=== PATIENT | female | born 1990 | race Caucasian/White ===

== ENCOUNTER 2023-03-31 16:23 | Emergency (ER) | payer OTHER, SELFPAY ==
[2023-03-31 16:27] VITALS: BP 144/81; PULSE 96; RESP 20; TEMP 36.6; O2SAT 97; BMI 32.6
--- NOTE | 2023-03-31 16:54 | ED.GENADUL1 ---
HPI - General Adult General Chief complaint: Headache Stated complaint: Headache Time Seen by Provider: 03/31/23 16:47 Source: patient Mode of arrival: walk-in Limitations: no limitations History of Present Illness HPI narrative: 32 year old female presents to the ED for a frontal headache. Onset was one week ago. She has had intermittent episodes of emesis. States she is 16 weeks . Denies fever, chills, vision changes, weakness, dizziness. Denies sinus congestion/drainage/pressure. Denies CP, cough, SOB, sore throat, diarrhea, urinary sx. Her pain is worse when bending forward. Rates her pain 7/10 at this time. Tylenol has not been helping. Repeat BP during my evaluation was 131/82. Location: Reports head Radiation: Reports non-radiation Severity: moderate Associated symptoms: Reports headaches and nausea/vomiting; Denies confusion, chest pain, cough, diaphoresis, fever/chills, loss of appetite, rash, shortness of breath, syncope or weakness Related Data Home Medications Medication Instructions Recorded Confirmed metoclopramide HCl 10 mg tablet 10 mg PO Q6H PRN headache 03/31/23 03/31/23 (Reglan) prenat.vits,fred,smh-lwvf-snofo 1 tab PO DAILY 03/31/23 03/31/23 Allergies Allergy/AdvReac Type Severity Reaction Status Date / Time No Known Drug Allergies Allergy Verified 03/31/23 16:29 Review of Systems ROS Constitutional Denies: fever, chills or fatigue Eyes Denies: change in vision, light sensitivity or eye discomfort Ears, nose, mouth, and throat Denies: throat pain, neck pain, ear pain, ear discharge, vertigo, nasal discharge or nasal congestion Cardiovascular Denies: chest pain, edema or shortness of breath with exertion Respiratory Denies: shortness of breath or cough Gastrointestinal Reports: nausea and vomiting; Denies: abdominal pain or diarrhea Genitourinary Denies: painful urination Musculoskeletal Denies: back pain or neck pain Integumentary/Breast Denies: rash Neurological Reports: headache; Denies: numbness in extremities, weakness in extremities, lack of coordination, dizziness, vertigo, confusion, slurred speech or involuntary movements Exam Constitutional: Vital Signs - 24 hr 03/31/23 16:27 Temperature 97.8 F Pulse Rate [Monito r] 96 H Respiratory Rate 20 Blood Pressure [Ri ght Arm] 144/81 H Pulse Oximetry 97 Oxygen Delivery Me thod Room Air Common normals: no apparent distress and oriented x3 General appearance: cooperative and well developed; not in distress and not ill appearing Orientation/consciousness: Yes awake HENMT: Common normals: normocephalic, external ears normal, external nose normal, moist oral mucous membranes and oropharynx normal Head and scalp: normal to inspection and normocephalic; no raccoon eyes Face and sinus: normal facial exam, sinuses nontender and face symmetric; no sinus tenderness and no facial edema Nose: external nose normal Mouth: lip normal and tongue normal; no drooling Eye: Common normals: PERRL, EOMs intact bilaterally, conjunctivae normal and no scleral icterus Neck & C-Spine: Common normals: full ROM and supple Cervical spine: cervical ROM normal; no pain with cervical ROM Respiratory: Common normals: normal respiratory effort and clear to auscultation bilaterally Cardio: Common normals: regular rate and regular rhythm Neuro: Common normals: oriented x3, CN's II-XII intact bilaterally, moves all extremities, no focal motor deficits, no sensory deficits noted and gait normal Sensorium/orientation: awake and alert Meningeal signs: no meningeal signs Speech: speech normal Skin: Common normals: no rashes or lesions noted and no jaundice Course Vital Signs Vital signs: Vital Signs Temperature 97.8 F 03/31/23 16:27 Pulse Rate 96 H 03/31/23 16:27 Respiratory Rate 20 03/31/23 16:27 Blood Pressure 144/81 H 03/31/23 16:27 Pulse Oximetry 97 03/31/23 16:27 Oxygen Delivery Method Room Air 03/31/23 16:27 Temperature 97.8 F 03/31/23 16:27 Pulse Rate 96 H 03/31/23 16:27 Respiratory Rate 20 03/31/23 16:27 Blood Pressure 144/81 H 03/31/23 16:27 Pulse Oximetry 97 03/31/23 16:27 Oxygen Delivery Method Room Air 03/31/23 16:27 Medical Decision Making MDM Narrative Medical decision making narrative: The patient was given IV fluids and Reglan with improvement in her discomfort. CBC, BMP, and urinalysis were completed. Results were unremarkable; urine culture is pending. Follow up with [facility] for a recheck, further evaluation and treatment. A prescription was provided for Reglan to take as directed for her discomfort and nausea. Medical Records Medical records reviewed: Yes I reviewed the patient's medical records Lab Data Lab results reviewed: Yes I reviewed the patient's lab results Labs: Lab Results 03/31/23 03/31/23 Range/Units 17:09 17:12 WBC 8.6 (4.0-11.0) 10^3/uL RBC 4.21 (4.20-5.40) 10^6/uL Hgb 13.3 (12.0-16.0) g/dL Hct 37.4 (36.0-48.0) % MCV 88.8 (81.0-99.0) fL MCH 31.6 (26.7-34.0) pg MCHC 35.6 H (29.9-35.2) g/dL RDW 13.3 (11.0-15.0) % Plt Count 172 (150-450) 10^3/uL MPV 10.8 (9.5-13.5) fL Neut % (Auto) 61.6 (43.0-75.0) % Lymph % (Auto) 28.4 (20.5-60.0) % [place] % (Auto) 8.6 (1.7-12.0) % Eos % (Auto) 0.8 L (0.9-7.0) % Baso % (Auto) 0.4 (0.2-2.0) % Neut # (Auto) 5.3 (1.4-6.5) 10^3/uL Lymph # (Auto) 2.4 (1.2-3.8) 10^3/uL [place] # (Auto) 0.7 (0.3-0.8) 10^3/uL Eos # (Auto) 0.1 (0.0-0.7) 10^3/uL Baso # (Auto) 0.0 (0.0-0.1) 10^3/uL Sodium 135 L (136-145) mmol/L Potassium 3.6 (3.5-5.1) mmol/L Chloride 103 (98-107) mmol/L Carbon Dioxide 22.0 (21.0-32.0) mmol/L Anion Gap 13.6 BUN 8.0 (7.0-18.0) mg/dL Creatinine 0.71 (0.55-1.02) mg/dL Est GFR ( Amer) >60 (>=60) Est GFR (Non-Af Amer) >60 (>=60) BUN/Creatinine Ratio 11.3 Glucose 64 L (74-106) mg/dL Calcium 8.4 L (8.5-10.1) mg/dL Total Bilirubin 0.3 (0.2-1.0) mg/dL AST 11 L (15-37) U/L ALT 18 (14-59) U/L Total Protein 6.9 (6.4-8.2) g/dL Albumin 3.3 L (3.4-5.0) g/dL Globulin 3.6 g/dL Albumin/Globulin Ratio 0.9 Urine Color Lt. yellow (YELLOW) Urine Clarity Clear (CLEAR) Urine pH 7.5 (5.0-9.0) Ur Specific [place] 1.010 (1.005-1.025) Urine Protein Negative (NEG/TRACE) mg/dL Urine Glucose (UA) Negative (NEGATIVE) mg/dL Urine Ketones Negative (NEGATIVE) mg/dL Urine Occult Blood Negative (NEGATIVE) Urine Nitrite Negative (NEGATIVE) Urine Bilirubin Negative (NEGATIVE) Urine Urobilinogen 0.2 (0.2-1.0) EU/dL Ur Leukocyte Esterase Trace A (NEGATIVE) Urine RBC 0-2 (0-2) #/HPF Urine WBC 5-10 A (NONE SEEN) #/HPF Ur Squamous Epith Cells Rare (NONE/RARE) #/LPF Ur Culture Indicated? Yes Discharge Plan Discharge Chief Complaint: Headache Clinical Impression: Headache Patient Disposition: Home, Self-Care Time of Disposition Decision: 18:42 Mode of Transportation: Private Vehicle Prescriptions / Home Meds: No Action prenat.vits,fred,[id number] Tablet 1 tab PO DAILY metoclopramide HCl [Reglan] 10 mg tablet 10 mg PO Q6H PRN (Reason: headache) Rx Instructions: NAUSEAA, VOMITING, HEADACHE Instructions: Acute Headache (ED) Additional Instructions: Take the Reglan as directed for your discomfort and nausea. Follow up with your [facility] [employer] for a recheck, further evaluation and treatment. Stand Alone Forms: Portal Instructions Referrals: Physician,Non-Staff, MD [Primary Care Provider] - 1 week
[2023-03-31] MEDS: 0.9 % SODIUM CHLORIDE 1,000 ML 999 ML IV (17:12)
[2023-03-31 17:19] LABS: Basophils Percent Auto 0.4 % (0.2-2.0); Eosinophils Absolute Auto 0.1 10^3/uL (0.0-0.7); Eosinophils Percent Auto 0.8 % (0.9-7.0); Hematocrit 37.4 % (36.0-48.0); Hemoglobin 13.3 g/dL (12.0-16.0); Immature Granulocytes Abs Auto 0.02 10^3/uL (0.00-0.03); Immature Granulocytes Pct Auto 0.2 % (0.0-0.5); Lymphocytes Absolute Auto 2.4 10^3/uL (1.2-3.8); Lymphocytes Percent Auto 28.4 % (20.5-60.0); Mean Corpuscular HGB Conc 35.6 g/dL (29.9-35.2); Mean Corpuscular Hemoglobin 31.6 pg (26.7-34.0); Mean Corpuscular Volume 88.8 fL (81.0-99.0); Mean Platelet Volume 10.8 fL (9.5-13.5); Monocytes Absolute Auto 0.7 10^3/uL (0.3-0.8); Monocytes Percent Auto 8.6 % (1.7-12.0); Neutrophils Absolute Auto 5.3 10^3/uL (1.4-6.5); Neutrophils Percent Auto 61.6 % (43.0-75.0); Platelet Count 172 10^3/uL (150-450); Red Blood Count 4.21 10^6/uL (4.20-5.40); Red Cell Distribution Width 13.3 % (11.0-15.0); White Blood Count 8.6 10^3/uL (4.0-11.0)
[2023-03-31 17:47] LABS: Bilirubin Urine NEGATIVE (NEGATIVE); Blood Urine NEGATIVE (NEGATIVE); Clarity Urine CLEAR (CLEAR); Color Urine LT. YELLOW (YELLOW); Glucose Urine UA NEGATIVE (NEGATIVE); Ketones Urine NEGATIVE (NEGATIVE); Leukocyte Esterase Urine TRACE (NEGATIVE); Nitrite Urine NEGATIVE (NEGATIVE); Protein Urine NEGATIVE (NEG/TRACE); Urobilinogen Urine 0.2 EU/dL (0.2-1.0); pH Urine 7.5 (5.0-9.0)
[2023-03-31 17:53] LABS: Bacteria Urine TRACE #/HPF (NONE SEEN); Cast Seen? NONE SEEN #/LPF (NONE SEEN); Crystals Seen? None Seen #/HPF (None Seen); Mucus Urine NONE SEEN (NONE SEEN); RBC Urine 0-2 #/HPF (0-2); Squamous Epithelial Cell Urine RARE #/LPF (NONE/RARE); Urine Culture Indicated YES
[2023-03-31 17:57] LABS: Alanine Aminotransferase 18 U/L (14-59); Albumin Globulin Ratio 0.9; Albumin Level 3.3 g/dL (3.4-5.0); Alkaline Phosphatase 51 U/L (46-116); Anion Gap 13.6; Aspartate Amino Transferase 11 U/L (15-37); BUN Creatinine Ratio 11.3; Bilirubin Total 0.3 mg/dL (0.2-1.0); Calcium 8.4 mg/dL (8.5-10.1); Chloride 103 mmol/L (98-107); Estimated GFR (African America >60 (>=60); Estimated GFR (Non-African Ame >60 (>=60); Globulin 3.6 g/dL; Glucose 64 mg/dL (74-106); Potassium 3.6 mmol/L (3.5-5.1); Sodium 135 mmol/L (136-145); Total Protein 6.9 g/dL (6.4-8.2)
[2023-03-31] MEDS: METOCLOPRAMIDE HCL 10 MG/2 ML VIAL IVP (18:30)
== END 2023-03-31 18:53 | disposition home or self-care (01) ==
PROVIDERS: Nurse Practitioner Family; Emergency Provider Emergency Medicine
DX: O26.892 Other specified pregnancy related conditions, second trimester (principal); R51.9 Headache, unspecified; Z3A.16 16 weeks gestation of pregnancy
CPT/HCPCS: 36415; 80053; 81001; 81003; 85025; 87086; 87150; 87186; 96374; 99284

== ENCOUNTER 2023-04-03 19:45 | Outpatient (REF) | payer OTHER, SELFPAY ==
[2023-04-06 13:15] LABS: Age Gdln ACOG Testing Note (.); HPV Aptima Negative (Negative); IGP, Aptima HPV, rfx 16/18,45 Note (.)
== END 2023-04-03 19:46 ==
LOC: LAB 19:45
PROVIDERS: PCP Physician Assistant; Visit Provider Physician Assistant
DX: Z12.4 Encounter for screening for malignant neoplasm of cervix (principal)
CPT/HCPCS: 87624; G0145

== ENCOUNTER 2023-05-08 13:12 | Outpatient (OUT) | payer OTHER, SELFPAY ==
--- NOTE | 2023-05-08 13:13 | US_ITS ---
[address] [address] Patient Name: JEANNIE CADE MRN: [id number] date: 1990 Sex: F Assigned Patient Location: US Current Patient Location: US Accession/Order Number: [id number] Exam Date: 05/08/2023 13:14 Report Date: 05/08/2023 16:01 At the request of: MICHAEL LOVING Procedure: US OB transvaginal EXAMINATION: US OB anatomy HISTORY: ANATOMY COMPARISON: No relevant comparison available. TECHNIQUE: Transabdominal sonographic examination was performed for obstetrical and evaluation. FINDINGS: Number: 1 Heart Rate: 163.0 bpm H.B. /min Amniotic Fluid Volume: Subjectively normal. Placental Location: POSTERIOR with lower margin 4.7 cm from os. Cervix Length: 4.4 cm, closed. Trace amount of free fluid within cervical canal. ANATOMY: Normal Structures -cerebellum, choroid plexus, cisterna magna, lateral cerebral ventricles, orbits, midline falx, hard palate, four-chamber heart, RVOT, LVOT, stomach, kidneys, bladder, umbilical cord insertion into abdomen, three-vessel cord, cervical spine, thoracic spine, lumbar spine, sacral spine, right upper extremity, left upper extremity, right lower extremity, left lower extremity. SUBOPTIMALLY SEEN: None ABNORMALITIES: None BIOMETRY: BPD: 4.4 cm 19 weeks 3 days ; <3% HC: 17.5 cm 20 weeks 0 days; 6% AC: 17.0 cm 22 weeks 0 days; 69% FL: 3.7 cm 21 weeks 5 days; 63% EFW:434.4 grams; 68% FL/AC: 21.8 FL/BPD: 83.7 HC/AC: 1.0 GESTATIONAL AGE: Age by EDC: 21 weeks 1 days CARA by EDC: 09/17/2023 Age by current US: 20 weeks 6 days CARA by current US: 09/19/2023 US/US OB transvaginal IMPRESSION: 1. Single live intrauterine with growth detailed above. 2. Biparietal diameter is less than 3rd percentile. Electronically authenticated by: NANCY KING Date: 05/08/2023 16:01
--- NOTE | 2023-05-08 13:13 | US_ITS ---
[address] [address] Patient Name: JEANNIE CADE MRN: [id number] date: 1990 Sex: F Assigned Patient Location: US Current Patient Location: US Accession/Order Number: [id number] Exam Date: 05/08/2023 13:14 Report Date: 05/08/2023 16:01 At the request of: MICHAEL LOVING Procedure: US OB anatomy EXAMINATION: US OB anatomy HISTORY: ANATOMY COMPARISON: No relevant comparison available. TECHNIQUE: Transabdominal sonographic examination was performed for obstetrical and evaluation. FINDINGS: Number: 1 Heart Rate: 163.0 bpm H.B. /min Amniotic Fluid Volume: Subjectively normal. Placental Location: POSTERIOR with lower margin 4.7 cm from os. Cervix Length: 4.4 cm, closed. Trace amount of free fluid within cervical canal. ANATOMY: Normal Structures -cerebellum, choroid plexus, cisterna magna, lateral cerebral ventricles, orbits, midline falx, hard palate, four-chamber heart, RVOT, LVOT, stomach, kidneys, bladder, umbilical cord insertion into abdomen, three-vessel cord, cervical spine, thoracic spine, lumbar spine, sacral spine, right upper extremity, left upper extremity, right lower extremity, left lower extremity. SUBOPTIMALLY SEEN: None ABNORMALITIES: None BIOMETRY: BPD: 4.4 cm 19 weeks 3 days ; <3% HC: 17.5 cm 20 weeks 0 days; 6% AC: 17.0 cm 22 weeks 0 days; 69% FL: 3.7 cm 21 weeks 5 days; 63% EFW:434.4 grams; 68% FL/AC: 21.8 FL/BPD: 83.7 HC/AC: 1.0 GESTATIONAL AGE: Age by EDC: 21 weeks 1 days CARA by EDC: 09/17/2023 Age by current US: 20 weeks 6 days CARA by current US: 09/19/2023 US/US OB anatomy IMPRESSION: 1. Single live intrauterine with growth detailed above. 2. Biparietal diameter is less than 3rd percentile. Electronically authenticated by: NANCY KING Date: 05/08/2023 16:01
== END 2023-05-08 13:13 | disposition home or self-care (01) ==
LOC: US 13:12
PROVIDERS: PCP Physician Assistant; Visit Provider Physician Assistant
DX: Z34.92 Encounter for supervision of normal pregnancy, unspecified, second trimester (principal)
CPT/HCPCS: 76805; 76817

== ENCOUNTER 2023-06-07 19:27 | Outpatient (OUT) | payer OTHER, SELFPAY ==
[2023-06-07 20:06] VITALS: BP 111/70; PULSE 75
[2023-06-07 20:16] LABS: Bilirubin Urine NEGATIVE (NEGATIVE); Blood Urine SMALL (NEGATIVE); Clarity Urine CLEAR (CLEAR); Color Urine LT. YELLOW (YELLOW); Glucose Urine UA NEGATIVE (NEGATIVE); Ketones Urine NEGATIVE (NEGATIVE); Leukocyte Esterase Urine SMALL (NEGATIVE); Nitrite Urine NEGATIVE (NEGATIVE); Protein Urine NEGATIVE (NEG/TRACE); Specific Gravity Urine 1.015 (1.005-1.025); Urobilinogen Urine 0.2 EU/dL (0.2-1.0); pH Urine 6.5 (5.0-9.0)
[2023-06-07 20:18] LABS: Urine Microscopic Indicated YES
[2023-06-07 20:26] LABS: Bacteria Urine LARGE #/HPF (NONE SEEN); Cast Seen? NONE SEEN #/LPF (NONE SEEN); Crystals Seen? None Seen #/HPF (None Seen); Mucus Urine NONE SEEN (NONE SEEN); RBC Urine 0-2 #/HPF (0-2); Squamous Epithelial Cell Urine MANY #/LPF (NONE/RARE); Urine Culture Indicated YES
== END 2023-06-07 21:10 | disposition home or self-care (01) ==
LOC: FBCO 19:29 → FBC 19:31
PROVIDERS: Visit Provider Obstetrics & Gynecology
DX: O26.899 Other specified pregnancy related conditions, unspecified trimester (principal); R10.9 Unspecified abdominal pain
CPT/HCPCS: 59025; 81001; 81003; 87086; 87150

== ENCOUNTER 2023-06-09 11:16 | Emergency (ER) | payer OTHER, SELFPAY ==
[2023-06-09 11:25] VITALS: BP 134/73; PULSE 96; RESP 18; TEMP 37.1; O2SAT 98; BMI 34.4
--- NOTE | 2023-06-09 11:26 | ED_ITS ---
HPI - General Adult General Chief complaint: Back Pain/Injury Stated complaint: FLANK PAIN Time Seen by Provider: 06/09/23 11:26 History of Present Illness HPI narrative: Patient presents to the emergency department complaining of low back pain. Patient is 26 weeks gestation. She states the pain has been ongoing for a week. She was seen and evaluated 2 days ago in labor and delivery. She took a muscle relaxant which has not helped. She also took Tylenol. She states she called labor and delivery and she was told to come to the emergency department to rule out a kidney stone. Patient denies any abdominal pain, contractions. She states the pain radiates from her back to her pelvis. She denies any vaginal bleeding, discharge. She denies any hematuria, dysuria. She denies any nausea, vomiting, diarrhea, or constipation. She states she has felt movent. Related Data Home Medications Medication Instructions Recorded Confirmed prenat.vits,fred,[id number] 1 tab PO DAILY 03/31/23 06/09/23 Previous Rx's Medication Instructions Recorded hydrocodone 5 mg-acetaminophen 325 1 tab PO Q8H PRN pain 3 days #7 06/09/23 mg tablet tabs nitrofurantoin 100 mg PO DAILY #14 caps 06/09/23 monohydrate/macrocrystals 100 mg capsule (Macrobid) Allergies Allergy/AdvReac Type Severity Reaction Status Date / Time No Known Drug Allergies Allergy Verified 06/09/23 11:25 Review of Systems ROS Status of ROS 10 or more systems reviewed and unremarkable except as noted in history and below PFSH PFS Social History Smoking status: Never smoker Exam Narrative Exam Narrative: Nurses notes and vital signs reviewed and patient is not hypoxic. General: Nontoxic, Well-appearing and in no apparent distress. Skin: Warm, dry, no pallor noted. No Rash Head: Normocephalic, atraumatic. Neck: Supple, non-tender. Eye: Pupils are equal, round and EOMI. No scleral icterus. Ears, Nose, Mouth, and Throat: TM clear, no posterior oropharynx erythema or nasal mucosal hypertrophy, uvula is mid-line Oral mucosa is moist Cardiovascular: Regular Rate and Rhythm without murmur, gallop or rub. Respiratory: No accessory muscle use or respiratory distress. Lungs are clear to auscultation, no wheezing, rales or rhonchi Chest Wall: no tenderness Back: No midline thoracic or lumbar vertebral tenderness. Tenderness to palpation to bilateral lumbar paraspinal muscles.No CVA tenderness Musculoskeletal: normal ROM, no calf or popliteal tenderness, no lower extremity edema/swelling GI: Gravid fundus 1 cm Above the umb the umbilicus. Abdomen is soft, non- distended. Normal bowel sounds. No masses appreciated. No tenderness to palpation. No rebound, guarding, or rigidity noted. Neurological: A&O x4. No cranial nerve dysfunction observed. No truncal ataxia. Moves all extremities. Sensation intact. Psychiatric: Cooperative and interactive. Normal mood and affect. Constitutional Vital Signs, click to edit/add: Last Vital Signs Temp 98.7 F 06/09/23 12:50 Pulse 94 H 06/09/23 12:50 Resp 16 06/09/23 12:50 BP 113/60 06/09/23 12:50 Pulse Ox 98 06/09/23 12:50 O2 Del Method Room Air 06/09/23 12:50 Course Vital Signs Vital signs: Vital Signs Temperature 98.7 F 06/09/23 11:25 Pulse Rate 96 H 06/09/23 11:25 Respiratory Rate 18 06/09/23 11:25 Blood Pressure 134/73 06/09/23 11:25 Pulse Oximetry 98 06/09/23 11:25 Oxygen Delivery Method Room Air 06/09/23 11:25 Temperature 98.7 F 06/09/23 12:50 Pulse Rate 94 H 06/09/23 12:50 Respiratory Rate 16 06/09/23 12:50 Blood Pressure 113/60 06/09/23 12:50 Pulse Oximetry 98 06/09/23 12:50 Oxygen Delivery Method Room Air 06/09/23 12:50 Medical Decision Making MDM Narrative Medical decision making narrative: Patient's heart tones 152. Patient was discussed with Dr. Samano who advised the patient can be seen in the emergency department 1st and she will send a nurse to monitor the patient. Delivery nurse came and did a 10 minute palpation to the patient's abdomen and there were no contractions. Ultrasound of the flank does not show any stones. Ultrasound of placenta did not show any contractions either. Patient is nontoxic, she started on Macrobid. Discussed with the patient using narcotic as pain medication during and she understands the risks and the benefits. She will follow up with Dr. Keturah Caputo morning. At this time the patient is without objective evidence of an acute process requiring hospitalization or inpatient management. The patient has remained hemodynamically stable. No additional indication for emergent studies at this time. I answered all questions. Discussed discharge instructions including standard anticipatory guidance and what should prompt a return to the emergency department, including if they get worse are not getting better or develops any new or concerning symptoms. I've given them specific time frame in which to follow-up, and who to follow-up with. The patient demonstrates understanding. Patient is nontoxic and stable for discharge with outpatient follow-up. This note was created with the assistance of a speech recognition program. Although the intention is to generate documents that actually reflects the content of the visit, no guarantees can be provided that every mistake has been identified and corrected by editing. Medical Records Medical records reviewed: Yes I reviewed the patient's medical records Lab Data Lab results reviewed: Yes I reviewed the patient's lab results Labs: Lab Results 06/09/23 Range/Units 11:35 WBC 6.9 (4.0-11.0) 10^3/uL RBC 3.79 L (4.20-5.40) 10^6/uL Hgb 12.1 (12.0-16.0) g/dL Hct 34.7 L (36.0-48.0) % MCV 91.6 (81.0-99.0) fL MCH 31.9 (26.7-34.0) pg MCHC 34.9 (29.9-35.2) g/dL RDW 13.1 (11.0-15.0) % Plt Count 153 (150-450) 10^3/uL MPV 10.9 (9.5-13.5) fL Neut % (Auto) 67.7 (43.0-75.0) % Lymph % (Auto) 19.4 L (20.5-60.0) % [place] % (Auto) 6.5 (1.7-12.0) % Eos % (Auto) 5.4 (0.9-7.0) % Baso % (Auto) 0.4 (0.2-2.0) % Neut # (Auto) 4.7 (1.4-6.5) 10^3/uL Lymph # (Auto) 1.3 (1.2-3.8) 10^3/uL [place] # (Auto) 0.5 (0.3-0.8) 10^3/uL Eos # (Auto) 0.4 (0.0-0.7) 10^3/uL Baso # (Auto) 0.0 (0.0-0.1) 10^3/uL Abs Immat Gran (auto) 0.04 H (0.00-0.03) 10^3/uL Imm/Tot Granulo (auto) 0.6 H (0.0-0.5) % Sodium 134 L (136-145) mmol/L Potassium 3.6 (3.5-5.1) mmol/L Chloride 104 (98-107) mmol/L Carbon Dioxide 22.2 (21.0-32.0) mmol/L Anion Gap 11.4 BUN 6.0 L (7.0-18.0) mg/dL Creatinine 0.70 (0.55-1.02) mg/dL Est GFR ( Amer) >60 (>=60) Est GFR (Non-Af Amer) >60 (>=60) BUN/Creatinine Ratio 8.6 Glucose 125 H (74-106) mg/dL Calcium 8.3 L (8.5-10.1) mg/dL Total Bilirubin 0.3 (0.2-1.0) mg/dL AST 12 L (15-37) U/L ALT 14 (14-59) U/L Alkaline Phosphatase 42 L (46-116) U/L Total Protein 6.4 (6.4-8.2) g/dL Albumin 2.9 L (3.4-5.0) g/dL Globulin 3.5 g/dL Albumin/Globulin Ratio 0.8 Urine Color Lt. yellow (YELLOW) Urine Clarity Clear (CLEAR) Urine pH 7.0 (5.0-9.0) Ur Specific [place] 1.015 (1.005-1.025) Urine Protein Negative (NEG/TRACE) mg/dL Urine Glucose (UA) Negative (NEGATIVE) mg/dL Urine Ketones Negative (NEGATIVE) mg/dL Urine Occult Blood Trace-i (NEGATIVE) Urine Nitrite Negative (NEGATIVE) Urine Bilirubin Negative (NEGATIVE) Urine Urobilinogen 0.2 (0.2-1.0) EU/dL Ur Leukocyte Esterase Moderate A (NEGATIVE) Urine RBC 2-5 A (0-2) #/HPF Urine WBC 10-20 A (NONE SEEN) #/HPF Ur Squamous Epith Cells Few A (NONE/RARE) #/LPF Urine Crystals None seen (None Seen) #/HPF Urine Bacteria Small A (NONE SEEN) #/HPF Urine Casts None seen (NONE SEEN) #/LPF Urine Mucus None seen (NONE SEEN) Ur Culture Indicated? Yes Discharge Plan Discharge Chief Complaint: Back Pain/Injury Clinical Impression: Low back pain, UTI (urinary tract infection) Patient Disposition: Home, Self-Care Time of Disposition Decision: 12:38 Condition: Good Mode of Transportation: Private Vehicle Prescriptions / Home Meds: New hydrocodone-acetaminophen 5-325 mg tablet 1 tab PO Q8H PRN (Reason: pain) 3 Days Qty: 7 0RF nitrofurantoin monohyd/m-cryst [Macrobid] 100 mg capsule 100 mg PO DAILY Qty: 14 0RF No Action prenat.vits,fred,trd-luhk-eyddl Tablet 1 tab PO DAILY Instructions: Acute Low Back Pain (ED), Urinary Tract Infection in (ED) Stand Alone Forms: Portal Instructions Referrals: Marv Rebollar DO [Physician] - 1 week Physician,Non-Staff, MD [Primary Care Provider] - 1 week Discharge Date/Time: 06/09/23 12:56
--- NOTE | 2023-06-09 11:28 | US_ITS ---
The [address] [address] Patient Name: JEANNIE CADE MRN: [id number] date: 1990 Sex: F Assigned Patient Location: ED.MAIN Current Patient Location: ER Accession/Order Number: [id number] Exam Date: 06/09/2023 11:30 Report Date: 06/09/2023 12:15 At the request of: GUERDA PINTO Procedure: US renal BI EXAMINATION: US renal BI HISTORY: flank pain, COMPARISON: No relevant comparison available. TECHNIQUE: Ultrasound examination was performed of the kidneys and urinary bladder. FINDINGS: RIGHT KIDNEY: Mildly dilated renal calyces and pelvis. No appreciable stones or mass. Color Doppler demonstrates blood flow within the kidney. Kidney: 12.4 x 6.0 x 5.2 cm LEFT KIDNEY: No evidence of pelvocaliectasis, mass, or calculi. Normal renal cortical parenchymal echogenicity. Color Doppler demonstrates blood flow within the kidney. Kidney: 10.9 x 4.9 x 5.0 cm US/US renal BI IMPRESSION: 1. Minimal right hydronephrosis; possibly -induced. 2. Otherwise normal appearance of the kidneys. Electronically authenticated by: NANCY KING Date: 06/09/2023 12:15
--- NOTE | 2023-06-09 11:43 | US_ITS ---
[place] [id number] Patient Name: JEANNIE CADE MRN: [id number] date: 1990 Sex: F Assigned Patient Location: ER Current Patient Location: ER Accession/Order Number: [id number] Exam Date: 06/09/2023 11:30 Report Date: 06/09/2023 12:13 At the request of: GUERDA PINTO Procedure: US OB placenta EXAMINATION: US OB placenta HISTORY: back pain COMPARISON: Ultrasound OB anatomy 05/08/2023 FINDINGS: PLACENTA: Posterior without previa. No subchorionic hematoma or abruption. HEART RATE: 153 bpm OTHER: Amniotic fluid volume is suspected to be normal. US/US OB placenta IMPRESSION: 1. Single live intrauterine 25 weeks 5 days. 2. Normal-appearing posterior placenta. No acute findings. Electronically authenticated by: NANCY KING Date: 06/09/2023 12:13
[2023-06-09] MEDS: 0.9 % SODIUM CHLORIDE 1,000 ML 1000 ML IV (11:46)
[2023-06-09 11:49] LABS: Basophils Percent Auto 0.4 % (0.2-2.0); Eosinophils Absolute Auto 0.4 10^3/uL (0.0-0.7); Eosinophils Percent Auto 5.4 % (0.9-7.0); Hematocrit 34.7 % (36.0-48.0); Hemoglobin 12.1 g/dL (12.0-16.0); Immature Granulocytes Abs Auto 0.04 10^3/uL (0.00-0.03); Immature Granulocytes Pct Auto 0.6 % (0.0-0.5); Lymphocytes Absolute Auto 1.3 10^3/uL (1.2-3.8); Lymphocytes Percent Auto 19.4 % (20.5-60.0); Mean Corpuscular HGB Conc 34.9 g/dL (29.9-35.2); Mean Corpuscular Hemoglobin 31.9 pg (26.7-34.0); Mean Corpuscular Volume 91.6 fL (81.0-99.0); Mean Platelet Volume 10.9 fL (9.5-13.5); Monocytes Absolute Auto 0.5 10^3/uL (0.3-0.8); Monocytes Percent Auto 6.5 % (1.7-12.0); Neutrophils Absolute Auto 4.7 10^3/uL (1.4-6.5); Neutrophils Percent Auto 67.7 % (43.0-75.0); Platelet Count 153 10^3/uL (150-450); Red Blood Count 3.79 10^6/uL (4.20-5.40); Red Cell Distribution Width 13.1 % (11.0-15.0); White Blood Count 6.9 10^3/uL (4.0-11.0)
[2023-06-09 11:58] LABS: Alanine Aminotransferase 14 U/L (14-59); Albumin Globulin Ratio 0.8; Albumin Level 2.9 g/dL (3.4-5.0); Alkaline Phosphatase 42 U/L (46-116); Anion Gap 11.4; Aspartate Amino Transferase 12 U/L (15-37); BUN Creatinine Ratio 8.6; Bilirubin Total 0.3 mg/dL (0.2-1.0); Calcium 8.3 mg/dL (8.5-10.1); Carbon Dioxide 22.2 mmol/L (21.0-32.0); Chloride 104 mmol/L (98-107); Estimated GFR (African America >60 (>=60); Estimated GFR (Non-African Ame >60 (>=60); Globulin 3.5 g/dL; Glucose 125 mg/dL (74-106); Potassium 3.6 mmol/L (3.5-5.1); Sodium 134 mmol/L (136-145); Total Protein 6.4 g/dL (6.4-8.2)
[2023-06-09 12:24] LABS: Bilirubin Urine NEGATIVE (NEGATIVE); Blood Urine TRACE-I (NEGATIVE); Clarity Urine CLEAR (CLEAR); Color Urine LT. YELLOW (YELLOW); Glucose Urine UA NEGATIVE (NEGATIVE); Ketones Urine NEGATIVE (NEGATIVE); Leukocyte Esterase Urine MODERATE (NEGATIVE); Nitrite Urine NEGATIVE (NEGATIVE); Protein Urine NEGATIVE (NEG/TRACE); Specific Gravity Urine 1.015 (1.005-1.025); Urobilinogen Urine 0.2 EU/dL (0.2-1.0)
[2023-06-09 12:25] LABS: Urine Microscopic Indicated YES
[2023-06-09 12:38] LABS: Bacteria Urine SMALL #/HPF (NONE SEEN); Cast Seen? NONE SEEN #/LPF (NONE SEEN); Crystals Seen? None Seen #/HPF (None Seen); Mucus Urine NONE SEEN (NONE SEEN); Squamous Epithelial Cell Urine FEW #/LPF (NONE/RARE); Urine Culture Indicated YES
[2023-06-09 12:50] VITALS: BP 113/60; PULSE 94; RESP 16; TEMP 37.1; O2SAT 98
--- NOTE | 2023-06-12 11:23 | PC.NURSE ---
06/12/[address] garcia reviewed pt urine c+s from 06/09/23 no atb change to keflex 500mg 1 po tid times 10 days, no answer left message. Tommy Villa RN
== END 2023-06-09 12:56 | disposition home or self-care (01) ==
PROVIDERS: Emergency Provider Emergency Medicine
DX: O23.42 Unspecified infection of urinary tract in pregnancy, second trimester (principal); N39.0 Urinary tract infection, site not specified; O26.892 Other specified pregnancy related conditions, second trimester; M54.50 Low back pain, unspecified; Z3A.26 26 weeks gestation of pregnancy
CPT/HCPCS: 36415; 76775; 76815; 80053; 81001; 85025; 87086; 87150; 99285

== ENCOUNTER 2023-06-15 09:16 | Outpatient (OUT) | payer OTHER, SELFPAY ==
--- NOTE | 2023-06-15 09:18 | US_ITS ---
[address] [address] Patient Name: JEANNIE CADE MRN: [id number] date: 1990 Sex: F Assigned Patient Location: US Current Patient Location: US Accession/Order Number: [id number] Exam Date: 06/15/2023 09:19 Report Date: 06/15/2023 15:35 At the request of: JANY JONES Procedure: US OB BPP wo non-stress EXAMINATION: US OB BPP wo non-stress HISTORY: LEAKING FLUID COMPARISON: No relevant comparison available. TECHNIQUE: Ultrasound biophysical profile was performed in the radiology department. BREATHING MOVEMENTS: 0.0 GROSS BODY MOVEMENTS: 2.0 TONE: 2.0 QUALITATIVE AMNIOTIC FLUID VOLUME: 2.0 PRESENTATION: BREECH HEART RATE: 158.0 bpm bpm. AMNIOTIC FLUID VOLUME: 11.8 cm GESTATIONAL AGE: 26 weeks 4 days CONCLUSION: Total biophysical profile score 6.0. Electronically authenticated by: NANCY KING Date: 06/15/2023 15:35
== END 2023-06-15 09:17 | disposition home or self-care (01) ==
LOC: US 09:16
PROVIDERS: Visit Provider Obstetrics & Gynecology
DX: O26.892 Other specified pregnancy related conditions, second trimester (principal); N89.8 Other specified noninflammatory disorders of vagina; Z3A.26 26 weeks gestation of pregnancy
CPT/HCPCS: 76818; 76819

== ENCOUNTER 2023-07-01 09:59 | Outpatient (OUT) | payer OTHER, SELFPAY ==
[2023-07-01 10:04] LABS: Basophils Percent Auto 0.3 % (0.2-2.0); Eosinophils Absolute Auto 0.2 10^3/uL (0.0-0.7); Eosinophils Percent Auto 3.5 % (0.9-7.0); Hematocrit 33.3 % (36.0-48.0); Hemoglobin 11.5 g/dL (12.0-16.0); Immature Granulocytes Abs Auto 0.06 10^3/uL (0.00-0.03); Lymphocytes Absolute Auto 1.2 10^3/uL (1.2-3.8); Lymphocytes Percent Auto 18.8 % (20.5-60.0); Mean Corpuscular HGB Conc 34.5 g/dL (29.9-35.2); Mean Corpuscular Hemoglobin 31.7 pg (26.7-34.0); Mean Corpuscular Volume 91.7 fL (81.0-99.0); Monocytes Absolute Auto 0.4 10^3/uL (0.3-0.8); Monocytes Percent Auto 6.3 % (1.7-12.0); Neutrophils Absolute Auto 4.4 10^3/uL (1.4-6.5); Neutrophils Percent Auto 70.1 % (43.0-75.0); Platelet Count 142 10^3/uL (150-450); Red Blood Count 3.63 10^6/uL (4.20-5.40); Red Cell Distribution Width 13.1 % (11.0-15.0); White Blood Count 6.2 10^3/uL (4.0-11.0)
[2023-07-01 10:28] LABS: Glucose 1 Hour 148 mg/dL
== END 2023-07-01 10:00 | disposition home or self-care (01) ==
LOC: LAB 07-07 09:59
PROVIDERS: PCP Obstetrics & Gynecology; Visit Provider Obstetrics & Gynecology
DX: Z34.92 Encounter for supervision of normal pregnancy, unspecified, second trimester (principal)
CPT/HCPCS: 36415; 82950; 85025

== ENCOUNTER 2023-07-13 08:26 | Outpatient (OUT) | payer OTHER, SELFPAY ==
[2023-07-13 08:49] LABS: Glucose Fasting 94 mg/dL (74-106)
[2023-07-13 10:41] LABS: Glucose 1 Hour 140 mg/dL
[2023-07-13 11:35] LABS: Glucose 2 Hour 121 mg/dL
[2023-07-13 12:17] LABS: Glucose 3 Hour 65 mg/dL
== END 2023-07-13 08:27 | disposition home or self-care (01) ==
LOC: LAB 08:27
PROVIDERS: Visit Provider Obstetrics & Gynecology
DX: Z34.93 Encounter for supervision of normal pregnancy, unspecified, third trimester (principal)
CPT/HCPCS: 36415; 82951; 82952

== ENCOUNTER 2023-07-18 13:01 | Outpatient (OUT) | payer OTHER, SELFPAY ==
--- NOTE | 2023-07-18 13:03 | US_ITS ---
The [address] [address] Patient Name: JEANNIE CADE MRN: [id number] date: 1990 Sex: F Assigned Patient Location: Current Patient Location: US Accession/Order Number: [id number] Exam Date: 07/18/2023 13:03 Report Date: 07/18/2023 15:24 At the request of: JANY REBOLLAR Procedure: US OB growth EXAMINATION: US OB growth HISTORY: SIZE INCONSISTENT WITH DATES COMPARISON: No relevant comparison available. FINDINGS: Heart Rate: 146.0 bpm Number: 1.0 Position: CEPHALIC Amniotic Fluid Volume: 7.6 cm Maximum Vertical Pocket: 3.2 cm BIOMETRY: BPD: 7.9 cm cm; 31 weeks 4 days; 48% HC: 29.7 cmcm; 32 weeks 6 days; 50% AC: 28.3 cm cm; 32 weeks 3 days; 78% FL: 6.0 cm cm; 31 weeks 1 days; 31% EFW: 1875.6 grams; 62% FL/AC: 21.1 FL/BPD: 76.0 HC/AC: 1.1 GESTATIONAL AGE: Age by EDC: 31 weeks 2 days CARA by EDC: 09/17/2023 Age by US: 32 weeks 0 days CARA by US: 09/12/2023 US/US OB growth IMPRESSION: 1. Single live intrauterine with growth detailed above. 2. Oligohydramnios; new since prior study. Dr. Rebollar was notified of these findings by the jewelsmith at time of imaging. Electronically authenticated by: NANCY KING Date: 07/18/2023 15:24
== END 2023-07-18 13:02 | disposition home or self-care (01) ==
LOC: US 13:01
PROVIDERS: Visit Provider Obstetrics & Gynecology
DX: O26.849 Uterine size-date discrepancy, unspecified trimester (principal); O26.843 Uterine size-date discrepancy, third trimester; O41.03X0 Oligohydramnios, third trimester, not applicable or unspecified; Z3A.31 31 weeks gestation of pregnancy
CPT/HCPCS: 76816

== ENCOUNTER 2023-07-18 17:28 | Observation (INO) | payer OTHER, SELFPAY ==
[2023-07-18 17:55] VITALS: BP 121/63; PULSE 99
[2023-07-18] MEDS: 0.9 % SODIUM CHLORIDE 1,000 ML 1000 ML IV ×2 (18:06→19:25)
[2023-07-18 18:23] LABS: Basophils Percent Auto 0.3 % (0.2-2.0); Eosinophils Absolute Auto 0.2 10^3/uL (0.0-0.7); Eosinophils Percent Auto 3.2 % (0.9-7.0); Hematocrit 29.6 % (36.0-48.0); Hemoglobin 10.3 g/dL (12.0-16.0); Immature Granulocytes Abs Auto 0.04 10^3/uL (0.00-0.03); Immature Granulocytes Pct Auto 0.6 % (0.0-0.5); Lymphocytes Absolute Auto 1.4 10^3/uL (1.2-3.8); Lymphocytes Percent Auto 20.6 % (20.5-60.0); Mean Corpuscular HGB Conc 34.8 g/dL (29.9-35.2); Mean Corpuscular Hemoglobin 31.4 pg (26.7-34.0); Mean Corpuscular Volume 90.2 fL (81.0-99.0); Mean Platelet Volume 11.2 fL (9.5-13.5); Monocytes Absolute Auto 0.5 10^3/uL (0.3-0.8); Monocytes Percent Auto 7.2 % (1.7-12.0); Neutrophils Absolute Auto 4.6 10^3/uL (1.4-6.5); Neutrophils Percent Auto 68.1 % (43.0-75.0); Platelet Count 133 10^3/uL (150-450); Red Blood Count 3.28 10^6/uL (4.20-5.40); White Blood Count 6.8 10^3/uL (4.0-11.0)
--- NOTE | 2023-07-18 19:36 | PC.NURSE ---
[id number] argueta
[2023-07-18 19:58] LABS: Amnisure NEGATIVE (NEGATIVE)
[2023-07-18] MEDS: PROMETHAZINE HCL 25 MG TABLET 12.5 MG PO (22:16)
[2023-07-19 01:38] VITALS: BP 101/52; PULSE 82
--- NOTE | 2023-07-19 08:33 | US_ITS ---
[address] [address] Patient Name: JEANNIE CADE MRN: [facility]:[id number] date: 1990 Sex: F Assigned Patient Location: [facility] Current Patient Location: Accession/Order Number: [id number] Exam Date: 07/19/2023 08:18 Report Date: 07/19/2023 15:22 At the request of: JANY JONES Procedure: US OB BPP w non-stress EXAMINATION: US OB BPP w non-stress HISTORY: low laura 07/18 (7.8) COMPARISON: Ultrasound OB growth 07/18/2023 TECHNIQUE: Ultrasound biophysical profile was performed in the radiology department. BREATHING MOVEMENTS: 2.0 GROSS BODY MOVEMENTS: 2.0 TONE: 2.0 QUALITATIVE AMNIOTIC FLUID VOLUME: 2.0 PRESENTATION: CEPHALIC HEART RATE: 152.5 bpm bpm. AMNIOTIC FLUID VOLUME: 10.1 cm GESTATIONAL AGE: 31 weeks 3 days CONCLUSION: Total biophysical profile score 8.0. Electronically authenticated by: NANCY KING Date: 07/19/2023 15:22
== END 2023-07-19 09:51 | disposition home or self-care (01) ==
PROVIDERS: Admitting Provider Obstetrics & Gynecology; Visit Provider Obstetrics & Gynecology
DX: O26.843 Uterine size-date discrepancy, third trimester (principal); O41.03X0 Oligohydramnios, third trimester, not applicable or unspecified; Z3A.31 31 weeks gestation of pregnancy
CPT/HCPCS: 36415; 59025; 76816; 76818; 84112; 85025; G0378; G0379

== ENCOUNTER 2023-07-22 08:35 | Outpatient (OUT) | payer OTHER, SELFPAY ==
[2023-07-22 08:52] VITALS: BP 108/60; PULSE 97
== END 2023-07-22 09:13 | disposition home or self-care (01) ==
LOC: FBCO 08:38 → FBC 08:39
PROVIDERS: Visit Provider Obstetrics & Gynecology
DX: O41.00X0 Oligohydramnios, unspecified trimester, not applicable or unspecified (principal); Z3A.00 Weeks of gestation of pregnancy not specified
CPT/HCPCS: 59025

== ENCOUNTER 2023-07-26 08:30 | Outpatient (OUT) | payer OTHER, SELFPAY ==
--- NOTE | 2023-07-26 12:58 | US_ITS ---
[address] [address] Patient Name: JEANNIE CADE MRN: [id number] date: 1990 Sex: F Assigned Patient Location: US Current Patient Location: Accession/Order Number: [id number] Exam Date: 07/26/2023 13:00 Report Date: 07/26/2023 18:26 At the request of: JANY JONES Procedure: US OB BPP w non-stress EXAMINATION: US OB BPP w non-stress HISTORY: OLIGOHYRDAMINOS COMPARISON: No relevant comparison available. TECHNIQUE: Ultrasound biophysical profile was performed in the radiology department. FINDINGS: BREATHING MOVEMENTS: 2 GROSS BODY MOVEMENTS: 2 TONE: 2 QUALITATIVE AMNIOTIC FLUID VOLUME: 2 PRESENTATION: CEPHALIC HEART RATE: 159.8 bpm H.B./min AMNIOTIC FLUID VOLUME: 7.6 cm cm GESTATIONAL AGE: 32 weeks 3 days CONCLUSION: Total biophysical profile score: 8 Electronically authenticated by: AMRITA JIN Date: 07/26/2023 18:26
[2023-07-26 13:21] VITALS: BP 130/68; PULSE 110
== END 2023-07-26 14:30 | disposition home or self-care (01) ==
LOC: US 08:32 → FBC 13:09
PROVIDERS: Visit Provider Obstetrics & Gynecology
DX: O41.03X0 Oligohydramnios, third trimester, not applicable or unspecified (principal); Z3A.32 32 weeks gestation of pregnancy
CPT/HCPCS: 76818

== ENCOUNTER 2023-07-28 12:28 | Outpatient (OUT) | payer OTHER, SELFPAY ==
[2023-07-28 12:45] VITALS: BP 118/79; PULSE 117
[2023-07-28 13:01] LABS: Bilirubin Urine NEGATIVE (NEGATIVE); Blood Urine NEGATIVE (NEGATIVE); Clarity Urine CLEAR (CLEAR); Color Urine LT. YELLOW (YELLOW); Glucose Urine UA NEGATIVE (NEGATIVE); Ketones Urine NEGATIVE (NEGATIVE); Leukocyte Esterase Urine NEGATIVE (NEGATIVE); Nitrite Urine NEGATIVE (NEGATIVE); Protein Urine NEGATIVE (NEG/TRACE); Urobilinogen Urine 0.2 EU/dL (0.2-1.0)
--- NOTE | 2023-07-28 13:02 | US_ITS ---
[address] [address] Patient Name: JEANNIE CADE MRN: [facility]:[id number] date: 1990 Sex: F Assigned Patient Location: [facility] Current Patient Location: [facility] Accession/Order Number: [id number] Exam Date: 07/28/2023 13:05 Report Date: 07/28/2023 13:45 At the request of: JANY JONES Procedure: US OB amniotic fluid vol PROCEDURE: US OB amniotic fluid vol, 07/28/2023 1:05 PM EDT CLINICAL INDICATIONS: Encounter for third trimester , amniotic fluid assessment. History of oligohydramnios 4 para 3 Expected gestational age: 32 weeks 5 days Expected CARA: 09/17/2023. COMPARISON: 07/26/2023 TECHNIQUE: Limited third trimester obstetric sonogram, grayscale, color evaluation FINDINGS: Single living intrauterine identified with cephalic presentation. body, cardiac activity is noted, heart rate 132 bpm. Posterior placenta, no previa. Amniotic fluid index 8.7 cm, 5-95 percentile, maximum vertical pocket 3.7 cm. (8.6 cm JULIANA consistent with fifth percentile) biometry: Not performed. anatomic assessment: Not performed. Maternal adnexa pathology is not demonstrated. US/US OB amniotic fluid vol IMPRESSION: 1. Single living intrauterine , cephalic presentation 2. Posterior placenta, no previa 3. Amniotic fluid index 8.7 cm, maximum vertical pocket 3.7 cm. Previous amniotic fluid index 7.6 cm Electronically authenticated by: CIRA BUTLER Date: 07/28/2023 13:45
[2023-07-28 13:12] LABS: Urine Microscopic Indicated NO
== END 2023-07-28 14:00 | disposition home or self-care (01) ==
LOC: FBCO 12:30 → FBC 12:34
PROVIDERS: Visit Provider Obstetrics & Gynecology Gynecology
DX: O41.03X0 Oligohydramnios, third trimester, not applicable or unspecified (principal); O47.03 False labor before 37 completed weeks of gestation, third trimester; Z3A.32 32 weeks gestation of pregnancy
CPT/HCPCS: 76815; 81003

== ENCOUNTER 2023-08-02 07:36 | Outpatient (OUT) | payer OTHER, SELFPAY ==
--- NOTE | 2023-08-02 12:53 | US_ITS ---
[address] [address] Patient Name: JEANNIE CADE MRN: [id number] date: 1990 Sex: F Assigned Patient Location: US Current Patient Location: US Accession/Order Number: [id number] Exam Date: 08/02/2023 13:08 Report Date: 08/02/2023 19:54 At the request of: JANY JONES Procedure: US OB BPP w non-stress EXAMINATION: US OB BPP w non-stress HISTORY: LOW JULIANA COMPARISON: No relevant comparison available. TECHNIQUE: Ultrasound biophysical profile was performed in the radiology department. FINDINGS: BREATHING MOVEMENTS: 2 GROSS BODY MOVEMENTS: 2 TONE: 2 QUALITATIVE AMNIOTIC FLUID VOLUME: 2 PRESENTATION: Cephalic HEART RATE: 141 H.B./min AMNIOTIC FLUID VOLUME: 10.4 cm CONCLUSION: Total biophysical profile score: 8 Electronically authenticated by: AMRITA JIN Date: 08/02/2023 19:54
--- NOTE | 2023-08-02 13:04 | US_ITS ---
[address] [address] Patient Name: JEANNIE CADE MRN: [facility]:[id number] date: 1990 Sex: F Assigned Patient Location: Current Patient Location: Accession/Order Number: [id number] Exam Date: 08/02/2023 13:08 Report Date: 08/02/2023 19:58 At the request of: JANY JONES Procedure: US OB umbilical artery EXAMINATION: US OB umbilical artery HISTORY: OLIGOHYDRAMINOS O41.00X0 COMPARISON: No relevant comparison available. TECHNIQUE: Duplex Doppler evaluation of the umbilical arteries. FINDINGS: position: Cephalic Amniotic fluid: 2.4 cm, largest fluid pocket: 5.0 cm Heart rate: 1 41 bpm Proximal umbilical artery PSV/EDV: 161/58 cm/s. Resistive index 0.64. Ratio 2.8 Mid umbilical artery PSV/EDV: 115/78 cm/s. Resistive index 0.32. Ratio 1.5 Distal umbilical artery PSV/EDV: 77/29 cm/s. Resistive index 0.60. Ratio 2.6 Forward flow identified throughout diastole Clinical age: 33 weeks 3 days US/US OB umbilical artery IMPRESSION: Normal exam. Class 0 Umbilical Artery: Class 0 = Normal umbilical artery blood velocity Class I = increased RI or PI, but still forward flow in diastole Class II = Absent end diastolic flow (AEDF) Class III = Reversal of end diastolic flow (REDF) Resistive Index (RI)<1 Systolic/Diastolic ratio (S:D): An S:D ratio of 2-3 after 34 wks is normal Systolic/Diastolic ratio (S:D): Age 16: 3.01 for the 10th percentile, 4.25 for the 50th percentile, 6.07 for the 90th percentile Age 20: 3.16 for the 10th percentile, 4.04 for the 50th percentile, 5.24 for the 90th percentile Age 24: 2.70 for the 10th percentile, 3.50 for the 50th percentile, 4.75 for the 90th percentile Age 28: 2.41 for the 10th percentile, 3.02 for the 50th percentile, 3.97 for the 90th percentile Age 30: 2.43 for the 10th percentile, 3.04 for the 50th percentile, 3.80 for the 90th percentile Age 32: 2.27 for the 10th percentile, 2.73 for the 50th percentile, 3.57 for the 90th percentile Age 34: 2.08 for the 10th percentile, 2.52 for the 50th percentile, 3.41 for the 90th percentile Age 36: 1.96 for the 10th percentile, 2.35 for the 50th percentile, 3.15 for the 90th percentile Age 38: 1.89 for the 10th percentile, 2.24 for the 50th percentile, 3.10 for the 90th percentile Age 40: 1.88 for the 10th percentile, 2.22 for the 50th percentile, 2.68 for the 90th percentile Age 41: 1.93 for the 10th percentile, 2.21 for the 50th percentile, 2.55 for the 90th percentile Age 42: 1.91 for the 10th percentile, 2.51 for the 50th percentile, 3.21 for the 90th percentile Uteroplacental Artery: Resistive Index (RI): Normal=<0.55 High Resistance=Bilateral notches (after 26 wks) and RI>0.55. Unilateral notches (after 26 wks) and RI>0.65 Systolic/Diastolic ratio (S:D) = 2-3 is normal after 32 weeks. Electronically authenticated by: AMRITA JIN Date: 08/02/2023 19:58
== END 2023-08-02 14:08 | disposition home or self-care (01) ==
LOC: US 07:37 → FBC 12:53
PROVIDERS: Visit Provider Obstetrics & Gynecology
DX: O41.03X0 Oligohydramnios, third trimester, not applicable or unspecified (principal); Z3A.33 33 weeks gestation of pregnancy
CPT/HCPCS: 36415; 76818; 76820; 85049

== ENCOUNTER 2023-08-02 14:19 | Outpatient (OUT) | payer OTHER, SELFPAY ==
[2023-08-02 14:28] LABS: Platelet Count 154 10^3/uL (150-450)
== END 2023-08-02 14:20 | disposition home or self-care (01) ==
LOC: LAB 14:20
PROVIDERS: Visit Provider Obstetrics & Gynecology
DX: O41.03X0 Oligohydramnios, third trimester, not applicable or unspecified (principal); Z3A.33 33 weeks gestation of pregnancy; O99.113 Other diseases of the blood and blood-forming organs and certain disorders involving the immune mechanism complicating pregnancy, third trimester; D69.6 Thrombocytopenia, unspecified
CPT/HCPCS: 36415; 85049

== ENCOUNTER 2023-08-05 07:05 | Outpatient (OUT) | payer OTHER, SELFPAY ==
[2023-08-05 09:01] VITALS: BP 128/64; PULSE 105
== END 2023-08-05 09:35 | disposition home or self-care (01) ==
LOC: FBCO 07:08 → FBC 08:57
PROVIDERS: Visit Provider Obstetrics & Gynecology
DX: O41.03X0 Oligohydramnios, third trimester, not applicable or unspecified (principal); Z3A.33 33 weeks gestation of pregnancy
CPT/HCPCS: 59025

== ENCOUNTER 2023-08-08 20:55 | Observation (INO) | payer OTHER, SELFPAY ==
[2023-08-08 19:15] VITALS: BP 129/87; PULSE 116; RESP 16; TEMP 36.9
[2023-08-08 19:19] VITALS: BP 128/76; PULSE 109
--- NOTE | 2023-08-08 19:53 | US_ITS ---
The [address] [address] Patient Name: JEANNIE CADE MRN: [id number] date: 1990 Sex: F Assigned Patient Location: [facility] Current Patient Location: [facility] Accession/Order Number: [id number] Exam Date: 08/08/2023 20:09 Report Date: 08/08/2023 21:08 At the request of: SHAHANA PARHAM Procedure: US OB BPP wo non-stress OB ultrasound for biophysical profile, 08/08/2023 8:09 PM EDT COMPARISON: Similar OB ultrasound exam, 07/26/2023. CLINICAL HISTORY: Oligohydramnios and contractions for 3 days. Biophysical profile is scored: breathing score 2 out of 2. tone score 2 out of 2. movements score 2 out of 2. Qualitative amniotic fluid amount score 2 out of 2. reactivity was not performed or the results are not known at time of examination. This gives a total of 8 out of 8. The position is cephalic. The heart rate is 145 beats per minute. Amniotic fluid index is 10.7 cm which is between the 5th and 95th percentile. US/US OB BPP wo non-stress IMPRESSION: 1. A score of 8 of 8 is noted. 2. The heart rate is 145 beats per minute. 3. The position is cephalic. Amniotic fluid index 10.7 cm which is between the 5th and 95th percentile. . Electronically authenticated by: Hazel ROWLAND Date: 08/08/2023 21:08
[2023-08-08 20:08] LABS: Bilirubin Urine NEGATIVE (NEGATIVE); Blood Urine NEGATIVE (NEGATIVE); Clarity Urine CLEAR (CLEAR); Color Urine LT. YELLOW (YELLOW); Glucose Urine UA NEGATIVE (NEGATIVE); Ketones Urine NEGATIVE (NEGATIVE); Leukocyte Esterase Urine NEGATIVE (NEGATIVE); Nitrite Urine NEGATIVE (NEGATIVE); Protein Urine NEGATIVE (NEG/TRACE); Specific Gravity Urine 1.015 (1.005-1.025); Urobilinogen Urine 0.2 EU/dL (0.2-1.0); pH Urine 6.5 (5.0-9.0)
[2023-08-08 20:11] LABS: Urine Microscopic Indicated NO
[2023-08-08 20:25] LABS: Amnisure NEGATIVE (NEGATIVE)
[2023-08-08] MEDS: BETAMETHASONE ACE/BETAMETHASONE SOD PHOS 30 MG/5 ML 12 MG IM (20:59)
[2023-08-08] MEDS: LACTATED RINGER'S SOLUTION 1,000 ML 1000 ML IV (21:17)
[2023-08-08 21:21] LABS: Basophils Percent Auto 0.3 % (0.2-2.0); Eosinophils Absolute Auto 0.1 10^3/uL (0.0-0.7); Hematocrit 31.8 % (36.0-48.0); Hemoglobin 10.9 g/dL (12.0-16.0); Immature Granulocytes Abs Auto 0.09 10^3/uL (0.00-0.03); Lymphocytes Absolute Auto 1.7 10^3/uL (1.2-3.8); Lymphocytes Percent Auto 19.6 % (20.5-60.0); Mean Corpuscular HGB Conc 34.3 g/dL (29.9-35.2); Mean Corpuscular Hemoglobin 30.1 pg (26.7-34.0); Mean Corpuscular Volume 87.8 fL (81.0-99.0); Mean Platelet Volume 11.1 fL (9.5-13.5); Monocytes Absolute Auto 0.9 10^3/uL (0.3-0.8); Monocytes Percent Auto 9.7 % (1.7-12.0); Neutrophils Percent Auto 68.4 % (43.0-75.0); Platelet Count 156 10^3/uL (150-450); Red Blood Count 3.62 10^6/uL (4.20-5.40); Red Cell Distribution Width 13.3 % (11.0-15.0); White Blood Count 8.7 10^3/uL (4.0-11.0)
[2023-08-08 21:41] VITALS: BP 134/73
[2023-08-08] MEDS: NIFEdipine 10 MG CAPSULE 20 MG PO (21:41)
[2023-08-08 21:42] VITALS: BP 134/73; PULSE 99
[2023-08-08] MEDS: ACETAMINOPHEN 500 MG TABLET 1000 MG PO (21:51)
[2023-08-09] VITALS (7 sets, daily range): BP systolic 125–129; BP diastolic 57–64; PULSE 101–106; TEMP 35.8–36.2
[2023-08-09] MEDS: LACTATED RINGER'S SOLUTION 1,000 ML 1000 ML IV (01:14)
[2023-08-09] MEDS: NIFEdipine 10 MG CAPSULE 20 MG PO ×2 (03:42→08:25)
[2023-08-09] MEDS: ACETAMINOPHEN 500 MG TABLET 1000 MG PO (03:44)
--- NOTE | 2023-08-09 07:22 | W.PC.ACHO ---
Registration Status: ADM YANN Primary Language: Preferred Language: Report given to Nataliya GARLAND at 0710. Active Medications Generic Name Dose Route Start Last Admin Trade Name Freq PRN Reason Stop Dose Admin Acetaminophen 1,000 mg 08/08/23 21:25 08/09/23 03:44 Acetaminophen 500 Mg Tablet PO 1,000 mg Q6H PRN Administration Pain Betamethasone Acet/Betameth SodPhos 12 mg 08/08/23 20:00 08/08/23 20:59 Betamethasone Abhi/Betamethasone Sod Phos 30 Mg/5 Ml IM 08/09/23 20:01 12 mg Q24H BRITTANY Administration Nifedipine 20 mg 08/08/23 21:00 08/09/23 03:42 Nifedipine 10 Mg Capsule PO 20 mg Q6H BRITTANY Administration IV Insertion/Site Date of IV Line Insertion [ 08/08/23 Midline 20g right Wrist] IV Insertion Time [Midline 20g 21:12 right Wrist]
--- NOTE | 2023-08-09 08:21 | PM.OBPN ---
OB - PN: Subj Subjective Interval history: 30 at 34 2/7wks presents with ptc and possible rom, amniosure was neg, laura 10.6, q4-8min, c/s times 3, sve cl thick high, celestone given, denies vaginal bleeding or urinary symtoms Exam Constitutional Vital Signs, click to edit/add: Last Vital Signs Temp 96.4 F L 08/09/23 03:51 Pulse 102 H 08/09/23 03:43 Resp 16 08/08/23 19:15 BP 125/61 08/09/23 03:43 Documenting provider has reviewed patient's vital signs: yes Common normals: no apparent distress Respiratory Common normals: normal respiratory effort and clear to auscultation bilaterally Cardio Common normals: regular rate and regular rhythm GI Common normals: Normal to inspection, nondistended, normoactive bowel sounds present Common normals: no CVA tenderness Extremity Common normals: no clubbing, cyanosis or edema Results Labs Labs: Short CBC 08/08/23 Range/Units 21:14 WBC 8.7 (4.0-11.0) 10^3/uL Hgb 10.9 L (12.0-16.0) g/dL Hct 31.8 L (36.0-48.0) % Plt Count 156 (150-450) 10^3/uL Urine 08/08/23 Range/Units 19:30 Urine Color Lt. yellow (YELLOW) Urine Clarity Clear (CLEAR) Urine pH 6.5 (5.0-9.0) Ur Specific [place] 1.015 (1.005-1.025) Urine Protein Negative (NEG/TRACE) mg/dL Urine Glucose (UA) Negative (NEGATIVE) mg/dL OB - PN: A/P Assessment and Plan (1) uterine contractions: Plan iup at 34 2/7wks, ptcs, ho low laura-labs reviewed, celestone and procardia given, amniosure neg, ctxns greatly improved, will dc home, return for celestone, cont procardia, precautions given Time Spent with Patient Time: Total time spent is greater than 50% in coordination of care (as documented) at patient's floor/unit and/or counseling patient: Total time spent with greater than 50% in coordination of care (as documented) at patient's floor/unit and/or counseling patient: 25 - 35 minutes
== END 2023-08-09 09:20 | disposition home or self-care (01) ==
LOC: FBCO 21:04 → FBC 21:04
PROVIDERS: Midwife; Admitting Provider Obstetrics & Gynecology; Visit Provider Obstetrics & Gynecology
DX: O47.03 False labor before 37 completed weeks of gestation, third trimester (principal); Z3A.34 34 weeks gestation of pregnancy
CPT/HCPCS: 36415; 59025; 76819; 81003; 84112; 85025; 96372; G0378; G0379; J0702

== ENCOUNTER 2023-08-09 07:06 | Outpatient (OUT) | payer OTHER, SELFPAY ==
[2023-08-09 21:06] VITALS: BP 131/70; PULSE 97; RESP 18; TEMP 36.9
[2023-08-09] MEDS: BETAMETHASONE ACE/BETAMETHASONE SOD PHOS 30 MG/5 ML 12 MG IM (21:15)
== END 2023-08-09 21:45 | disposition home or self-care (01) ==
LOC: US 20:47 → FBC 20:50
PROVIDERS: Visit Provider Obstetrics & Gynecology
DX: O41.00X0 Oligohydramnios, unspecified trimester, not applicable or unspecified (principal); O47.03 False labor before 37 completed weeks of gestation, third trimester; Z3A.34 34 weeks gestation of pregnancy
CPT/HCPCS: 96372; J0702

== ENCOUNTER 2023-08-12 08:27 | Outpatient (OUT) | payer OTHER, SELFPAY ==
[2023-08-12 08:51] VITALS: BP 106/60; PULSE 106
== END 2023-08-12 09:49 | disposition home or self-care (01) ==
LOC: FBCO 08:28 → FBC 08:45
PROVIDERS: Visit Provider Obstetrics & Gynecology Gynecology
DX: O41.00X0 Oligohydramnios, unspecified trimester, not applicable or unspecified (principal); Z3A.00 Weeks of gestation of pregnancy not specified
CPT/HCPCS: 59025

== ENCOUNTER 2023-08-12 23:44 | Outpatient (OUT) | payer OTHER, SELFPAY ==
[2023-08-13 00:02] VITALS: BP 127/61; PULSE 106
[2023-08-13 00:14] LABS: Bilirubin Urine NEGATIVE (NEGATIVE); Blood Urine NEGATIVE (NEGATIVE); Clarity Urine CLEAR (CLEAR); Color Urine LT. YELLOW (YELLOW); Glucose Urine UA NEGATIVE (NEGATIVE); Ketones Urine NEGATIVE (NEGATIVE); Leukocyte Esterase Urine NEGATIVE (NEGATIVE); Nitrite Urine NEGATIVE (NEGATIVE); Protein Urine NEGATIVE (NEG/TRACE); Urobilinogen Urine 0.2 EU/dL (0.2-1.0)
[2023-08-13 00:24] LABS: Urine Microscopic Indicated NO
== END 2023-08-13 01:00 | disposition home or self-care (01) ==
LOC: FBCO 23:49 → FBC 23:51
PROVIDERS: Visit Provider Obstetrics & Gynecology Gynecology
DX: O41.03X0 Oligohydramnios, third trimester, not applicable or unspecified (principal); O47.03 False labor before 37 completed weeks of gestation, third trimester; Z3A.35 35 weeks gestation of pregnancy
CPT/HCPCS: 59025; 81003

== ENCOUNTER 2023-08-16 07:13 | Outpatient (OUT) | payer OTHER, SELFPAY ==
--- NOTE | 2023-08-16 | US_ITS ---
[address] [address] Patient Name: JEANNIE CADE MRN: [facility]:[id number] date: 1990 Sex: F Assigned Patient Location: [facility] Current Patient Location: Accession/Order Number: [id number] Exam Date: 08/16/2023 13:00 Report Date: 08/17/2023 07:12 At the request of: JANY JONES Procedure: US OB BPP w non-stress EXAMINATION: US OB BPP w non-stress HISTORY: OLIGOHYDRAMINMOS COMPARISON: No relevant comparison available. TECHNIQUE: Ultrasound biophysical profile was performed in the radiology department. non-reactive stress testing was performed by nursing staff in the birthing center. FINDINGS: BREATHING MOVEMENTS: 2.0 GROSS BODY MOVEMENTS: 2.0 TONE: 2.0 QUALITATIVE AMNIOTIC FLUID VOLUME: 2.0 PRESENTATION: CEPHALIC HEART RATE: 142.1 bpm H.B./min AMNIOTIC FLUID VOLUME: 9.4 cm cm GESTATIONAL AGE: 35 weeks 3 days CONCLUSION: Total biophysical profile score: 8.0 Electronically authenticated by: AMRITA JIN Date: 08/17/2023 07:12
[2023-08-16 13:25] VITALS: BP 120/68; PULSE 100; TEMP 36
== END 2023-08-16 14:17 | disposition home or self-care (01) ==
LOC: US 07:13 → FBC 12:46
PROVIDERS: Visit Provider Obstetrics & Gynecology
DX: O41.00X0 Oligohydramnios, unspecified trimester, not applicable or unspecified (principal); Z3A.00 Weeks of gestation of pregnancy not specified
CPT/HCPCS: 76818

== ENCOUNTER 2023-08-19 01:36 | Outpatient (OUT) | payer OTHER, SELFPAY ==
[2023-08-19 08:52] VITALS: TEMP 35.7
[2023-08-19 08:53] VITALS: BP 124/66; PULSE 100
== END 2023-08-19 09:15 | disposition home or self-care (01) ==
LOC: FBCO 01:37 → FBC 08:49
PROVIDERS: Visit Provider Obstetrics & Gynecology
DX: O41.00X0 Oligohydramnios, unspecified trimester, not applicable or unspecified (principal); Z3A.00 Weeks of gestation of pregnancy not specified
CPT/HCPCS: 59025

== ENCOUNTER 2023-08-22 20:17 | Outpatient (REF) | payer OTHER, SELFPAY | END 2023-08-22 20:18 | disposition home or self-care (01) | LOC: LAB 20:17 | PROVIDERS: Visit Provider Obstetrics & Gynecology | DX: Z34.93 Encounter for supervision of normal pregnancy, unspecified, third trimester (principal) | CPT/HCPCS: 87081 ==

== ENCOUNTER 2023-08-23 13:54 | Inpatient (IN) | payer OTHER, SELFPAY ==
[2023-08-23] VITALS (24 sets, daily range): BP systolic 101–128; BP diastolic 49–75; PULSE 83–105; RESP 16–25; TEMP 36.4–36.9; O2SAT 98
--- NOTE | 2023-08-23 13:03 | US_ITS ---
[address] [address] Patient Name: JEANNIE CADE MRN: [id number] date: 1990 Sex: F Assigned Patient Location: [facility] [place] [facility] [place]/Order Number: [id number] Exam Date: 08/23/2023 13:15 Report Date: 08/23/2023 21:09 At the request of: JANY JONES Procedure: US OB BPP w non-stress EXAMINATION: US OB BPP w non-stress HISTORY: Low amniotic fluid COMPARISON: Ultrasound OB biophysical 08/16/2023 TECHNIQUE: Ultrasound biophysical profile was performed in the radiology department. BREATHING MOVEMENTS: 2.0 GROSS BODY MOVEMENTS: 2.0 TONE: 2.0 QUALITATIVE AMNIOTIC FLUID VOLUME: 2.0 PRESENTATION: CEPHALIC HEART RATE: 150.8 bpm bpm. AMNIOTIC FLUID VOLUME: 7.0 cm (5th percentile is 7.7 cm) GESTATIONAL AGE: 36 weeks 3 days CONCLUSION: 1. Total biophysical profile score 8.0. 2. Borderline oligohydramnios. Electronically authenticated by: NANCY KING Date: 08/23/2023 21:09
[2023-08-23 14:26] LABS: Basophils Percent Auto 0.4 % (0.2-2.0); Eosinophils Absolute Auto 0.1 10^3/uL (0.0-0.7); Eosinophils Percent Auto 0.5 % (0.9-7.0); Hematocrit 32.1 % (36.0-48.0); Immature Granulocytes Abs Auto 0.09 10^3/uL (0.00-0.03); Lymphocytes Absolute Auto 2.4 10^3/uL (1.2-3.8); Lymphocytes Percent Auto 25.5 % (20.5-60.0); Mean Corpuscular HGB Conc 34.3 g/dL (29.9-35.2); Mean Corpuscular Hemoglobin 29.8 pg (26.7-34.0); Mean Platelet Volume 11.2 fL (9.5-13.5); Monocytes Absolute Auto 0.8 10^3/uL (0.3-0.8); Monocytes Percent Auto 8.8 % (1.7-12.0); Neutrophils Absolute Auto 5.9 10^3/uL (1.4-6.5); Neutrophils Percent Auto 63.8 % (43.0-75.0); Platelet Count 178 10^3/uL (150-450); Red Blood Count 3.69 10^6/uL (4.20-5.40); Red Cell Distribution Width 13.5 % (11.0-15.0); White Blood Count 9.2 10^3/uL (4.0-11.0)
[2023-08-23] MEDS: 0.9 % SODIUM CHLORIDE 1,000 ML 1000 ML IV ×2 (14:35→15:23)
[2023-08-23 14:37] LABS: Amphetamine Screen Urine NEGATIVE (NEGATIVE); Barbiturates Screen Urine NEGATIVE (NEGATIVE); Benzodiazepines Screen Urine NEGATIVE (NEGATIVE); Buprenorphine Screen Urine NEGATIVE (NEGATIVE); Cannabinoid Screen Urine NEGATIVE (NEGATIVE); Cocaine Screen Urine NEGATIVE (NEGATIVE); Methadone Screen Urine NEGATIVE (NEGATIVE); Methamphetamines Screen Urine NEGATIVE (NEGATIVE); Opiate Screen Urine NEGATIVE (NEGATIVE); Oxycodone Screen Urine NEGATIVE (NEGATIVE); Phencyclidine Screen Urine NEGATIVE (NEGATIVE); Tricyclic Antidepressant Urine NEGATIVE (NEGATIVE)
[2023-08-23] MEDS: METOCLOPRAMIDE HCL 10 MG/2 ML VIAL IVP (15:22)
[2023-08-23] MEDS: CITRIC ACID/SODIUM CITRATE 30 ML SOLUTION ORACIT SHOHL'S SOLN PO (15:22)
[2023-08-23] MEDS: ONDANSETRON PF 4 MG/2 ML VIAL IV (15:22)
[2023-08-23] MEDS: CEFAZOLIN SODIUM/DEXTROSE,ISO 2 GM/50 ML PIGGYBACK IV ×2 (15:23→20:54)
--- NOTE | 2023-08-23 16:31 | P.ON_ITS ---
Brief Operative Note Date of procedure: 08/23/23 Pre-op diagnosis: iup at 36 3/7wks, srom, previous c/s, desires sterilization Post-op diagnosis: same as pre-op Procedure: NAME OF PROCEDURE: [ section with bilateral salpingectomy ] PROCEDURE: Patient was taken back to the Operating Room where she was given a spinal anesthesia with Duramorph without difficulty. She was prepped and draped in the normal sterile fashion. A Pfannenstiel skin incision was then made 2?cm above the symphysis pubis and carried down to underlying rectus fascia using a Bovie. The fascia was incised in the midline and extended laterally using Linares scissors. Two Sangeeta clamps were placed on the superior aspect of the fascia and dissected off the underlying rectus muscles. The same was performed on the inferior aspect as well. The muscles were then in the midline. Peritoneum was identified and entered bluntly. The peritoneum was then extended superiorly and inferiorly with good visualization of the bladder. The bladder blade was inserted. Vesicouterine peritoneum was identified, tented up, and entered with Metzenbaum scissors. A bladder flap was then created digitally. The bladder blade was reinserted. A low transverse incision was made on the patient's uterus and extended laterally digitally. The was then delivered atraumatically after the bladder blade was removed in the cephalic position. The cord was clamped and cut. Cord blood was obtained. The infant was handed off to awaiting team. The patient's placenta was spontaneously delivered. The uterus was then exteriorized. The uterus was cleared of all clots and debris. The bladder blade was reinserted. The patient's uterine incision was closed using #0 Vicryl in a running lock fashion. Excellent hemostasis was assured.? The rt tube was identified and grasped with babock, the ligasure was used to transect and ligate the tube in its entirity, this was done on the contralateral side as well. The uterus was then returned to the patient's abdomen. The patient's abdomen was copiously irrigated using warm saline. Peritoneal gutters were cleared of all clots and debris. Again excellent hemostasis was assured. The patient's fascia was closed using #0 Vicryl in a running fashion. The patient's skin was closed using 4-0 Vicryl subcuticularly. The patient tolerated the procedure well. Sponge, lap, and needle counts were correct x2. The patient was taken to the Recovery Room in stable condition. Anesthesia: spinal Surgeon: Marv Rebollar Watch Dial Stoner: Rajani Delaney Estimated blood loss (mL): 575 Pathology: other (tubes) Condition: stable Disposition: floor
--- NOTE | 2023-08-23 16:32 | PM.OBPRCCS ---
Procedure Pre-op/Post-op diagnoses: Pre-Op/Post-Op Diagnoses Operation Date: 08/23/23 15:40 <No data on this case meets the specified criteria> Procedure: Procedures Operation Date: 08/23/23 15:40 Actual Procedure Side Surgeon p Repeat with Bilateral Salpingectomy Bilateral Marv Rebollar DO Staff Certified Nurse Midwife: Rajani Delnaey Estimated blood loss (mL): 575 Disposition: floor Anesthesia type: Spinal
[2023-08-23] MEDS: OXYTOCIN/0.9 % SODIUM CHLORIDE 20 UNITS/1,000 ML PLAST..BAG 125 UNIT IV (17:14)
[2023-08-23] MEDS: OXYCODONE HCL/ACETAMINOPHEN 5MG/325MG 2 TAB PO ×2 (18:25→22:18)
--- NOTE | 2023-08-23 20:48 | PC.NURSE ---
SCd's in place. IV infusing via pump 20 units of pit in 1000ml NS at 125ml/hr to lt wrist, site unremarkable. pt lungs clear bilaterally. pt using pep and drinking plenty of fluids without nausea. Pt able to move BLE and starting to feel feet. pt rates incisional pain 6/10. pt aware she is not due for any pain medication at this time and declines nurse notifying physician for medication.
--- NOTE | 2023-08-23 21:00 | RESP.RT ---
PEP not done at this time and as patients baby is being prepared for transport.
[2023-08-23] MEDS: KETOROLAC TROMETHAMINE 30 MG/ML VIAL IVP (22:18)
[2023-08-24] VITALS (8 sets, daily range): BP systolic 108–124; BP diastolic 61–78; PULSE 73–96; RESP 16–18; TEMP 36.6–36.9
[2023-08-24] MEDS: OXYCODONE HCL/ACETAMINOPHEN 5MG/325MG 2 TAB PO ×4 (03:52→19:55)
[2023-08-24] MEDS: KETOROLAC TROMETHAMINE 30 MG/ML VIAL IVP (04:25)
[2023-08-24] MEDS: ENOXAPARIN SODIUM 40 MG/0.4 ML SYRINGE SUBQ (05:56)
--- NOTE | 2023-08-24 07:51 | PM.OBPN ---
OB - PN: Subj Subjective Patient comments: no complaints and pain well controlled Exam Constitutional Vital Signs, click to edit/add: Last Vital Signs Temp 98.4 F 08/23/23 23:27 Pulse 73 08/24/23 03:58 Resp 18 08/24/23 04:01 BP 124/75 08/24/23 03:58 Pulse Ox 98 08/23/23 18:25 O2 Del Method Room Air 08/23/23 17:05 Documenting provider has reviewed patient's vital signs: yes Common normals: no apparent distress Respiratory Common normals: clear to auscultation bilaterally Cardio Common normals: regular rate and regular rhythm GI Common normals: Normal to inspection, nondistended, normoactive bowel sounds present Extremity Common normals: no clubbing, cyanosis or edema and no calf tenderness Results Labs Labs: Short CBC 08/23/23 Range/Units 14:10 WBC 9.2 (4.0-11.0) 10^3/uL Hgb 11.0 L (12.0-16.0) g/dL Hct 32.1 L (36.0-48.0) % Plt Count 178 (150-450) 10^3/uL OB - PN: A/P Plan - day: 1 Plan: routine postop care Time Spent with Patient Time: Total time spent is greater than 50% in coordination of care (as documented) at patient's floor/unit and/or counseling patient: Total time spent with greater than 50% in coordination of care (as documented) at patient's floor/unit and/or counseling patient: less than 15 minutes
[2023-08-24] MEDS: DOCUSATE SODIUM 100 MG CAPSULE PO ×2 (08:32→20:04)
[2023-08-24 09:57] LABS: Basophils Absolute Auto 0.1 10^3/uL (0.0-0.1); Basophils Percent Auto 0.5 % (0.2-2.0); Eosinophils Absolute Auto 0.1 10^3/uL (0.0-0.7); Eosinophils Percent Auto 0.7 % (0.9-7.0); Hematocrit 29.3 % (36.0-48.0); Hemoglobin 9.9 g/dL (12.0-16.0); Immature Granulocytes Abs Auto 0.06 10^3/uL (0.00-0.03); Immature Granulocytes Pct Auto 0.6 % (0.0-0.5); Lymphocytes Absolute Auto 2.5 10^3/uL (1.2-3.8); Lymphocytes Percent Auto 24.1 % (20.5-60.0); Mean Corpuscular HGB Conc 33.8 g/dL (29.9-35.2); Mean Corpuscular Hemoglobin 29.5 pg (26.7-34.0); Mean Corpuscular Volume 87.2 fL (81.0-99.0); Mean Platelet Volume 10.8 fL (9.5-13.5); Monocytes Absolute Auto 0.8 10^3/uL (0.3-0.8); Monocytes Percent Auto 7.9 % (1.7-12.0); Neutrophils Percent Auto 66.2 % (43.0-75.0); Platelet Count 155 10^3/uL (150-450); Red Blood Count 3.36 10^6/uL (4.20-5.40); Red Cell Distribution Width 13.4 % (11.0-15.0); White Blood Count 10.6 10^3/uL (4.0-11.0)
[2023-08-24] MEDS: IBUPROFEN 400 MG TABLET 800 MG PO ×2 (11:57→19:55)
--- NOTE | 2023-08-24 19:05 | W.PC.ACHO ---
Registration Status: ADM IN Primary Language: Guatemalan Preferred Language: Guatemalan Active Medications Generic Name Dose Route Start Last Admin Trade Name Freq PRN Reason Stop Dose Admin Al Hydroxide/Mg Hydroxide 2,400 mg 08/23/23 16:29 Magnesium Hydroxide 2,400 Mg/10 Ml Oral.Susp PO Q6H PRN Dyspepsia Docusate Sodium 100 mg 08/24/23 09:00 08/24/23 08:32 Docusate Sodium 100 Mg Capsule PO 100 mg BID BRITTANY Administration Enoxaparin Sodium 40 mg 08/24/23 06:00 08/24/23 05:56 Enoxaparin Sodium 40 Mg/0.4 Ml Syringe SUBQ 40 mg Q24H BRITTANY Administration Lactated Ringer's 1,000 mls @ 125 mls/hr 08/23/23 16:30 Lactated Ringers IV .Q8H BRITTANY Ibuprofen 800 mg 08/23/23 16:29 08/24/23 11:57 Ibuprofen 400 Mg Tablet PO 800 mg Q8H PRN Administration Pain Ketorolac Tromethamine 30 mg 08/23/23 16:29 08/24/23 04:25 Ketorolac Tromethamine 30 Mg/Ml Vial IVP 08/25/23 16:30 30 mg Q6H PRN Administration Pain Ondansetron HCl 4 mg 08/23/23 16:29 Ondansetron Pf 4 Mg/2 Ml Vial IV Q6H PRN Nausea And Vomiting Ondansetron HCl 4 mg 08/23/23 16:29 Ondansetron 4 Mg Rapdis Tablet PO Q6H PRN Nausea And Vomiting Oxycodone/Acetaminophen 1 tab 08/23/23 16:29 Oxycodone Hcl/Acetaminophen 5mg/325mg PO Q4H PRN Pain Scale 4-6 Oxycodone/Acetaminophen 2 tab 08/23/23 16:29 08/24/23 14:32 Oxycodone Hcl/Acetaminophen 5mg/325mg PO 2 tab Q4H PRN Administration Pain Scale 7-10 Senna 17.2 mg 08/23/23 20:00 Sennosides 8.6 Mg Tablet PO QHS PRN Constipation Simethicone 80 mg 08/23/23 16:29 Simethicone 80 Mg Tab.Chew PO QID PRN Abdominal Distention Respiratory Oxygen Delivery Method Room Air Oxygen Delivery Method Room Air Oxygen Delivery Method Room Air Cardiology Heart Sounds Strong,Regular Bowels Bowel Pattern No Bowel Movement Date of Last Bowel Movement [ 08/24/23 All Quadrants] Renal Bladder Pattern Continent Catheter Date Urinary Catheter Removed 08/24/23 [Urethral] Time Urinary Catheter 03:50 Discontinued [Urethral]
--- NOTE | 2023-08-24 23:21 | PC.NURSE ---
Report given to Lul Mendoza RN. Care relinquished.
[2023-08-25 00:37] VITALS: BP 128/77; PULSE 67
[2023-08-25 00:42] VITALS: BP 128/77; PULSE 67; RESP 16; TEMP 36.6
[2023-08-25] MEDS: OXYCODONE HCL/ACETAMINOPHEN 5MG/325MG 2 TAB PO ×2 (01:27→06:56)
[2023-08-25] MEDS: IBUPROFEN 400 MG TABLET 800 MG PO (04:06)
[2023-08-25 06:50] VITALS: BP 115/70; PULSE 60; RESP 14; TEMP 36.5
[2023-08-25] MEDS: ENOXAPARIN SODIUM 40 MG/0.4 ML SYRINGE SUBQ (06:53)
--- NOTE | 2023-08-25 07:27 | PM.OBPN ---
OB - PN: Subj Subjective Patient comments: no complaints and pain well controlled [place] status: doing well Exam Constitutional Vital Signs, click to edit/add: Last Vital Signs Temp 97.7 F 08/25/23 06:50 Pulse 60 08/25/23 06:50 Resp 14 08/25/23 06:50 BP 115/70 08/25/23 06:50 Pulse Ox 98 08/23/23 18:25 O2 Del Method Room Air 08/25/23 06:50 Documenting provider has reviewed patient's vital signs: yes Common normals: no apparent distress Respiratory Common normals: normal respiratory effort and clear to auscultation bilaterally Cardio Common normals: regular rate and regular rhythm GI Common normals: Normal to inspection, nondistended, normoactive bowel sounds present Extremity Common normals: normal to inspection and no calf tenderness Results Labs Labs: Short CBC 08/24/23 Range/Units 09:45 WBC 10.6 (4.0-11.0) 10^3/uL Hgb 9.9 L (12.0-16.0) g/dL Hct 29.3 L (36.0-48.0) % Plt Count 155 (150-450) 10^3/uL OB - PN: A/P Plan - day: 2 Plan: routine postop care, discharge home and follow up 6 weeks Time Spent with Patient Time: Total time spent is greater than 50% in coordination of care (as documented) at patient's floor/unit and/or counseling patient: Total time spent with greater than 50% in coordination of care (as documented) at patient's floor/unit and/or counseling patient: less than 15 minutes
--- NOTE | 2023-09-17 | DS_ITS ---
DISCHARGE DATE: ??09/17/2023 PRIMARY DIAGNOSES: 1.? Intrauterine 36 3/7 weeks 2.? Spontaneous rupture of membranes. 3.? Previous . 4.? Desires permanent sterilization. PROCEDURE: ? section with bilateral salpingectomy. HOSPITAL COURSE:? As expected.? Please see chart for full details.? LABORATORY DATA:? Please see chart. COMPLICATIONS:? None. DISCHARGE CONDITION:? Stable. CONSULTATION:? Anesthesia. DISCHARGE INSTRUCTIONS: 1.? Diet:? Regular. 2.? Medications: a.? Percocet 5/325 one to two p.o. every 4-6 hours p.r.n. pain. b.? Motrin 800 one p.o. every 8 hours p.r.n. pain. 3.? Followup in one week. Restrictions:? Pelvic rest for 6 weeks.? No heavy lifting.? May drive when pain free and no longer on narcotics. MTDD
== END 2023-08-25 08:37 | disposition home or self-care (01) | DRG 539 ==
LOC: US 14:01 → FBC 14:01
PROVIDERS: Admitting Provider Obstetrics & Gynecology; Visit Provider Obstetrics & Gynecology
PROC: 10D00Z1 Extraction of Products of Conception, Low, Open Approach (ICD-10-PCS; CPT 59514; principal; 2023-08-23 15:40)
DX: O41.03X0 Oligohydramnios, third trimester, not applicable or unspecified (principal); O99.214 Obesity complicating childbirth; Z3A.36 36 weeks gestation of pregnancy; Z37.0 Single live birth; Z30.2 Encounter for sterilization; Z83.3 Family history of diabetes mellitus; Z82.5 Family history of asthma and other chronic lower respiratory diseases; Z82.49 Family history of ischemic heart disease and other diseases of the circulatory system
CPT/HCPCS: 36415; 76818; 80307; 85025; 86850; 86900; 86901; 87081; 88302; 94667; 94668; 96372; 96374; 96375

== ENCOUNTER 2023-09-05 10:44 | Outpatient (OUT) | payer OTHER, SELFPAY ==
--- NOTE | 2023-09-05 14:13 | PC.NURSE ---
Wendy, her and 13 day old Mala arrive for assistance. Wendy states she takes forty minute to nurse, we supplement with a bottle of pumped milk or formula and then I have to pump Each feeding takes nearly 2 hours and I can't keep this going States baby spent 2 days in NICU after being transferred to [place] for a pneumothorax. Was immediately given a bottle to see how she tolerated feeding and did not get to breast until day three when mother insited on breast feeding baby. After discharge was when mom attempted to begin breast feeding. She also states that she has 4 children under the age of 4 and cannot commit to 2 hourlong feedings once returns to work. weighed and is noted to be 9.2 % down from weight, parents states Yea, we were sent home from the hospital below 10% Discussed expected weight gain during first year of life. Parents verbalized understanding. Baby to breast, Breasts soft and full, dripping milk prior to latch. Baby latches suckles, swallows and stops. Repeat pattern during feed. few audible swallows noted, with increased flutter sucking and getting drowsy. Mom talks to baby, stimulates her to suckle more with few swallows. Mom states this is typical feeding pattern. Will feed for 20 min or more each breast then come off and take a 2 oz bottle of pumped milk or formula and does well. Weak suck on gloved finger, occasionally disorganized with flutter sucking noted. Bottle feeds with slow flow nipple. Baby easily becomes overwhelmed with flow of milk, and clenches jaw closes eyes. Mother burped baby and LC kristeno's slow paced feeding in side lying position. Baby able to feed well with modifications. Mom able to return demo using the modifications. She states NICU showed me this and I just wanted to feed her quicker Review tolerance to feeding with fast flow. LPI needing feeding modifications and more help than her other full term deliveries. States not sure if she can commit to pumping and feeding. Given sample of exclusive pumping schedule and to include power pumping. To Spend 10/10 with at breast as long as baby is sucking and active at the breast to get better at breast feeding then practice breast feeding To pump 6-8 times in 24 hours encouraged to stop giving formula at night as she has plenty of stored milk for baby. It si just faster also does not pump at night. Plan made to protect supply, and to make sure baby is fed. Verbalized understanding
== END 2023-09-05 13:50 | disposition home or self-care (01) ==
LOC: FBCO 10:45
PROVIDERS: Visit Provider Obstetrics & Gynecology
DX: Z39.1 Encounter for care and examination of lactating mother (principal)
CPT/HCPCS: G0463

== ENCOUNTER 2023-09-08 08:20 | Outpatient (OUT) | payer OTHER, SELFPAY ==
--- NOTE | 2023-09-08 09:38 | PC.NURSE ---
Wendy and Mala arrive for weight check. Mom reports she won't nurse at all States yesterday was difficult as wanted to eat every 2 hours and taking 2-3 oz expressed milk via bottle. Would not latch and suck at the breast. States baby finally latched at 10pm last evening for 20 minutes. Wendy still undecided how infant feeding will go as her 2 youngest children return today from staying with grandma since baby arrived. Not sure how will breastfeed/pump or bottle feed and what will work best as she has 4 children under the age of four. At this time Wendy pumped 20 oz yesterday and did use 3 feeding of formula. Discussed increasing supply and possible use of herbal supplements to aid in production. Flange fit discussed and uses size 28 flange for medela pump. Sized at 24mm left and 22mm right. Will make adjustments to flange sizes and try pumping. Will look into herbal supplements and make decision if is right for her. [facility] will stay in contact with and call for further appointments.
== END 2023-09-08 09:48 | disposition home or self-care (01) ==
LOC: FBCO 08:21
PROVIDERS: Visit Provider Obstetrics & Gynecology
DX: Z39.1 Encounter for care and examination of lactating mother (principal)

== ENCOUNTER 2023-09-19 12:35 | Outpatient (OUT) | payer OTHER, SELFPAY ==
--- NOTE | 2023-09-19 14:15 | PC.NURSE ---
Wendy and Mala arrive for support. Wendy called and states I feel panicky, she does not take the bottle well, no latching at the breast, and feedings are taking close to 1 hour to complete I am sure she is losing weight . Arrives stating feeds have gotten longer and more difficult to finish over last few days. Baby is awakened every 3 hours by mom, takes 2-3 oz over 50-60 minutes and sometimes will not finish a bottle. Baby wants to sleep 5 hours at night when mom wakes her will only take 1 oz. Mala arrives appropriately dressed for weather, rouses easily, color pink, warm and dry. Rest easy and regular. Good flexion and tome noted. Baby 1 month old, struggled with latching and feeding at the breast, mom has decided to pump and bottle feed only and states has been a huge relief of stress since decision made. Infant to scales and weight obtained. Heavy wet diaper changed, mom reports QS wets/stools. Wake and sleep periods and generally feeds well. Mom bottle feeds baby using slow paced feeding, side-lying position and Dr Sotomayor 0+ nipple. Baby does well for 1 oz, slows or stops feeding mom burps baby and resumes feed. Baby does intermittent suckling and no swallows noted, drowsy. Regular flow nipple tried and feeds well. Slow flow nipple used and baby feeds poorly. Discussed different flow of nipples and nipple shapes that may entice infant to feed better. Mom verbalized understanding. Baby finished bottle with regular flow nipple without difficulty, retained feed and returns home with mother. To return 09/09/2709/25/2023 for weight check.
== END 2023-09-19 13:40 | disposition home or self-care (01) ==
LOC: FBCO 12:36
PROVIDERS: Visit Provider Obstetrics & Gynecology
DX: Z39.1 Encounter for care and examination of lactating mother (principal)

== ENCOUNTER 2023-09-25 08:45 | Outpatient (OUT) | payer OTHER, SELFPAY ==
--- NOTE | 2023-09-25 13:33 | PC.NURSE ---
Wendy and Mala arrive for weight check. Mom states found bottle that baby likes and does well with. States but last night I put on the breast, she fed for 20/10 and slept for 3 hours Mother's goal was to directly breastfeed as she did other children but had many difficulties with LPI< latch and sustaining feed has been pumping and feeding only. Would like to try direct at this time. LC supportive and pt latches baby independently no problems. Baby Nursed 15 min and released latch. Mother and baby to return in 2 weeks for weight check. Mom to call as needs during that time.
== END 2023-09-25 13:20 | disposition home or self-care (01) ==
PROVIDERS: Visit Provider Obstetrics & Gynecology
DX: Z39.1 Encounter for care and examination of lactating mother (principal)
CPT/HCPCS: G0463

== ENCOUNTER 2023-10-09 08:09 | Outpatient (OUT) | payer OTHER, SELFPAY ==
--- NOTE | 2023-10-09 14:19 | PC.NURSE ---
Wendy and Mala arrive for support. Mala 7 weeks at this time. thriving, pink, warm and dry, no distress noted. Mom states takes 2-4 oz each feed at 3 hour intervals. Has decided to pump and feed only as too busy with other children to relax and feed baby, has difficulty with let down. Is able to pump well, supply established with pumping over 30 oz in 24 hours. Only pumping 5 X in 24, encouraged to add a power pumping before bed. States I can do that No longer gives formula at night as feels it made her uncomfortable, grunting and squirming in sleep. Breast milk only diet and baby now rests easy. Mom confidently bottle feeds pumped milk, baby does well and content after feed. No further questions at this time. Aware to call for concerns or questions. Aware of [facility] group.
== END 2023-10-09 14:10 | disposition home or self-care (01) ==
LOC: FBCO 08:11
PROVIDERS: Visit Provider Obstetrics & Gynecology
DX: Z39.1 Encounter for care and examination of lactating mother (principal)

== ENCOUNTER 2023-10-26 18:41 | Emergency (ER) | payer OTHER, SELFPAY ==
[2023-10-26 19:07] VITALS: BP 110/81; PULSE 99; RESP 16; TEMP 37.9; O2SAT 98; BMI 34.5
--- OUTSIDE RECORDS SUMMARY | 2023-10-26 19:15 | XMS_ITS | CCD ---
Author Name Unknown Address [address] [place] [address] Organization [facility] Care Team Providers Care Ski Technician Name Role Phone AlecRanjeetBeckie Unavailable Vaishali Desir Unavailable Baldemar Arnett Unavailable KAREN ., DR CARMICHAEL Attending Unavailable KAREN ., DR CARMICHAEL Admitting Unavailable FAWWAD, GTZ H Primary Care Unavailable HERNESTO MARTELL Attending Unavailable HERNESTO MARTELL Admitting Unavailable FAWWAD, GTZ H Primary Care Unavailable HERNESTO MARTELL Consulting Unavailable KAREN ., DR CARMICHAEL Consulting Unavailable KAREN ., DR CARMICHAEL Attending Unavailable FAWWAD, GTZ H Primary Care Unavailable KAREN ., DR CARMICHAEL Admitting Unavailable POLICARO, ALEXI Consulting Unavailable ALEC, BECKIE Primary Care Unavailable DIAB ., RIGOBERTO Attending Unavailable PATRICIA KERRET Consulting Unavailable DIAB ., RIGOBERTO Admitting Unavailable DIAB ., RIGOBERTO Consulting Unavailable REQUEST, DR NONE LISTED Primary Care Unavaila ble PAY ., DR WILCOX Attending Unavailable PAY ., DR WILCOX Admitting Unavailable PAY ., DR WILCOX Consulting Unavailable KAREN ., DR CARMICHAEL Attending Unavailable FAWWAD, GTZ H Primary Care Unavailable KAREN ., DR CARMICHAEL Admitting Unavailable KAREN ., DR CARMICHAEL Consulting Unavailable KAREN ., DR CARMICHAEL Attending Unavailable REQUEST, NONE LISTED Primary Care Unavaila ble KAREN ., DR CARMICHAEL Admitting Unavailable KAREN ., DR CARMICHAEL Admitting Unavailable KAREN ., DR CARMICHAEL Consulting Unavailable SHIRAZWNAYELI, GTZ H Primary Care Unavailable KAREN ., DR CARMICHAEL Attending Unavailable KAREN ., DR CARMICHAEL Consulting Unavailable KAREN ., DR CARMICHAEL Attending Unavailable SHAIK JUANH Libra Primary Care Unavailable KAREN ., DR CARMICHAEL Admitting Unavailable KAREN ., DR CARMICHAEL Consulting Unavailable KAREN ., DR CARMICHAEL Attending Unavailable REQUEST, DR NONE LISTED Primary Care Unavaila ble KAREN ., DR CARMICHAEL Admitting Unavailable ZIEBER, DR NANCY Luis Consulting Unavailable REQUEST, DR SAHARA LISTED Consulting Unavaila ble KAREN ., DR CARMICHAEL Procedure Practitioner Unavail able HERNESTO MARTELL Attending Unavailable HERNESTO MARTELL Admitting Unavailable HERNESTO MARTELL Consulting Unavailable BECKIE MICHAEL Primary Care Unavailable KAREN ., DR CARMICHAEL Consulting Unavailable MCCORNACK, NANCY Consulting Unavailable KAREN ., DR CARMICHAEL Consulting Unavailable KAREN ., DR CARMICHAEL Attending Unavailable YESSICA, GTZ H Primary Care Unavailable KAREN ., DR CARMICHAEL Admitting Unavailable Unavailable Primary Care Provider UnavailBREA Newman Attending Unavailable MICHAEL LOVING Attending Unavailable MICKBREA Referring Unavailable MICKBREA Traore Referring Unavailable HERNESTO SILVERIO Attending Unavailable Allergies Allergy Classification Reported Allergen(s) Allergy Type Date of Onset Reaction(s) Facility (6 sources) Bee Sting Drug allergy Dibbz [place] [facility] Other Medications Completed/Discontinued Medications Medication Drug Class(es) Dates Sig (Normalized) Sig (Original) vits62/FA/om3/dha/e pa ( GUMMY ORAL) (3 sources) vits62/FA/om3/dha/e pa ( GUMMY ORAL) Take by mouth. 0 Active Comment on above: Take by mouth. psyllium husk (METAMUCIL ORAL) (3 sources) psyllium husk (METAMUCIL ORAL) Take by mouth. 0 Active Comment on above: Take by mouth. valACYclovir 1000 mg oral tablet (3 sources) Herpesvirus Nucleoside Analog DNA Polymerase Inhibitor, Herpes Simplex Virus Nucleoside Analog DNA Polymerase Inhibitor, Herpes Zoster Virus Nucleoside Analog DNA Polymerase Inhibitor Start: 04-20-2019 valACYclovir (VALTREX) 1 gram Take 2,000 mg by mouth. 0 04/20/2019 Active Comment on above: Take 2,000 mg by olga th. Problems Active Problems Problem Classification Problem Date Documented Da te Episodic/Chronic Allergic reactions (7 sources) Allergy to bee venom; Translations: [Bee allergy status] Onset: 08-09-2021 Resolved: 08-09-2021 Episodic Anal and rectal conditions (3 sources) Other specified diseases of anus and rectum; Translations: [OTHER SPEC DISEASES ANUS AND RECTUM] Onset: 12-10-2022 Episodic Asthma (1 source) Unspecified asthma, uncomplicated; Translations: [UNSPECIFIED ASTHMA UNCOMPLICATED] Onset: 04-21-2022 Chronic Calculus of urinary tract (1 source) Calculus of kidney; Translations: [CALCULUS OF KIDNEY] Onset: 12-13-2022 Episodic Hemorrhoids (1 source) Residual hemorrhoidal skin tags; Translations: [RESIDUAL HEMORRHOIDAL SKIN TAGS] Onset: 12-13-2022 Episodic Menstrual disorders (4 sources) Irregular menstruation, unspecified; Translations: [IRREGULAR MENSTRUATION UNSPECIFIED] Onset: 03-02-2023 Chronic Other complications of (1 source) Diseases of the respiratory system complicating , first trimester; Translations: [DISEASES RESP SYS COMP PREG 1ST TRI] Onset: 02-09-2023 Episodic Other and delivery including normal (6 sources) Encounter for supervision of normal , unspecified, first trimester; Translations: [Encounter for routine follow-up] Onset: 04-14-2022 Episodic Other upper respiratory infections (1 source) Acute pharyngitis, unspecified; Translations: [ACUTE PHARYNGITIS UNSPECIFIED] Onset: 02-09-2023 Episodic Residual codes; unclassified (1 source) 8 weeks gestation of ; Translations: [8 WEEKS GESTATION OF ] Onset: 02-09-2023 Episodic Unclassified (3 sources) COUGH, UNSPECIFIED; Translations: [COUGH, UNSPECIFIED] Onset: 02-09-2023 Unclassified (1 source) CONTACT W/AND (SUSP) EXPOS COVID-19; Translations: [CONTACT W/AND (SUSP) EXPOS COVID-19] Onset: 04-21-2022 Unclassified (2 sources) No additional problems on file Past or Other Problems Problem Classification Problem Date Documented Da te Episodic/Chronic E Codes: Natural/environment (1 source) Bitten or stung by nonvenomous insect and other nonvenomous arthropods, initial encounter; Translations: [Bitten or stung by nonvenomous insect and other nonvenomous arthropods, initial encounter W57.XXXA] Onset: 07-25-2021 Resolved: 07-25-2021 Episodic Early or threatened labor (5 sources) Term delivery with labor, third trimester, not applicable or unspecified; Translations: [False labor before 37 completed weeks of gestation, third trimester] Onset: 03-16-2022 Episodic Gastrointestinal hemorrhage (5 sources) Hemorrhage of anus and rectum; Translations: [Rectal hemorrhage] Onset: 08-09-2021 Resolved: 08-09-2021 Episodic Other complications of ; puerperium affecting management of mother (1 source) Diseases of the respiratory system complicating childbirth; Translations: [DISEASES RESP SYS COMP CHILDBIRTH] Onset: 04-21-2022 Episodic Other complications of (4 sources) Other specified related conditions, third trimester; Translations: [OTH SPEC PREG RELATED COND 3RD TRI] Onset: 04-06-2022 Episodic Other complications of (1 source) Diseases of the respiratory system complicating , third trimester; Translations: [DISEASES RESP SYS COMP PREG 3RD TRI] Onset: 04-09-2022 Episodic Other screening for suspected conditions (not mental disorders or infectious disease) (4 sources) Encounter for screening for Streptococcus B; Translations: [ENC SCR STREPTOCOCCUS B] Onset: 03-30-2022 Episodic Previous (3 sources) Maternal care for low transverse scar from previous delivery; Translations: [MAT CARE LW TRANS SCAR PREV C/S DEL] Onset: 04-09-2022 Episodic Residual codes; unclassified (1 source) 38 weeks gestation of ; Translations: [38 WEEKS GESTATION OF ] Onset: 04-21-2022 Episodic Residual codes; unclassified (1 source) 36 weeks gestation of ; Translations: [36 WEEKS GESTATION OF ] Onset: 03-29-2022 Episodic Residual codes; unclassified (1 source) 35 weeks gestation of ; Translations: [35 WEEKS GESTATION OF ] Onset: 03-22-2022 Episodic Skin and subcutaneous tissue infections (1 source) Cellulitis of right upper limb; Translations: [Cellulitis of arm, right L03.113] Onset: 07-25-2021 Resolved: 07-25-2021 Episodic Superficial injury; contusion (1 source) Insect bite (nonvenomous) of right upper arm, initial encounter; Translations: [Insect bite (nonvenomous) of right upper arm, initial encounter S40.861A] Onset: 07-25-2021 Resolved: 07-25-2021 Episodic Unclassified (1 source) COUGH, UNSPECIFIED; Translations: [COUGH, UNSPECIFIED] Onset: 02-08-2023 Results Test Name Value Interpretation Reference Range Facility SURGICAL PATHOLOGYon 023 Case Report Surgical Pathology Report Case: [id number] Authorizing Provider: Brea Barton MD, Collected: 10/18/2023 08:19 AM PhD Ordering Location: Procedures Received: 10/18/2023 08:46 AM Pathologist: Singh Rod MD Specimen: SIGMOID COLON POLYP [facility] FINAL DIAGNOSIS Sigmoid colon polyp, biopsy: - Hyperplastic polyp. [facility] Gross Description A. SIGMOID COLON POLYP Received in formalin is a diego-red polypoid segment of tissue measuring 0.6 x 0.4 x 0.1 cm. No stalk is present. The line of resection is noted. The specimen is bisected and totally submitted in one cassette. J October 18, 2023 3:20 PM Gross examination performed at [facility], [address] [place] [address] Performing Lab Diagnostic interpretation performed at [address] [id number] Rehabilitation Tech: Mike Jackson M.D. [facility] ANES POSTPROC EVALon 023 ANES POSTPROC EVAL HNO ID: [id number] Author: Elidia Ness MD Service: Anesthesiology Author Type: Anesthesiologist Type: Anesthesia Postprocedure Evaluation Filed: 10/18/2023 1:15 PM Note Text: POST ANESTHESIA EVALUATION NOTE : 1990 Procedure Summary Date: 10/18/23 Room / Location: Procedures Anesthesia Start: 803 Anesthesia Stop: 820 Procedure: COLONOSCOPY DIAGNOSTIC Diagnosis: Rectal bleeding (Hematochezia) Scheduled Providers: Brea Barton MD, PhD; Elidia Ness MD; Hernesto Silverio APRN.NITROCELLULOSE MAKER; Kai Aponte RN Responsible Provider: Elidia Ness MD Anesthesia Type: MAC ASA Status: 2 Anesthesia Type: MAC Last Vitals Vitals Value Taken Time BP 106/66 10/18/23 0853 Temp 36.4 ?C (97.5 ?F) 10/18/23 0828 HR SpO2 85 10/18/23 0854 Resp 17 10/18/23 0854 SpO2 100 % 10/18/23 0854 Vitals shown include unfiled device data. Post Anesthesia Patient Status Patient Evaluation: PACU. PACU/ICU Patient Condition: stable. Anticipated Disposition: phase 2 then home. Neurological Status: aware and responsive. Pulmonary Status: breathing comfortably on room air Airway Control: returned to baseline unsupported. Cardiovascular Status: stable. Pain Management: clinically adequate Postoperative Hydration: acceptable. Intraoperative Events: no significant anesthesia events Post Operative Nausea/Vomiting Status: no significant post operative nausea or vomiting Recommendation: continue current plan of care. 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 Tracheostomy tube not present Mallampati: I. TM distance: >3 FB. Neck ROM: full ROM without neurological symptoms. Mouth opening: adequate. Short neck: no. Thick neck: no DENTAL Dental findings: teeth intact. Additional exam findings: no II - ANESTHESIA PLAN ASA Score: 2 Anesthetic Plan: MAC The patient is not a current smoker. NPO Status: adequate Beta Adriano Monitoring Plan Monitoring plan: standard ASA. Post Procedure Analgesic Plan Postoperative analgesic plan: multimodal analgesia. Informed Consent Anesthetic risks, benefits, alternatives, personnel and consent discussed: yes. Patient / Responsible Constitution Party agrees to proceed: yes Patient / Surrogate agrees to blood products: blood products not planned Significant changes in the patient condition since the History and Physical, not otherwise documented in primary service progress note: no. Potential Anesthesia issues that may suggest increased risk of complications or contraindication to planned procedure: none. Discussed the possibility of lip / dental damage: yes [facility] CHART REVIEW: There is no problem list on file for this patient. No past medical history on file. PAST SURGICAL HISTORY Procedure Laterality Date - SECTION HX 3 No family history on file. (Not in a hospital admission) Inpatient medications reviewed in [facility] I have interviewed and examined the patient. I have reviewed the medical record and/or the pre-anesthesia evaluation, pertinent labs, and test results. This contains updated information obtained within 48 hours of Surgery/Procedure. SIGNATURE: Elidia Ness MD PATIENT NAME: Marlin Cade DATE: October 18, 2023 TIME: 7:47 AM : 1990 Normal [facility] COLONOSCOPY DIAGNOSTICon [facility] Colonoscopyon 10-18-2023 Colonoscopy [facility] Gastrointestinal Endoscopy Patient Name: Marlin Cade Procedure Date: 10/18/2023 7:49 AM Date of : 1990 Admit Type: Outpatient Age: 32 Room: [place] [address] Gender: Female Note Status: Finalized Attending MD: Brea Barton MD, PhD, [id number] Procedure: Colonoscopy Indications: Hematochezia Providers: Brea Barton MD, PhD Patient Profile: This is a 32 year old female. Refer to note in patient chart for documentation of history and physical. Last Colonoscopy: none. The patient's first colonoscopy is today. Referring Physician: Brea Barton MD, PhD (Referring MD) Medicines: Monitored Anesthesia Care Complications: No immediate complications. Requesting Provider: Procedure: Pre-Anesthesia Assessment: - Prior to the procedure, a History and Physical was performed, and patient medications and allergies were reviewed. The patient's tolerance of previous anesthesia was also reviewed. The risks and benefits of the procedure and the sedation options and risks were discussed with the patient. All questions were answered, and informed consent was obtained. Prior Anticoagulants: The patient has taken no anticoagulant or antiplatelet agents. ASA Grade Assessment: II - A patient with mild systemic disease. After reviewing the risks and benefits, the patient was deemed in satisfactory condition to undergo the procedure. After I obtained informed consent, the scope was passed under direct vision. Throughout the procedure, the patient's blood pressure, pulse, and oxygen saturations were monitored continuously. The Colonoscope was introduced through the anus and advanced to the terminal ileum. The colonoscopy was performed without difficulty. The patient tolerated the procedure well. The quality of the bowel preparation was adequate. The terminal ileum, ileocecal valve, appendiceal orifice, and rectum were photographed. Scope Withdrawal Time: 0 hours 5 minutes 51 seconds Moderate Sedation: MAC anesthesia was administered by the anesthesia team. Total Procedure Duration: 0 hours 11 minutes 29 seconds Findings: The terminal ileum appeared normal. A 4 mm polyp was found in the sigmoid colon. The polyp was sessile. The polyp was removed with a jumbo cold forceps. Resection and retrieval were complete. Estimated blood loss was minimal. Hemorrhoids were found on perianal exam. Impression: - The examined portion of the ileum was normal. - One 4 mm polyp in the sigmoid colon, removed with a jumbo cold forceps. Resected and retrieved. - Hemorrhoids found on perianal exam. Recommendation: - Discharge patient to home (ambulatory). - Patient has a contact number available for emergencies. The signs and symptoms of potential delayed complications were discussed with the patient. Return to normal activities tomorrow. Written discharge instructions were provided to the patient. - Resume previous diet. - Continue present medications. - If you have not received my chart notice, letter or telephone call in one week telephone Dr. Barton at [phone] for results. - Repeat colonoscopy in 7-10 years for surveillance. Procedure Code(s): --- Professional --- 11421, Colonoscopy, flexible; with biopsy, single or multiple CPT copyright 2020 [employer]. All rights reserved. The codes documented in this report are preliminary and upon dinkey motor operator review may be revised to meet current compliance requirements. Attending Participation: I personally performed the entire procedure. Scope In: 8:09:14 AM Scope Out: 8:20:[address] Brea Barton MD, PhD Brea Barton MD, PhD 10/18/2023 8:25:12 AM This report has been signed electronically by Brea Barton MD, PhD Number of Addenda: 0 Note Initiated On: 10/18/2023 7:49 AM Estimated Blood Loss: Estimated blood loss was minimal. Normal [facility] HISTORY PHYSICALon HISTORY PHYSICAL HNO ID: [id number] Author: Brea Barton MD, PhD Service: Gastroenterology Author Type: Physician Type: HANDP Filed: 10/18/2023 7:57 AM Note Text: PROCEDURAL SEDATION HISTORY AND PHYSICAL EXAM SERVICE DATE: 10/18/2023 SERVICE TIME: 7:57 AM Subjective HPI: This is a 32 year old female who presents with rectal bleeding PAST ANESTHESIA HISTORY: No history of adverse event No past medical history on file. PAST SURGICAL HISTORY Procedure Laterality Date SECTION HX 3 Prior to Admission medications as of 10/18/23 0744 Medication Sig Last Dose Taking valACYclovir (VALTREX) 1 gram Take 2,000 mg by mouth. Unknown vits62/FA/om3/dha/epa ( GUMMY ORAL) Take by mouth. Unknown psyllium husk (METAMUCIL ORAL) Take by mouth. Unknown ALLERGIES Not on File Objective PHYSICAL EXAM: The remainder of the physical exam is noncontributory. AIRWAY: Airway Visualization of Uvula: Yes Mouth opening greater than 2 fingerbreadths: Yes Neck Full Range of Motion: Yes LUNGS: ctab CARDIAC: , rrr Assessment/Plan ASA Class: ASA Class:: Patient with severe systemic disease Active Problems: * No active hospital problems. * Resolved Problems: * No resolved hospital problems. * Medication and Non-Pharmacologic VTE Prophylaxis/Anticoagu lants VTE Prophylaxis: none Provisional Diagnosis/Treatment Plan: colon SIGNATURE: Brea Barton MD, PhD PATIENT NAME: Marlin Cade DATE: October 18, 2023 TIME: 7:57 AM Normal [facility] SURGICAL PATHOLOGYon 023 CASE REPORT Normal [facility] Comment on above: Order Comment: Speci men Type: TISSUE SPECIMEN Ordering Facility: [facility] Address: [facility] [place] [address] Result Comment: [facility] Pathology Report Case: [id number] Authorizing Provider: Brea Barton MD, Collected: 10/18/2023 08:19 AM PhD Ordering Location: Procedures Received: 10/18/2023 08:46 AM Pathologist: Singh Rod MD Specimen: SIGMOID COLON POLYP Performed By: #### S #### [facility] CLIA [id number] [address] [place] [address] FINAL DIAGNOSIS [facility] Comment on above: Order Comment: Speci men Type: TISSUE SPECIMEN Ordering Facility: [facility] Address: [address] [place] [address] Result Comment: Sigm oid colon polyp, biopsy: - Hyperplastic polyp. Performed By: #### S #### [facility] CLIA [id number] [address] [place] [address] OF [facility] FINAL PERFORMING LAB [facility] Comment on above: Order Comment: Speci men Type: TISSUE SPECIMEN Ordering Facility: [facility] Address: [address] [place] [address] Result Comment: Diag nostic interpretation performed at [facility], [address] [place] [address] CLIA# [id number] Rehabilitation Tech: Mike Jackson M.D. Performed By: #### S #### [facility] CLIA [id number] [address] [place] [address] GROSS DESCRIPTION [facility] Comment on above: Order Comment: Speci men Type: TISSUE SPECIMEN Ordering Facility: [facility] Address: [address] [place] [address] Result Comment: A. S IGMOID COLON POLYP Received in formalin is a diego-red polypoid segment of tissue measuring 0.6 x 0.4 x 0.1 cm. No stalk is present. The line of resection is noted. The specimen is bisected and totally submitted in one cassette. JTS October 18, 2023 3:20 PM [place] [address] Performed By: #### S #### [facility] CLIA [id number] [address] [place] [address] [facility] Luis Fernando 05-15-2023 CNPN Telephone (GASTAV) MARLIN CADE ([id number]) 1990 F Date Time Provider Department 05/15/23 MICK DANIELS During your visit today, we recorded the following information about you: Naomi Cain Ma 05/15/2023 2:12 PM Signed Sent out two medical release forms for patient 05/15/23: [facility] - Dr. Baldemar Arnett [place], [place] - ED Naomi Cain Ma 05/22/2023 8:57 AM Signed Received medical records from [facility] ED and sent for scanning. Resent medical records request to [facility] - Dr. Baldemar Arnett. Allergies As of Date: 05/15/2023 (Not on File) Date Reviewed: 05/12/2023 Reviewed by: Kiara Atwood O[facility] - Fully Assessed Reason for Visit: Release Of Medical Records [2017] Cmt: Prescriptions as of 05/22/2023 - valACYclovir (VALTREX) 1 gram Take 2,000 mg by mouth. - vits62/FA/om3/dha/epa ( GUMMY ORAL) Take by mouth. - psyllium husk (METAMUCIL ORAL) Take by mouth. Problem List As Of Date: 05/15/2023 (None) Encounter Status:Closed by NAOMI CAIN MA on 05/15/23 Normal [facility] C-REACTIVE PROTEIN (CRP)on 0 05-12-2023 CRP [Mass/Vol] <0.9 mg/dL [facility] CBC panel Auto (Bld)on 05-12 Erythrocyte distribution width (RBC) [Ratio] 13.8 % Normal 11.5-15.0 [facility] Comment on above: Order Comment: Speci men Type: BLOOD SPECIMEN Ordering Facility: [facility] Address: [address] [address] Performed By: #### 5 8410-2 #### [facility] [place] [id number] [address] OF [facility] Hematocrit (Bld) [Volume fraction] 35.7 % Low 36.0-46.0 [facility] Comment on above: Order Comment: Speci men Type: BLOOD SPECIMEN Ordering Facility: [facility] Address: [address] [address] Performed By: #### 5 8410-2 #### [facility] [place] [id number] [address] [place] [address] [place] Hemoglobin (Bld) [Mass/Vol] 12.3 g/dL Normal 11.5-15.5 [facility] Comment on above: Order Comment: Speci men Type: BLOOD SPECIMEN Ordering Facility: [facility] Address: [address] [address] Performed By: #### 5 8410-2 #### [facility] [place] [id number] [address] [place] MCH (RBC) [Entitic mass] 32.1 pg Normal 26.0-34.0 [facility] Comment on above: Order Comment: Speci men Type: BLOOD SPECIMEN Ordering Facility: [facility] Address: [address] [address] Performed By: #### 5 8410-2 #### [facility] [place] [id number] [address] [place] MCHC (RBC) [Mass/Vol] 34.5 g/dL Normal 30.5-36.0 [facility] Comment on above: Order Comment: Speci men Type: BLOOD SPECIMEN Ordering Facility: [facility] Address: [address] [address] Performed By: #### 5 8410-2 #### [facility] [place] [id number] [address] [place], [place] [id number] [place] [address] [place] MCV (RBC) [Entitic vol] 93.2 fL Normal 80.0-100.0 [facility] Comment on above: Order Comment: Speci men Type: BLOOD SPECIMEN Ordering Facility: [facility] Address: [address] Performed By: #### 5 8410-2 #### [facility] CLIA [id number] [address] [place], [place] [address] [place] Nucleated RBC (Bld) [#/Vol] 10*3/uL Normal <0.01 [facility] Comment on above: Order Comment: Speci men Type: BLOOD SPECIMEN Ordering Facility: [facility] Address: [address] Performed By: #### 5 8410-2 #### [facility] [place] [id number] [place] [address] [place] Platelet mean volume (Bld) [Entitic vol] 11.2 fL Normal 9.0-12.7 [facility] Comment on above: Order Comment: Speci men Type: BLOOD SPECIMEN Ordering Facility: [facility] Address: [address] Performed By: #### 5 8410-2 #### [facility] CLIA [id number] [place] Platelets (Bld) [#/Vol] 148 10*3/uL Low 150-400 [facility] Comment on above: Order Comment: Speci men Type: BLOOD SPECIMEN Ordering Facility: [facility] Address: [address] Performed By: #### 5 8410-2 #### [facility] [place] [id number] [place] [address] [place] RBC (Bld) [#/Vol] 3.83 10*6/uL Low 3.90-5.20 [facility] Comment on above: Order Comment: Speci men Type: BLOOD SPECIMEN Ordering Facility: [facility] Address: [address] [place] [id number] Performed By: #### 5 8410-2 #### [facility] CLIA [id number] STATES OF [facility] WBC (Bld) [#/Vol] 7.57 10*3/uL Normal 3.70-11.00 [facility] Comment on above: Order Comment: Speci men Type: BLOOD SPECIMEN Ordering Facility: [facility] Address: [address] [id number] Performed By: #### 5 8410-2 #### [facility] CLIA [id number] [address] [facility]. [address] [place] Erythrocyte distribution width (RBC) [Ratio] 13.8 % 11.5 - 15.0 % [facility] Hematocrit (Bld) [Volume fraction] 35.7 % Low 36.0 - 46.0 % [facility] Hemoglobin (Bld) [Mass/Vol] 12.3 g/dL 11.5 - 15.5 g/dL [facility] MCH (RBC) [Entitic mass] 32.1 pg 26. 0 - 34.0 pg [facility] MCHC (RBC) [Mass/Vol] 34.5 g/dL 30.5 - 36.0 g/dL [facility] MCV (RBC) [Entitic vol] 93.2 fL 80.0 - 100.0 fL [facility] Nucleated RBC (Bld) [#/Vol] <0.01 k/uL [facility] Platelet mean volume (Bld) [Entitic vol] 11.2 fL 9.0 - 12.7 fL [facility] Platelets (Bld) [#/Vol] 148 10*3/uL Low 150 - 400 k/uL [facility] RBC (Bld) [#/Vol] 3.83 10*6/uL Low 3.90 - 5.2 0 m/uL [facility] WBC (Bld) [#/Vol] 7.57 10*3/uL 3.70 - 11. 00 k/uL [facility] CNOVon 05-12-2023 CNOV Office Visit (GASTAV ) MARLIN CADE ([id number]) 1990 F Date Time Provider Department 05/12/23 8:00 AM BREA BARTON During your visit today, we recorded the following information about you: Pulse Blood pressure Weight Height 78/minute 115/58 105.9 kg 1.753 m Brea Barton MD, PhD 05/14/2023 4:34 PM Signed CLINICAL HISTORY: This is a 32 year old female who presents today in consultation for an evaluation of rectal bleeding at the request of No primary care provider on file. She has bleeding when she is not When not sometimes like a period with clots When Does not get anemic Has some burning sometimes when she bleeds She poops more than the average person Has to strain Urgent sometimes Never diarrheal Sometimes the blood comes out when not passing stool. Has been going on for 4 years but always . She is due August. Supposed to have colonoscopy to assess But then was This is 4th Growing just fine She might have been bleeding before her first -cant remember If she eats a salad then bleeds badly Drinks coffee Cut those out then felt better When she bleeds now she takes metamucil and the bleeding stops Last bad bleeding January Was bad -month straight gushing, bright red. Last saw blood this am Always after she does is on toilet paper not in toilet All her pregnancies she did not need iron. Enrique has hemorrhoids VITALS: Blood pressure 115/58, pulse 78, height 175.3 cm (5' 9 ), weight 105.9 kg (233 lb 6.4 oz). ALLERGIES: Patient has no allergy information on record. MEDICATIONS: Current Outpatient Medications Medication Sig Dispense Refill valACYclovir (VALTREX) 1 gram Take 2,000 mg by mouth. vits62/FA/om3/dha/epa ( GUMMY ORAL) Take by mouth. psyllium husk (METAMUCIL ORAL) Take by mouth. No current facility-administered medications for this visit. PAST MEDICAL HISTORY:History reviewed. No pertinent past medical history. PAST SURGICAL HISTORY: PAST SURGICAL HISTORY Procedure Laterality Date SECTION HX 3 FAMILY HISTORY: grandfather lives on metamucil for bad hemorrhoids thinks parents have had colon SOCIAL HISTORY: no findings Work up to date: CBC Reviewed with patient during visit today. REVIEW OF SYSTEMS: GENERAL: No weight loss, malaise or fevers., SEE HPI HEENT: Negative for frequent or significant headaches, NECK: Negative for lumps, goiter, pain and significant neck swelling RESPIRATORY: Negative for cough, wheezing or shortness of breath. CARDIOVASCULAR: Negative for chest pain, leg swelling or palpitations. 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 MUSCULOSKELETAL: Negative for joint pain or swelling, back pain or muscle pain. SKIN: Negative for lesions, rash, and itching. PSYCH: Negative for sleep disturbance, mood disorder and recent psychosocial stressors. HEMATOLOGY/LYMPHOLOGY Negative for prolonged bleeding, bruising easily or swollen nodes. ENDOCRINE: Negative for cold or heat intolerance, polyuria, polydipsia and goiter. All other reviewed and negative other than HPI. PHYSICAL EXAMINATION: GENERAL APPEARANCE: Well developed and well nourished. SKIN: Skin color, texture, turgor normal. No rashes or lesions. EYES: Conjunctiva normal without icterus. OROPHARYNX: lips, mucosa, and tongue normal, teeth and gums normal NECK: Supple, full range of motion, no lymphadenopathy, normal thyroid, LUNGS: Normal breath sounds, Clear to auscultation, No wheezes, No crackles. HEART:Normal PMI, Regular rate and rhythm, Normal heart sounds, S1 and S2 and No murmurs. NEURO: Alert and oriented in no acute distress. ABDOMEN: Normal bowel sounds, abdomen flat with no distention, Soft, non-tender, no hepatomegaly. no palpable masses, no abdominal bruits, no rebound and no rigidity. EXTREMITIES:Extremiti es normal, No deformities, No skin discoloration, No edema . SCARLETT Salgado present anterior superficial and posterior deeper fissure skin tag/hemorrhoidal no palpable massess RECENT LABS: CBC: No results found for: WBC , HB , MCV , PLT , NEUT , LYMPHP Hepatic Function Panel: No results found for: ALB , TBILI , CBILI , ALKPHOS , AST , ALT , TPROT Assessment/Plan: (K62.5) Rectal bleeding (primary encounter diagnosis) 32 yo with history of rectal bleeding for 4 years, gets better with fiber. On exam has hemorrhoids and fissure. This is most consistent with anorectal bleeding such as due for fissure and/or hemorrhoid Talked about cannot say completely there is not neoplasm but usually that would not be like this for 4 years and respond to fiber also lack of anemic reassuring. Proctitis/ibd another concern but again his (more content not included)... Normal [facility] CRP [Mass/Vol] mg/L Normal <0.9 [facility] Comment on above: Order Comment: Speci men Type: BLOOD SPECIMEN Ordering Facility: [facility] Address: [address] [place] [address] Performed By: #### 2 4323-8, 1987-, 83397-4 #### [facility] CLIA [id number] [facility] [place] [address] [place] Calprotectin (Stl) [Mass/Mas s]on 05-12-2023 CALPROTECTIN, FECAL INTERP Normal Normal [facility] CALPROTECTIN, FECAL QUANTITATIVE 20.9 ug/g <50 ug/g [facility] CALPROTECTIN, FECAL INTERP Normal Normal Normal [facility] Comment on above: Order Comment: Speci irasema Type: STOOL SPECIMEN Ordering Facility: [facility] Address: [address] [place] [phone] Result Comment: On 2022, [facility] [place] [employer] implemented a new fecal calprotectin method, the [employer] Calprotectin assay. For assistance with interpretation of results in patients undergoing serial monitoring, contact Client Services at [phone] or [phone] to discuss options, preferably within 7 days of issuing this report. Interpretation: <50.0 ug/g: Normal 50.0 ug/g - 120.0 ug/g: Borderline elevated. Re-evaluation in 4-6 weeks is recommended if clinically indicated. >120.0 ug/g: Elevated Performed By: #### 3 8445-3 #### [facility] CLIA [id number] [address] [place] [address] [place] CALPROTECTIN, FECAL QUANTITATIVE 20.9 ug/g Normal <50 [facility] Comment on above: Order Comment: Speci men Type: STOOL SPECIMEN Ordering Facility: [facility] Address: [address] [address] Performed By: #### 3 8445-3 #### [facility] CLIA [id number] [address] [place] [address] [place] Comprehensive metabolic 2000 panelon 05-12-2023 Albumin [Mass/Vol] 3.7 g/dL Low 3.9-4.9 [facility] Comment on above: Order Comment: Speci men Type: BLOOD SPECIMEN Ordering Facility: [facility] Address: [address] Performed By: #### 2 4323-8, 1988-02, #### [facility] CLIA [id number] [address] [place] [address] [place] ALP [Catalytic activity/Vol] 39 U/L Normal 34-123 [facility] Comment on above: Order Comment: Speci men Type: BLOOD SPECIMEN Ordering Facility: [facility] Address: [address] Performed By: #### 2 4323-8, 1988-02, #### [facility] CLIA [id number] [address] [place] [address] [place] ALT [Catalytic activity/Vol] 8 U/L Normal 7-38 [facility] Comment on above: Order Comment: Speci men Type: BLOOD SPECIMEN Ordering Facility: [facility] Address: [address] Performed By: #### 2 4323-8, 1988-02, #### [facility] CLIA [id number] [address] [place] [address] [place] Anion gap [Moles/Vol] 11 mmol/L Normal 9-18 [facility] Comment on above: Order Comment: Speci men Type: BLOOD SPECIMEN Ordering Facility: [facility] Address: [address] [place] [address] Performed By: #### 2 4323-8, 1988-02, #### [facility] CLIA [id number] [address] [place] [address] [place] AST [Catalytic activity/Vol] 13 U/L Normal 13-35 [facility] Comment on above: Order Comment: Speci men Type: BLOOD SPECIMEN Ordering Facility: [facility] Address: [address] [place] [address] Performed By: #### 2 3-8, 1988-02, #### [facility] CLIA [id number] [address] [place] [address] [place] Bilirubin [Mass/Vol] 0.3 mg/dL Normal 0.2-1.3 [facility] Comment on above: Order Comment: Speci men Type: BLOOD SPECIMEN Ordering Facility: [facility] Address: [address] [place] [address] Performed By: #### 2 4323-8, 1988-02, #### [facility] CLIA [id number] [address] [place] [address] [place] Calcium [Mass/Vol] 9.0 mg/dL Normal 8.5-10.2 [facility] Comment on above: Order Comment: Speci men Type: BLOOD SPECIMEN Ordering Facility: [facility] Address: [address] [place] [address] Performed By: #### 2 4323-8, 1988-02, #### [facility] CLIA [id number] [address] [place] [address] [place] Chloride [Moles/Vol] 104 mmol/L Normal 97-105 [facility] Comment on above: Order Comment: Speci men Type: BLOOD SPECIMEN Ordering Facility: [facility] Address: [address] Performed By: #### 2 4323-8, 1988-02, #### [facility] CLIA [id number] [address] [place] [address] [place] CO2 [Moles/Vol] 22 mmol/L Normal 22-30 [facility] Comment on above: Order Comment: Speci men Type: BLOOD SPECIMEN Ordering Facility: [facility] Address: [address] [place], [place] [address] Performed By: #### 2 432-8, 1988-02, #### [facility] CLIA [id number] [address] [place] [address] [place] Creatinine [Mass/Vol] 0.76 mg/dL Normal 0.58-0.96 [facility] Comment on above: Order Comment: Speci men Type: BLOOD SPECIMEN Ordering Facility: [facility] Address: [address] [place] [address] Performed By: #### 2 4328, 1988-02, #### [facility] CLIA [id number] [address] [place] [address] [place] ESTIMATED GLOMERULAR FILTRATION RATE 108 mL/min/1.73m??? Normal >=60 [facility] Comment on above: Order Comment: Speci men Type: BLOOD SPECIMEN Ordering Facility: [facility] Address: [address] [place] [address] Result Comment: Albina mated Glomerular Filtration Rate (eGFR) is calculated using the 2020 CKD-EPI creatinine equation. This equation utilizes serum creatinine, sex, and age as parameters. The creatinine assay has traceable calibration to isotope dilution-mass spectrometry. Refer to KDIGO guidelines for clinical interpretation. In patients with unstable renal function, e.g. those with acute kidney injury, the eGFR may not accurately reflect actual GFR. Performed By: #### 2 4323-8, 1988-02, #### [facility] CLIA [id number] [address] [facility] [place] [address] [place] Glucose [Mass/Vol] 88 mg/dL Normal 74-99 [facility] Comment on above: Order Comment: Speci men Type: BLOOD SPECIMEN Ordering Facility: [facility] Address: [address] [place] [id number] Result Comment: The [place] [employer] (ADA) provides guidance for cutoff values for fasting glucose and random glucose. The ADA defines fasting as no caloric intake for at least 8 hours. Fasting plasma glucose results between 100 to 125 mg/dL indicate increased risk for diabetes (prediabetes). Fasting plasma glucose results greater than or equal to 126 mg/dL meet the criteria for diagnosis of diabetes. In the absence of unequivocal hyperglycemia, results should be confirmed by repeat testing. In a patient with classic symptoms of hyperglycemia or hyperglycemic crisis, random plasma glucose results greater than or equal to 200 mg/dL meet the criteria for diagnosis of diabetes. Reference: Standards of Medical Care in Diabetes 2016, [place] [employer]. Diabetes Care. 2016.39(Suppl 1). Performed By: #### 2 43201-04, #### [facility] CLIA [id number] [address] [place] [address] [place] Potassium [Moles/Vol] 4.2 mmol/L Normal 3.7-5.1 [facility] Comment on above: Order Comment: Lise villalpando Type: BLOOD SPECIMEN Ordering Facility: [facility] Address: [place] [address] Performed By: #### 2 8, #### [facility] CLIA [id number] [address] [place] [address] [place] Protein [Mass/Vol] 6.3 g/dL Normal 6.3-8.0 [facility] Comment on above: Order Comment: Lauriei men Type: BLOOD SPECIMEN Ordering Facility: [facility] Address: [place] [address] Performed By: #### 2 8, #### [facility] CLIA [id number] [address] [place] [address] [place] Sodium [Moles/Vol] 137 mmol/L Normal 136-144 [facility] Comment on above: Order Comment: Speci men Type: BLOOD SPECIMEN Ordering Facility: [facility] Address: [address] [place] [address] Performed By: #### 2 4323-8, 1988-02, #### [facility] CLIA [id number] [address] [place] [address] [place] Urea nitrogen [Mass/Vol] 8 mg/dL Normal 7-21 [facility] Comment on above: Order Comment: Speci men Type: BLOOD SPECIMEN Ordering Facility: [facility] Address: [address] [place] [address] Performed By: #### 2 4323-8, 1988-02, #### [facility] CLIA [id number] [address] [place] [address] [place] Albumin [Mass/Vol] 3.7 g/dL Low 3.9 - 4.9 g/dL [facility] ALP [Catalytic activity/Vol] 39 U/L 34 - 123 U/L [facility] ALT [Catalytic activity/Vol] 8 U/L 7 - 38 U/L [facility] Anion gap [Moles/Vol] 11 mmol/L 9 - 18 mmol/L [facility] AST [Catalytic activity/Vol] 13 U/L 13 - 35 U/L [facility] Bilirubin [Mass/Vol] 0.3 mg/dL 0.2 - 1 .3 mg/dL [facility] Calcium [Mass/Vol] 9.0 mg/dL 8.5 - 10. 2 mg/dL [facility] Chloride [Moles/Vol] 104 mmol/L 97 - 10 5 mmol/L [facility] CO2 [Moles/Vol] 22 mmol/L 22 - 30 mmol/L [facility] Creatinine [Mass/Vol] 0.76 mg/dL 0.58 - 0.96 mg/dL [facility] Estimated Glomerular Filtration Rate 108 mL/min/1.73m >=60 mL/min/1.73m [facility] Glucose [Mass/Vol] 88 mg/dL 74 - 99 mg/dL [facility] Potassium [Moles/Vol] 4.2 mmol/L 3.7 - 5.1 mmol/L [facility] Protein [Mass/Vol] 6.3 g/dL 6.3 - 8.0 g/dL [facility] Sodium [Moles/Vol] 137 mmol/L 136 - 144 mmol/L [facility] Urea nitrogen [Mass/Vol] 8 mg/dL 7 - 21 mg/d L [facility] Iron and Iron binding capaci ty panelon 05-12-2023 Iron [Mass/Vol] 113 ug/dL Normal 41-186 [facility] Comment on above: Order Comment: Speci men Type: BLOOD SPECIMEN Ordering Facility: [facility] Address: [address] [place], [place] [address] Performed By: #### 2 4323-8, #### [facility] CLIA [id number] STATES OF [facility] Iron binding capacity [Mass/Vol] 416 ug/dL High 232-386 [facility] Comment on above: Order Comment: Speci men Type: BLOOD SPECIMEN Ordering Facility: [facility] Address: [address] [place] [address] Performed By: #### 2 4323-8, #### [facility] IA [id number] [address] [place], [place] [id number] [place] [address] [place] [facility] Iron/TIBC [Molar ratio] 27.2 % Normal 15.0-57.0 [facility] Comment on above: Order Comment: Speci men Type: BLOOD SPECIMEN Ordering Facility: [facility] Address: [address] [place], [place] [address] Performed By: #### 2 4323-8, #### [facility] IA [id number] [address] [place] [address] [place] Iron [Mass/Vol] 113 ug/dL 41 - 186 ug/dL [facility] Iron binding capacity [Mass/Vol] 416 ug/dL High 232 - 386 ug/dL [facility] Iron/TIBC [Molar ratio] 27.2 % 15.0 - 57.0 % [facility] CNPHolly 05-11-2023 CNPN Telephone (FRANCES) MARLIN CADE ([id number]) 1990 F Date Time Provider Department 05/11/23 MICK DANIELS During your visit today, we recorded the following information about you: Naomi Cain Ma 05/11/2023 3:06 PM Signed Called patient for more information about her visit tomorrow with Dr. Barton in Gastroenterology for IBD. We have no medical information on file, or in Care Everywhere. Patient stated she had sought medical care in [place], with Dr. Baldemar Arnett, Gastroenterology, [facility], presenting with bleeding when having a BM. Patient states that the bleeding is sometimes heavy and sometimes it just colors the toilet paper. She has no pain with it, and wasn't actually diagnosed with IBD, but she is concerned. She was scheduled to have a colonoscopy in [place], but when she got they canceled the procedure. She is currently 21.5 weeks into her . She stated the [facility] she came to the [facility] for further evaluation. Naomi Cain CMA Allergies As of Date: 05/11/2023 (Not on File) Date Reviewed: Never Reviewed Reason for Visit: Appointment Information [Other] Problem List As Of Date: 05/11/2023 (None) Encounter Status:Closed by NAOMI CAIN MA on 05/11/23 Normal [facility] HEP B SURFACE ANTIGEN SCREEN on 03-03-2023 HBsAg Screen Negative Normal Negative [facility] Comment on above: Performed By: #### H BSANS #### [facility] [address] [place] [address] Dr. David Garduno HEPATITIS C VIRUS AB W/ REFL EX QUANTon 03-03-2023 HCV AB Non-Reactive Normal Non Reactive [facility] Comment on above: Performed By: #### C BC #### [facility] [address] [address] [address] David Garduno Interpretation: Comment Normal [facility] Comment on above: Result Comment: Not infected with HCV unless early or acute infection is suspected (which may be delayed in an immunocompromised individual), or other evidence exists to indicate HCV infection. Performed By: #### C BC #### [facility] [address] [place] [address] Dr. David Garduno HIV 1 AND 2 WITH REFLEXon HIV Screen 4th Generation wRfx Non-Reactive Normal Non Reactive [facility] Comment on above: Result Comment: HIV Negative HIV-1/HIV-2 antibodies and HIV-1 p24 antigen were NOT detected. There is no laboratory evidence of HIV infection. Performed By: #### R PRQ #### [facility] [address] [place] [address] Dr. David Garduno RPR QUANTon 03-03-2023 Rapid Plasma Reagin, Quant Non-Reactive Normal NonRea<1:1 [facility] Comment on above: Result Comment: Plea se Note: This test does not meet current guidelines for screening and diagnosis of syphilis. This test is intended for following treatment response in patients being treated for syphilis infection. To screen for syphilis infection, a reflex cascade that includes both RPR and a treponema-specific assay should be utilized, such as Treponema pallidum (Syphilis) Screening [place] (978260) or Rapid Plasma Reagin (RPR) Test With Reflex to Quantitative RPR and Confirmatory Treponema pallidum Antibodies (750280). Performed By: #### R PRQ #### [facility] [address] [place] [address] Dr. David Garduno RUBELLA AB IGGon 03-03-2023 Rubella Antibodies, IgG 1.15 index Normal Immune >0.99 [facility] Comment on above: Result Comment: Non- immune <0.90 Equivocal 0.90 - 0.99 Immune >0.99 Performed By: #### R PRQ #### [facility] [address] [place] [address] Dr. David Garduno CBC AUTO DIFFon 03-02-2023 BASO # 0.0 103/ul Normal 0.0-0.1 [facility] Comment on above: Performed By: #### C BC #### [facility] [address] [place] [address] Dr. David Garduno Basophils/100 WBC (Bld) 0.3 % Normal 0.2-2.0 [facility] Comment on above: Performed By: #### C BC #### [facility] [address] [place] [address] Dr. David Garduno EO # 0.1 103/ul Normal 0.0-0.7 [facility] Comment on above: Performed By: #### C BC #### [facility] [address] [place] [address] Dr. David Garduno Eosinophils/100 WBC (Bld) 1.1 % Normal 0.9-7.0 [facility] Comment on above: Performed By: #### C BC #### [facility] [address] [place] [address] Dr. David Garduno Erythrocyte distribution width (RBC) [Ratio] 12.6 % Normal 11.0-15.0 [facility] Comment on above: Performed By: #### C BC #### [facility] [address] [place] [address] Dr. David Garduno Hematocrit (Bld) [Volume fraction] 38.8 % Normal 36.0-48.0 [facility] Comment on above: Performed By: #### C BC #### [facility] [address] [place] [address] Dr. David Garduno Hemoglobin (Bld) [Mass/Vol] 13.8 g/dL Normal 12.0-16.0 [facility] Comment on above: Performed By: #### C BC #### [facility] [address] [place] [address] Dr. David Garduno IG # 0.03 10e3/ul Normal 0.00-0.03 [facility] Comment on above: Performed By: #### C BC #### [facility] [address] [place] [address] Dr. David Garduno IG % 0.5 % Normal 0.0-0.5 [facility] Comment on above: Performed By: #### C BC #### [facility] [address] [address] [address] David Garduno LYMPH # 1.8 103/ul Normal 1.2-3.8 [facility] Comment on above: Performed By: #### C BC #### [facility] [address] [address] [address] David Garduno Lymphocytes/100 WBC (Bld) 28.5 % Normal 20.5-60.0 [facility] Comment on above: Performed By: #### C BC #### [facility] [address] [place] [address] Dr. David Garduno MANUAL DIFF REQ NO Normal [facility] Comment on above: Performed By: #### C BC #### [facility] [address] [place] [address] Dr. David Garduno MCH (RBC) [Entitic mass] 31.4 pg Normal 26.7-34.0 [facility] Comment on above: Performed By: #### C BC #### [facility] [address] [place] [address] Dr. David Garduno MCHC (RBC) [Mass/Vol] 35.6 g/dL Critically high 29.9-35.2 [facility] Comment on above: Performed By: #### C BC #### [facility] [address] [place] [address] Dr. David Garduno MCV (RBC) [Entitic vol] 88.2 fL Normal 81.0-99.0 [facility] Comment on above: Performed By: #### C BC #### [facility] [address] [place] [address] Dr. David Garduno MONO # 0.4 103/ul Normal 0.3-0.8 [facility] Comment on above: Performed By: #### C BC #### [facility] [address] [place] [address] Dr. David Garduno Monocytes/100 WBC (Bld) 7.0 % Normal 1.7-12.0 [facility] Comment on above: Performed By: #### C BC #### [facility] [address] [place] [address] Dr. David Garduno NEUT # 3.8 103/ul Normal 1.4-6.5 [facility] Comment on above: Performed By: #### C BC #### [facility] [address] [place] [address] Dr. David Garduno Neutrophils/100 WBC (Bld) 62.6 % Normal 43.0-75.0 [facility] Comment on above: Performed By: #### C BC #### [facility] [address] [place] [address] Dr. David Garduno Platelet mean volume (Bld) [Entitic vol] 10.9 fL Normal 9.5-13.5 [facility] Comment on above: Performed By: #### C BC #### [facility] [address] [place] [address] Dr. David Garduno PLT 184 103/ul Normal 150-450 [facility] Comment on above: Performed By: #### C BC #### [facility] [address] [place] [address] Dr. David Garduno RBC 4.40 106/ul Normal 4.20-5.40 [facility] Comment on above: Performed By: #### C BC #### [facility] [address] [place] [address] Dr. David Garduno WBC 6.1 103/ul Normal 4.0-11.0 [facility] Comment on above: Performed By: #### C BC #### [facility] [address] [place] [address] Dr. David Garduno CULTURE URINEon 03-02-2023 CULTURE URINE Culture Observations : MODERATE GROWTH OF MIXED GENITAL CLARIBEL. NO POTENTIAL PATHOGENS SEEN. Normal [facility] Comment on above: Performed By: #### U RCX #### [facility] [address] [place] [address] Dr. David Garduno GLYCOHEMOGLOBIN A1Con 2022 ADA RECOMMENDATION SEE BELOW Normal [facility] Comment on above: Result Comment: ADA RECOMMENDED LIMIT 4.0 - 6.0 ADA THERAPEUTIC TARGET < 7.0 ACTION SUGGESTED > 7.0 Performed By: #### A 1C #### [facility] [address] [address] [address] David Garduno Glucose [Mass/Vol] 94 mg/dL Normal [facility] Comment on above: Performed By: #### A 1C #### [facility] [address] [address] [address] David Garduno HbA1c (Bld) [Mass fraction] 4.9 % Normal 4.5-6.2 [facility] Comment on above: Performed By: #### A 1C #### [facility] [address] [address] [address] David Garduno TSHon 03-02-2023 TSH 0.430 uIU/mL Normal 0.358-3.740 [facility] Comment on above: Performed By: #### R PRQ #### [facility] [address] [place] [address] Dr. David Garduno TYPE AND SCREENon 03-02-2023 TYPE AND SCREEN Negative Normal [facility] Comment on above: Performed By: #### T NS #### [facility] [address] [place] [address] Dr. David Garduno US PREG TVon 02-16-2023 US PREG TV EXAMINATION: US PREG TV HISTORY: Missed period COMPARISON: No relevant comparison available. FINDINGS: GESTATIONAL SAC: Present and normal appearing. YOLK SAC: Present and normal appearing. POLE: Present and normal appearing. CARDIAC: Present. UTERUS: Normal size and appearance. OVARIES: Right: Corpus lutein cyst. Left: Normal. CERVIX: 3.8 cm in length and closed. CUL-DE-SAC: Normal. OTHER: None. AGE BY LMP: 9 weeks 4 days CARA BY LMP: 09/17/2023 AGE BY US CRL: 9 weeks 1 day CARA BY US CRL: 09/20/2023 IMPRESSION: 1. Single live intrauterine . Electronically authenticated by: NANCY KING Date: 2023-02-16 16:03 Normal [facility] AUTO DIFFon 12-10-2022 BASO # 0.0 103/ul Normal 0.0-0.1 [facility] Comment on above: Performed By: #### C BC #### [facility] [address] [address] [address] David Garduno Basophils/100 WBC (Bld) 0.6 % Normal 0.2-2.0 [facility] Comment on above: Performed By: #### C BC #### [facility] [address] [place] [address] Dr. David Garduno EO # 0.1 103/ul Normal 0.0-0.7 [facility] Comment on above: Performed By: #### C BC #### [facility] [address] [place] [address] Dr. David Garduno Eosinophils/100 WBC (Bld) 1.7 % Normal 0.9-7.0 [facility] Comment on above: Performed By: #### C BC #### [facility] [address] [place] [address] Dr. David Garduno Erythrocyte distribution width (RBC) [Ratio] 12.4 % Normal 11.0-15.0 [facility] Comment on above: Performed By: #### C BC #### [facility] [address] [place] [address] Dr. David Garduno Hematocrit (Bld) [Volume fraction] 41.9 % Normal 36.0-48.0 [facility] Comment on above: Performed By: #### C BC #### [facility] [address] [place] [address] Dr. David Garduno Hemoglobin (Bld) [Mass/Vol] 14.8 g/dL Normal 12.0-16.0 [facility] Comment on above: Performed By: #### C BC #### [facility] [address] [place] [address] Dr. David Garduno IG # 0.01 10e3/ul Normal 0.00-0.03 [facility] Comment on above: Performed By: #### C BC #### [facility] [address] [place] [address] Dr. David Garduno IG % 0.3 % Normal 0.0-0.5 [facility] Comment on above: Performed By: #### C BC #### [facility] [address] [place] [address] Dr. David Garduno LYMPH # 0.8 103/ul Critically low 1.2-3.8 [facility] Comment on above: Performed By: #### C BC #### [facility] [address] [place] [address] Dr. David Garduno Lymphocytes/100 WBC (Bld) 22.3 % Normal 20.5-60.0 [facility] Comment on above: Performed By: #### C BC #### [facility] [address] [place] [address] Dr. David Garduno MANUAL DIFF REQ NO Normal [facility] Comment on above: Performed By: #### C BC #### [facility] [address] [place] [address] Dr. David Garduno MCH (RBC) [Entitic mass] 31.0 pg Normal 26.7-34.0 [facility] Comment on above: Performed By: #### C BC #### [facility] [address] [place] [address] Dr. David Garduno MCHC (RBC) [Mass/Vol] 35.3 g/dL Critically high 29.9-35.2 [facility] Comment on above: Performed By: #### C BC #### [facility] [address] [place] [address] Dr. David Garduno MCV (RBC) [Entitic vol] 87.8 fL Normal 81.0-99.0 [facility] Comment on above: Performed By: #### C BC #### [facility] [address] [place] [address] Dr. David Garduno MONO # 0.5 103/ul Normal 0.3-0.8 [facility] Comment on above: Performed By: #### C BC #### [facility] [address] [place] [address] Dr. David Garduno Monocytes/100 WBC (Bld) 13.0 % Critically high 1.7-12. 0 [facility] Comment on above: Performed By: #### C BC #### [facility] [address] [place] [address] Dr. David Garduno NEUT # 2.2 103/ul Normal 1.4-6.5 [facility] Comment on above: Performed By: #### C BC #### [facility] [address] [place] [address] Dr. David Garduno Neutrophils/100 WBC (Bld) 62.1 % Normal 43.0-75.0 [facility] Comment on above: Performed By: #### C BC #### [facility] [address] [place] [address] Dr. David Garduno Platelet mean volume (Bld) [Entitic vol] 10.4 fL Normal 9.5-13.5 [facility] Comment on above: Performed By: #### C BC #### [facility] [address] [place] [address] Dr. David Garduno PLT 174 103/ul Normal 150-450 [facility] Comment on above: Performed By: #### C BC #### [facility] [address] [place] [address] Dr. David Garduno RBC 4.77 106/ul Normal 4.20-5.40 [facility] Comment on above: Performed By: #### C BC #### [facility] [address] [place] [address] Dr. David Garduno WBC 3.5 103/ul Critically low 4.0-11.0 [facility] Comment on above: Performed By: #### C BC #### [facility] [address] [place] [address] ABD/PELVIS WO CONon 12-10 CT ABD/PELVIS WO CON EXAMINATION: CT ABD/PELVIS WO CON, 12/10/2022 9:37 AM EST HISTORY: UNSPECIFIED ABDOMINAL PAIN COMPARISON: None. TECHNIQUE: CT scan of the abdomen and pelvis was performed without IV contrast. Coronal and sagittal reconstructions were performed. CT dose reduction technique was used, including Automated Exposure Control. FINDINGS: The right kidney demonstrates a 4 mm pelvis and the lower pole calyx without obstruction. Probable parapelvic cysts in the right kidney. The left kidney demonstrates no stone or dilatation. Urinary bladder is partially filled and appears unremarkable. The liver demonstrate no focal lesion. The spleen is mildly enlarged without obvious focal lesion. The pancreas, gallbladder, bile ducts and both adrenal glands are unremarkable. Nonenlarged mesenteric lymph nodes are seen. No lymph node enlargement in the abdomen, retroperitoneum or the pelvis. Small umbilical hernia containing fatty tissue. The appendix is unremarkable. No bowel loop dilatation or bowel wall thickening. The uterus and adnexa are unremarkable. Minimal free fluid in the pelvic peritoneal cavity, likely physiologic. The bone windows demonstrate no focal aggressive lesion. The bones are well-mineralized. Scans through the lung bases are clear. IMPRESSION: 1. Calculus in the lower pole of the right kidney measuring 4 mm in size, without obstruction. 2. Mild splenomegaly. 3. Imaging partially limited due to lack of contrast. 4.. Nonenlarged mesenteric lymph nodes are seen. 5. Unremarkable gallbladder and appendix. 6. Small umbilical hernia containing fatty tissue. Electronically authenticated by: PAIGE KERR Date: 2022-12-10 10:51 Normal [facility] PREG HCG QUALon 12-10-2022 , QUAL Negative Normal NEGATIVE [facility] Comment on above: Performed By: #### P REG #### [facility] [address] [place] [address] Dr. David Garduno PROF CHEM 8 (BAS METB)on Anion gap [Moles/Vol] 13.0 mmol/L Normal [facility] Comment on above: Performed By: #### R PRQ #### [facility] [address] [place] [address] Dr. David Garduno Calcium [Mass/Vol] 8.5 mg/dL Normal 8.5-10.1 [facility] Comment on above: Performed By: #### R PRQ #### [facility] [address] [address] [address] David Garduno Chloride [Moles/Vol] 103 mmol/L Normal 98-107 [facility] Comment on above: Performed By: #### R PRQ #### [facility] [address] [address] [address] David Garduno CO2 [Moles/Vol] 26.4 mmol/L Normal 21.0-32.0 [facility] Comment on above: Performed By: #### R PRQ #### [facility] [address] [address] [address] David Garduno Creatinine [Mass/Vol] 0.85 mg/dL Normal 0.55-1.02 [facility] Comment on above: Performed By: #### R PRQ #### [facility] [address] [address] [address] David Garduno EGFR-AF JORDANIAN >60 Normal >=60 [facility] Comment on above: Performed By: #### R PRQ #### [facility] [address] [address] [address] David Garduno EGFR-NON AF JORDANIAN >60 Normal >=60 [facility] Comment on above: Performed By: #### R PRQ #### [facility] [address] [place] [address] Dr. David Garduno Glucose [Mass/Vol] 97 mg/dL Normal 74-106 [facility] Comment on above: Performed By: #### R PRQ #### [facility] [address] [place] [address] Dr. David Garduno Potassium [Moles/Vol] 4.4 mmol/L Normal 3.5-5.1 [facility] Comment on above: Performed By: #### R PRQ #### [facility] [address] [place] [address] Dr. David Garduno Sodium [Moles/Vol] 138 mmol/L Normal 136-145 [facility] Comment on above: Performed By: #### R PRQ #### [facility] [address] [place] [address] Dr. David Garduno Urea nitrogen [Mass/Vol] 8.0 mg/dL Normal 7.0-18.0 [facility] Comment on above: Performed By: #### R PRQ #### [facility] [address] [address] [address] David Garduno Urea nitrogen/Creatinine [Mass ratio] 9.4 mg/mg Normal [facility] Comment on above: Performed By: #### R PRQ #### [facility] [address] [address] [address] David Garduno CBC AUTO DIFFon 04-10-2022 BASO # 0.0 103/ul Normal 0.0-0.1 [facility] Comment on above: Performed By: #### C BC #### [facility] [address] [address] [address] David Garduno Basophils/100 WBC (Bld) 0.2 % Normal 0.2-2.0 [facility] Comment on above: Performed By: #### C BC #### [facility] [address] [address] [address] David Garduno EO # 0.0 103/ul Normal 0.0-0.7 [facility] Comment on above: Performed By: #### C BC #### [facility] [address] [place] [address] Dr. David Garduno Eosinophils/100 WBC (Bld) 0.1 % Critically low 0.9-7.0 [facility] Comment on above: Performed By: #### C BC #### [facility] [address] [place] [address] Dr. David Garduno Erythrocyte distribution width (RBC) [Ratio] 13.8 % Normal 11.0-15.0 [facility] Comment on above: Performed By: #### C BC #### [facility] [address] [place] [address] Dr. David Garduno Hematocrit (Bld) [Volume fraction] 30.0 % Critically low 36.0-48.0 [facility] Comment on above: Performed By: #### C BC #### [facility] [address] [place] [address] Dr. David Garduno Hemoglobin (Bld) [Mass/Vol] 9.9 g/dL Critically low 12.0-16.0 [facility] Comment on above: Performed By: #### C BC #### [facility] [address] [place] [address] Dr. David Garduno IG # 0.03 10e3/ul Normal 0.00-0.03 [facility] Comment on above: Performed By: #### C BC #### [facility] [address] [place] [address] Dr. David Garduno IG % 0.3 % Normal 0.0-0.5 [facility] Comment on above: Performed By: #### C BC #### [facility] [address] [place] [address] Dr. David Garduno LYMPH # 1.8 103/ul Normal 1.2-3.8 [facility] Comment on above: Performed By: #### C BC #### [facility] [address] [place] [address] Dr. David Garduno Lymphocytes/100 WBC (Bld) 17.2 % Critically low 20.5-60.0 [facility] Comment on above: Performed By: #### C BC #### [facility] [address] [place] [address] Dr. Daivd Garduno MANUAL DIFF REQ NO Normal [facility] Comment on above: Performed By: #### C BC #### [facility] [address] [place] [address] Dr. David Garduno MCH (RBC) [Entitic mass] 28.4 pg Normal 26.7-34.0 [facility] Comment on above: Performed By: #### C BC #### [facility] [address] [place] [address] Dr. David Garduno MCHC (RBC) [Mass/Vol] 33.0 g/dL Normal 29.9-35.2 [facility] Comment on above: Performed By: #### C BC #### [facility] [address] [place] [address] Dr. David Garduno MCV (RBC) [Entitic vol] 86.0 fL Normal 81.0-99.0 [facility] Comment on above: Performed By: #### C BC #### [facility] [address] [place] [address] Dr. David Garduno MONO # 0.8 103/ul Normal 0.3-0.8 [facility] Comment on above: Performed By: #### C BC #### [facility] [address] [place] [address] Dr. David Garduno Monocytes/100 WBC (Bld) 7.9 % Normal 1.7-12.0 [facility] Comment on above: Performed By: #### C BC #### [facility] [address] [place] [address] Dr. David Garduno NEUT # 7.6 103/ul Critically high 1.4-6.5 [facility] Comment on above: Performed By: #### C BC #### [facility] [address] [place] [address] Dr. David Garduno Neutrophils/100 WBC (Bld) 74.3 % Normal 43.0-75.0 [facility] Comment on above: Performed By: #### C BC #### [facility] [address] [place] [address] Dr. David Garduno Platelet mean volume (Bld) [Entitic vol] 11.6 fL Normal 9.5-13.5 [facility] Comment on above: Performed By: #### C BC #### [facility] [address] [place] [address] Dr. David Garduno PLT 155 103/ul Normal 150-450 [facility] Comment on above: Performed By: #### C BC #### [facility] [address] [place] [address] Dr. David Garduno RBC 3.49 106/ul Critically low 4.20-5.40 [facility] Comment on above: Performed By: #### C BC #### [facility] [address] [place] [address] Dr. David Garduno WBC 10.2 103/ul Normal 4.0-11.0 [facility] Comment on above: Performed By: #### C BC #### [facility] [address] [place] [address] Dr. David Garduno CBC AUTO DIFFon 04-09-2022 BASO # 0.0 103/ul Normal 0.0-0.1 [facility] Comment on above: Performed By: #### C BC #### [facility] [address] [place] [address] Dr. David Garduno Basophils/100 WBC (Bld) 0.2 % Normal 0.2-2.0 [facility] Comment on above: Performed By: #### C BC #### [facility] [address] [place] [address] Dr. David Garduno EO # 0.0 103/ul Normal 0.0-0.7 [facility] Comment on above: Performed By: #### C BC #### [facility] [address] [place] [address] Dr. David Garduno Eosinophils/100 WBC (Bld) 0.5 % Critically low 0.9-7.0 [facility] Comment on above: Performed By: #### C BC #### [facility] [address] [place] [address] Dr. David Garduno Erythrocyte distribution width (RBC) [Ratio] 14.0 % Normal 11.0-15.0 [facility] Comment on above: Performed By: #### C BC #### [facility] [address] [place] [address] Dr. David Garduno Hematocrit (Bld) [Volume fraction] 35.5 % Critically low 36.0-48.0 [facility] Comment on above: Performed By: #### C BC #### [facility] [address] [place] [address] Dr. David Garduno Hemoglobin (Bld) [Mass/Vol] 11.6 g/dL Critically low 12.0-16.0 [facility] Comment on above: Performed By: #### C BC #### [facility] [address] [place] [address] Dr. David Garduno IG # 0.02 10e3/ul Normal 0.00-0.03 [facility] Comment on above: Performed By: #### C BC #### [facility] [address] [place] [address] Dr. David Garduno IG % 0.2 % Normal 0.0-0.5 [facility] Comment on above: Performed By: #### C BC #### [facility] [address] [place] [address] Dr. David Garduno LYMPH # 1.9 103/ul Normal 1.2-3.8 [facility] Comment on above: Performed By: #### C BC #### [facility] [address] [place] [address] Dr. David Garduno Lymphocytes/100 WBC (Bld) 22.8 % Normal 20.5-60.0 [facility] Comment on above: Performed By: #### C BC #### [facility] [address] [place] [address] Dr. David Garduno MANUAL DIFF REQ NO Normal [facility] Comment on above: Performed By: #### C BC #### [facility] [address] [place] [address] Dr. David Garduno MCH (RBC) [Entitic mass] 28.4 pg Normal 26.7-34.0 [facility] Comment on above: Performed By: #### C BC #### [facility] [address] [place] [address] Dr. David Garduno MCHC (RBC) [Mass/Vol] 32.7 g/dL Normal 29.9-35.2 [facility] Comment on above: Performed By: #### C BC #### [facility] [address] [place] [address] Dr. David Garduno MCV (RBC) [Entitic vol] 86.8 fL Normal 81.0-99.0 [facility] Comment on above: Performed By: #### C BC #### [facility] [address] [place] [address] Dr. David Garduno MONO # 0.8 103/ul Normal 0.3-0.8 [facility] Comment on above: Performed By: #### C BC #### [facility] [address] [place] [address] Dr. David Garduno Monocytes/100 WBC (Bld) 9.6 % Normal 1.7-12.0 [facility] Comment on above: Performed By: #### C BC #### [facility] [address] [place] [address] Dr. David Garduno NEUT # 5.6 103/ul Normal 1.4-6.5 [facility] Comment on above: Performed By: #### C BC #### [facility] [address] [place] [address] Dr. David Garduno Neutrophils/100 WBC (Bld) 66.7 % Normal 43.0-75.0 [facility] Comment on above: Performed By: #### C BC #### [facility] [address] [place] [address] Dr. David Garduno Platelet mean volume (Bld) [Entitic vol] 12.0 fL Normal 9.5-13.5 [facility] Comment on above: Performed By: #### C BC #### [facility] [address] [place] [address] Dr. David Garduno PLT 197 103/ul Normal 150-450 [facility] Comment on above: Performed By: #### C BC #### [facility] [address] [place] [address] Dr. David Garduno RBC 4.09 106/ul Critically low 4.20-5.40 [facility] Comment on above: Performed By: #### C BC #### [facility] [address] [place] [address] Dr. David Garduno WBC 8.3 103/ul Normal 4.0-11.0 [facility] Comment on above: Performed By: #### C BC #### [facility] [address] [place] [address] Dr. David Garduno TYPE AND SCREENon 04-09-2022 TYPE AND SCREEN Negative Normal [facility] Comment on above: Performed By: #### C BC #### [facility] [address] [place] [address] Dr. David Garduno UA (CLEAN/CATCH) PATROL OFFICER/MICRO I F IND.on 04-09-2022 Bilirubin Ql (U) Negative Normal NEGATIVE [facility] Comment on above: Performed By: #### R PRQ #### [facility] [address] [place] [address] Dr. David Garduno Clarity (U) CLEAR Normal CLEAR [facility] Comment on above: Performed By: #### R PRQ #### [facility] [address] [place] [address] Dr. David Garduno Color (U) LT. YELLOW Normal YELLOW [facility] Comment on above: Performed By: #### R PRQ #### [facility] [address] [place] [address] Dr. David Garduno Glucose Ql (U) Negative Normal NEGATIVE [facility] Comment on above: Performed By: #### R PRQ #### [facility] [address] [place] [address] Dr. David Garduno Hemoglobin Ql (U) Negative Normal NEGATIVE [facility] Comment on above: Performed By: #### R PRQ #### [facility] [address] [place] [address] Dr. David Garduno Ketones Ql (U) Negative Normal NEGATIVE [facility] Comment on above: Performed By: #### R PRQ #### [facility] [address] [place] [address] Dr. David Garduno LEUKOCYTES Negative Normal NEGATIVE [facility] Comment on above: Performed By: #### R PRQ #### [facility] [address] [place] [address] Dr. David Garduno Nitrite Ql (U) Negative Normal NEGATIVE [facility] Comment on above: Performed By: #### R PRQ #### [facility] [address] [place] [address] Dr. David Garduno pH (U) 6.5 [pH] Normal 5-9 [facility] Comment on above: Performed By: #### R PRQ #### [facility] [address] [place] [address] Dr. David Garduno SPEC GRAVITY 1.010 Normal 1.005-<=1.02 5 [facility] Comment on above: Performed By: #### R PRQ #### [facility] [address] [place] [address] Dr. David Garduno UA PROTEIN Negative Normal NEGATIVE/ TRACE [facility] Comment on above: Performed By: #### R PRQ #### [facility] [address] [address] [address] Daivd Garduno UR MICRO IND NOT INDICATED Normal [facility] Comment on above: Performed By: #### R PRQ #### [facility] [address] [address] [address] David Garduno Urobilinogen Qn (U) 0.2 {Taye'U}/dL Normal 0.2 - 1. 0 [facility] Comment on above: Performed By: #### R PRQ #### [facility] [address] [place] [address] Dr. David Garduno [facility] SARS-CoV-2 (COVID-19) RNA CARLOS+probe Ql (Unsp spec) Not detected Normal NOT DETECTED [facility] Comment on above: Result Comment: This test is not yet approved or cleared by the [place] FDA. When there are no FDA-approved or cleared tests available, and other criteria are met, FDA can make tests available under an emergency access mechanism called an Emergency Use Authorization (EUA). The EUA for this test is supported by the [place] of Health and Human Service's (HHS's) declaration that circumstances exist to justify the emergency use of in vitro diagnostics for the detection and/or diagnosis of the virus that causes COVID-19. This EUA will remain in effect (meaning this test can be used) for the duration of the COVID-19 declaration justifying emergency of IVDs, unless it is terminated or revoked by FDA (after which the test may no longer be used). When diagnostic testing is negative, the possibility of a false negative should be considered in the context of a patient's recent exposures and the presence of clinical signs and symptoms consistent with SARS-CoV-2. Performed By: #### C VDTBH #### [facility] [address] [place] [address] Dr. David Garduno US PREG BIOPHY W NON STRESSo n 04-06-2022 US PREG BIOPHY W NON STRESS ULTRASOUND BIOPHYSICAL PROFILE WITH NONSTRESS TEST HISTORY: ; Amniotic fluid leaking. COMPARISON: None. FINDINGS: There is a single intrauterine with the anatomy not imaged on this exam. The fetus is in the cephalic presentation. There are heart tones of 124 bpm. The amniotic fluid index is normal at 12.9 cm. The largest fluid pocket measures 6.1 cm. Movement 2 Tone 2 Breathing 2 Fluid 2 IMPRESSION: Single viable intrauterine ; BPP 8/8. Electronically authenticated by: [facility] Date: 2022-04-06 18:46 Normal [facility] GROUP B STREP CULTUREon S. agalactiae Ag Ql (Unsp spec) Culture Observations: NEGATIVE FOR GROUP B STREPTOCOCCUS. Normal [facility] Comment on above: Performed By: #### C BC #### [facility] [address] [place] [address] Dr. David Garduno UA (CLEAN/CATCH) PATROL OFFICER/MICRO I F IND.on 03-25-2022 Bilirubin Ql (U) Negative Normal NEGATIVE [facility] Comment on above: Performed By: #### U ACSIND #### [facility] [address] [place] [address] Dr. David Garduno Clarity (U) CLEAR Normal CLEAR [facility] Comment on above: Performed By: #### U ACSIND #### [facility] [address] [place] [address] Dr. David Garduno Color (U) LT. YELLOW Normal YELLOW [facility] Comment on above: Performed By: #### U ACSIND #### [facility] [address] [place] [address] Dr. David Garduno Glucose Ql (U) Negative Normal NEGATIVE [facility] Comment on above: Performed By: #### U ACSIND #### [facility] [address] [place] [address] Dr. David Garduno Hemoglobin Ql (U) Negative Normal NEGATIVE [facility] Comment on above: Performed By: #### U ACSIND #### [facility] [address] [place] [address] Dr. David Garduno Ketones Ql (U) Negative Normal NEGATIVE [facility] Comment on above: Performed By: #### U ACSIND #### [facility] [address] [address] [address] David Garduno LEUKOCYTES Negative Normal NEGATIVE [facility] Comment on above: Performed By: #### U ACSIND #### [facility] [address] [address] [address] David Garduno Nitrite Ql (U) Negative Normal NEGATIVE [facility] Comment on above: Performed By: #### U ACSIND #### [facility] [address] [address] [address] David Garduno pH (U) 6.0 [pH] Normal 5-9 [facility] Comment on above: Performed By: #### U ACSIND #### [facility] [address] [place] [address] Dr. David Garduno SPEC GRAVITY <=1.005 Abnormal 1.005-<=1.02 5 [facility] Comment on above: Performed By: #### U ACSIND #### [facility] [address] [place] [address] Dr. David Garduno UA PROTEIN Negative Normal NEGATIVE/ TRACE [facility] Comment on above: Performed By: #### U ACSIND #### [facility] [address] [address] [address] David Garduno UR MICRO IND NOT INDICATED Normal [facility] Comment on above: Performed By: #### U ACSIND #### [facility] [address] [place] [address] Dr. David Garduno Urobilinogen Qn (U) 0.2 {Taye'U}/dL Normal 0.2 - 1. 0 [facility] Comment on above: Performed By: #### U ACSIND #### [facility] [address] [place] [address] Dr. David Garduno UA (CLEAN/CATCH) PATROL OFFICER/MICRO I F IND.on 03-16-2022 Bilirubin Ql (U) Negative Normal NEGATIVE [facility] Comment on above: Performed By: #### R PRQ #### [facility] [address] [place] [address] Dr. David Garduno Clarity (U) CLEAR Normal CLEAR [facility] Comment on above: Performed By: #### R PRQ #### [facility] [address] [address] [address] David Garduno Color (U) LT. YELLOW Normal YELLOW [facility] Comment on above: Performed By: #### R PRQ #### [facility] [address] [place] [address] Dr. David Garduno Glucose Ql (U) Negative Normal NEGATIVE [facility] Comment on above: Performed By: #### R PRQ #### [facility] [address] [place] [address] Dr. David Garduno Hemoglobin Ql (U) Negative Normal NEGATIVE [facility] Comment on above: Performed By: #### R PRQ #### [facility] [address] [place] [address] Dr. David Garduno Ketones Ql (U) Negative Normal NEGATIVE [facility] Comment on above: Performed By: #### R PRQ #### [facility] [address] [place] [address] Dr. David Garduno LEUKOCYTES Negative Normal NEGATIVE [facility] Comment on above: Performed By: #### R PRQ #### [facility] [address] [place] [address] Dr. David Garduno Nitrite Ql (U) Negative Normal NEGATIVE [facility] Comment on above: Performed By: #### R PRQ #### [facility] [address] [place] [address] Dr. David Garduno pH (U) 6.0 [pH] Normal 5-9 [facility] Comment on above: Performed By: #### R PRQ #### [facility] [address] [place] [address] Dr. David Garduno SPEC GRAVITY <=1.005 Abnormal 1.005-<=1.02 5 [facility] Comment on above: Performed By: #### R PRQ #### [facility] [address] [place] [address] Dr. David Garduno UA PROTEIN Negative Normal NEGATIVE/ TRACE [facility] Comment on above: Performed By: #### R PRQ #### [facility] [address] [address] [address] David Garduno UR MICRO IND NOT INDICATED Normal [facility] Comment on above: Performed By: #### R PRQ #### [facility] [address] [address] [address] David Garduno Urobilinogen Qn (U) 0.2 {Taye'U}/dL Normal 0.2 - 1. 0 [facility] Comment on above: Performed By: #### R PRQ #### [facility] [address] [address] [address] David Garduno XR wrist LT min 3V*on 2020 XR wrist LT min 3V* [facility] [address] XRay Report Signed Patient: Marlin Cade MR#: [id number] : 1990 Acct:[id number] Age/Sex: 30 / F ADM Date: 05/21/21 Loc: XDUC Room: Type: [facility] Attending Dr: Beckie WRAY Ordering Provider: BECKIE MICHAEL Date of Service: 05/21/21 XR/XR wrist LT min 3V*: Left wrist pain Copies to: BECKIE MICHAEL 4 viewsLEFT wrist plain film COMPARISON:None HISTORY:LEFT wrist pain for 2 weeks. No injury. No fracture, dislocation or focal soft tissue abnormality seen. No significant degeneration. XR/XR wrist LT min 3V* IMPRESSION:Unremarkab le exam. Impression dictated by: Cedric Joy M.D.05/21/2021 2:31 PM Dictation Location: [place] [address] Transcribed By: [facility] 05/21/21 143 Dictated By: Cedric Joy DO 05/21/21 1429 Signed By: 05/21/21 1431 [facility] Physician Orderon 09-23-2020 Physician Order [id number]# 1.00CD:127 Normal [facility] Physician Order [id number]# 1.00CD:127 Normal [facility] Suboxone Scr Uron 09-23-2020 Buprenorphine Ql (U) Negative Normal Negative [facility] Comment on above: Performed By: #### 7 [id number] #### [facility] [address] [place] [address] U Drug Screenon 09-23-2020 Amphetamines Screen method >1000 ng/mL Ql (U) Negative Normal Negative [facility] Comment on above: Result Comment: Nega tive Cutoff: <1000 ng/mL Performed By: #### 7 [id number] #### [facility] [address] [place] [address] Barbiturates Screen Ql (U) Negative Normal Negative [facility] Comment on above: Result Comment: Nega tive Cutoff: <200 ng/mL Performed By: #### 7 [id number] #### [facility] [address] [place] [address] Benzodiazepines Ql (U) Negative Normal Negative [facility] Comment on above: Result Comment: Nega tive Cutoff: <200 ng/mL Performed By: #### 7 [id number] #### [facility] [address] [place] [address] Cocaine Ql (U) Negative Normal Negative [facility] Comment on above: Result Comment: Nega tive Cutoff: <300 ng/mL Performed By: #### 7 [id number] #### [facility] [address] [place] [address] Opiates Screen Ql (U) Negative Normal Negative [facility] Comment on above: Result Comment: Nega tive Cutoff: <300 ng/mL Performed By: #### 7 [id number] #### [facility] [address] [place] [address] Phencyclidine Screen method >25 ng/mL Ql (U) Negative Normal Negative [facility] Comment on above: Result Comment: Nega tive Cutoff: <25 ng/mL These drug screen results are to be used for medical (i.e., treatment) purposes only. Unconfirmed drug screening results must not be used for non-medical purposes (e.g., employment testing, legal testing). Performed By: #### 7 [id number], [id number] #### [facility] [address] [place] [address] Tetrahydrocannabinol Screen method >50 ng/mL Ql (U) Negative Normal Negative [facility] Comment on above: Result Comment: Nega tive Cutoff: <50 ng/mL Performed By: #### 7 [id number] #### [facility] [address] [place] [address] Vital Signs Date Time Vital Sign Value Performing Clinician Facility 10-18-2023 08:50-0500 Diastolic blood pressure 66 mm[Hg] Brea Barton MD, PhD Work Phone: [facility] 10-18-2023 08:50-0500 Heart rate 71 /min Brea Barton MD, PhD Work Phone: [facility] 10-18-2023 08:50-0500 Respiratory rate 14 /min Brea Barton MD, PhD Work Phone: [facility] 10-18-2023 08:50-0500 SaO2% (BldA) [Mass fraction] 97 % Brea Barton MD, PhD Work Phone: [facility] 10-18-2023 08:50-0500 Systolic blood pressure 106 mm[Hg] Brea Barton MD, PhD Work Phone: [facility] 10-18-2023 08:28-0500 Body temperature 97.5 [degF] Brea Barton MD, PhD Work Phone: [facility] 10-18-2023 07:46-0500 Body height 175.3 cm Brea Barton MD, PhD Work Phone: [facility] 10-18-2023 07:46-0500 Body weight 108.86 kg Brea Barton MD, PhD Work Phone: [facility] 05-12-2023 07:44-0400 Body height 175.3 cm Brea Barton MD, PhD Work Phone: [facility] 05-12-2023 07:44-0400 Body weight 105.87 kg Brea Barton MD, PhD Work Phone: [facility] 05-12-2023 07:44-0400 Diastolic blood pressure 58 mm[Hg] Brea Barton MD, PhD Work Phone: [facility] 05-12-2023 07:44-0400 Heart rate 78 /min Brea Barton MD, PhD Work Phone: [facility] 05-12-2023 07:44-0400 Systolic blood pressure 115 mm[Hg] Brea Barton MD, PhD Work Phone: [facility] 10-19-2022 14:00-0500 Body height 175.26 cm Baldemar Arnett Other [employer] Other 10-19-2022 14:00-0500 Body mass index (BMI) [Ratio] 31.01 kg/m2 Baldemar Arnett Other [employer] Other 10-19-2022 14:00-0500 Body weight 95.26 kg Baldemar Arnett Other [employer] Other 10-19-2022 14:00-0500 Diastolic blood pressure 64 mm[Hg] Baldemar Arnett Other [employer] Other 10-19-2022 14:00-0500 Systolic blood pressure 110 mm[Hg] Baldemar Arnett Other [employer] Other 08-09-2021 18:30-0400 Body height 175.26 cm Beckie Michael Other [employer] Other 08-09-2021 18:30-0400 Body mass index (BMI) [Ratio] 30.65 kg/m2 Beckie Michael Other [employer] Other 08-09-2021 18:30-0400 Body weight 94.17 kg Beckie Michael Other [employer] Other 08-09-2021 18:30-0400 Diastolic blood pressure 68 mm[Hg] Beckie Michael Other [employer] Other 08-09-2021 18:30-0400 Respiratory rate 16 /min Beckie Michael Other [employer] Other 08-09-2021 18:30-0400 SaO2% (BldA) [Mass fraction] 99 % Beckie Michael Other [employer] Other 08-09-2021 18:30-0400 Systolic blood pressure 117 mm[Hg] Beckie Michael Other [employer] Other 07-25-2021 14:20-0400 Body height 175.26 cm Vaishali Ginty Other [employer] Other 07-25-2021 14:20-0400 Body mass index (BMI) [Ratio] 31.3 kg/m2 Vaishali Ginty Other [employer] Other 07-25-2021 14:20-0400 Body temperature 97.1 [degF] Vaishali Ginty Other [employer] Other 07-25-2021 14:20-0400 Body weight 96.16 kg Vaishali Ginty Other [employer] Other 07-25-2021 14:20-0400 Diastolic blood pressure 58 mm[Hg] Vaishali Ginty Other [employer] Other 07-25-2021 14:20-0400 Respiratory rate 16 /min Vaishali Ginty Other [employer] Other 07-25-2021 14:20-0400 SaO2% (BldA) [Mass fraction] 99 % Vaishali Ginty Other [employer] Other 07-25-2021 14:20-0400 Systolic blood pressure 107 mm[Hg] Vaishali Ginty Other [employer] Other Encounters Encounter Date Encounter Type Care Provider Facility Start: 10-18-2023 ambulatory BREA BARTON [facility] lity:[facility] Start: 10-18-2023 End: 10-18-2023 Subsequent hospital visit by physician Brea Barton MD, PhD Work Phone: Procedures Comment on above: Rectal bleeding [K62 .5] Start: 10-04-2023 End: 10-04-2023 ambulatory MICHAEL FABIENNE Not Available Start: 05-15-2023 Telephone encounter Mick salazar Work Phone: Gastroenterology Comment on above: Release Of Medical R ecords (/) Start: 05-12-2023 End: 05-13-2023 ambulatory BREA BARTON Facility:[facility] Start: 05-12-2023 End: 05-12-2023 Patient encounter procedure Brea Barton MD, PhD Work Phone: Gastroenterology Comment on above: Rectal bleeding (Trinidad stephen Dx) Start: 05-11-2023 Telephone encounter Mick salazar Work Phone: Gastroenterology Comment on above: Appointment Informat ion Start: 03-02-2023 End: 03-03-[address] JANY REBOLLAR . Facility:[facility] Start: 02-16-2023 End: 02-17-[address] JANY REBOLLAR . Facility:[facility] Start: 02-08-2023 End: 02-08-2023 ambulatory NONE LISTED REQUEST Facility:[facility] Start: 01-17-2023 End: 01-17-2023 ambulatory Baldemar Arnett Other [employer] Other Start: 01-17-2023 Telephone encounter Baldemar IVY G [facility] Start: 01-16-2023 End: 01-16-2023 ambulatory Baldemar Arnett Other [employer] Other Start: 01-16-2023 Telephone encounter Baldemar IVY G [facility] Start: 12-10-2022 End: 12-10-2022 ambulatory BECKIE MICHAEL Facility:[facility] Start: 10-19-2022 End: 10-19-2022 ambulatory Baldemar Arnett Other [employer] Other Start: 10-19-2022 [facility] visit new patient Baldemar Arnett [facility] Start: 04-21-2022 Encounter for preprocedural laboratory examination HERNESTO MARTELL [facility] Start: 04-14-2022 End: 04-14-[address] JANY REBOLLAR . Facility:[facility] Start: 04-11-2022 Encounter for preprocedural laboratory examination DR JANY REBOLLAR . [facility] Start: 04-11-2022 Evaluation and management of inpatient DR JANY REBOLLAR . Facility:[facility] Start: 04-09-2022 End: 04-11-2022 Evaluation and management of inpatient DR JANY REBOLLAR . Facility:[facility] Start: 04-08-2022 End: 04-09-[address] JANY REBOLLAR . Facility:[facility] Start: 04-08-2022 End: 04-09-2022 Encounter for preprocedural laboratory examination DR JANY REBOLLAR . Facility:[facility] Start: 04-06-2022 End: 04-06-[address] JANY REBOLLAR . Facility:[facility] Start: 03-30-2022 End: 03-30-[address] JANY REBOLLAR . Facility:[facility] Start: 03-24-2022 End: 03-25-2022 ambulatory HERNESTO MARTELL Facility:[facility] Start: 03-16-2022 End: 03-17-[address] AJNY REBOLLAR . Facility:[facility] Start: 08-20-2021 Telephone encounter Beckie traore [facility] Start: 08-09-2021 Office outpatient vi sit 15 minutes Beckie Michael [facility] Start: 07-25-2021 Office outpatient vi sit 15 minutes Vaishali Desir [facility] Procedures Date Procedure Procedure Detail Performing Clinician Start: 10-18-2023 Colonoscopy flx dx w /collj spec when pfrmd Brea Barton MD, PhD Work Phone: Start: 10-18-2023 SURGICAL PATHOLOGY Franca Barton MD, PhD Work Phone: Start: 05-12-2023 Assay of calprotecti n fecal Brea Barton MD, PhD Work Phone: Start: 04-09-2022 Extraction of Produc ts of Conception, Low Cervical, Open Approach DR JANY REBOLLAR . Plan of Treatment Date Care Activity Detail Author Start: 06-30-2023 Influenza vaccination C [facility] Start: 2022 HPV TESTING HPV TESTING [facility] Start: 2022 Screening for malign ant neoplasm of cervix HPV Testing [facility] Start: 10-30-2022 DEPRESSION ASSESSMENT DEPRESSION ASS ESSMENT [facility] Start: 2013 PAP TESTING PAP TESTING [facility] Start: 2013 Screening for malign ant neoplasm of cervix Pap Testing [facility] Start: 2011 Urine microalbumin profile [facility] Start: 2010 HEPATITIS C SCREENING HEPATITIS C [facility] Start: 2010 Hepatitis C screening Hepatitis C [facility] Start: 2010 HIV SCREENING HIV SCREENING [facility] Start: 2010 HIV screening HIV Screening [facility] Start: 06-15-1993 COVID-19 VACCINE (#1) COVID-19 VACCI NE (#1) [facility] Start: 1992 HEPATITIS B (1 of 3 - 3-dose series) HEPATITIS B (1 of 3 - 3-dose series) [facility] Start: 1992 Hepatitis B Vaccine (1 of 3 - 3-dose series) Hepatitis B Vaccine (1 of 3 - 3-dose series) [facility] End: 05-12-2024 COLONOSCOPY DIAGNOSTIC COLONOSCOPY DIAGNOSTIC Endoscopy Routine Rectal bleeding 1 Occurrences starting 05/12/2023 until 05/12/2024 [facility] Work Phone: Comment on above: 1 Occurrences starti ng 05/12/2023 until 05/12/2024 [facility] Payers Date Payer Category Payer Medicaid [id number] 1992 Unknown [id number] 2.16.84 [id number] 1992 Unknown [id number] 2.16.84 [id number] 1992 Unknown [id number] 2.16.84 [id number] 1992 Unknown [id number] 2.16.84 [id number] 1992 Unknown [id number] 2.16.84 [id number] 1992 Unknown [id number] 2.16.84 [id number] 1992 Unknown [id number] 2.16.84 [id number] 1992 Unknown [id number] 2.16.84 [id number] 1992 Unknown [id number] 2.16.84 [id number] 1992 Unknown [id number] 2.16.84 [id number] 1992 Unknown [id number] 2.16.84 [id number] 1992 Unknown [id number] 2.16.84 [id number] 1992 Unknown [id number] 2.16.840 .[id number] 1959 Unknown [id number] 2. [id number] 1959 Unknown [id number] Unknown [id number] 2.1 [id number] Social History Date Type Detail Facility Unknown if ever smoked [facility] Other Sex Assigned At [facility] Other Tobacco smoking status [facility] Tobacco smoking consumption unknown [facility] Start: 1992 Sex Assigned At Not on file C [facility] Clinical Notes 07-25-2021 to 10-18-2023 Brea Barton MD, PhD - 10/18/2023 8:00 AM ESTTelephone Encounter - Naomi Cain Ma - 05/15/2023 2:07 PM EDTPBrea solorio MD, PhD - 05/12/2023 7:34 AM EDT Note Date & Type Note Facility 10-18-2023 History and physical note PROCEDURAL SEDATION HISTORY AND PHYSICAL EXAM SERVICE DATE: 10/18/2023 SERVICE TIME: 7:57 AM Subjective HPI: This is a 32 year old female who presents with rectal bleeding PAST ANESTHESIA HISTORY: No history of adverse event No past medical history on file. PAST SURGICAL HISTORY Procedure Laterality Date SECTION HX 3 Prior to Admission medications as of 10/18/23 0744 Medication Sig Last Dose Taking valACYclovir (VALTREX) 1 gram Take 2,000 mg by mouth. Unknown vits62/FA/om3/dha/epa ( GUMMY ORAL) Take by mouth. Unknown psyllium husk (METAMUCIL ORAL) Take by mouth. Unknown ALLERGIES Not on File Objective PHYSICAL EXAM: The remainder of the physical exam is noncontributory. AIRWAY: Airway Visualization of Uvula: Yes Mouth opening greater than 2 fingerbreadths: Yes Neck Full Range of Motion: Yes LUNGS: ctab CARDIAC: , rrr Assessment/Plan ASA Class: ASA Class:: Patient with severe systemic disease Active Problems: * No active hospital problems. * Resolved Problems: * No resolved hospital problems. * Medication and Non-Pharmacologic VTE Prophylaxis/Anticoagulants VTE Prophylaxis: none Provisional Diagnosis/Treatment Plan: colon SIGNATURE: Brea Barton MD, PhD PATIENT NAME: Marlin Cade DATE: October 18, 2023 TIME: 7:57 AM documented in this encounter [facility] 05-15-2023 Miscellaneous Notes Sent out two medical release forms for patient 05/15/23: [facility] [place], [place] - ED documented in this encounter [facility] 05-12-2023 Note HNO ID: [id number] Author: Brea Barton MD, PhD Service: ? Author Type: Physician Type: Progress Notes Filed: 05/14/2023 4:34 PM Note Text: CLINICAL HISTORY: This is a 32 year old female who presents today in consultation for an evaluation of rectal bleeding at the request of No primary care provider on file. She has bleeding when she is not When not sometimes like a period with clots When Does not get anemic Has some burning sometimes when she bleeds She poops more than the average person Has to strain Urgent sometimes Never diarrheal Sometimes the blood comes out when not passing stool. Has been going on for 4 years but always . She is due August. Supposed to have colonoscopy to assess But then was This is 4th Growing just fine She might have been bleeding before her first -cant remember If she eats a salad then bleeds badly Drinks coffee Cut those out then felt better When she bleeds now she takes metamucil and the bleeding stops Last bad bleeding January Was bad -month straight gushing, bright red. Last saw blood this am Always after she does is on toilet paper not in toilet All her pregnancies she did not need iron. Enrique has hemorrhoids VITALS: Blood pressure 115/58, pulse 78, height 175.3 cm (5' 9 ), weight 105.9 kg (233 lb 6.4 oz). ALLERGIES: Patient has no allergy information on record. MEDICATIONS: Current Outpatient Medications Medication Sig Dispense Refill valACYclovir (VALTREX) 1 gram Take 2,000 mg by mouth. vits62/FA/om3/dha/epa ( GUMMY ORAL) Take by mouth. psyllium husk (METAMUCIL ORAL) Take by mouth. No current facility-administered medications for this visit. PAST MEDICAL HISTORY:History reviewed. No pertinent past medical history. PAST SURGICAL HISTORY: PAST SURGICAL HISTORY Procedure Laterality Date SECTION HX 3 FAMILY HISTORY: grandfather lives on metamucil for bad hemorrhoids thinks parents have had colon SOCIAL HISTORY: no findings Work up to date: CBC Reviewed with patient during visit today. REVIEW OF SYSTEMS: GENERAL: No weight loss, malaise or fevers., SEE HPI HEENT: Negative for frequent or significant headaches, NECK: Negative for lumps, goiter, pain and significant neck swelling RESPIRATORY: Negative for cough, wheezing or shortness of breath. CARDIOVASCULAR: Negative for chest pain, leg swelling or palpitations. 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 MUSCULOSKELETAL: Negative for joint pain or swelling, back pain or muscle pain. SKIN: Negative for lesions, rash, and itching. PSYCH: Negative for sleep disturbance, mood disorder and recent psychosocial stressors. HEMATOLOGY/LYMPHOLOGY Negative for prolonged bleeding, bruising easily or swollen nodes. ENDOCRINE: Negative for cold or heat intolerance, polyuria, polydipsia and goiter. All other reviewed and negative other than HPI. PHYSICAL EXAMINATION: GENERAL APPEARANCE: Well developed and well nourished. SKIN: Skin color, texture, turgor normal. No rashes or lesions. EYES: Conjunctiva normal without icterus. OROPHARYNX: lips, mucosa, and tongue normal, teeth and gums normal NECK: Supple, full range of motion, no lymphadenopathy, normal thyroid, LUNGS: Normal breath sounds, Clear to auscultation, No wheezes, No crackles. HEART:Normal PMI, Regular rate and rhythm, Normal heart sounds, S1 and S2 and No murmurs. NEURO: Alert and oriented in no acute distress. ABDOMEN: Normal bowel sounds, abdomen flat with no distention, Soft, non-tender, no hepatomegaly. no palpable masses, no abdominal bruits, no rebound and no rigidity. EXTREMITIES:Extremities normal, No deformities, No skin discoloration, No edema . MA Naomi present anterior superficial and posterior deeper fissure skin tag/hemorrhoidal no palpable massess RECENT LABS: CBC: No results found for: WBC , HB , MCV , PLT , NEUT , LYMPHP Hepatic Function Panel: No results found for: ALB , TBILI , CBILI , ALKPHOS , AST , ALT , TPROT Assessment/Plan: (K62.5) Rectal bleeding (primary encounter diagnosis) 32 yo with history of rectal bleeding for 4 years, gets better with fiber. On exam has hemorrhoids and fissure. This is most consistent with anorectal bleeding such as due for fissure and/or hemorrhoid Talked about cannot say completely there is not neoplasm but usually that would not be like this for 4 years and respond to fiber also lack of anemic reassuring. Proctitis/ibd another concern but again history not as suggestive and she is not having any concerns with lack of weight gain or anemia. As such risk of flex sig although not high risk probably not warranted now in 2nd trimester. If her labs are off (calpro anemia) will reconsider. If not plan c (more content not included)... [facility] 05-12-2023 History of Presen t illness Narrative CLINICAL HISTORY: This is a 32 year old female who presents today in consultation for an evaluation of rectal bleeding at the request of No primary care provider on file. She has bleeding when she is not When not sometimes like a period with clots When Does not get anemic Has some burning sometimes when she bleeds She poops more than the average person Has to strain Urgent sometimes Never diarrheal Sometimes the blood comes out when not passing stool. Has been going on for 4 years but always . She is due August. Supposed to have colonoscopy to assess But then was This is 4th Growing just fine She might have been bleeding before her first -cant remember If she eats a salad then bleeds badly Drinks coffee Cut those out then felt better When she bleeds now she takes metamucil and the bleeding stops Last bad bleeding January Was bad -month straight gushing, bright red. Last saw blood this am Always after she does is on toilet paper not in toilet All her pregnancies she did not need iron. Enrique has hemorrhoids VITALS: Blood pressure 115/58, pulse 78, height 175.3 cm (5' 9 ), weight 105.9 kg (233 lb 6.4 oz). ALLERGIES: Patient has no allergy information on record. MEDICATIONS: Current Outpatient Medications Medication Sig Dispense Refill valACYclovir (VALTREX) 1 gram Take 2,000 mg by mouth. vits62/FA/om3/dha/epa ( GUMMY ORAL) Take by mouth. psyllium husk (METAMUCIL ORAL) Take by mouth. No current facility-administered medications for this visit. PAST MEDICAL HISTORY:History reviewed. No pertinent past medical history. PAST SURGICAL HISTORY: PAST SURGICAL HISTORY Procedure Laterality Date SECTION HX 3 FAMILY HISTORY: grandfather lives on metamucil for bad hemorrhoids thinks parents have had colon SOCIAL HISTORY: no findings Work up to date: CBC Reviewed with patient during visit today. REVIEW OF SYSTEMS: GENERAL: No weight loss, malaise or fevers., SEE HPI HEENT: Negative for frequent or significant headaches, NECK: Negative for lumps, goiter, pain and significant neck swelling RESPIRATORY: Negative for cough, wheezing or shortness of breath. CARDIOVASCULAR: Negative for chest pain, leg swelling or palpitations. 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 MUSCULOSKELETAL: Negative for joint pain or swelling, back pain or muscle pain. SKIN: Negative for lesions, rash, and itching. PSYCH: Negative for sleep disturbance, mood disorder and recent psychosocial stressors. HEMATOLOGY/LYMPHOLOGY Negative for prolonged bleeding, bruising easily or swollen nodes. ENDOCRINE: Negative for cold or heat intolerance, polyuria, polydipsia and goiter. All other reviewed and negative other than HPI. PHYSICAL EXAMINATION: GENERAL APPEARANCE: Well developed and well nourished. SKIN: Skin color, texture, turgor normal. No rashes or lesions. EYES: Conjunctiva normal without icterus. OROPHARYNX: lips, mucosa, and tongue normal, teeth and gums normal NECK: Supple, full range of motion, no lymphadenopathy, normal thyroid, LUNGS: Normal breath sounds, Clear to auscultation, No wheezes, No crackles. HEART:Normal PMI, Regular rate and rhythm, Normal heart sounds, S1 and S2 and No murmurs. NEURO: Alert and oriented in no acute distress. ABDOMEN: Normal bowel sounds, abdomen flat with no distention, Soft, non-tender, no hepatomegaly. no palpable masses, no abdominal bruits, no rebound and no rigidity. EXTREMITIES:Extremities normal, No deformities, No skin discoloration, No edema . SCARLETT Salgado present anterior superficial and posterior deeper fissure skin tag/hemorrhoidal no palpable massess RECENT LABS: CBC: No results found for: WBC , HB , MCV , PLT , NEUT , LYMPHP Hepatic Function Panel: No results found for: ALB , TBILI , CBILI , ALKPHOS , AST , ALT , TPROT Assessment/Plan: (K62.5) Rectal bleeding (primary encounter diagnosis) 32 yo with history of rectal bleeding for 4 years, gets better with fiber. On exam has hemorrhoids and fissure. This is most consistent with anorectal bleeding such as due for fissure and/or hemorrhoid Talked about cannot say completely there is not neoplasm but usually that would not be like this for 4 years and respond to fiber also lack of anemic reassuring. Proctitis/ibd another concern but again history not as suggestive and she is not having any concerns with lack of weight gain or anemia. As such risk of flex sig although not high risk probably not warranted now in 2nd trimester. If her labs are off (calpro anemia) will reconsider. If not plan colonoscopy as soon as she has delivered. She is agreeable with reassured by this plan For now stay on metamucil. If fissure does not respond can do topical. 3rd trimester Brea Barton MD, PhD documented in this encounter [facility] 05-11-2023 Miscellaneous Notes Called patient for more information about her visit tomorrow with Dr. Barton in Gastroenterology for IBD. We have no medical information on file, or in Care Everywhere. Patient stated she had sought medical care in [place], with Dr. Baldemar Arnett, Gastroenterology, [facility], presenting with bleeding when having a BM. Patient states that the bleeding is sometimes heavy and sometimes it just colors the toilet paper. She has no pain with it, and wasn't actually diagnosed with IBD, but she is concerned. She was scheduled to have a colonoscopy in [place], but when she got they canceled the procedure. She is currently 21.5 weeks into her . She stated the medical center recommended she came to the [facility] for further evaluation. Naomi Cain CMA documented in this encounter [facility] 10-19-2022 Evaluation note Encounter Date Diagnosis Assessment Notes Sep, Rectal bleeding (ICD-10 - K62.5) [employer] Other 06-11-2022 NoteDISCHARGE SUMMARY DISCHARGE DATE: 04/21/2022 PRIMARY DIAGNOSES: 1. Intrauterine at 38 6/7 weeks. 2. Previous . 3. Early onset labor. PROCEDURE: Repeat low transverse section. HOSPITAL COURSE: As expected. Please see chart for full details. LABORATORY DATA: Please see chart. COMPLICATIONS: None. DISCHARGE CONDITION: Stable. CONSULTATION: Anesthesia. DISCHARGE INSTRUCTIONS: 1.Diet: Regular. 2.Medications: a.Percocet 5/325 one to two p.o. every 4-6 hours p.r.n. pain. b.Motrin 800 one p.o. every 8 hours p.r.n. pain. 3.Followup in one week. Restrictions: Pelvic rest for 6 weeks. No heavy lifting. May drive when pain free and no longer on narcotics. [facility] Signed and Approved by: DR JANY REBOLLAR . 04/24/2022 10:48:00[facility]06-11-2022 NoteOPERATIVE NOTE OPERATION DATE: 04/09/2022 PROCEDURE: Repeat low transverse section. PREOPERATIVE DIAGNOSIS: 1. Intrauterine at 38 6/7 weeks. 2. Previous . 3. Early onset labor. POSTOPERATIVE DIAGNOSIS:: 1. Intrauterine at 38 6/7 weeks. 2. Previous . 3. Early onset labor. SURGEON: Jany Rebollar D.O. FULLING MILL OPERATOR: CAMERON Be URINE OUTPUT: Yellow and clear. BLOOD LOSS: 575 mL. SPECIMEN: Placenta. FINDING: A viable female . Apgars 9 at 1, 9 at 5. Weight unknown at this time. PROCEDURE: Patient was taken back to the Operating Room where she was given a spinal anesthesia with Duramorph without difficulty. She was prepped and draped in the normal sterile fashion. A Pfannenstiel skin incision was then made 2 cm above the symphysis pubis and carried down to underlying rectus fascia using a Bovie. The fascia was incised in the midline and extended laterally using Linares scissors. Two Sangeeta clamps were placed on the superior aspect of the fascia and dissected off the underlying rectus muscles. The same was performed on the inferior aspect as well. The muscles were then in the midline. Peritoneum was identified and entered bluntly. The peritoneum was then extended superiorly and inferiorly with good visualization of the bladder. The bladder blade was inserted. A low transverse incision was made on the patient's uterus and extended laterally digitally. The was then delivered atraumatically after the bladder blade was removed in the cephalic position. The cord was clamped and cut. Cord blood was obtained. The was handed off to awaiting team. The patient's placenta was spontaneously delivered. The uterus was then exteriorized. The uterus was cleared of all clots and debris. The bladder blade was reinserted. The patient's uterine incision was closed using #0 Vicryl in a running lock fashion. Excellent hemostasis was assured. The uterus was then returned to the patient's abdomen. The patient's abdomen was copiously irrigated using warm saline. Peritoneal gutters were cleared of all clots and debris. Again excellent hemostasis was assured. The patient's peritoneum was closed using 3-0 Vicryl in a running fashion. The patient's fascia was closed using #0 Vicryl in a running fashion. The patient's skin was closed using 4-0 Vicryl subcuticularly. The patient tolerated the procedure well. Sponge, lap, and needle counts were correct x2. The patient was taken to the Recovery Room in stable condition. [facility] Signed and Approved by: DR JANY REBOLLAR . 04/18/2022 07:58:00[facility]10-11-2021 Evaluation note* Encounter Date Diagnosis Assessment Notes Treatment Notes Treatment Clinical Notes Jul, Rectal bleeding (ICD-10 - K62.5) Lets start with these tests at this point and referral. May use Benefiber supplement since Metamucil is harder to drink due to texture. 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 Use this medication as prescribed when stung by bee. [employer] Other 09-26-2021 Evaluation note* Encounter Date Diagnosis Assessment Notes Treatment Notes Treatment Clinical Notes Jun, Cellulitis of arm, right (ICD-10 - L03.113) Discussed diagnosis with patient in detail. Instructed patient to take antibiotic as directed, complete entire course even if feeling better, take with food and plenty of water. Reviewed allergies and recent antibiotic use. Instructed close monitoring of wound. Avoid picking at scab or scrubbing, clean by letting warm soapy water run over. May leave open to air. May continue use of cream and antihistamine. Follow up with PCP if symptoms do not improve. Immediate eval by ER if fever, chills, body aches, increase in swelling or redness, red streaking from wound, pain with ambulation, calf swelling, tenderness, redness warmth, SOB, difficulty breathing, chest pain, or any new or concerning symptoms. Patient verbalizes understanding and is agreeable to treatment plan. Cellulitis: Care Instructions material was printed and given to pt Jun, Insect bite (nonvenomous) of right upper arm, initial encounter (ICD-10 - S40.861A) Jun, Bitten or stung by nonvenomous insect and other nonvenomous arthropods, initial encounter (ICD-10 - W57.XXXA) [facility] Other Evaluation noteNo InformationNortCura[facility] Other Evaluation note* Diagnosis Rectal bleeding- Primary Hemorrhage of rectum and anus [facility] Rectal bleeding Hemorrhage of rectum and anus [facility] Narrative - Reported* Type Description Date Medical History bee allergy Surgical History C section Surgical History left knee Hospitalization History see above surg hx [facility] Gleam Other Reason for referral (narrative)* Outpatient Procedure (Routine) - Authorized Specialty Diagnoses / Procedures Referred By Krista traore Referred To Contact [facility] Diagnoses Rectal bleeding Procedures COLONOSCOPY DIAGNOSTIC COLONOSCOPY FLX DX W/COLLJ [place] [address] [place] [address] [place] [address] Referral ID Status Reason Start Date Expiration Date Visits Requested Visits Authorized [id number] Authorized Auto-Generat ed Referral 05/12/2023 05/12/2024 1 1 [facility] for referral (narrative)* Outpatient Procedure (Routine) - Closed Specialty Diagnoses / Procedures Referred By Krista traore Referred To Contact [facility] Diagnoses Rectal bleeding Procedures COLONOSCOPY DIAGNOSTIC COLONOSCOPY FLX DX W/COLLJ SPEC WHEN Brea Rojas MD, PhD [address] [place] [address] [place] [address] Referral ID Status Reason Start Date Expiration Date V isits Requested Visits Authorized [id number] Closed Auto-Generate d Referral 05/12/2023 05/12/2024 1 1 [facility] for visit Narrative* Outpatient Procedure (Routine) - Closed Specialty Diagnoses / Procedures Referred By Contac t Referred To Contact [facility] Diagnoses Rectal bleeding Procedures COLONOSCOPY DIAGNOSTIC COLONOSCOPY FLX DX W/COLLJ SPEC WHEN Brea Rojas MD, PhD [address] [place] [address] [facility] [address] [place] [address] Referral ID Status Reason Start Date Expiration Date V isits Requested Visits Authorized [id number] Closed Auto-Generate d Referral 05/12/2023 05/12/2024 1 1 [facility] Summary Purpose Family History No Family History Records FoundNo Family History Records FoundNo Family History Records FoundNo Family History Records FoundNo Family History Records FoundNo Family History Records Found Advance Directives No Advanced Directives Records FoundNo Advanced Directives Records FoundNo Advanced Directives Records FoundNo Advanced Directives Records FoundNo Advanced Directives Records FoundNo Advanced Directives Records Found Reason for Referral Reason chronic in natu re for several months now - can be like a menstrual cycle at times. Diagnosis 1 Rectal bleeding (K62 .5) Referral Organization [facility] Family Medicin e Giorgio Referring Provider First Name Beckie Referring Provider Last Name Alec Referring Provider Specialty Nurse Angela itioner Referred Organization [facility] Gastroenterolo gy Referred Provider Andrew Locke Referred Address [address] [place] [phone] Referred Provider Specialty Gastroentero logy Referral Priority Routine General Notes Nereida Valverde M 021 08:57:54 AM >Received today and sent P2P Medications Administered Section Inactive Administered Medications - up to 3 most recent administrations Medication Order MAR Action Action Date Dose Rate Site NaCl 0.9% iv infusion 30 mL/hr, INTRAVENOUS, CONTINUOUS, Starting on Mon10/18/23 at 0800, Until Mon10/18/23 at 0900, Preprocedure Continued by Anesthesia 10/18/2023 8:04 AM EST 100 mL/hr New Bag/Syringe/Bottle 10/18/2023 7:54 AM EST 30 mL/hr 3 0 mL/hr Additional Source Comments INFORMATION SOURCE (unrecogn ized section and content) DATE CREATED AUTHOR 09/24/2020 [facility] DATE CREATED AUTHOR AUTHOR'S ORGANIZ ATION 12/27/2021 [facility] DATE CREATED AUTHOR AUTHOR'S ORGANIZ ATION 03/10/2023 [facility] DATE CREATED AUTHOR AUTHOR'S ORGANIZ ATION 05/22/2023 [facility] DATE CREATED AUTHOR AUTHOR'S ORGANIZ ATION 10/06/2023 [facility] CREATED AUTHOR AUTHOR'S ORGANIZ ATION 10/20/2023 [facility] REASON FOR VISIT (unrecogniz ed section and content) Reason Comments Appointment Information Reason Comments IBD Flare Reason Comments Release Of Medical Records Source Comments (unrecognize d section and content) In the event this informatio n is protected by the Federal Confidentiality of Alcohol and Drug Abuse Patient Records regulations: The Federal rules restrict any use of the information to criminally investigate or prosecute any alcohol or drug abuse patient.[facility] the event this information is protected by the Federal Confidentiality of Alcohol and Drug Abuse Patient Records regulations: The Federal rules restrict any use of the information to criminally investigate or prosecute any alcohol or drug abuse patient.[facility] the event this information is protected by the Federal Confidentiality of Alcohol and Drug Abuse Patient Records regulations: The Federal rules restrict any use of the information to criminally investigate or prosecute any alcohol or drug abuse patient.[facility] Center[facility] the event this information is protected by the Federal Confidentiality of Alcohol and Drug Abuse Patient Records regulations: The Federal rules restrict any use of the information to criminally investigate or prosecute any alcohol or drug abuse patient.[facility] FOR RECORDS PERTAINING TO PATIENTS WHO ARE OR HAVE BEEN ENROLLED IN A CHEMICAL DEPENDENCY/SUBSTANCEABUSE PROGRAM, SOME INFORMATION MAY BE OMITTED. This clinical summary was aggregated from multiple sources. Caution should be exercised in using it in the provision of clinical care. This summary normalizes information from multiple sources, and as a consequence, information in this document may materially change the coding, format and clinical context of patient data. In addition, data may be omitted in some cases. CLINICAL DECISIONS SHOULD BE BASED ON THE PRIMARY CLINICAL RECORDS. [facility] [employer] [facility]. provides no warranty or guarantee of the accuracy or completeness of information in this document.
[2023-10-26 19:33] VITALS: TEMP 36.9
--- NOTE | 2023-10-26 19:36 | ED_ITS ---
HPI - URI/Sore Throat General Chief Complaint: Upper Respiratory Infection Stated Complaint: URTI Time Seen by Provider: 10/26/23 19:15 Source: patient History of Present Illness HPI Narrative: 32-year-old female presents for a three day history of cough, congestion, and reported fever. She has not been around any ill people that she is aware of. No vomiting or diarrhea. She's eight weeks and is breast-feeding. Related Data Home Medications Medication Instructions Recorded Confirmed prenat.vits,fred,[id number] 1 tab PO DAILY 03/31/23 08/13/23 albuterol sulfate 90 mcg/actuation 2 puff inhalation PRN 08/08/23 08/08/23 aerosol inhaler (Ventolin HFA) omeprazole 1 tab PO BEDTIME 08/08/23 08/13/23 Previous Rx's Medication Instructions Recorded nifedipine 10 mg capsule 10 mg PO Q6H PRN ctxns #60 caps 08/09/23 ibuprofen 800 mg tablet 800 mg PO Q8H PRN pain 14 days #40 08/25/23 tabs oxycodone-acetaminophen 5 mg-325 1 tab PO Q6H PRN pain 7 days #28 08/25/23 mg tablet (Percocet) tabs Allergies Allergy/AdvReac Type Severity Reaction Status Date / Time No Known Drug Allergies Allergy Verified 06/09/23 11:25 Review of Systems ROS Narrative A ten point review of systems is negative except as noted above. [facility] Medical History (Updated 10/26/23 @ 19:55 by Khalif Strickland MD) Oligohydramnios ?O41.00X0 - Oligohydramnios, unspecified trimester, not applicable or unspecified (ICD-10) Asthma ?J45.909 - Unspecified asthma, uncomplicated (ICD-10) Surgical History (Updated 08/13/23 @ 00:29 by Maggie Streeter) History of delivery ?Z98.891 - History of uterine scar from previous surgery (ICD-10) Social History Smoking status: Never smoker Exam Narrative Exam Narrative: Nurses note and vital signs reviewed and patient is not hypoxic. General: The patient appears well and in no apparent distress. Patient is resting comfortably on cart. Skin: Warm, dry, no pallor noted. There is no rash noted. Head: Normocephalic, atraumatic Eye: Normal conjunctiva, no drainage Ears, Nose, Mouth, and Throat: oral mucosa is moist. Nares patent. Cardiovascular: Regular Rate and Rhythm Respiratory: Patient is in no distress, no accessory muscle use, lungs are clear to auscultation, no wheezing, rales or rhonchi Back: non-tender GI: soft and nontender Musculoskeletal: The patient has no evidence of calf tenderness, no pitting edema, symmetrical pulses noted bilaterally Neurological: A&O, normal speech Psychiatric: Cooperative Constitutional Vital Signs, click to edit/add: Last Vital Signs Temp 98.5 F 10/26/23 19:33 Pulse 99 H 10/26/23 19:07 Resp 16 10/26/23 19:07 BP 110/81 10/26/23 19:07 Pulse Ox 98 10/26/23 19:07 O2 Del Method Room Air 10/26/23 19:07 Course Vital Signs Vital signs: Vital Signs Temperature 100.3 F 10/26/23 19:07 Pulse Rate 99 H 10/26/23 19:07 Respiratory Rate 16 10/26/23 19:07 Blood Pressure 110/81 10/26/23 19:07 Pulse Oximetry 98 10/26/23 19:07 Oxygen Delivery Method Room Air 10/26/23 19:07 Temperature 98.5 F 10/26/23 19:33 Pulse Rate 99 H 10/26/23 19:07 Respiratory Rate 16 10/26/23 19:07 Blood Pressure 110/81 10/26/23 19:07 Pulse Oximetry 98 10/26/23 19:07 Oxygen Delivery Method Room Air 10/26/23 19:07 MDM - URI/Sore Throat MDM Narrative Medical decision making narrative: Covid an influenza test are negative and the patient is being discharged home. There is no indication for antibiotic. She is breast-feeding him was recommended Tylenol and Motrin for fever and body aches. Treatment diagnosis and follow-up were discussed with the patient. Differential Diagnosis Differential diagnosis: Likely upper respiratory infection, influenza and other (Covid) Lab Data Attestation: I reviewed the patient's lab results. Labs: Lab Results 10/26/23 Range/Units 19:01 SARS-CoV-2 (PCR) Negative (NEGATIVE) Influenza Type A Ag Negative Influenza Type B Ag Negative Discharge Plan Discharge Chief Complaint: Upper Respiratory Infection Clinical Impression: Upper respiratory infection Patient Disposition: Home, Self-Care Time of Disposition Decision: 19:54 Condition: Good Mode of Transportation: Private Vehicle Prescriptions / Home Meds: No Action ibuprofen 800 mg tablet 800 mg PO Q8H PRN (Reason: pain) 14 Days Qty: 40 0RF oxycodone-acetaminophen [Percocet] 5-325 mg tablet 1 tab PO Q6H PRN (Reason: pain) 7 Days Qty: 28 0RF albuterol sulfate [Ventolin HFA] 90 mcg/actuation HFA aerosol inhaler 2 puff INHALATION PRN omeprazole 1 tab PO BEDTIME nifedipine 10 mg capsule 10 mg PO Q6H PRN (Reason: ctxns) Qty: 60 1RF prenat.vits,fred,qbl-vyus-paacm Tablet 1 tab PO DAILY Instructions: Upper Respiratory Infection (ED) Stand Alone Forms: Portal Instructions Referrals: Physician,Non-Staff, MD [Primary Care Provider] - 1 week
[2023-10-26 19:43] LABS: Influenza Virus A Antigen Negative; Influenza Virus B Antigen Negative; Internal Control Within Normal Limits; SARS-CoV-2 Ag NEGATIVE (NEGATIVE)
[2023-10-26 20:05] VITALS: BP 100/70; PULSE 89; RESP 18; TEMP 36.9; O2SAT 95
[2023-10-27 14:26] LABS: SARS-CoV-2 NAA NOT DETECTED (NOT DETECTE)
== END 2023-10-26 20:05 | disposition home or self-care (01) ==
PROVIDERS: Emergency Provider Emergency Medicine
DX: J06.9 Acute upper respiratory infection, unspecified (principal); J45.909 Unspecified asthma, uncomplicated
CPT/HCPCS: 87635; 87804; 87811; 99283

== ENCOUNTER 2024-12-17 12:47 | Outpatient (OUT) | payer OTHER, SELFPAY ==
--- NOTE | 2024-12-17 12:51 | US_ITS ---
The [address] [address] Patient Name: JEANNIE CADE MRN: [id number] date: 1990 Sex: F Assigned Patient Location: [place] Current Patient Location: [place] Accession/Order Number: [id number] Exam Date: 12/17/2024 15:34 Report Date: 12/17/2024 15:45 At the request of: JANY JONES DO Procedure: US pelvis w/ transvaginal CLINICAL ULTRASOUND WITH TRANSVAGINAL IMAGING CLINICAL DATA: Pelvic pain and irregular menses COMPARISON: CT 12/10/2022 Real-time ultrasound evaluation the pelvis was performed utilizing both a transabdominal and transvaginal approach TRANSABDOMINAL: The uterus is slightly retroverted. Estimated uterine size is approximately 7.5 x 5.7 x 5.6 cm. No focal myometrial abnormalities are noted. The endometrial lining is not well seen. There is a bilobed cystic structure at the posterior cul-de-sac which is thought to be associated with the left ovary. The right ovary was not identified. TRANSVAGINAL: Transvaginal scans were performed to better evaluate the uterus and adnexa. The uterus is slightly retroverted. The endometrial lining is estimated at 9 - 10 mm. No focal myometrial abnormalities are seen. The right ovary is still not identified. The left ovary measures approximately 7.5 x 4.7 x 5.0 cm in size. There is a simple cystic area measuring 4.8 x 3.7 x 3.7 cm. There is also an adjacent complex cystic area with septation and possible debris measuring 3.0 x 3.8 x 4.5 cm. There is documentation of left ovarian blood flow. No free fluid is seen. US/US pelvis w/ transvaginal IMPRESSION: SIMPLE AND COMPLICATED LEFT OVARIAN CYSTS. NONVISUALIZATION OF THE RIGHT OVARY. Impression dictated by: Vani Ordaz M.D.12/17/2024 3:45 PM Dictation Location: [place] [address] Electronically authenticated by: [id number] Y Date: 12/17/2024 15:45
--- OUTSIDE RECORDS SUMMARY | 2024-12-17 13:06 | XMS_ITS | CCD ---
Author Organization [facility] Care Team Providers Care Manager Process Excellence Name Role Phone Beckie Michael Unavailable LloydVaishali potter Unavailable Baldemar Arnett Unavailable KETURAH ., DR CARMICHAEL Attending Unavailable KETURAH ., DR CARMICHAEL Admitting Unavailable FAWARD, [facility] Primary Care Unavailable KARMARCOS AVILA Attending Unavailable MARCOS MARTELL Admitting Unavailable FAWARD, [facility] Primary Care Unavailable MARCOS MARTELL Consulting Unavailable KETURAH ., DR CARMICHAEL Consulting Unavailable KETURAH ., DR CARMICHAEL Attending Unavailable FAWARD, [facility] Primary Care Unavailable KETURAH ., DR CARMICHAEL Admitting Unavailable POLICARO, ALEXI Consulting Unavailable ALCIRAPAULOBECKIE Primary Care Unavailable DIAB ., RIGOBERTO Attending Unavailable PATRICIA KERRET Consulting Unavailable DIAB ., RIGOBERTO Admitting Unavailable DIAB ., RIGOBERTO Consulting Unavailable REQUEST, DR NONE LISTED Primary Care Unavaila ble PAY ., DR WILCOX Attending Unavailable PAY ., DR WILCOX Admitting Unavailable PAY ., DR WILCOX Consulting Unavailable KETURAH ., DR CARMICHAEL Attending Unavailable FAWARD, [facility] Primary Care Unavailable KETURAH ., DR CARMICHAEL Admitting Unavailable KETURAH ., DR CARMICHAEL Consulting Unavailable KETURAH ., DR CARMICHAEL Attending Unavailable REQUEST, DR NONE LISTED Primary Care Unavaila ble KETURAH ., DR CARMICHAEL Admitting Unavailable KETURAH ., DR CARMICHAEL Admitting Unavailable KETURAH ., DR CARMICHAEL Consulting [facility] Primary Care Unavailable KETURAH ., DR CARMICHAEL Attending Unavailable KETURAH ., DR CARMICHAEL Consulting Unavailable KETURAH ., DR CARMICHAEL Attending Unavailable FAWARD, [facility] Primary Care Unavailable KETURAH ., DR CARMICHAEL Admitting Unavailable KETURAH ., DR CARMICHAEL Consulting Unavailable KETURAH ., DR CARMICHAEL Attending Unavailable REQUEST, DR NONE LISTED Primary Care Unavaila ble KETURAH ., DR CARMICHAEL Admitting Unavailable ZIEBER, DR NANCY Luis Consulting Unavailable REQUEST, DR SAHARA LISTED Consulting Unavaila ble KETURAH ., DR CARMICHAEL Procedure Practitioner Unavail able MARCOS AMRTELL Attending Unavailable JASBIR, MARCOS Admitting Unavailable MARCOS MARTELL Consulting Unavailable BECKIE MICHAEL Primary Care Unavailable KETURAH ., DR CARMICHAEL Consulting Unavailable MCCORNACK, NANCY Consulting Unavailable KETURAH ., DR CARMICHAEL Consulting Unavailable KETURAH ., DR CARMICHAEL Attending Unavailable SHIRAZNAYELI, GTZ H Primary Care Unavailable KETURAH ., DR CAMRICHAEL Admitting Unavailable Unavailable Primary Care Provider Unavailabl e EVERT, VANDANA R Attending Unavailable EVERT, VANDANA R Referring Unavailable EVERT, VANDANA Luis Referring Unavailable MARCOS SILVERIO Attending Unavailable Petznick DOAliya C Primary Care Provider [phone] Juanito Rebollar DOy Unavailable MARV REBOLLAR Attending Unavailable PETZNICK, ALIYA C Attending Unavailable PETZNICK, ALIYA C Referring Unavailable PETZNICK, ALIYA C Referring Unavailable PETZNICK, ALIYA C Attending Unavailable PETZNICK, ALIYA C Referring Unavailable PETZNICK, ALIYA C Referring Unavailable CELENA CLEMENTS Attending Unavailable PETZNICK, ALIYA C Referring Unavailable CHRISTOPHER BOY Attending Unavailable PETZNICK, ALIYA C Referring Unavailable CHRISTOPHER BOY Attending Unavailable PETZNICK, ALIYA C Referring Unavailable MAKENNA SHETTY Attending Unavailable PETZNICK, ALIYA C Referring Unavailable CHRISTOPHER BOY Attending Unavailable PETZNICK, ALIYA C Referring Unavailable Allergies Allergy Classification Reported Allergen(s) Allergy Type Date of Onset Reaction(s) Facility (6 sources) Bee Sting Drug allergy [place] [place] [facility] Other Medications Current Medications Medication Drug Class(es) Dates Sig (Normalized) Sig (Original) [id number] 200 actuat albuterol 0.09 mg/actuat metered dose inhaler (19 sources) beta2-Adrenergic Agonist Start: 02-19-2024 Albuterol Sulfate Active INHALATION February 19, 2024 12:00am Start: 01-08-2024 take 2 puff(s) by in halation every six hours albuterol HFA 90 mcg/act inhaler Indications: Asthma without status asthmaticus without complication, unspecified asthma severity, unspecified whether persistent (CMS/HCC) Inhale 2 puffs every 6 (six) hours if needed for shortness of breath 18 g 1 01/08/2024 Active chlorhexidine gluconate 1.2 mg/ml mouthwash (1 source) Start: 06-24-2024 Chlorhexidine Gluconate Active 15 ML MUCOUS MEM Twice daily 450 June 24, 2024 12:00am swish and spit [id number] 0.3 ml EPINEPHrine 1 mg/ml auto-injector (17 sources) alpha-Adrenergic Agonist, beta-Adrenergic Agonist, Catecholamine Start: 02-19-2024 inject 1 mL by subcutaneous injection once Epinephrine Active 0.3 ML SUBCUT Once February 19, 2024 12:00am Start: 01-08-2024 EPINEPHrine (E pipen) 0.3 MG/0.3ML injection syringe Indications: Asthma without status asthmaticus without complication, unspecified asthma severity, unspecified whether persistent (CMS/HCC) Inject 0.3 mL (0.3 mg) as directed 1 (one) time for 1 dose Inject into upper leg. Call 911 after use. 0.3 mL 01/08/2024 Active ibuprofen 800 mg oral tablet (20 sources) Nonsteroidal Anti-inflammatory Drug Start: 09-09-2024 End: 10-09-2024 take 1 tablet by mouth in the morning, then take 1 tablet by mouth in the evening, then take 1 tablet by mouth at bedtime ibuprofen 800 MG tablet Indications: Right knee pain, unspecified chronicity Take 1 tablet (800 mg) by mouth in the morning and 1 tablet (800 mg) in the evening and 1 tablet (800 mg) before bedtime. 90 tablet 3 09/09/2024 10/09/2024 Active Start: 02-19-2024 take 600 mg by mouth twice richardson ly Ibuprofen Active 600 MG PO Twice daily February 19, 2024 12:00am Lidocaine (1 source) Antiarrhythmic, Amide Local Anesthetic Start: 06-24-2024 Lidocaine Hcl (Lidocaine Viscous) 2 % solution Active 1 APPLIC MUCOUS MEM Twice daily 100 June 24, 2024 12:00am meloxicam 15 mg oral tablet (13 sources) Nonsteroidal Anti-inflammatory Drug Start: 09-23-2024 End: 09-23-2025 take 1 tablet by mouth once daily meloxicam (Mobic) 15 MG tablet Indications: Right knee pain, unspecified chronicity Take 1 tablet (15 mg) by mouth Daily 30 tablet 1 09/23/2024 09/23/2025 Active predniSONE 20 mg oral tablet (3 sources) Start: 06-30-2024 take 2 tablets by mouth once daily Prednisone Active 20 MG PO .COMPLEX June 30, 2024 12:00am Take 2 tabs po daily x 5 days Start: 02-29-2024 End: 06-24-2024 take 20 mg by mouth twice daily Prednisone Discontinued 20 MG PO Twice daily 10 February 29, 2024 12:00am June 24, 2024 11:09am Completed/Discontinued Medications Medication Drug Class(es) Dates Sig (Normalized) Sig (Original) erythromycin 0.005 mg/mg ophthalmic ointment (2 sources) Macrolide, Macrolide Antimicrobial Start: 02-19-2024 End: 06-24-2024 Erythromycin Discontinued 1 APPLIC EYE-LEFT Every 6 hours 3.5 7 February 19, 2024 12:00am June 24, 2024 11:10am vits62/FA/om3/dha/e pa ( GUMMY ORAL) (3 sources) vits62/FA/om3/dha/ epa ( GUMMY ORAL) Take by mouth. 0 [...] Active Problems Problem Classification Problem Date Documented Date Episodic/Chronic Abdominal pain (2 sources) Pain in female pelvis; Translations: [Pelvic and perineal pain] 11-27-2024 Episodic Allergic reactions (7 sources) Allergy to bee venom; Translations: [Bee allergy status] Onset: 08-09-2021 Resolved: 08-09-2021 Episodic Anal and rectal conditions (3 sources) Other specified diseases of anus and rectum; Translations: [OTHER SPEC DISEASES ANUS AND RECTUM] Onset: 12-10-2022 Episodic Asthma (17 sources) Unspecified asthma, uncomplicated; Translations: [Asthma without status asthmaticus] Onset: 04-21-2022 05-03-2023 Chronic Calculus of urinary tract (1 source) Calculus of kidney; Translations: [CALCULUS OF KIDNEY] Onset: 12-13-2022 Episodic Diseases of mouth; excluding dental (3 sources) Stomatitis; Translations: [Oral mucositis (ulcerative), unspecified] 06-24-2024 Episodic Hemorrhoids (1 source) Residual hemorrhoidal skin tags; Translations: [RESIDUAL HEMORRHOIDAL SKIN TAGS] Onset: 12-13-2022 Episodic Inflammation; infection of eye (except that caused by tuberculosis or sexually transmitteddisease) (2 sources) Hordeolum; Translations: [Hordeolum externum unspecified eye, unspecified eyelid] 02-19-2024 Episodic Menstrual disorders (4 sources) Irregular menstruation, unspecified; Translations: [IRREGULAR MENSTRUATION UNSPECIFIED] Onset: 03-02-2023 Chronic Other complications of (1 source) Diseases of the respiratory system complicating , first trimester; Translations: [DISEASES RESP SYS COMP PREG 1ST TRI] Onset: 02-09-2023 Episodic Other endocrine disorders (2 sources) Polycystic ovary syndrome; Translations: [Polycystic ovarian syndrome] 11-27-2024 Chronic Other female genital disorders (2 sources) Abnormal uterine bleeding; Translations: [Abnormal uterine and vaginal bleeding, unspecified] 11-27-2024 Chronic Other female genital disorders (2 sources) Vaginal discharge; Translations: [Other specified noninflammatory disorders of vagina] 11-27-2024 Episodic Other nervous system disorders (16 sources) Chronic pain; Translations: [Other chronic pain] Onset: 05-03-2023 05-03-2023 Chronic Other non-traumatic joint disorders (8 sources) Pain in right knee; Translations: [Pain in joint, lower leg] 09-09-2024 Episodic Other nutritional; endocrine; and metabolic disorders (16 sources) Obesity; Translations: [Obesity, unspecified] Onset: 05-03-2023 05-03-2023 Chronic Other nutritional; endocrine; and metabolic disorders (2 sources) Severe obesity; Translations: [Morbid (severe) obesity due to excess calories] 09-11-2024 Chronic Other and delivery including normal (6 sources) Encounter for supervision of normal , unspecified, first trimester; Translations: [Encounter for routine follow-up] Onset: 04-14-2022 Episodic Other upper respiratory infections (1 source) Acute pharyngitis, unspecified; Translations: [ACUTE PHARYNGITIS UNSPECIFIED] Onset: 02-09-2023 Episodic Residual codes; unclassified (1 source) 8 weeks gestation of ; Translations: [8 WEEKS GESTATION OF ] Onset: 02-09-2023 Episodic Sprains and strains (5 sources) Sprain of medial collateral ligament of right knee, initial encounter; Translations: [Sprain of medial collateral ligament of knee] 09-30-2024 Episodic Unclassified (3 sources) COUGH, UNSPECIFIED; Translations: [COUGH, UNSPECIFIED] Onset: 02-09-2023 Unclassified (1 source) CONTACT W/AND (SUSP) EXPOS COVID-19; Translations: [CONTACT W/AND (SUSP) EXPOS COVID-19] Onset: 04-21-2022 Unclassified (2 sources) No additional problems on file Unclassified (2 sources) Right knee pain, unspecified chronicity 09-16-2024 Past or Other Problems Problem Classification Problem [...] PREG 3RD TRI] Onset: 04-09-2022 Episodic Other connective tissue disease (16 sources) Partial thickness rotator cuff tear; Translations: [Incomplete rotator cuff tear or rupture of right shoulder, not specified as traumatic] Onset: 05-03-2023 05-03-2023 Episodic Other screening for suspected conditions (not [...] right upper arm, initial encounter S40.861A] Onset: 09-26-2021 Resolved: 07-25-2021 Episodic Unclassified (1 source) COUGH, UNSPECIFIED; Translations: [COUGH, UNSPECIFIED] Onset: 02-08-2023 Results Test Name Value Interpretation Reference Range Facility HCG ( test) Ql (U)o n 11-27-2024 Interpretation and review of laboratory results Normal [facility] Preg Test, Ur Negative Negative [facility] Urinalysis macro (dipstick) panel (U)on 11-27-2024 Bilirubin, UA Negative Negative - 4(70) +++ mg/dL [facility] Blood, UA Positive Negative - 50 Yony/mcL [facility] Comment on above: Moderate Clarity, UA Clear [facility] Color, UA Yellow [facility] Glucose, UA Negative Negative - 1999(110) ++++ mg/dL [facility] Interpretation and review of laboratory results Abnormal [facility] Ketones, UA Negative Negative - 160(16) ++++ mg/dL [facility] Leukocytes, UA Negative Negative - 500+++ Marco Antonio/mcL [facility] Nitrite, UA Negative Negative - Positive [facility] pH, UA 5.5 5 - 9 [facility] Protein, UA Trace Negative - 1999(20) ++++ mg/dL [facility] Spec Grav, UA 1.03 1 - 1.03 [facility] Urobilinogen, UA 0.2 0.2 - 12 mg/dL [facility] MR KNEE RIGHT WO IV CONTRAST on 09-11-2024 MR KNEE RIGHT WO IV CONTRAST EXAMINATION/TECHNIQU E: MR KNEE RIGHT WO IV CONTRAST HISTORY: Right knee pain. COMPARISON: Radiographs 09/09/2024. RESULT: MENISCI: Medial Meniscus: Intact Lateral Meniscus: Intact LIGAMENTS: Low-grade MCL sprain distally, without tear. ACL, PCL, and LCL complex appear intact. CARTILAGE: Appears within normal limits. TENDONS: Mild distal quadriceps and patellar tendinosis, without tear. Popliteus intact. BONES AND MARROW: No evidence of fracture or bone marrow replacing process. MUSCLES: Muscle bulk and signal intensity are normal. JOINT FLUID AND SYNOVIUM: No joint effusion. No synovitis. No Sneed's cyst. OTHER: Patella nadia. Borderline shallow trochlear morphology. Edema signal in the infrapatellar fat pad. TT-TG distance measures around 10 mm, within normal limits. Medial patellofemoral retinaculum/ligament appears intact. Varicose vessel medially. IMPRESSION: Low-grade MCL sprain distally, without tear. Menisci appear intact. Some findings predisposing to patellar instability/maltrack ing. ELECTRONICALLY SIGNED BY: Rubin Arevalo MD Normal Not Available XR KNEE 3 VIEWS RIGHTon 08-30 XR KNEE 3 VIEWS RIGHT EXAM: XR KNEE 3 VIEWS RIGHT REASON FOR STUDY: Knee pain COMPARISON: None FINDINGS: Bony alignment is satisfactory. There is no acute fracture or dislocation. No joint effusion. IMPRESSION: Negative right knee Dictated on: 09/09/2024 1:36 PM This report has been electronically signed and approved by the interpreting Radiologist. Normal Not Available XR Knee - right 3 Viewson EXAM: XR KNEE 3 VIEWS RIGHT REASON FOR STUDY: Knee pain COMPARISON: None FINDINGS: Bony alignment is satisfactory. There is no acute fracture or dislocation. No joint effusion. IMPRESSION: Negative right knee Dictated on: 09/09/2024 1:36 PM This report has been electronically signed and approved by the interpreting Radiologist. IMAGING Rubin Salas DO - 09/09/2024 EXAM: XR KNEE 3 VIEWS RIGHT REASON FOR STUDY: Knee pain COMPARISON: None FINDINGS: Bony alignment is satisfactory. There is no acute fracture or dislocation. No joint effusion. IMPRESSION: Negative right knee Dictated on: 09/09/2024 1:36 PM This report has been electronically signed and approved by the interpreting Radiologist. [facility] Study observation (narrative) [facility] XR Knee - right 3 ViewsOrder ed By: Rubin Salas on 09-09-2024 [facility] Work Phone: XR SCOLIOSIS 1 VWon 01-08-20 24 XR SCOLIOSIS 1 VW EXAMINATION/TECHNIQU E: Radiographs of the entire spine with AP and lateral views of the cervical spine, AP and lateral views of the thoracic and lumbar spine. HISTORY: Chronic back pain. COMPARISON: None RESULT: Alignment of the cervical spine appears anatomic. No evidence for acute fracture. Vertebral body heights appear maintained. Disc spaces appear maintained. Mild facet degenerative changes. Paraspinal soft tissues unremarkable. Alignment of the thoracic spine is essentially anatomic. No evidence for acute fracture. Vertebral body heights maintained. Disc spaces appear maintained with small endplate osteophytes. Visualized lung grossly clear. Alignment of the lumbar spine appears anatomic. No evidence for acute fracture. Disc bases appear maintained. Endplate osteophytes. Mild facet degenerative changes lower lumbar spine. Soft tissues unremarkable. IMPRESSION: No acute osseous findings. No scoliosis. ELECTRONICALLY SIGNED BY: Rubin Arevalo MD Normal Not Available XR THORACIC SPINE 3 VIEWSon 01-08-2024 XR THORACIC SPINE 3 VIEWS FINDINGS: Thoracic vertebral bodies normal in height and alignment. No fracture, dislocation, bone lesion. IMPRESSION: Impression: Negative thoracic spine. ELECTRONICALLY SIGNED BY: Wagner Yeh MD Normal Not Available SURGICAL PATHOLOGYon 023 Case Report Surgical Pathology Report Case: [id number] Authorizing Provider: Vandana Barton MD, Collected: 10/18/2023 08:19 AM PhD Ordering Location: Procedures Received: 10/18/2023 08:46 AM Pathologist: Singh Rod MD Specimen: SIGMOID COLON POLYP [facility] FINAL DIAGNOSIS Sigmoid colon polyp, biopsy: - Hyperplastic polyp. [facility] Gross Description A. SIGMOID COLON POLYP Received in formalin is a diego-red polypoid segment of tissue measuring 0.6 x 0.4 x 0.1 cm. No stalk is present. The line of resection is noted. The specimen is bisected and totally submitted in one cassette. JTS October 18, 2023 3:20 PM Gross examination performed at [facility], [address] [place] [address] Performing Lab Diagnostic interpretation performed at [facility], [address] [place] [address] CLIA# [id number] Manager Epic: Mike Jackson M.D. [facility] ANES POSTPROC EVALon 023 ANES POSTPROC EVAL HNO ID: [id number] Author: Elidia Ness MD Service: Anesthesiology Author Type: Anesthesiologist Type: Anesthesia Postprocedure Evaluation Filed: 10/18/2023 1:15 PM Note Text: POST ANESTHESIA EVALUATION NOTE : 1990 Procedure Summary Date: 10/18/23 Room / Location: Procedures Anesthesia Start: 0804 Anesthesia Stop: 820 Procedure: COLONOSCOPY DIAGNOSTIC Diagnosis: Rectal bleeding (Hematochezia) Scheduled Providers: Vandana Barton MD, PhD; Elidia Ness MD; Marcos Silverio APRN.PROPERTY UTILIZATION OFFICER; Kai Aponte RN Responsible Provider: Elidia Ness [...] October 18, 2023 TIME: 1:15 PM CSN: [id number] [facility] ANES PRE-OPon 10-18-2023 ANES PRE-OP HNO ID: [id number] Author: Elidia Ness MD Service: Anesthesiology Author Type: Anesthesiologist Type: Anesthesia Preprocedure Evaluation Filed: 10/18/2023 7:48 AM Note Text: OB ANESTHESIA PRE-PROCEDURE ASSESSMENT PATIENT NAME: Marlin Cade : 1990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 Patient / Responsible Libertarian agrees to proceed: yes Patient / Surrogate agrees to blood products: blood products not planned Significant changes in the patient condition since the History and Physical, not otherwise documented in primary service progress note: no. Potential Anesthesia issues that may suggest increased risk of complications or contraindication to planned procedure: none. Discussed the possibility of lip / dental damage: yes [facility] CHART REVIEW: There is no problem list on file for this patient. No past medical history on file. PAST SURGICAL HISTORY Procedure Laterality Date - SECTION HX 3 No family history on file. (Not in a hospital admission) Inpatient medications reviewed in [facility] I have interviewed and examined the patient. I have reviewed the medical record and/or the pre-anesthesia evaluation, pertinent labs, and test results. This contains updated information obtained within 48 hours of Surgery/Procedure. SIGNATURE: Elidia Ness MD PATIENT NAME: Marlin Cade DATE: October 18, 2023 TIME: 7:47 AM : 1990 Normal [facility] COLONOSCOPY DIAGNOSTICon [place] Colonoscopyon 10-18-2023 Colonoscopy [facility] Gastrointestinal Endoscopy Patient Name: Marlin Cade Procedure Date: 10/18/2023 7:49 AM Date of : 1990 Admit Type: Outpatient Age: 32 Room: [place] [address] Gender: Female Note Status: Finalized Attending MD: Vandana Barton MD, PhD, [id number] Procedure: Colonoscopy Indications: Hematochezia Providers: Vandana Barton MD, PhD Patient Profile: This is a 32 year old female. Refer to note in patient chart for documentation of history and physical. Last Colonoscopy: none. The patient's first colonoscopy is today. Referring Physician: Vandana Barton MD, PhD (Referring MD) Medicines: Monitored [...] in one week telephone Dr. Barton at [phone] for results. - Repeat colonoscopy in 7-10 years for surveillance. Procedure Code(s): --- Professional --- 73961, Colonoscopy, flexible; with biopsy, single or multiple CPT copyright 2020 [employer]. All rights reserved. The codes documented in this report are preliminary and upon clerical aide review may be revised to meet current compliance requirements. Attending Participation: I personally performed the entire procedure. Scope In: 8:09:14 AM Scope Out: 8:20:[address] Vandana Barton MD, PhD Vandana Barton MD, PhD 10/18/2023 8:25:12 AM This report has been signed electronically by Vandana Barton MD, PhD Number of Addenda: 0 Note Initiated On: 10/18/2023 7:49 AM Estimated Blood Loss: Estimated blood loss was minimal. Normal [facility] HISTORY PHYSICALon 3 HISTORY PHYSICAL HNO ID: [id number] Author: Vandana Barton MD, PhD Service: Gastroenterology Author Type: [...] gram Take 2,000 mg by mouth. Unknown vits62/FA/om3/dha/ep a ( GUMMY ORAL) Take by mouth. Unknown [...] hospital problems. * Medication and Non-Pharmacologic VTE Prophylaxis/Anticoag ulants VTE Prophylaxis: none Provisional Diagnosis/Treatment Plan: colon SIGNATURE: Vandana Barton MD, PhD PATIENT NAME: Marlin Cade DATE: October 18, 2023 TIME: 7:57 AM Normal [facility] SURGICAL PATHOLOGYon 023 CASE REPORT Normal [facility] Comment on above: Order Comment: Speci men Type: TISSUE SPECIMEN Ordering Facility: [facility] Address: [address] [place] [address] Result Comment: Surg ica Pathology Report Case: [id number] Authorizing Provider: Vandana Barton MD, Collected: 10/18/2023 08:19 AM PhD Ordering Location: Procedures Received: 10/18/2023 08:46 AM Pathologist: Singh Rod MD Specimen: SIGMOID COLON POLYP Performed By: #### S #### [facility] CLIA [id number] [address] [place] [address] FINAL DIAGNOSIS Normal [facility] Comment on above: Order Comment: Speci men Type: TISSUE SPECIMEN Ordering Facility: [facility] Address: [address] [place] [address] Result Comment: Sigm oid colon polyp, biopsy: - Hyperplastic polyp. Performed By: #### S #### [facility] CLIA [id number] [address] [place] [address] FINAL PERFORMING LAB Normal [facility] Comment on above: Order Comment: Speci men Type: TISSUE SPECIMEN Ordering Facility: [facility] Address: [address] [place] [address] Result Comment: Diag nostic interpretation performed at [facility], [address] [place] [address] CLIA# [id number] Manager Epic: Mike Jackson M.D. Performed By: #### S #### [facility] CLIA [id number] [address] [place] [address] GROSS DESCRIPTION Normal [facility] Comment on above: Order Comment: Speci men Type: TISSUE SPECIMEN Ordering Facility: [facility] Address: [address] [place] [address] Result Comment: A. S IGMOID COLON POLYP Received in formalin is a diego-red polypoid segment of tissue measuring 0.6 x 0.4 x 0.1 cm. No stalk is present. The line of resection is noted. The specimen is bisected and totally submitted in one cassette. JTS October 18, 2023 3:20 PM Gross examination performed at [facility], [address] [place] [address] Performed By: #### S #### [facility] CLIA [id number] [address] [place] [address] STATES OF [facility] Luis Fernando 05-15-2023 RAJIV Telephone (GASTAV) MARLIN CADE ([id number]) 1990 F Date Time Provider Department 05/15/23 EVERT DANIELS During your visit today, we recorded the following information about you: Naomi Cain Ma 05/15/2023 2:12 PM Signed Sent out two medical release forms for patient 05/15/23: [facility] - Dr. Baldemar Arnett [place], [place] - ED Naomi Cain Ma 05/22/2023 8:57 AM Signed Received medical records from [facility] ED and sent for scanning. Resent medical records request to [facility] - Dr. Baldemar Arnett. Allergies As of Date: 05/15/2023 (Not on File) Date Reviewed: 05/12/2023 Reviewed by: Kiara Atwood [facility] - Fully Assessed Reason for Visit: Release Of Medical Records [2017] Cmt: Prescriptions as of 05/22/2023 - valACYclovir (VALTREX) 1 gram Take 2,000 mg by mouth. - vits62/FA/om3/dha/ep a ( GUMMY ORAL) Take by mouth. - psyllium husk (METAMUCIL ORAL) Take by mouth. Problem List As Of Date: 05/15/2023 (None) Encounter Status:Closed by NAOMI CAIN MA on 05/15/23 Normal [facility] C-REACTIVE PROTEIN (CRP)on 0 05-12-2023 CRP [Mass/Vol] <0.9 mg/dL [place] CBC panel Auto (Bld)on 05-12 Erythrocyte distribution width (RBC) [Ratio] 13.8 % Normal 11.5-15.0 [facility] Comment on above: Order Comment: Speci men Type: BLOOD SPECIMEN Ordering Facility: [facility] Address: [address] [address] Performed By: #### 5 8410-2 #### [facility] [place] [id number] [place] Hematocrit (Bld) [Volume fraction] 35.7 % Low 36.0-46.0 [facility] Comment on above: Order Comment: Speci men Type: BLOOD SPECIMEN Ordering Facility: [facility] Address: [address] [address] Performed By: #### 5 8410-2 #### [facility] [place] [id number] [address] [place] [address] [place] Hemoglobin (Bld) [Mass/Vol] 12.3 g/dL Normal 11.5-15.5 [facility] Comment on above: Order Comment: Speci men Type: BLOOD SPECIMEN Ordering Facility: [facility] Address: [address] [address] Performed By: #### 5 8410-2 #### [facility] IA [id number] [place] MCH (RBC) [Entitic mass] 32.1 pg Normal 26.0-34.0 [facility] Comment on above: Order Comment: Speci men Type: BLOOD SPECIMEN Ordering Facility: [facility] Address: [address] [address] Performed By: #### 5 8410-2 #### [facility] IA [id number] [address] [place] [address] [place] MCHC (RBC) [Mass/Vol] 34.5 g/dL Normal 30.5-36.0 [facility] Comment on above: Order Comment: Speci men Type: BLOOD SPECIMEN Ordering Facility: [facility] Address: [address] [address] Performed By: #### 5 8410-2 #### [facility] IA [id number] [address] [place] [address] [place] [facility] MCV (RBC) [Entitic vol] 93.2 fL Normal 80.0-100.0 [facility] Comment on above: Order Comment: Speci men Type: BLOOD SPECIMEN Ordering Facility: [facility] Address: [address] Performed By: #### 5 8410-2 #### [facility] IA [id number] [address] [place], [place] [address] [place] [address] [place] Nucleated RBC (Bld) [#/Vol] 10*3/uL Normal <0.01 [facility] Comment on above: Order Comment: Speci men Type: BLOOD SPECIMEN Ordering Facility: [facility] Address: [address] [place] [address] Performed By: #### 5 8410-2 #### [facility] IA [id number] [address] [place] Platelet mean volume (Bld) [Entitic vol] 11.2 fL Normal 9.0-12.7 [facility] l Comment on above: Order Comment: Speci men Type: BLOOD SPECIMEN Ordering Facility: [facility] Address: [address] Performed By: #### 5 8410-2 #### [facility] IA [id number] [address] [place] Platelets (Bld) [#/Vol] 148 10*3/uL Low 150-400 [facility] Comment on above: Order Comment: Speci men Type: BLOOD SPECIMEN Ordering Facility: [facility] Address: [address] [place], [place] [address] Performed By: #### 5 8410-2 #### [facility] IA [id number] [address] [place] [address] [place] RBC (Bld) [#/Vol] 3.83 10*6/uL Low 3.90-5.20 [facility] Comment on above: Order Comment: Speci men Type: BLOOD SPECIMEN Ordering Facility: [facility] Address: [address] [address] Performed By: #### 5 8410-2 #### [facility] CLIA [id number] [address] [facility]. [address] OF [facility] WBC (Bld) [#/Vol] 7.57 10*3/uL Normal 3.70-11.00 [facility] Comment on above: Order Comment: Speci men Type: BLOOD SPECIMEN Ordering Facility: [facility] Address: [address] [address] Performed By: #### 5 8410-2 #### [facility] CLIA [id number] [address] STATES OF [facility] Erythrocyte distribution width (RBC) [Ratio] 13.8 % 11.5 - 15.0 % [place] Hematocrit (Bld) [Volume fraction] 35.7 % Low 36.0 - 46.0 % [place] Hemoglobin (Bld) [Mass/Vol] 12.3 g/dL 11.5 - 15.5 g/dL [place] MCH (RBC) [Entitic mass] 32.1 pg 26. 0 - 34.0 pg [place] MCHC (RBC) [Mass/Vol] 34.5 g/dL 30.5 - 36.0 g/dL [place] MCV (RBC) [Entitic vol] 93.2 fL 80.0 - 100.0 fL [place] Nucleated RBC (Bld) [#/Vol] <0.01 k/uL [place] Platelet mean volume (Bld) [Entitic vol] 11.2 fL 9.0 - 12.7 fL [place] Platelets (Bld) [#/Vol] 148 10*3/uL Low 150 - 400 k/uL [place] RBC (Bld) [#/Vol] 3.83 10*6/uL Low 3.90 - 5.2 0 m/uL [place] WBC (Bld) [#/Vol] 7.57 10*3/uL 3.70 - 11. 00 k/uL [place] CNOVon 05-12-2023 CNOV Office Visit (GASTAV) MARLIN CADE ([id number]) 1990 F Date Time Provider Department 05/12/23 8:00 AM VANDANA BARTON During your visit today, we recorded the following information about you: Pulse Blood pressure Weight Height 78/minute 115/58 105.9 kg 1.753 m Vandana Barton MD, PhD 05/14/2023 4:34 PM Signed [...] 1 gram Take 2,000 mg by mouth. vits62/FA/om3/dha/ep a ( GUMMY ORAL) Take by mouth. psyllium husk (METAMUCIL ORAL) Take by mouth. No current facility-administere d medications for this visit. 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 MUSCULOSKELETAL: Negative for joint pain or swelling, back pain or muscle pain. SKIN: Negative for lesions, rash, and itching. PSYCH: Negative for sleep disturbance, mood disorder and recent psychosocial stressors. HEMATOLOGY/LYMPHOLOG Y Negative for prolonged bleeding, bruising easily or [...] abdominal bruits, no rebound and no rigidity. EXTREMITIES:Extremit ies normal, No deformities, No skin discoloration, No [...] again his (more content not included)... Normal [facility] CRP [Mass/Vol] mg/L Normal <0.9 [facility] Comment on above: Order Comment: Speczach villalpando Type: BLOOD SPECIMEN Ordering Facility: [facility] Address: [address] [place] [address] Performed By: #### 2 4323-8, 1987-, 94233-1 #### [facility] CLIA [id number] [address] [facility] [place] [address] [place] Calprotectin (Stl) [Mass/Mas s]on 05-12-2023 CALPROTECTIN, FECAL INTERP Normal Normal [place] CALPROTECTIN, FECAL QUANTITATIVE 20.9 ug/g <50 ug/g [place] CALPROTECTIN, FECAL INTERP Normal Normal Normal [facility] Comment on above: Order Comment: Lise villalpando Type: STOOL SPECIMEN Ordering Facility: [facility] Address: [address] [place] [address] Result Comment: On 2022, [place] [email or web address] implemented a new fecal calprotectin method, the [employer] Calprotectin assay. For assistance with interpretation of results in patients undergoing serial monitoring, contact Client Services at [phone] or [phone] to discuss options, preferably within 7 days of issuing this report. Interpretation: <50.0 ug/g: Normal 50.0 ug/g - 120.0 ug/g: Borderline elevated. Re-evaluation in 4-6 weeks is recommended if clinically indicated. >120.0 ug/g: Elevated Performed By: #### 3 8445-3 #### [facility] CLIA [id number] [address] [place] [address] [place] CALPROTECTIN, FECAL QUANTITATIVE 20.9 ug/g Normal <50 [facility] Comment on above: Order Comment: Speci men Type: STOOL SPECIMEN Ordering Facility: [facility] Address: [address] [address] Performed By: #### 3 8445-3 #### [facility] CLIA [id number] [facility] [address] [place] Comprehensive metabolic 2000 panelon 05-12-2023 Albumin [Mass/Vol] 3.7 g/dL Low 3.9-4.9 [facility] Comment on above: Order Comment: Speci men Type: BLOOD SPECIMEN Ordering Facility: [facility] Address: [address] Performed By: #### 2 4323-8, 1988-02, #### [facility] CLIA [id number] [address] [place] [address] [place] ALP [Catalytic activity/Vol] 39 U/L Normal 34-123 [facility] Comment on above: Order Comment: Speci men Type: BLOOD SPECIMEN Ordering Facility: [facility] Address: [address] Performed By: #### 2 4323-8, 1988-02, #### [facility] CLIA [id number] [address] [place] [address] [place] ALT [Catalytic activity/Vol] 8 U/L Normal 7-38 [facility] Comment on above: Order Comment: Speci men Type: BLOOD SPECIMEN Ordering Facility: [facility] Address: [address] Performed By: #### 2 4323-8, 1988-02, #### [facility] CLIA [id number] [address] [place] [address] [place] Anion gap [Moles/Vol] 11 mmol/L Normal 9-18 [facility] Comment on above: Order Comment: Speci men Type: BLOOD SPECIMEN Ordering Facility: [facility] Address: [address] [place], [place] [address] Performed By: #### 2 4328, 1988-02, #### [facility] IA [id number] [address] [place] [address] [place] AST [Catalytic activity/Vol] 13 U/L Normal 13-35 [facility] Comment on above: Order Comment: Speci men Type: BLOOD SPECIMEN Ordering Facility: [facility] Address: [address] [place] [address] Performed By: #### 2 4328, 1988-02, #### [facility] IA [id number] [place] [address] [place] Bilirubin [Mass/Vol] 0.3 mg/dL Normal 0.2-1.3 [facility] Comment on above: Order Comment: Speci men Type: BLOOD SPECIMEN Ordering Facility: [facility] Address: [address] [place], [place] [address] Performed By: #### 2 43238, 1988-02, #### [facility] IA [id number] [address] [place] [address] [place] Calcium [Mass/Vol] 9.0 mg/dL Normal 8.5-10.2 [facility] Comment on above: Order Comment: Speci men Type: BLOOD SPECIMEN Ordering Facility: [facility] Address: [address] [place], [place] [address] Performed By: #### 2 4328, 1988-02, #### [facility] IA [id number] [address] [place] [address] [place] Chloride [Moles/Vol] 104 mmol/L Normal 97-105 [facility] Comment on above: Order Comment: Speci men Type: BLOOD SPECIMEN Ordering Facility: [facility] Address: [address] [id number] Performed By: #### 2 4328, 1988-02, #### [facility] CLIA [id number] [address] [place] [address] [place] CO2 [Moles/Vol] 22 mmol/L Normal 22-30 [facility] Comment on above: Order Comment: Speci men Type: BLOOD SPECIMEN Ordering Facility: [facility] Address: [address] [id number] Performed By: #### 2 8, 1988-02, #### [facility] CLIA [id number] [address] [place], [place] [address] [place] [address] [place] Creatinine [Mass/Vol] 0.76 mg/dL Normal 0.58-0.96 [facility] Comment on above: Order Comment: Speci men Type: BLOOD SPECIMEN Ordering Facility: [facility] Address: [address] Performed By: #### 2 [address], #### [facility] CLIA [id number] [address] [place] [address] [facility] [place] ESTIMATED GLOMERULAR FILTRATION RATE 108 mL/min/1.73m??? Normal >=60 [facility] l Comment on above: Order Comment: Speci men Type: BLOOD SPECIMEN Ordering Facility: [facility] Address: [address] [id number] Result Comment: Albina mated Glomerular Filtration Rate [...] Performed By: #### 2 4323-8, 1988-02, #### [facility] CLIA [id number] [address] [place] [address] [place] Glucose [Mass/Vol] 88 mg/dL Normal 74-99 [facility] Comment on above: Order Comment: Lise villalpando Type: BLOOD SPECIMEN Ordering Facility: [facility] Address: [address] [place] [address] Result Comment: The [place] Diabetes Association (ADA) provides guidance for cutoff [...] Standards of Medical Care in Diabetes 2016, [place] Diabetes Association. Diabetes Care. 2016.39(Suppl 1). Performed By: #### 2 4328, 1988-02, #### [facility] CLIA [id number] [address] [place] [address] [place] Potassium [Moles/Vol] 4.2 mmol/L Normal 3.7-5.1 [facility] Comment on above: Order Comment: Lise villalpando Type: BLOOD SPECIMEN Ordering Facility: [facility] Address: [address] [place], [place] [address] Performed By: #### 2 4328, #### [facility] IA [id number] [address] [place] [address] [place] Protein [Mass/Vol] 6.3 g/dL Normal 6.3-8.0 [facility] Comment on above: Order Comment: Lise villalpando Type: BLOOD SPECIMEN Ordering Facility: [facility] Address: [address] [place], [place] [address] Performed By: #### 2 4323-8, 1988-02, #### [facility] CLIA [id number] [address] [place] [address] [place] Sodium [Moles/Vol] 137 mmol/L Normal 136-144 [facility] Comment on above: Order Comment: Speci men Type: BLOOD SPECIMEN Ordering Facility: [facility] Address: [address] [id number] Performed By: #### 2 4323-8, 1988-02, #### [facility] CLIA [id number] [address] [address] [id number] [place] Urea nitrogen [Mass/Vol] 8 mg/dL Normal 7-21 [facility] Comment on above: Order Comment: Speci men Type: BLOOD SPECIMEN Ordering Facility: [facility] Address: [address] Performed By: #### 2 4323-8, 1988-02, #### [facility] CLIA [id number] [address] [place] [address] [place] Albumin [Mass/Vol] 3.7 g/dL Low 3.9 - 4.9 g/dL [place] ALP [Catalytic activity/Vol] 39 U/L 34 - 123 U/L [place] ALT [Catalytic activity/Vol] 8 U/L 7 - 38 U/L [place] Anion gap [Moles/Vol] 11 mmol/L 9 - 18 mmol/L [place] AST [Catalytic activity/Vol] 13 U/L 13 - 35 U/L [place] Bilirubin [Mass/Vol] 0.3 mg/dL 0.2 - 1 .3 mg/dL [place] Calcium [Mass/Vol] 9.0 mg/dL 8.5 - 10. 2 mg/dL [place] Chloride [Moles/Vol] 104 mmol/L 97 - 10 5 mmol/L [place] CO2 [Moles/Vol] 22 mmol/L 22 - 30 mmol/L [place] Creatinine [Mass/Vol] 0.76 mg/dL 0.58 - 0.96 mg/dL [place] Estimated Glomerular Filtration Rate 108 mL/min/1.73m >=60 mL/min/1.73m [place] Glucose [Mass/Vol] 88 mg/dL 74 - 99 mg/dL [place] Potassium [Moles/Vol] 4.2 mmol/L 3.7 - 5.1 mmol/L [place] Protein [Mass/Vol] 6.3 g/dL 6.3 - 8.0 g/dL [place] Sodium [Moles/Vol] 137 mmol/L 136 - 144 mmol/L [place] Urea nitrogen [Mass/Vol] 8 mg/dL 7 - 21 mg/d L [place] Iron and Iron binding capaci ty panelon 05-12-2023 Iron [Mass/Vol] 113 ug/dL Normal 41-186 [facility] Comment on above: Order Comment: Speci men Type: BLOOD SPECIMEN Order[facility] Facility: [facility] Address: [address] Performed By: #### 2 4328, 1988-02, #### [facility] CLIA [id number] [address] [place] [address] [place] Iron binding capacity [Mass/Vol] 416 ug/dL High 232-386 [facility] Comment on above: Order Comment: Speci men Type: BLOOD SPECIMEN Ordering Facility: [facility] Address: [address] Performed By: #### 2 4328, 1988-02, #### [facility] IA [id number] [address] [place] [address] [place] Iron/TIBC [Molar ratio] 27.2 % Normal 15.0-57.0 [facility] Comment on above: Order Comment: Speci men Type: BLOOD SPECIMEN Ordering Facility: [facility] Address: [address] [place] [address] Performed By: #### 2 4323-8, 1988-02, #### [facility] CLIA [id number] [address] [place] [address] [place] Iron [Mass/Vol] 113 ug/dL 41 - 186 ug/dL [place] Iron binding capacity [Mass/Vol] 416 ug/dL High 232 - 386 ug/dL [place] Iron/TIBC [Molar ratio] 27.2 % 15.0 - 57.0 % [place] CNPHolly 05-11-2023 CNPN Telephone (FRANCES) MARLIN CADE ([id number]) 1990 F Date Time Provider Department 05/11/23 EVERT DANIELS During your visit today, we recorded the following information about you: Naomi Cain Ma 05/11/2023 3:06 PM Signed Called patient for more information about her visit tomorrow with Dr. Barton in Gastroenterology for IBD. We have no medical information on file, or in Care Everywhere. Patient stated she had sought medical care in [place], with Dr. Baldemar Arnett, Gastroenterology, [facility], presenting with bleeding when having a BM. Patient states that the bleeding is sometimes heavy and sometimes it just colors the toilet paper. She has no pain with it, and wasn't actually diagnosed with IBD, but she is concerned. She was scheduled to have a colonoscopy in [place], but when she got they canceled the procedure. She is currently 21.5 weeks into her . She stated the medical center recommended she came to the [place] for further evaluation. 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 Allergies As of Date: 05/11/2023 (Not on File) Date Reviewed: Never Reviewed Reason for Visit: Appointment Information [Other] Problem List As Of Date: 05/11/2023 (None) Encounter Status:Closed by NAOMI CAIN MA on 05/11/23 Normal [facility] HEP B SURFACE ANTIGEN SCREEN on 03-03-2023 HBsAg Screen Negative Normal Negative [facility] Comment on above: Performed By: #### H [facility] #### [facility] [address] [place] [address] Dr. David Garduno HEPATITIS C VIRUS AB W/ REFL EX QUANTon 03-03-2023 HCV AB Non-Reactive Normal Non Reactive [facility] Comment on above: Performed By: #### C BC #### [facility] [address] [place] [address] Dr. David Garduno Interpretation: Comment Normal [facility] Comment on above: Result Comment: Not infected with HCV unless early or acute infection is suspected (which may be delayed in an immunocompromised individual), or other evidence exists to indicate HCV infection. Performed By: #### C BC #### [facility] [address] [address] [address] David Garduno HIV 1 AND 2 WITH REFLEXon HIV Screen 4th Generation wRfx Non-Reactive Normal Non Reactive [facility] Comment on above: Result Comment: HIV Negative HIV-1/HIV-2 antibodies and HIV-1 p24 antigen were NOT detected. There is no laboratory evidence of HIV infection. Performed By: #### R PRQ #### [facility] [address] [place] [address] Dr. David Garduno RPR QUANTon 03-03-2023 Rapid Plasma Reagin, Quant Non-Reactive Normal NonRea<1:1 [facility] Comment on above: Result Comment: Ivelisse gonzalez Note: This test does not meet current guidelines for screening and diagnosis of syphilis. This test is intended for following treatment response in patients being treated for syphilis infection. To screen for syphilis infection, a reflex cascade that includes both RPR and a treponema-specific assay should be utilized, such as Treponema pallidum (Syphilis) Screening [place] (988871) or Rapid Plasma Reagin (RPR) Test With Reflex to Quantitative RPR and Confirmatory Treponema pallidum Antibodies (193017). Performed By: #### R PRQ #### [facility] [address] [place] [address] Dr. David Garduno RUBELLA AB IGGon 03-03-2023 Rubella Antibodies, IgG 1.15 index Normal Immune >0.99 [facility] Comment on above: Result Comment: Non- immune <0.90 Equivocal 0.90 - 0.99 Immune >0.99 Performed By: #### R PRQ #### [facility] [address] [place] [address] Dr. David Garduno CBC AUTO DIFFon 03-02-2023 BASO # 0.0 103/ul Normal 0.0-0.1 [facility] Comment on above: Performed By: #### C BC #### [facility] [address] [place] [address] Dr. David Garduno Basophils/100 WBC (Bld) 0.3 % Normal 0.2-2.0 [facility] Comment on above: Performed By: #### C BC #### [facility] [address] [place] [address] Dr. David Garduno EO # 0.1 103/ul Normal 0.0-0.7 [facility] Comment on above: Performed By: #### C BC #### [facility] [address] [place] [address] Dr. David Garduno Eosinophils/100 WBC (Bld) 1.1 % Normal 0.9-7.0 [facility] Comment on above: Performed By: #### C BC #### [facility] [address] [place] [address] Dr. David Garduno Erythrocyte distribution width (RBC) [Ratio] 12.6 % Normal 11.0-15.0 [facility] Comment on above: Performed By: #### C BC #### [facility] [address] [place] [address] Dr. David Garduno Hematocrit (Bld) [Volume fraction] 38.8 % Normal 36.0-48.0 [facility] Comment on above: Performed By: #### C BC #### [facility] [address] [place] [address] Dr. David Garduno Hemoglobin (Bld) [Mass/Vol] 13.8 g/dL Normal 12.0-16.0 [facility] Comment on above: Performed By: #### C BC #### [facility] [address] [place] [address] Dr. David Garduno IG # 0.03 10e3/ul Normal 0.00-0.03 [facility] Comment on above: Performed By: #### C BC #### [facility] [address] [place] [address] Dr. David Garduno IG % 0.5 % Normal 0.0-0.5 [facility] Comment on above: Performed By: #### C BC #### [facility] [address] [place] [address] Dr. David Garduno LYMPH # 1.8 103/ul Normal 1.2-3.8 [facility] Comment on above: Performed By: #### C BC #### [facility] [address] [place] [address] Dr. David Garduno Lymphocytes/100 WBC (Bld) 28.5 % Normal 20.5-60.0 [facility] Comment on above: Performed By: #### C BC #### [facility] [address] [place] [address] Dr. David Garduno MANUAL DIFF REQ NO Normal [facility] Comment on above: Performed By: #### C BC #### [facility] [facility] [address] [place] [address] Dr. David Garduno MCH (RBC) [Entitic mass] 31.4 pg Normal 26.7-34.0 [facility] [place] Comment on above: Performed By: #### C BC #### [facility] [address] [place] [address] Dr. David Garduno MCHC (RBC) [Mass/Vol] 35.6 g/dL Critically high 29.9-35.2 [facility] [place] Comment on above: Performed By: #### C BC #### [facility] [address] [place] [address] Dr. David Garduno MCV (RBC) [Entitic vol] 88.2 fL Normal 81.0-99.0 [facility] Comment on above: Performed By: #### C BC #### [facility] [address] [place] [address] Dr. David Garduno MONO # 0.4 103/ul Normal 0.3-0.8 [facility] [place] Comment on above: Performed By: #### C BC #### [facility] [address] [place] [address] Dr. David Garduno Monocytes/100 WBC (Bld) 7.0 % Normal 1.7-12.0 [facility] Comment on above: Performed By: #### C BC #### [facility] [address] [place] [address] Dr. David Garduno NEUT # 3.8 103/ul Normal 1.4-6.5 [facility] [place] Comment on above: Performed By: #### C BC #### [facility] [address] [place] [address] Dr. David Garduno Neutrophils/100 WBC (Bld) 62.6 % Normal 43.0-75.0 [facility] [place] Comment on above: Performed By: #### C BC #### [facility] [address] [place] [address] Dr. David Garduno Platelet mean volume (Bld) [Entitic vol] 10.9 fL Normal 9.5-13.5 [facility] [place] Comment on above: Performed By: #### C BC #### [facility] [address] [place] [address] Dr. David Garduno PLT 184 103/ul Normal 150-450 [facility] Comment on above: Performed By: #### C BC #### [facility] [address] [place] [address] Dr. David Garduno RBC 4.40 106/ul Normal 4.20-5.40 [facility] Comment on above: Performed By: #### C BC #### [facility] [address] [place] [address] Dr. David Garduno WBC 6.1 103/ul Normal 4.0-11.0 [facility] [place] Comment on above: Performed By: #### C BC #### [facility] [address] [place] [address] Dr. David Garduno CULTURE URINEon 03-02-2023 CULTURE URINE Culture Observations: MODERATE GROWTH OF MIXED GENITAL CLARIBEL. NO POTENTIAL PATHOGENS SEEN. Normal [facility] Comment on above: Performed By: #### U RCX #### [facility] [address] [place] [address] Dr. David Garduno GLYCOHEMOGLOBIN A1Con 2022 ADA RECOMMENDATION SEE BELOW Normal [facility] Comment on above: Result Comment: ADA RECOMMENDED LIMIT 4.0 - 6.0 ADA THERAPEUTIC TARGET < 7.0 ACTION SUGGESTED > 7.0 Performed By: #### A 1C #### [facility] [address] [address] [address] David Garduno Glucose [Mass/Vol] 94 mg/dL Normal [facility] Comment on above: Performed By: #### A 1C #### [facility] [address] [address] [address] David Garduno HbA1c (Bld) [Mass fraction] 4.9 % Normal 4.5-6.2 [facility] [place] Comment on above: Performed By: #### A 1C #### [facility] [address] [address] [address] David Garduno TSHon 03-02-2023 TSH 0.430 uIU/mL Normal 0.358-3.740 [facility] Comment on above: Performed By: #### R PRQ #### [facility] [address] [address] [address] David Garduno TYPE AND SCREENon 03-02-2023 TYPE AND SCREEN Negative Normal [facility] Comment on above: Performed By: #### T NS #### [facility] [address] [place] [address] Dr. David Garduno US PREG TVon 02-16-2023 [...] NANCY KING Date: 2023-02-16 16:03 Normal [facility] CBC AUTO DIFFon 12-10-2022 BASO # 0.0 103/ul Normal 0.0-0.1 [facility] [place] Comment on above: Performed By: #### C BC #### [facility] [address] [place] [address] Dr. David Garduno Basophils/100 WBC (Bld) 0.6 % Normal 0.2-2.0 [facility] Comment on above: Performed By: #### C BC #### [facility] [address] [place] [address] Dr. David Garduno EO # 0.1 103/ul Normal 0.0-0.7 [facility] [place] Comment on above: Performed By: #### C BC #### [facility] [address] [place] [address] Dr. David Garduno Eosinophils/100 WBC (Bld) 1.7 % Normal 0.9-7.0 [facility] Comment on above: Performed By: #### C BC #### [facility] [address] [place] [address] Dr. David Garduno Erythrocyte distribution width (RBC) [Ratio] 12.4 % Normal 11.0-15.0 [facility] Comment on above: Performed By: #### C BC #### [facility] [address] [place] [address] Dr. David Garduno Hematocrit (Bld) [Volume fraction] 41.9 % Normal 36.0-48.0 [facility] Comment on above: Performed By: #### C BC #### [facility] [address] [place] [address] Dr. David Garduno Hemoglobin (Bld) [Mass/Vol] 14.8 g/dL Normal 12.0-16.0 [facility] [place] Comment on above: Performed By: #### C BC #### [facility] [address] [place] [address] Dr. David Garduno IG # 0.01 10e3/ul Normal 0.00-0.03 [facility] [place] Comment on above: Performed By: #### C BC #### [facility] [address] [address] [address] David Garduno IG % 0.3 % Normal 0.0-0.5 [facility] [place] Comment on above: Performed By: #### C BC #### [facility] [address] [address] [address] David Garduno LYMPH # 0.8 103/ul Critically low 1.2-3.8 [facility] Comment on above: Performed By: #### C BC #### [facility] [address] [place] [address] Dr. David Garduno Lymphocytes/100 WBC (Bld) 22.3 % Normal 20.5-60.0 [facility] [place] Comment on above: Performed By: #### C BC #### [facility] [address] [place] [address] Dr. David Garduno MANUAL DIFF REQ NO Normal [facility] Comment on above: Performed By: #### C BC #### [facility] [address] [place] [address] Dr. David Garduno MCH (RBC) [Entitic mass] 31.0 pg Normal 26.7-34.0 [facility] Comment on above: Performed By: #### C BC #### [facility] [address] [place] [address] Dr. David Garduno MCHC (RBC) [Mass/Vol] 35.3 g/dL Critically high 29.9-35.2 [facility] Comment on above: Performed By: #### C BC #### [facility] [address] [place] [address] Dr. David Garduno MCV (RBC) [Entitic vol] 87.8 fL Normal 81.0-99.0 [facility] Comment on above: Performed By: #### C BC #### [facility] [address] [place] [address] Dr. David Garduno MONO # 0.5 103/ul Normal 0.3-0.8 [facility] Comment on above: Performed By: #### C BC #### [facility] [address] [address] [address] David Garduno Monocytes/100 WBC (Bld) 13.0 % Critically high 1.7-12. 0 [facility] Comment on above: Performed By: #### C BC #### [facility] [address] [place] [address] Dr. David Garduno NEUT # 2.2 103/ul Normal 1.4-6.5 [facility] Comment on above: Performed By: #### C BC #### [facility] [address] [place] [address] Dr. David Garduno Neutrophils/100 WBC (Bld) 62.1 % Normal 43.0-75.0 [facility] Comment on above: Performed By: #### C BC #### [facility] [address] [place] [address] Dr. David Garduno Platelet mean volume (Bld) [Entitic vol] 10.4 fL Normal 9.5-13.5 [facility] [place] Comment on above: Performed By: #### C BC #### [facility] [address] [place] [address] Dr. David Garduno PLT 174 103/ul Normal 150-450 [facility] Comment on above: Performed By: #### C BC #### [facility] [address] [place] [address] Dr. David Garduno RBC 4.77 106/ul Normal 4.20-5.40 [facility] Comment on above: Performed By: #### C BC #### [facility] [address] [place] [address] Dr. David Garduno WBC 3.5 103/ul Critically low 4.0-11.0 [facility] Comment on above: Performed By: #### C BC #### [facility] [address] [place] [address] ABD/PELVIS WO CONon [...] by: PAIGE KERR Date: 2022-12-10 10:51 Normal [facility] PREG HCG QUALon 12-10-2022 , QUAL Negative Normal NEGATIVE [facility] Comment on above: Performed By: #### P REG #### [facility] [address] [address] [address] David Garduno PROF CHEM 8 (BAS METB)on Anion gap [Moles/Vol] 13.0 mmol/L Normal [facility] Comment on above: Performed By: #### R PRQ #### [facility] [address] [place], [place] [address] Dr. David Garduno Calcium [Mass/Vol] 8.5 mg/dL Normal 8.5-10.1 [facility] Comment on above: Performed By: #### R PRQ #### [facility] [address] [place], [place] [address] Dr. David Garduno Chloride [Moles/Vol] 103 mmol/L Normal 98-107 [facility] Comment on above: Performed By: #### R PRQ #### [facility] [address] [address] [address] David Garduno CO2 [Moles/Vol] 26.4 mmol/L Normal 21.0-32.0 [facility] Comment on above: Performed By: #### R PRQ #### [facility] [address] [address] [address] David Garduno Creatinine [Mass/Vol] 0.85 mg/dL Normal 0.55-1.02 [facility] Comment on above: Performed By: #### R PRQ #### [facility] [address] [address] [address] David Garduno EGFR-AF MALDIVIAN >60 Normal >=60 [facility] Comment on above: Performed By: #### R PRQ #### [facility] [address] [address] [address] David Garduno EGFR-NON AF MALDIVIAN >60 Normal >=60 [facility] Comment on above: Performed By: #### R PRQ #### [facility] [address] [address] [address] David Garduno Glucose [Mass/Vol] 97 mg/dL Normal 74-106 [facility] Comment on above: Performed By: #### R PRQ #### [facility] [address] [address] [address] David Garduno Potassium [Moles/Vol] 4.4 mmol/L Normal 3.5-5.1 [facility] Comment on above: Performed By: #### R PRQ #### [facility] [address] [address] [address] David Garduno Sodium [Moles/Vol] 138 mmol/L Normal 136-145 [facility] Comment on above: Performed By: #### R PRQ #### [facility] [address] [address] [address] David Garduno Urea nitrogen [Mass/Vol] 8.0 mg/dL Normal 7.0-18.0 [facility] Comment on above: Performed By: #### R PRQ #### [facility] [address] [place] [address] Dr. David Garduno Urea nitrogen/Creatinine [Mass ratio] 9.4 mg/mg Normal [facility] Comment on above: Performed By: #### R PRQ #### [facility] [address] [place] [address] Dr. David Garduno CBC AUTO DIFFon 04-10-2022 BASO # 0.0 103/ul Normal 0.0-0.1 [facility] Comment on above: Performed By: #### C BC #### [facility] [address] [place] [address] Dr. David Garduno Basophils/100 WBC (Bld) 0.2 % Normal 0.2-2.0 [facility] Comment on above: Performed By: #### C BC #### [facility] [address] [place] [address] Dr. David Garduno EO # 0.0 103/ul Normal 0.0-0.7 [facility] Comment on above: Performed By: #### C BC #### [facility] [address] [place] [address] Dr. David Garduno Eosinophils/100 WBC (Bld) 0.1 % Critically low 0.9-7.0 [facility] Comment on above: Performed By: #### C BC #### [facility] [address] [place] [address] Dr. David Garduno Erythrocyte distribution width (RBC) [Ratio] 13.8 % Normal 11.0-15.0 [facility] Comment on above: Performed By: #### C BC #### [facility] [address] [place] [address] Dr. David Garduno Hematocrit (Bld) [Volume fraction] 30.0 % Critically low 36.0-48.0 [facility] Comment on above: Performed By: #### C BC #### [facility] [address] [place] [address] Dr. David Garduno Hemoglobin (Bld) [Mass/Vol] 9.9 g/dL Critically low 12.0-16.0 [facility] Comment on above: Performed By: #### C BC #### [facility] [address] [place] [address] Dr. David Garduno IG # 0.03 10e3/ul Normal 0.00-0.03 [facility] Comment on above: Performed By: #### C BC #### [facility] [address] [place] [address] Dr. David Garduno IG % 0.3 % Normal 0.0-0.5 [facility] Comment on above: Performed By: #### C BC #### [facility] [address] [place] [address] Dr. David Garduno LYMPH # 1.8 103/ul Normal 1.2-3.8 [facility] Comment on above: Performed By: #### C BC #### [facility] [address] [place] [address] Dr. David Garduno Lymphocytes/100 WBC (Bld) 17.2 % Critically low 20.5-60.0 [facility] Comment on above: Performed By: #### C BC #### [facility] [address] [place] [address] Dr. David Garduno MANUAL DIFF REQ NO Normal [facility] Comment on above: Performed By: #### C BC #### [facility] [address] [place] [address] Dr. David Garduno MCH (RBC) [Entitic mass] 28.4 pg Normal 26.7-34.0 [facility] Comment on above: Performed By: #### C BC #### [facility] [address] [place] [address] Dr. David Garduno MCHC (RBC) [Mass/Vol] 33.0 g/dL Normal 29.9-35.2 [facility] Comment on above: Performed By: #### C BC #### [facility] [address] [place] [address] Dr. David Garduno MCV (RBC) [Entitic vol] 86.0 fL Normal 81.0-99.0 [facility] Comment on above: Performed By: #### C BC #### [facility] [address] [place] [address] Dr. David Garduno MONO # 0.8 103/ul Normal 0.3-0.8 [facility] Comment on above: Performed By: #### C BC #### [facility] [address] [address] [address] David Garduno Monocytes/100 WBC (Bld) 7.9 % Normal 1.7-12.0 [facility] Comment on above: Performed By: #### C BC #### [facility] [address] [place] [address] Dr. David Garduno NEUT # 7.6 103/ul Critically high 1.4-6.5 [facility] Comment on above: Performed By: #### C BC #### [facility] [address] [place] [address] Dr. David Garduno Neutrophils/100 WBC (Bld) 74.3 % Normal 43.0-75.0 [facility] Comment on above: Performed By: #### C BC #### [facility] [address] [place] [address] Dr. David Garduno Platelet mean volume (Bld) [Entitic vol] 11.6 fL Normal 9.5-13.5 [facility] Comment on above: Performed By: #### C BC #### [facility] [address] [place] [address] Dr. David Garduno PLT 155 103/ul Normal 150-450 [facility] Comment on above: Performed By: #### C BC #### [facility] [address] [place] [address] Dr. David Garduno RBC 3.49 106/ul Critically low 4.20-5.40 [facility] Comment on above: Performed By: #### C BC #### [facility] [address] [place] [address] Dr. David Garduno WBC 10.2 103/ul Normal 4.0-11.0 [facility] Comment on above: Performed By: #### C BC #### [facility] [address] [place] [address] Dr. David Garduno CBC AUTO DIFFon 04-09-2022 BASO # 0.0 103/ul Normal 0.0-0.1 [facility] Comment on above: Performed By: #### C BC #### [facility] [address] [place] [address] Dr. David Garduno Basophils/100 WBC (Bld) 0.2 % Normal 0.2-2.0 [facility] Comment on above: Performed By: #### C BC #### [facility] [address] [place] [address] Dr. David Garduno EO # 0.0 103/ul Normal 0.0-0.7 [facility] Comment on above: Performed By: #### C BC #### [facility] [address] [place] [address] Dr. David Garduno Eosinophils/100 WBC (Bld) 0.5 % Critically low 0.9-7.0 [facility] Comment on above: Performed By: #### C BC #### [facility] [address] [place] [address] Dr. David Garduno Erythrocyte distribution width (RBC) [Ratio] 14.0 % Normal 11.0-15.0 [facility] Comment on above: Performed By: #### C BC #### [facility] [address] [place] [address] Dr. David Garduno Hematocrit (Bld) [Volume fraction] 35.5 % Critically low 36.0-48.0 [facility] Comment on above: Performed By: #### C BC #### [facility] [address] [place] [address] Dr. David Garduno Hemoglobin (Bld) [Mass/Vol] 11.6 g/dL Critically low 12.0-16.0 [facility] Comment on above: Performed By: #### C BC #### [facility] [address] [place] [address] Dr. David Garduno IG # 0.02 10e3/ul Normal 0.00-0.03 [facility] Comment on above: Performed By: #### C BC #### [facility] [address] [place] [address] Dr. David Garduno IG % 0.2 % Normal 0.0-0.5 [facility] Comment on above: Performed By: #### C BC #### [facility] [address] [place] [address] Dr. David Garduno LYMPH # 1.9 103/ul Normal 1.2-3.8 [facility] Comment on above: Performed By: #### C BC #### [facility] [address] [place] [address] Dr. David Garduno Lymphocytes/100 WBC (Bld) 22.8 % Normal 20.5-60.0 [facility] Comment on above: Performed By: #### C BC #### [facility] [address] [place] [address] Dr. David Garduno MANUAL DIFF REQ NO [facility] Comment on above: Performed By: #### C BC #### [facility] [address] [place] [address] Dr. David Garduno MCH (RBC) [Entitic mass] 28.4 pg Normal 26.7-34.0 [facility] Comment on above: Performed By: #### C BC #### [facility] [address] [place] [address] Dr. David Garduno MCHC (RBC) [Mass/Vol] 32.7 g/dL Normal 29.9-35.2 [facility] [place] Comment on above: Performed By: #### C BC #### [facility] [address] [place] [address] Dr. David Garduno MCV (RBC) [Entitic vol] 86.8 fL Normal 81.0-99.0 [facility] Comment on above: Performed By: #### C BC #### [facility] [address] [place] [address] Dr. David Garduno MONO # 0.8 103/ul Normal 0.3-0.8 [facility] Comment on above: Performed By: #### C BC #### [facility] [address] [place] [address] Dr. David Garduno Monocytes/100 WBC (Bld) 9.6 % Normal 1.7-12.0 [facility] Comment on above: Performed By: #### C BC #### [facility] [address] [place] [address] Dr. David Garduno NEUT # 5.6 103/ul Normal 1.4-6.5 [facility] Comment on above: Performed By: #### C BC #### [facility] [address] [place] [address] Dr. David Garduno Neutrophils/100 WBC (Bld) 66.7 % Normal 43.0-75.0 [facility] Comment on above: Performed By: #### C BC #### [facility] [address] [place] [address] Dr. David Garduno Platelet mean volume (Bld) [Entitic vol] 12.0 fL Normal 9.5-13.5 [facility] Comment on above: Performed By: #### C BC #### [facility] [address] [place] [address] Dr. David Garduno PLT 197 103/ul Normal 150-450 [facility] Comment on above: Performed By: #### C BC #### [facility] [address] [place] [address] Dr. David Garduno RBC 4.09 106/ul Critically low 4.20-5.40 [facility] Comment on above: Performed By: #### C BC #### [facility] [address] [place] [address] Dr. David Garduno WBC 8.3 103/ul Normal 4.0-11.0 [facility] Comment on above: Performed By: #### C BC #### [facility] [address] [place] [address] Dr. David Garduno TYPE AND SCREENon 04-09-2022 TYPE AND SCREEN Negative Normal [facility] Comment on above: Performed By: #### C BC #### [facility] [address] [place] [address] Dr. David Garduno UA (CLEAN/CATCH) LOZENGE DOUGH MIXER/MICRO I F IND.on 04-09-2022 Bilirubin Ql (U) Negative Normal NEGATIVE [facility] Comment on above: Performed By: #### R PRQ #### [facility] [address] [place] [address] Dr. David Garduno Clarity (U) CLEAR Normal CLEAR [facility] Comment on above: Performed By: #### R PRQ #### [facility] [address] [place] [address] Dr. David Garduno Color (U) LT. YELLOW Normal YELLOW [facility] Comment on above: Performed By: #### R PRQ #### [facility] [address] [place] [address] Dr. David Garduno Glucose Ql (U) Negative Normal NEGATIVE [facility] Comment on above: Performed By: #### R PRQ #### [facility] [address] [place] [address] Dr. David Garduno Hemoglobin Ql (U) Negative Normal NEGATIVE [facility] Comment on above: Performed By: #### R PRQ #### [facility] [address] [place] [address] Dr. David Garduno Ketones Ql (U) Negative Normal NEGATIVE [facility] Comment on above: Performed By: #### R PRQ #### [facility] [address] [place] [address] Dr. David Garduno LEUKOCYTES Negative Normal NEGATIVE [facility] Comment on above: Performed By: #### R PRQ #### [facility] [address] [place] [address] Dr. David Garduno Nitrite Ql (U) Negative Normal NEGATIVE [facility] Comment on above: Performed By: #### R PRQ #### [facility] [address] [place] [address] Dr. David Garduno pH (U) 6.5 [pH] Normal 5-9 [facility] Comment on above: Performed By: #### R PRQ #### [facility] [address] [place] [address] Dr. David Garduno SPEC GRAVITY 1.010 Normal 1.005-<=1.02 5 [facility] Comment on above: Performed By: #### R PRQ #### [facility] [address] [place] [address] Dr. David Garduno UA PROTEIN Negative Normal NEGATIVE/ TRACE [facility] Comment on above: Performed By: #### R PRQ #### [facility] [address] [place] [address] Dr. David Garduno UR MICRO IND NOT INDICATED Normal [facility] Comment on above: Performed By: #### R PRQ #### [facility] [address] [place] [address] Dr. David Garduno Urobilinogen Qn (U) 0.2 {Taye'U}/dL Normal 0.2 - 1. 0 [facility] Comment on above: Performed By: #### R PRQ #### [facility] [address] [place] [address] Dr. David Garduno Covid-19 PCR (CVDTB)on 03-30 SARS-CoV-2 (COVID-19) RNA CARLOS+probe Ql (Unsp spec) Not detected Normal NOT DETECTED [facility] Comment on above: Result Comment: This test is not yet approved or cleared by the [place] FDA. When there are no FDA-approved or cleared tests available, and other criteria are met, FDA can make tests available under an emergency access mechanism called an Emergency Use Authorization (EUA). The EUA for this test is supported by the [employer] of Health and Human Service's (HHS's) declaration [...] SARS-CoV-2. Performed By: #### C VDTBH #### [facility] [address] [place] [address] Dr. David Garduno US PREG BIOPHY W [...] ; BPP 8/8. Electronically authenticated by: ALEXI [facility] Date: 2022-04-06 18:46 Normal [facility] GROUP B STREP CULTUREon S. agalactiae Ag Ql (Unsp spec) Culture Observations: NEGATIVE FOR GROUP B STREPTOCOCCUS. Normal [facility] Comment on above: Performed By: #### C BC #### [facility] [address] [place] [address] Dr. Daivd Garduno UA (CLEAN/CATCH) LOZENGE DOUGH MIXER/MICRO I F IND.on 03-25-2022 Bilirubin Ql (U) Negative Normal NEGATIVE [facility] Comment on above: Performed By: #### U ACSIND #### [facility] [address] [place] [address] Dr. David Garduno Clarity (U) CLEAR Normal CLEAR [facility] Comment on above: Performed By: #### U ACSIND #### [facility] [address] [place] [address] Dr. David Garduno Color (U) LT. YELLOW Normal YELLOW [facility] Comment on above: Performed By: #### U ACSIND #### [facility] [address] [place] [address] Dr. David Garduno Glucose Ql (U) Negative Normal NEGATIVE [facility] Comment on above: Performed By: #### U ACSIND #### [facility] [address] [place] [address] Dr. David Garduno Hemoglobin Ql (U) Negative Normal NEGATIVE [facility] Comment on above: Performed By: #### U ACSIND #### [facility] [address] [address] [address] David Garduno Ketones Ql (U) Negative Normal NEGATIVE [facility] Comment on above: Performed By: #### U ACSIND #### [facility] [address] [place] [address] Dr. David Garduno LEUKOCYTES Negative Normal NEGATIVE [facility] Comment on above: Performed By: #### U ACSIND #### [facility] [address] [address] [address] David Garduno Nitrite Ql (U) Negative Normal NEGATIVE [facility] Comment on above: Performed By: #### U ACSIND #### [facility] [address] [place] [address] Dr. David Garduno pH (U) 6.0 [pH] Normal 5-9 [facility] Comment on above: Performed By: #### U ACSIND #### [facility] [address] [place] [address] Dr. David Garduno SPEC GRAVITY <=1.005 Abnormal 1.005-<=1.02 5 [facility] Comment on above: Performed By: #### U ACSIND #### [facility] [address] [place] [address] Dr. David Garduno UA PROTEIN Negative Normal NEGATIVE/ TRACE [facility] Comment on above: Performed By: #### U ACSIND #### [facility] [address] [address] [address] David Garduno UR MICRO IND NOT INDICATED Normal [facility] Comment on above: Performed By: #### U ACSIND #### [facility] [address] [place] [address] Dr. David Garduno Urobilinogen Qn (U) 0.2 {Taye'U}/dL Normal 0.2 - 1. 0 [facility] Comment on above: Performed By: #### U ACSIND #### [facility] [address] [place] [address] Dr. David Garduno UA (CLEAN/CATCH) LOZENGE DOUGH MIXER/MICRO I F IND.on 03-16-2022 Bilirubin Ql (U) Negative Normal NEGATIVE [facility] Comment on above: Performed By: #### R PRQ #### [facility] [address] [place] [address] Dr. David Garduno Clarity (U) CLEAR Normal CLEAR [facility] Comment on above: Performed By: #### R PRQ #### [facility] [address] [place] [address] Dr. David Garduno Color (U) LT. YELLOW Normal YELLOW [facility] Comment on above: Performed By: #### R PRQ #### [facility] [address] [place] [address] Dr. David Garduno Glucose Ql (U) Negative Normal NEGATIVE [facility] Comment on above: Performed By: #### R PRQ #### [facility] [address] [place] [address] Dr. David Garduno Hemoglobin Ql (U) Negative Normal NEGATIVE [facility] Comment on above: Performed By: #### R PRQ #### [facility] [address] [place] [address] Dr. David Garduno Ketones Ql (U) Negative Normal NEGATIVE [facility] Comment on above: Performed By: #### R PRQ #### [facility] [address] [place] [address] Dr. David Garduno LEUKOCYTES Negative Normal NEGATIVE [facility] Comment on above: Performed By: #### R PRQ #### [facility] [address] [place] [address] Dr. David Garduno Nitrite Ql (U) Negative Normal NEGATIVE [facility] Comment on above: Performed By: #### R PRQ #### [facility] [address] [place] [address] Dr. David Garduno pH (U) 6.0 [pH] Normal 5-9 [facility] Comment on above: Performed By: #### R PRQ #### [facility] [address] [place] [address] Dr. David Garduno SPEC GRAVITY <=1.005 Abnormal 1.005-<=1.02 5 [facility] Comment on above: Performed By: #### R PRQ #### [facility] [address] [address] [address] David Garduno UA PROTEIN Negative Normal NEGATIVE/ TRACE [facility] Comment on above: Performed By: #### R PRQ #### [facility] [address] [address] [address] David Garduno UR MICRO IND NOT INDICATED Normal [facility] Comment on above: Performed By: #### R PRQ #### [facility] [address] [address] [address] David Garduno Urobilinogen Qn (U) 0.2 {Taye'U}/dL Normal 0.2 - 1. 0 [facility] Comment on above: Performed By: #### R PRQ #### [facility] [address] [place] [address] Dr. David Garduno XR wrist LT min 3V*on 2020 XR wrist LT min 3V* [facility] [place] [address] [place] [address] XRay Report Signed Patient: Marlin Cade MR#: [id number] : 1990 Acct:[id number] Age/Sex: 30 / F ADM Date: 05/21/21 Loc: [facility] Room: Type: [facility] Attending Dr: Beckie WRAY Ordering Provider: BECKIE MICHAEL Date of Service: 05/21/21 XR/XR wrist LT min 3V*: Left wrist pain Copies to: BECKIE MICHAEL 4 viewsLEFT wrist plain film COMPARISON:None HISTORY:LEFT wrist pain for 2 weeks. No injury. No fracture, dislocation or focal soft tissue abnormality seen. No significant degeneration. XR/XR wrist LT min 3V* IMPRESSION:Unremarka ble exam. Impression dictated by: Cedric Joy M.D.05/21/2021 2:31 PM Dictation Location: [place] [address] Transcribed By: [facility] 05/21/21 1431 Dictated By: Cedric Joy DO 05/21/21 1429 Signed By: 05/21/21 1431 [facility] Physician Orderon 09-23-2020 Physician Order [id number] 5#1.00CD:127 Normal [facility] Physician Order [id number] 0#1.00CD:127 Normal [facility] Suboxone Scr Uron 09-23-2020 Buprenorphine Ql (U) Negative Normal Negative [facility] Comment on above: Performed By: #### 7 [id number] #### [facility] [address] [place] [address] U Drug Screenon 09-23-2020 Amphetamines Screen method >1000 ng/mL Ql (U) Negative Normal Negative [facility] Comment on above: Result Comment: Nega tive Cutoff: <1000 ng/mL Performed By: #### 7 [id number], [id number] #### [facility] [address] [place] [address] Barbiturates Screen Ql (U) Negative Normal Negative [facility] Comment on above: Result Comment: Nega tive Cutoff: <200 ng/mL Performed By: #### 7 [id number] #### [facility] [address] [place] [address] Benzodiazepines Ql (U) Negative Normal Negative [facility] Comment on above: Result Comment: Nega tive Cutoff: <200 ng/mL Performed By: #### 7 [id number] #### [facility] [address] [place] [address] Cocaine Ql (U) Negative Normal Negative [facility] Comment on above: Result Comment: Nega tive Cutoff: <300 ng/mL Performed By: #### 7 [id number] #### [facility] [address] [place] [address] Opiates Screen Ql (U) Negative Normal Negative Fis [facility] Comment on above: Result Comment: Nega tive Cutoff: <300 ng/mL Performed By: #### 7 [id number], [id number] #### [facility] [address] [place] [address] Phencyclidine Screen method >25 ng/mL Ql (U) Negative Normal Negative [facility] Comment on above: Result Comment: Nega tive Cutoff: <25 ng/mL These drug screen results are to be used for medical (i.e., treatment) purposes only. Unconfirmed drug screening results must not be used for non-medical purposes (e.g., employment testing, legal testing). Performed By: #### 7 [id number], [id number] #### [facility] [address] [place] [address] Tetrahydrocannabinol Screen method >50 ng/mL Ql (U) Negative Normal Negative [facility] Comment on above: Result Comment: Nega tive Cutoff: <50 ng/mL Performed By: #### 7 [id number] #### [facility] [address] [place] [address] Vital Signs Date Time Vital Sign Value Performing Clinician Facility 11-27-2024 13:41-0500 Body mass index (BMI) [Ratio] 36.18 kg/m2 [employer] Work Phone: [facility] 11-27-2024 13:41-0500 Body weight 111.13 kg [employer] Work Phone: [facility] 11-27-2024 13:41-0500 Diastolic blood pressure 72 mm[Hg] Marv Keturah DO Work Phone: [facility] 11-27-2024 13:41-0500 Systolic blood pressure 114 mm[Hg] Marv Keturah readeo Work Phone: [facility] 09-09-2024 13:53-0500 Body height 175.3 cm Aliya Mark DO Work Phone: [facility] 09-09-2024 13:53-0500 Body mass index (BMI) [Ratio] 35.65 kg/m2 Aliya Zarcotereso DO Work Phone: [facility] 09-09-2024 13:53-0500 Body temperature 97.39 [degF] Aliya Alicia DO Work Phone: [facility] 09-09-2024 13:53-0500 Body weight 109.5 kg Aliya Alicia DO Work Phone: [facility] 09-09-2024 13:53-0500 Diastolic blood pressure 78 mm[Hg] Aliya Alicia DO Work Phone: [facility] 09-09-2024 13:53-0500 Heart rate 85 /min Aliya Alicia DO Work Phone: [facility] 09-09-2024 13:53-0500 SaO2% (BldA) [Mass fraction] 96 % Aliya Alicia DO Work Phone: [facility] 09-09-2024 13:53-0500 Systolic blood pressure 114 mm[Hg] Aliya Alicia DO Work Phone: [facility] 06-30-2024 14:04-0400 Body height 175.[address] [facility] 06-30-2024 14:04-0400 Body mass index (BMI) [Ratio] 35.2 kg/m2 [facility] 06-30-2024 14:04-0400 Body temperature 97.8 [degF] [facility] 06-30-2024 14:04-0400 Body weight 108.[address] [facility] 06-30-2024 14:04-0400 Diastolic blood pressure 76 mm[Hg] [facility] 06-30-2024 14:04-0400 Heart rate 81 /min [facility] 06-30-2024 14:04-0400 Respiratory rate 16 /min [facility] 06-30-2024 14:04-0400 SaO2% (BldA) [Mass fraction] 98 % [facility] 06-30-2024 14:04-0400 Systolic blood pressure 116 mm[Hg] [facility] 06-24-2024 11:12-0400 Body height 175.[address] [facility] 06-24-2024 11:12-0400 Body mass index (BMI) [Ratio] 33.5 kg/m2 [facility] 06-24-2024 11:12-0400 Body temperature 98.1 [degF] [facility] 06-24-2024 11:12-0400 Body weight 102.[address] [facility] 06-24-2024 11:12-0400 Diastolic blood pressure 67 mm[Hg] [facility] 06-24-2024 11:12-0400 Heart rate 85 /min [facility] 06-24-2024 11:12-0400 Respiratory rate 18 /min [facility] 06-24-2024 11:12-0400 SaO2% (BldA) [Mass fraction] 98 % [facility] 06-24-2024 11:12-0400 Systolic blood pressure 108 mm[Hg] [facility] 02-19-2024 09:43-0400 Body height 175.[address] [facility] 02-19-2024 09:43-0400 Body mass index (BMI) [Ratio] 35.6 kg/m2 [facility] 02-19-2024 09:43-0400 Body temperature 98 [degF] [facility] 02-19-2024 09:43-0400 Body weight 109.[address] [facility] 02-19-2024 09:43-0400 Heart rate 80 /min [facility] 02-19-2024 09:43-0400 Respiratory rate 18 /min [facility] 02-19-2024 09:43-0400 SaO2% (BldA) [Mass fraction] 97 % [facility] 10-18-2023 08:50-0500 Diastolic blood pressure 66 mm[Hg] Vandana Barton MD, PhD Work Phone: [facility] 10-18-2023 08:50-0500 Heart rate 71 /min Vandana Barton MD, PhD Work Phone: [facility] 10-18-2023 08:50-0500 Respiratory rate 14 /min Vandana Barton MD, PhD Work Phone: [facility] 10-18-2023 08:50-0500 SaO2% (BldA) [Mass fraction] 97 % Vandana Barton MD, PhD Work Phone: [facility] 10-18-2023 08:50-0500 Systolic blood pressure 106 mm[Hg] Vandana Barton MD, PhD Work Phone: [facility] 10-18-2023 08:28-0500 Body temperature 97.5 [degF] Vandana Barton MD, PhD Work Phone: [facility] 10-18-2023 07:46-0500 Body height 175.3 cm Vandana Barton MD, PhD Work Phone: [facility] 10-18-2023 07:46-0500 Body weight 108.86 kg Vandana Barton MD, PhD Work Phone: [facility] 05-12-2023 07:44-0400 Body height 175.3 cm Vandana Barton MD, PhD Work Phone: [facility] 05-12-2023 07:44-0400 Body weight 105.87 kg Vandana Barton MD, PhD Work Phone: [facility] 05-12-2023 07:44-0400 Diastolic blood pressure 58 mm[Hg] Vandana Barton MD, PhD Work Phone: [facility] 05-12-2023 07:44-0400 Heart rate 78 /min Vandana Barton MD, PhD Work Phone: [facility] 05-12-2023 07:44-0400 Systolic blood pressure 115 mm[Hg] Vandana Barton MD, PhD Work Phone: [facility] 10-19-2022 14:00-0500 Body height 175.26 cm Baldemar Arnett Other [employer] Other 10-19-2022 14:00-0500 Body mass index (BMI) [Ratio] 31.01 kg/m2 Baldemar Arnett Other [employer] Other 10-19-2022 14:00-0500 Body weight 95.26 kg Baldemar Arnett Other [employer] Other 10-19-2022 14:00-0500 Diastolic blood pressure 64 mm[Hg] Baldemar Arnett Other [employer] Other 10-19-2022 14:00-0500 Systolic blood pressure 110 mm[Hg] Baldemar Arnett Other [employer] Other 08-09-2021 18:30-0400 Body height 175.26 cm Beckie Alcira Other [employer] Other 08-09-2021 18:30-0400 Body mass index (BMI) [Ratio] 30.65 kg/m2 Beckie Alcira Other [employer] Other 08-09-2021 18:30-0400 Body weight 94.17 kg Beckie Alcira Other [employer] Other 08-09-2021 18:30-0400 Diastolic blood pressure 68 mm[Hg] Beckie Alcira Other [employer] Other 08-09-2021 18:30-0400 Respiratory rate 16 /min Beckie Alcira Other [employer] Other 08-09-2021 18:30-0400 SaO2% (BldA) [Mass fraction] 99 % Beckie Alcira Other [employer] Other 08-09-2021 18:30-0400 Systolic blood pressure 117 mm[Hg] Beckie Michael Other [employer] Other 07-25-2021 14:20-0400 Body height 175.26 cm Vaishali Ginty Other [employer] Other 07-25-2021 14:20-0400 Body mass index (BMI) [Ratio] 31.3 kg/m2 Vaishali Ginty Other [employer] Other 07-25-2021 14:20-0400 Body temperature 97.1 [degF] Vaishali Ginty Other [employer] Other 07-25-2021 14:20-0400 Body weight 96.16 kg Vaishali Ginty Other [employer] Other 07-25-2021 14:20-0400 Diastolic blood pressure 58 mm[Hg] Vaishali Ginty Other [employer] Other 07-25-2021 14:20-0400 Respiratory rate 16 /min Vaishali Ginty Other [employer] Other 07-25-2021 14:20-0400 SaO2% (BldA) [Mass fraction] 99 % Vaishali Ginty Other [employer] Other 07-25-2021 14:20-0400 Systolic blood pressure 107 mm[Hg] Vaishali Ginty Other [employer] Other Encounters Encounter Date Encounter Type Care Provider Facility Start: 11-27-2024 End: 11-27-2024 Nenita Rebollar DO Work Phone: [facility] Start: 11-27-2024 End: 11-27-2024 Bamboo flowsheet Marv Keturah DO Work Phone: [facility] Start: 11-27-2024 End: 11-27-2024 Office outpatient visit 15 minutes Marv Keturah DO Work Phone: [facility] Comment on above: Pelvic pain in femal e; Vaginal discharge; PCOS (polycystic ovarian syndrome); Abnormal uterine bleeding (AUB) Start: 11-27-2024 End: 11-27-2024 ambulatory MARV ARIASO Not Available Start: 10-15-2024 End: 10-16-2024 ambulatory Boy Morales SALES FLOOR MANAGER [facility] Comment on above: Sprain of medial col lateral ligament of right knee, initial encounter (Primary Dx); Right knee pain, unspecified chronicity Start: 10-15-2024 End: 10-15-2024 Bamboo flowsheet Boy Morales SALES FLOOR MANAGER [facility] Start: 10-15-2024 End: 10-15-2024 Bamboo flowsheet Boy Morales SALES FLOOR MANAGER [facility] Start: 10-10-2024 End: 10-10-2024 ambulatory Makenna Shetty SALES FLOOR MANAGER [facility] Comment on above: Sprain of medial col lateral ligament of right knee, initial encounter (Primary Dx); Right knee pain, unspecified chronicity Start: 10-10-2024 End: 10-10-2024 Bamboo flowsheet Makenna Pizanoy SALES FLOOR MANAGER [facility] Start: 10-10-2024 End: 10-10-2024 Bamboo flowsheet Makenna hSetty SALES FLOOR MANAGER [facility] Start: 10-07-2024 End: 10-07-2024 ambulatory Boy Morales SALES FLOOR MANAGER [facility] Comment on above: Sprain of medial col lateral ligament of right knee, initial encounter (Primary Dx); Right knee pain, unspecified chronicity Start: 10-07-2024 End: 10-07-2024 Bamboo flowsheet Boy Morales SALES FLOOR MANAGER [facility] Start: 10-07-2024 End: 10-07-2024 Bamboo flowsheet Boy Morales SALES FLOOR MANAGER [facility] Start: 10-04-2024 End: 10-04-2024 Bamboo flowsheet Boy Morales SALES FLOOR MANAGER [facility] Start: 10-04-2024 End: 10-04-2024 Bamboo flowsheet Boy Morales SALES FLOOR MANAGER [facility] Start: 10-04-2024 End: 10-04-2024 ambulatory Boy Morales SALES FLOOR MANAGER [facility] Comment on above: Sprain of medial col lateral ligament of right knee, initial encounter (Primary Dx); Right knee pain, unspecified chronicity Start: 10-01-2024 End: 10-01-2024 ambulatory CELENA CLEMENTS Not Available Start: 09-30-2024 End: 09-30-2024 ambulatory Celena Clements PT [facility] Comment on above: Sprain of medial col lateral ligament of right knee, initial encounter (Primary Dx); Right knee pain, unspecified chronicity Start: 09-23-2024 End: 09-23-2024 Telephone encounter Aaliyah Oh LPN [facility] Comment on above: Results; Referral Start: 09-20-2024 End: 09-20-2024 ambulatory ALIYA C PETZNICK Not Available Start: 09-09-2024 End: 09-09-2024 ambulatory ALIYA C PETZNICK Not Available Start: 09-09-2024 End: 09-09-2024 Bamboo flowsheet Aliya C Petznick DO Work Phone: [facility] Start: 09-09-2024 End: 09-09-2024 Bamboo flowsheet Aliya C Petznick DO Work Phone: [facility] Start: 09-09-2024 End: 09-09-2024 Office outpatient visit 25 minutes Aliya C Petznick DO Work Phone: [facility] Comment on above: Right knee pain, uns pecified chronicity (Primary Dx); Severe obesity (BMI 35.0-39.9) with comorbidity (CMS/HCC) Start: 09-09-2024 End: 09-09-2024 ambulatory ALIYA C PETZNICK Not Available Start: 06-30-2024 End: 06-30-2024 ambulatory [facility] Work Phone: Start: 06-30-2024 End: 06-30-2024 Patient encounter procedure [facility] Physician [facility] Work Phone: Start: 06-24-2024 End: 06-24-2024 ambulatory [facility] Work Phone: Start: 06-24-2024 End: 06-24-2024 Patient encounter procedure [facility] Physician [facility] Work Phone: Start: 02-19-2024 End: 02-19-2024 ambulatory [facility] Work Phone: Start: 02-19-2024 End: 02-19-2024 Patient encounter procedure [facility] Physician [facility] Work Phone: Start: 01-08-2024 End: 01-08-2024 ambulatory ALIYA Froylan ALICIA Not Available Start: 10-18-2023 ambulatory VANDANA BARTON [facility] lity:[facility] Start: 10-18-2023 End: 10-18-2023 Subsequent hospital visit by physician Vandana Barton MD, PhD Work Phone: Procedures Comment on above: Rectal bleeding [K62 .5] Start: 05-15-2023 Telephone encounter Evert salazar Work Phone: Gastroenterology Comment on above: Release Of Medical R ecords (/) Start: 05-12-2023 End: 05-13-2023 ambulatory VANDANA BARTON Facility:[facility] Start: 05-12-2023 End: 05-12-2023 Patient encounter procedure Vandana Barton MD, PhD Work Phone: Gastroenterology Comment on above: Rectal bleeding (Trinidad stephen Dx) Start: 05-11-2023 Telephone encounter Evert salazar Work Phone: Gastroenterology Comment on above: Appointment Informat ion Start: 03-02-2023 End: 03-03-[address] MARV REBOLLAR . Facility:[facility] Start: 02-16-2023 End: 02-17-[address] MARV REBOLLAR . Facility:[facility] Start: 02-08-2023 End: 02-08-2023 ambulatory NONE LISTED REQUEST Facility:[facility] Start: 01-17-2023 End: 01-17-2023 ambulatory Baldemar Mechelletariq Other [employer] Other Start: 01-17-2023 Telephone encounter Baldemar Karynjose [facility] Start: 01-16-2023 End: 01-16-2023 ambulatory Baldemar Ditty Other [employer] Other Start: 01-16-2023 Telephone encounter Baldemar Bossjose [facility] Start: 12-10-2022 End: 12-10-2022 ambulatory BECKIE MICHAEL Facility:[facility] Start: 10-19-2022 End: 10-19-2022 ambulatory Baldemar Melquiades Other [employer] Other Start: 10-19-2022 [facility] visit new patient Baldemar Bossjose [facility] Start: 04-21-2022 Encounter for preprocedural laboratory examination MARCOS MARTELL [facility] Start: 04-14-2022 End: 04-14-[address] MARV REBOLLAR . Facility:[facility] Start: 04-11-2022 Encounter for preprocedural laboratory examination DR MARV REBOLLAR . [facility] Start: 04-11-2022 Evaluation and management of inpatient DR MARV REBOLLAR . Facility:[facility] Start: 04-09-2022 End: 04-11-2022 Evaluation and management of inpatient DR MARV REBOLLAR . Facility:[facility] Start: 04-08-2022 End: 04-09-[address] MARV REBOLLAR . Facility:[facility] Start: 04-08-2022 End: 04-09-2022 Encounter for preprocedural laboratory examination DR MARV REBOLLAR . Facility:[facility] Start: 04-06-2022 End: 04-06-[address] MARV REBOLLAR . Facility:[facility] Start: 03-30-2022 End: 03-30-[address] MARV REBOLLAR . Facility:[facility] Start: 03-24-2022 End: 03-25-2022 ambulatory MARCOS MARTELL Facility:[facility] Start: 03-16-2022 End: 03-17-[address] MARV REBOLLAR . Facility:[facility] Start: 08-20-2021 Telephone encounter Beckie traore [facility] Start: 08-09-2021 Office outpatient visit 15 minutes Beckie Michael [facility] Start: 07-25-2021 Office outpatient visit 15 minutes Vaishali Desir [facility] Procedures Date Procedure Procedure Detail Performing Clinician Start: 11-27-2024 End: 11-27-2024 Urnls dip stick/tablet rgnt non-auto w/o micrscp Marv Rebollar DO Work Phone: Start: 09-09-2024 Radiologic examinati on knee 3 views Aliya Alicia DO Work Phone: Start: 10-18-2023 Colonoscopy flx dx w/collj spec when pfrmd Vandana Barton MD, PhD Work Phone: Start: 10-18-2023 SURGICAL PATHOLOGY Franca Barton MD, PhD Work Phone: Start: 05-12-2023 Assay of calprotecti n fecal Vandana Barton MD, PhD Work Phone: Start: 04-03-2023 Microscopic observat ion [Identifier] in Cervix by Cyto stain Aliya Alicia DO Work Phone: Start: 04-09-2022 Extraction of Produc ts of Conception, Low Cervical, Open Approach DR MARV REBOLLAR . Start: 04-17-2019 H/O: section S/P prim milena low transverse Aliya Alicia DO Work Phone: Plan of Treatment Date Care Activity Detail Author Start: 04-04-2028 Screening for malign ant neoplasm of cervix HPV/Cotest [facility] Start: 04-03-2028 Screening for malign ant neoplasm of cervix [facility] Start: 12-23-2024 End: 12-23-2024 Patient encounter procedure 12/23/2024 1:50 PM EST Consult [facility] [address] [place] [id number] Marv Rebollar, [address] [place], [place] [id number] [facility] Start: 12-11-2024 End: 12-11-2024 Professional / ancillary services management 12/11/2024 9:00 AM EST Ancillary Procedure [facility] [address] [place] [address] [facility] Start: 11-27-2024 End: 11-27-2025 DHEA DHEA Lab Routine PCOS (polycystic ovarian syndrome) Expected: 11/27/2024 (Approximate), Expires: 11/27/2025 [facility] Comment on above: Expected: 11/27/2024 (Approximate), Expires: 11/27/2025 Start: 11-27-2024 End: 11-27-2025 SURESWAB(R) ADVANCED VAGINITIS PLUS, TMA SURESWAB(R) ADVANCED VAGINITIS PLUS, TMA Pathology and Cytology Routine Pelvic pain in female Expected: 11/27/2024 (Approximate), Expires: 11/27/2025 [facility] Work Phone: Comment on above: Expected: 11/27/2024 (Approximate), Expires: 11/27/2025 Start: 11-27-2024 End: 11-27-2025 US Pelvis US Pelvis w/ TV Imaging Routine Pelvic pain in female Expected: 11/27/2024 (Approximate), Expires: 11/27/2025 [facility] Comment on above: Expected: 11/27/2024 (Approximate), Expires: 11/27/2025 Start: 11-27-2024 End: 11-27-2024 Patient encounter procedure 11/27/2024 1:30 PM EST Office Visit [facility] [address] [address] Marv Rebollar, [address] [place] [address] Arrived [facility] Comment on above: Arrived Start: 11-04-2024 Influenza vaccination Influenza Vacc ine (#1) [facility] Comment on above: Postponed from 06/30 (Patient Refused) Start: 10-17-2024 End: 10-17-2024 ambulatory 10/17/2024 2:30 PM EST Treatment [facility] [address] [facility] [address] [place] [id number] Celena Clements, PT [facility] Start: 10-15-2024 End: 10-15-2024 ambulatory 10/15/2024 6:00 PM EST Treatment [facility] [address] [facility] [address] [place] [address] Boy Morales, SALES FLOOR MANAGER Sprain of medial collateral ligament of right knee, initial encounter (Primary Dx); Right knee pain, unspecified chronicity [facility] Comment on above: Sprain of medial col lateral ligament of right knee, initial encounter (Primary Dx); Right knee pain, unspecified chronicity Start: 10-14-2024 End: 10-14-2024 ambulatory 10/14/2024 1:30 PM EST Treatment [facility] [address] [facility] [address] [place] [address] Boy Morales, SALES FLOOR MANAGER [facility] Start: 10-10-2024 End: 10-10-2024 ambulatory [facility] Comment on above: Arrived Start: 10-07-2024 End: 10-07-2024 ambulatory [facility] Comment on above: Arrived Start: 10-04-2024 End: 10-04-2024 ambulatory [facility] Comment on above: Arrived Start: 09-20-2024 End: 09-20-2024 Professional / ancillary services management 09/20/2024 1:30 PM EST Ancillary Procedure [facility] [address] [place] [id number] [facility] Start: 06-30-2024 Influenza vaccination Influenza Vacc ine (#1) [facility] Start: 06-30-2023 Influenza vaccination C [facility] Start: 2022 HPV TESTING HPV TESTING [place] Start: 2022 Screening for malign ant neoplasm of cervix HPV Testing [place] Start: 10-30-2022 DEPRESSION ASSESSMENT DEPRESSION ASS ESSMENT [place] Start: 2013 PAP TESTING PAP TESTING [place] Start: 2013 Screening for malign ant neoplasm of cervix Pap Testing [place] Start: 2011 Urine microalbumin profile [place] Start: 2010 HEPATITIS C SCREENING HEPATITIS C [facility] Start: 2010 Hepatitis C screening Hepatitis C [facility] Start: 2010 HIV SCREENING HIV SCREENING [facility] Start: 2010 HIV screening HIV Screening [facility] Start: 06-15-1993 COVID-19 VACCINE (#1) COVID-19 VACCI NE (#1) [place] Start: 1992 HEPATITIS B (1 of 3 - 3-dose series) HEPATITIS B (1 of 3 - 3-dose series) [place] Start: 1992 Hepatitis B Vaccine (1 of 3 - 3-dose series) Hepatitis B Vaccine (1 of 3 - 3-dose series) [place] CBC W Auto Different ial panel - Blood CBC and differential Lab Routine PCOS (polycystic ovarian syndrome) Ordered: 11/27/2024 [facility] Comment on above: Ordered: 11/27/2024 CHLAMYDIA TRACHOMATI S (GENITO/STI) CHLAMYDIA TRACHOMATIS (GENITO/STI) Lab Routine Pelvic pain in female Ordered: 11/27/2024 [facility] Comment on above: Ordered: 11/27/2024 End: 05-12-2024 COLONOSCOPY DIAGNOSTIC COLONOSCOPY DIAGNOSTIC Endoscopy Routine Rectal bleeding 1 Occurrences starting 05/12/2023 until 05/12/2024 [facility] Work Phone: Comment on above: 1 Occurrences starti ng 05/12/2023 until 05/12/2024 DHEA-sulfate DHEA-sulfate Lab Routine PCOS (polycystic ovarian syndrome) Ordered: 11/27/2024 [facility] Comment on above: Ordered: 11/27/2024 Follicle stimulating hormone Follicle stimulating hormone Lab Routine PCOS (polycystic ovarian syndrome) Ordered: 11/27/2024 [facility] Comment on above: Ordered: 11/27/2024 hCG, quantitative, hCG, quantitative, Lab Routine PCOS (polycystic ovarian syndrome) Ordered: 11/27/2024 [facility] Comment on above: Ordered: 11/27/2024 Hemoglobin A1c/Hemoglobin.total in Blood Hemoglobin A1c Lab Routine Abnormal uterine bleeding (AUB) Ordered: 11/27/2024 [facility] Comment on above: Ordered: 11/27/2024 Luteinizing hormone Luteinizing hormone Lab Routine PCOS (polycystic ovarian syndrome) Ordered: 11/27/2024 [facility] Comment on above: Ordered: 11/27/2024 MR Knee - right WO contrast MR knee right wo IV contrast Imaging Routine Right knee pain, unspecified chronicity Ordered: 09/11/2024 [facility] Work Phone: Comment on above: Ordered: 09/11/2024 Neisseria gonorrhoea e DNA [Presence] in Unspecified specimen by CARLOS with probe detection Neisseria gonorrhea DNA probe, direct Lab Routine Pelvic pain in female Ordered: 11/27/2024 [facility] Comment on above: Ordered: 11/27/2024 Thyrotropin [Units/volume] in Serum or Plasma TSH Lab Routine PCOS (polycystic ovarian syndrome) Ordered: 11/27/2024 [facility] Comment on above: Ordered: 11/27/2024 Thyroxine (T4) free [Mass/volume] in Serum or Plasma T4, free Lab Routine PCOS (polycystic ovarian syndrome) Ordered: 11/27/2024 [facility] Comment on above: Ordered: 11/27/2024 [facility] Payers Date Payer Category Payer Private Health Insurance [facility] [employer]ICA[facility] [id number] 2022 Medicaid [id number] 1992 Unknown [id number] 2.16.840.1.079924.3.579.2. 593 1992 Unknown [id number] 2.16.840.1.529143.3.579.2. 593 1992 Unknown [id number] 2.16.840.1.411169.3.579.2. 593 1992 Unknown [id number] 2.16.840.1.958335.3.579.2. 593 1992 Unknown [id number] 2.16.840.1.009174.3.579.2. 593 1992 Unknown [id number] 2.16.840.1.352700.3.579.2. 593 1992 Unknown [id number] 2.16.840.1.560262.3.579.2. 593 1992 Unknown [id number] 2.16.840.1.994590.3.579.2. 593 1992 Unknown [id number] 2.16.840.1.177916.3.579.2. 593 1992 Unknown [id number] 2.16.840.1.340315.3.579.2. 593 1992 Unknown [id number] 2.16.840.1.724168.3.579.2. 593 1992 Unknown [id number] 2.16.840.1.637136.3.579.2. 593 1992 Unknown [id number] 2.16.840.1.304173.3.579.2. 1259 1992 Unknown [id number] 2.16.840.1.209271.3.579.2. 1259 1992 Unknown [id number] 2.16.840.1.590463.3.579.2. 9 1992 Unknown [id number] 2.16.840.1.678580.3.579.2. 9 1992 Unknown [id number] 2.16.840.1.604054.3.579.2. 9 1992 Unknown [id number] 2.16.840.1.757111.3.579.2. 9 1992 Unknown [id number] 2.16.840.1.029119.3.579.2. 9 1992 Unknown [id number] 2.16.840.1.672620.3.579.2. 9 1992 Unknown [id number] 2.16.840.1.287940.3.579.2. 1258 1992 Unknown [id number] 2.16.840.1.996193.3.579.2. 1258 1992 Unknown [id number] 2.16.840.1.467952.3.579.2. 1259 1959 Unknown [id number] 2.16.840.1.829212.19 1959 Unknown [id number] Private Health Insurance [facility] [id number] Self-pay Self Pay [id number] Unknown [id number] 2.16.840.1.090349.19 Social History Date Type Detail Facility Unknown if ever smoked [facility] Other Start: 09-09-2024 Sex Assigned At N [facility] Other Tobacco smoking status VTIS Tobacco smoking consumption unknown [place] Start: 1992 Sex Assigned At Not on file C [facility] Start: 05-04-2023 End: 02-19-2024 Tobacco smoking status NHIS Never smoked tobacco (finding) [facility] Start: 1992 Sex Assigned At Female F [facility] Start: 05-04-2023 Tobacco use and exposure Smokeless tobacco non-user [facility] Start: 09-09-2024 Alcoholic beverage intake Lifetime non-drinker (finding) [facility] Start: 09-09-2024 History of Social function [facility] Start: 05-04-2023 Alcohol Comment caffeine: none [facility] Clinical Notes 07-25-2021 to 11-27-2024 Vani Guadalupe, RUNSTITCHING MACHINE OPERATOR - 11/27/2024 1:30 PM ESTTelephone Encounter - Marlyn Quirosrolando - 09/23/2024 1:01 PM ESTTelephone Encounter - Marlynkendall Quirosrolando - 09/23/2024 1:01 PM EST Note Date & Type Note Facility 11-27-2024 History of Presen t illness Narrative Reason for Appointment: Patient ID: Marlin Cade is a 33 y.o. female who presents for Pelvic Pain (Pt present today for right pelvic pain and vaginal discharge.) Patient presents today for Acute Visit. MEDICATIONS Current Outpatient Medications Medication Instructions albuterol HFA 90 mcg/act inhaler 2 puffs, Inhalation, Every 6 hours PRN EPINEPHrine (EPIPEN) 0.3 mg, Injection, Once, Inject into upper leg. Call 911 after use. ibuprofen 800 mg, Every 8 hours meloxicam (MOBIC) 15 mg, Oral, Daily ALLERGIES No Known Allergies PROBLEMS Active Ambulatory Problems Diagnosis Date Noted Asthma without status asthmaticus (CMS/HCC) 05/03/2023 Incomplete tear of right rotator cuff 05/03/2023 Obesity 05/03/2023 Other chronic pain 05/03/2023 S/P primary low transverse 04/17/2019 Resolved Ambulatory Problems Diagnosis Date Noted No Resolved Ambulatory Problems Past Medical History: Diagnosis Date Acute asthmatic bronchitis (CMS/HCC) Asthma (CMS/HCC) H/O gynecological procedure History of section Obesity (BMI 30-39.9) Seasonal allergies HISTORY PAST MEDICAL HISTORY SOCIAL HISTORY Past Medical History: Diagnosis Date Acute asthmatic bronchitis (CMS/HCC) Asthma (CMS/HCC) H/O gynecological procedure History of section Obesity (BMI 30-39.9) Seasonal allergies Social History Tobacco Use Smoking status: Never Smokeless tobacco: Never Vaping Use Vaping status: Not on file Substance Use Topics Alcohol use: Never Comment: caffeine: none Drug use: Never FAMILY HISTORY Family History Problem Relation Name Age of Onset Allergies Mother seasonal Diabetes Father Hypertension Father Heart disease Father Heart attack Father Diabetes Maternal Grandmother Heart disease Maternal Grandmother Heart disease Maternal Grandfather Allergies Sibling Asthma Sibling SURGICAL HISTORY Past Surgical History: Procedure Laterality Date SECTION, LOW TRANSVERSE 2018 SECTION, LOW TRANSVERSE 2019 SECTION, LOW TRANSVERSE 2021 SECTION, LOW TRANSVERSE 08/23/2023 KNEE SURGERY Left 2014 torn meniscus,calcium build up MR SHOULDER ARTHROGRAM RIGHT W FL GUIDED INJECTION Right 04/26/2018 MR SHOULDER ARTHROGRAM RIGHT W FL GUIDED INJECTION 04/26/2018 NOSE SURGERY 2008 broken nose OTHER SURGICAL HISTORY 2006 broken nose SALPINGECTOMY Bilateral 08/23/2023 WISDOM TOOTH EXTRACTION 2016 teeth REVIEW OF SYSTEMS Review of Systems: Review of Systems OBJECTIVE Objective: OBGyn Exam Vitals: Estimated body mass index is 36.18 kg/m as calculated from the following: Height as of 09/09/24: 5' 9 . Weight as of this encounter: 245 lb. BP: 114/72 Patient's last menstrual period was 11/27/2024 (exact date). ASSESSMENT & PLAN ICD-10-CM 1. Pelvic pain in female R10.2 POCT urinalysis dipstick manually resulted POCT , urine manually resulted SURESWAB(R) ADVANCED VAGINITIS PLUS, TMA Neisseria gonorrhea DNA probe, direct CHLAMYDIA TRACHOMATIS (GENITO/STI) US Pelvis w/ TV SURESWAB(R) ADVANCED VAGINITIS PLUS, TMA 2. Vaginal discharge N89.8 Pt presents with right lower quadrant pain, AUB, and vaginal discharge. Pt given ultrasound order to have obtained. Pt refuses cultures. Pt given labs to have obtained. Pt to be scheduled for Dx lap with poss nohemy poss foe with D&C hysteroscopy. Documented by Vani Guadalupe LPN on behalf of: Marv Rebollar DO documented in this encounter [facility] 09-23-2024 Telephone encounter Note Pt wants to know if knee brace is something DR. Reed prescribes. If yes. She would like to try that. Please send this to company closer to [place] if possible. [facility] 09-[facility]-2024 Miscellaneous Notes Pt wants to know if knee brace is something DR. Reed prescribes. If yes. She would like to try that. Please send this to company closer to [place] if possible. [facility] Left detailed message informing pt of results and recommendations. Instructed pt to stop NSAIDS while taking mobic. Pt to return call with where to send PT order. -RX sent to [facility] in [place]. ----- Message from Dr. Aliya Alicia sent at 09/22/2024 4:44 PM EST ----- Low grade sprain of mcl of her knee Noted signs of patellar instability If pain continues would rec hinge knee brace and PT also would rx mobic 15 mg a day stop motrin documented in this encounter [facility] 09-23-2024 Telephone encounter Note Left detailed message informing pt of results and recommendations. Instructed pt to stop NSAIDS while taking mobic. Pt to return call with where to send PT order. -RX sent to [facility] in [place]. [facility] 09-23-2024 Telephone encounter Note ----- Message from Dr. Aliya Alicia sent at 09/22/2024 4:44 PM EST ----- Low grade sprain of mcl of her knee Noted signs of patellar instability If pain continues would rec hinge knee brace and PT also would rx mobic 15 mg a day stop motrin [facility] 09-09-2024 History of Presen t illness Narrative Images from the original note were not included. Marlin Cade is a 33 y.o. female presents with chief complaint of Chief Complaint Patient presents with Knee Pain ASSESSMENT AND PLAN: Marlin was seen today for knee pain. Diagnoses and all orders for this visit: Right knee pain, unspecified chronicity - XR knee 3 views right - ibuprofen 800 MG tablet; Take 1 tablet (800 mg) by mouth in the morning and 1 tablet (800 mg) in the evening and 1 tablet (800 mg) before bedtime. Severe obesity (BMI 35.0-39.9) with comorbidity (CMS/HCC) The patient presents with right knee pain that started about a month ago after slipping on a felt hanger and twisting her knee. Pain occurs with movement and twisting of the knee, as well as when lying on the knee at night. Examination reveals mild effusion, intact ACL, PCL, and collateral ligaments, no instability, near full range of motion with pain on maximal flexion, positive medial Raymond's test, and medial joint line tenderness. Differential diagnosis includes medial meniscus tear. Treatment options were discussed. She will continue Motrin 800 mg three times a day for pain and swelling control. An x-ray will be obtained to facilitate an MRI. If imaging reveals a tear of the medial meniscus, a surgery consult with an orthopedic surgeon will be made. Meloxicam will be prescribed to help with inflammation and discomfort. She is advised to take it with food to avoid stomach upset. The medication will be sent to [facility]. ALIYA ALICIA D.O. This note was entered using [employer]. Grammatical and dictation errors maybe present in translation *I have reviewed and reconciled the history and medication list with the patient today* History of Present Illness KNEE: New problem Knee: right knee injury Duration: month ago Pain onset: abruptly Area of pain: medial Nature of symptoms: stiffness Symptoms progression: worsening Needs ambulation assistance: No Prior history of related problems: No Treatments include: ice, rest, positional change, and medication Imaging preformed includes: None. Additional Comments: Pain started about a month ago. Pt states she slipped on a felt hanger and twisted her knee. Denies swelling. Pt states pain occurs when her knee twists or if she sleeps on her side will flare pain. Pt states sitting pain is a 2/10, when laying or twisting pain is a 7/10. Denies numbness/tingling. The patient presents with right knee pain that started about a month ago. The pain began after she slipped on a felt hanger and twisted her knee. She reports that the pain started as mild but has since escalated, becoming particularly severe over the past 3 weeks. The pain is mostly on the inside portion of the knee and occurs with movement, twisting, and when lying on her side in bed. She experiences severe pain at night. There is no significant swelling associated with the knee pain. She has been managing the pain with Motrin and Tylenol. She has a history of knee injuries from playing volleyball, but this is the most severe. She has previously taken meloxicam for pain relief and requests a refill of her ibuprofen prescription. SUBJECTIVE: Current Medications: Allergies/DC Medication Depression Screen/Social History Current Outpatient Medications: albuterol HFA 90 mcg/act inhaler, Inhale 2 puffs every 6 (six) hours if needed for shortness of breath, Disp: 18 g, Rfl: 1 ibuprofen 800 MG tablet, Take 800 mg by mouth every 8 (eight) hours, Disp: , Rfl: EPINEPHrine (Epipen) 0.3 MG/0.3ML injection syringe, Inject 0.3 mL (0.3 mg) as directed 1 (one) time for 1 dose Inject into upper leg. Call 911 after use., Disp: 0.3 mL, Rfl: 0 ibuprofen 800 MG tablet, Take 1 tablet (800 mg) by mouth in the morning and 1 tablet (800 mg) in the evening and 1 tablet (800 mg) before bedtime., Disp: 90 tablet, Rfl: 3 No Known Allergies There are no discontinued medications. Depression: Not at risk (09/09/2024) PHQ-2 PHQ-2 Score: 0 Social History Tobacco Use Smoking status: Never Smokeless tobacco: Never Substance Use Topics Alcohol use: Never Comment: caffeine: none Drug use: Never PAST MEDICAL HISTORY: SURGICAL/SOCIAL/FAMILY HISTORY Past Medical History: Diagnosis Date Acute asthmatic bronchitis ([facility]/HCC) Asthma (CMS/HCC) H/O gynecological procedure History of section Obesity (BMI 30-39.9) Seasonal allergies Past Surgical History: Procedure Laterality Date SECTION, LOW TRANSVERSE 2019 SECTION, LOW TRANSVERSE 2019 SECTION, LOW TRANSVERSE 2021 SECTION, LOW TRANSVERSE 08/23/2023 KNEE SURGERY Left 2014 torn meniscus,calcium build up MR SHOULDER ARTHROGRAM RIGHT W FL GUIDED INJECTION Right 04/26/2018 MR SHOULDER ARTHROGRAM RIGHT W FL GUIDED INJECTION 04/26/2018 NOSE SURGERY 2008 broken nose OTHER SURGICAL HISTORY 2006 broken nose SALPINGECTOMY Bilateral 08/23/2023 WISDOM TOOTH EXTRACTION 2016 teeth Family History Problem Relation Name Age of Onset Allergies Mother seasonal Diabetes Father Hypertension Father Heart disease Father Heart attack Father Diabetes Maternal Grandmother Heart disease Maternal Grandmother Heart disease Maternal Grandfather Allergies Sibling Asthma Sibling REVIEW OF SYMPTOMS: Review of Systems Constitutional: Negative for fatigue and fever. Musculoskeletal: Positive for arthralgias. Skin: Negative for rash. Neurological: Negative. Negative for weakness and numbness. Psychiatric/Behavioral: Negative. All other systems reviewed and are negative. Hematological: Does not bruise/bleed easily. OBJECTIVE: 09/09/2024 1:53 PM 01/08/2024 2:06 PM 10/04/2023 1:51 PM Vitals BMI 35.65 kg/m2 35.47 kg/m2 36 kg/m2 BSA (m2) 2.3 m2 2.3 m2 2.32 m2 Systolic 114 132 120 Diastolic 78 80 80 Heart Rate 85 79 SpO2 96 % 96 % Temp 97.4 F 97.7 F Height (in) 5' 9 5' 9 Weight (lb) 241.4 240.2 243.8 Visit Report Report Report GENERAL EXAM: Physical Exam Vitals and nursing note reviewed. Constitutional: General: She is not in acute distress. Appearance: Normal appearance. She is obese. She is not ill-appearing. HENT: Head: Normocephalic and atraumatic. Nose: Nose normal. Eyes: General: No scleral icterus. Right eye: No discharge. Left eye: No discharge. Extraocular Movements: Extraocular movements intact. Musculoskeletal: Cervical back: Neck supple. Skin: General: Skin is warm and dry. Neurological: General: No focal deficit present. Mental Status: She is alert and oriented to person, place, and time. Mental status is at baseline. Psychiatric: Mood and Affect: Mood normal. Behavior: Behavior normal. Thought Content: Thought content normal. Judgment: Judgment normal. ADDITIONAL EXAM: Physical Exam Right knee examination reveals mild effusion. ACL, PCL, collateral ligaments are all intact. No instability. Range of motion testing near full but with pain with maximal flexion. Neurovascularly intact. Positive medial Raymond's testing. Likely Raymond's negative. Medial joint line tenderness. documented in this encounter [facility] 10-18-2023 History and physical note PROCEDURAL SEDATION [...] Prophylaxis: none Provisional Diagnosis/Treatment Plan: colon SIGNATURE: Vandana Barton MD, PhD PATIENT NAME: Marlin Cade DATE: October 18, 2023 TIME: 7:57 AM documented in this encounter [facility] 05-15-2023 Miscellaneous Notes Sent out two medical release forms for patient 05/15/23: [facility] - Dr. Baldemar Arnett [place], [place] - ED documented in this encounter [facility] 05-12-2023 Note HNO ID: [id number] Author: Vandana Barton MD, PhD Service: ? Author Type: [...] No history of dysuria, frequency or incontinence PRESS SERVICE READER: Negative for abnormal vaginal bleeding, abnormal vaginal [...] not plan c (more content not included)... [facility] 05-12-2023 History of Presen t illness Narrative [...] No history of dysuria, frequency or incontinence PRESS SERVICE READER: Negative for abnormal vaginal bleeding, abnormal vaginal [...] not respond can do topical. 3rd trimester Vandana Barton MD, PhD documented in this encounter [facility] 05-11-2023 Miscellaneous Notes Called patient for more information about her visit tomorrow with Dr. Barton in Gastroenterology for IBD. We have no medical information on file, or in Care Everywhere. Patient stated she had sought medical care in [place], with Dr. Baldemar Arnett, Gastroenterology, [facility], presenting with bleeding when having a BM. Patient states that the bleeding is sometimes heavy and sometimes it just colors the toilet paper. She has no pain with it, and wasn't actually diagnosed with IBD, but she is concerned. She was scheduled to have a colonoscopy in [place], but when she got they canceled the procedure. She is currently 21.5 weeks into her . She stated the medical center recommended she came to the [facility] for further evaluation. Naomi Cain CMA documented in this encounter [facility] 10-19-2022 Evaluation note Encounter Date Diagnosis Assessment Notes Sep, Rectal bleeding (ICD-10 - K62.5) [employer] Other 06-11-2022 NoteDISCHARGE SUMMARY DISCHARGE DATE: 04/21/2022 [...] pain free and no longer on narcotics. [facility] Signed and Approved by: DR MARV REBOLLAR . 04/24/2022 10:48:00[facility]06-11-2022 NoteOPERATIVE NOTE OPERATION DATE: 04/09/2022 PROCEDURE: Repeat low transverse section. PREOPERATIVE DIAGNOSIS: 1. Intrauterine at 38 6/7 weeks. 2. Previous . 3. Early onset labor. POSTOPERATIVE DIAGNOSIS:: 1. Intrauterine at 38 6/7 weeks. 2. Previous . 3. Early onset labor. SURGEON: Marv Rebollar D.O. LEAD AUDITOR: CAMERON Be URINE OUTPUT: Yellow and clear. [...] and cut. Cord blood was obtained. The infant was handed off to awaiting team. The [...] to the Recovery Room in stable condition. [facility] Signed and Approved by: DR MARV REBOLLAR . 04/18/2022 07:58:00[facility]10-11-2021 Evaluation note* Encounter Date Diagnosis Assessment Notes Treatment Notes Treatment Clinical Notes Jul, Rectal bleeding (ICD-10 - K62.5) Lets start with these tests at this point and referral. May use Benefiber supplement since Metamucil is harder to drink due to texture. 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 Use this medication as prescribed when stung by bee. [employer] Other 09-26-2021 Evaluation note* Encounter Date Diagnosis [...] nonvenomous arthropods, initial encounter (ICD-10 - W57.XXXA) [facility] Other Evaluation noteNo InformationN[facility] Other Evaluation note* Diagnosis Rectal bleeding- Primary Hemorrhage of rectum and anus [facility]* Diagnosis Rectal bleeding Hemorrhage of rectum and anus [facility] noteNo assessment [facility]: [facility] note* Diagnosis Onset Date Resolution Status Canker sore noneactive Oral mucositis (ulcerative), unspecified acute [facility] Work Phone: Evaluation note* Diagnosis Right knee pain, unspecified chronicity- Primary Severe obesity (BMI 35.0-39.9) with comorbidity (CMS/HCC) documented in this encounter [facility] HealthcareEvaluation note* Diagnosis Right knee pain, unspecified chronicity documented in this encounter [facility] HealthcareEvaluation note* Diagnosis Sprain of medial collateral ligament of right knee, initial encounter- Primary Right knee pain, unspecified chronicity [facility] Diagnosis Sprain of medial collateral ligament of right knee, initial encounter- Primary Right knee pain, unspecified chronicity [facility]* Diagnosis Sprain of medial collateral ligament of right knee, initial encounter- Primary Right knee pain, unspecified chronicity [facility]* Diagnosis Sprain of medial collateral ligament of right knee, initial encounter- Primary Right knee pain, unspecified chronicity [facility]* Diagnosis Sprain of medial collateral ligament of right knee, initial encounter- Primary Right knee pain, unspecified chronicity [facility]* Diagnosis Pelvic pain in female Unspecified symptom associated with female genital organs Vaginal discharge Leukorrhea, not specified as infective PCOS (polycystic ovarian syndrome) Polycystic ovaries Abnormal uterine bleeding (AUB) [facility] general Narrative - Reported* Type Description Date Medical History bee allergy Surgical History C section Surgical History left knee Hospitalization History see above surg [employer] Other [employer] for referral (narrative)* Outpatient Procedure (Routine) - Authorized Specialty Diagnoses / Procedures Referred By Krista traore Referred To Contact [facility] [place] Diagnoses Rectal bleeding Procedures COLONOSCOPY DIAGNOSTIC COLONOSCOPY FLX DX W/COLLJ SPEC WHEN Vandana Rojas MD, PhD [address] [place], [place] [id number] [place] [address] Referral ID Status Reason Start Date Expiration Date Visits Requested Visits Authorized [id number] Authorized Auto-Generat ed Referral 05/12/2023 05/12/2024 1 1 [facility] for referral (narrative)* Outpatient Procedure (Routine) - Closed Specialty Diagnoses / Procedures Referred By Krista traore Referred To Contact [facility] [place] Diagnoses Rectal bleeding Procedures COLONOSCOPY DIAGNOSTIC COLONOSCOPY FLX DX W/COLLJ SPEC WHEN Vandana Rojas MD, PhD [address] [place] [address] [address] Referral ID Status Reason Start Date Expiration Date V isits Requested Visits Authorized [id number] Closed Auto-Generate d Referral 05/12/2023 05/12/2024 1 1 [facility] for visit Narrative* Outpatient Procedure (Routine) - Closed Specialty Diagnoses / Procedures Referred By Contac t Referred To Contact [facility] DISEASE [place] Diagnoses Rectal bleeding Procedures COLONOSCOPY DIAGNOSTIC COLONOSCOPY FLX DX W/COLLJ SPEC WHEN Vandana Rojas MD, PhD [address] [place], [place] [id number] [place] [id number] Referral ID Status Reason Start Date Expiration Date V isits Requested Visits Authorized [id number] Closed Auto-Generate d Referral 05/12/2023 05/12/2024 1 1 [facility] for visit Narrative* Rehabilitation - Outpatient (Routine) - Authorized Specialty Diagnoses / Procedures Referred By Contac t Referred To Contact Physical Therapy Diagnoses Sprain of medial collateral ligament of right knee, initial encounter Procedures OR PHYSICAL THERAPY EVALUATION MOD COMPLEX 30 MINS Aliya Alicia, DO [address] [place] [address] Phone: tel: fax: Celena Clements, [place] Referral ID Status Reason Start Date Expiration Date V isits Requested Visits Authorized [id number] Authorized 09/23/2024 03/22/2025 30 30 [facility] for visit Narrative* Rehabilitation - Outpatient (Routine) - Authorized Specialty Diagnoses / Procedures Referred By Contac t Referred To Contact Physical Therapy Diagnoses Sprain of medial collateral ligament of right knee, initial encounter Procedures OR PHYSICAL THERAPY EVALUATION MOD COMPLEX 30 MINS Aliya Alicia Froylan, DO [address] [place] [address] Phone: tel: fax: Celena Clements PT Referral ID Status Reason Start Date Expiration Date V isits Requested Visits Authorized [id number] Authorized 09/23/2024 10/29/2024 30 30 [facility] Summary Purpose Family History No Family History Records FoundNo Family History Records FoundNo Family History Records FoundNo Family History Records FoundNo Family History Records FoundNo Family History Records Found Advance Directives No Advanced Directives Records Found Advance Directive Response Recorded Date/ Time Advance Directives No April 19 8:32am Reason for Referral Reason chronic in natu re for several months now - can be like a menstrual cycle at times. Diagnosis 1 Rectal bleeding (K62 .5) Referral Organization [facility] Referring Provider First Name Beckie Referring Provider Last Name Alcira Referring Provider Specialty Nurse Pract itionecrystal Referred Organization [facility] Gastroenterolo gy Referred Provider Christopher Locke Referred Address [address] [facility] [address] ,[place], [place],[address] Referred Provider Specialty Gastroentero logy Referral Priority [...] AM EST 30 mL/hr 3 0 mL/hr Chief Complaint and Reason for Visit Chief Complaint Eye irritation, poss pink eye Chief Complaint Mouth sore Chief Complaint Mouth sore sore on mouth Reason for Visit Canker sore Oral mucositis (ulcerative), unspecified Additional Source Comments INFORMATION SOURCE (unrecogn ized section and content) DATE CREATED AUTHOR 09/24/2020 Gabriel Brazoria [facility] DATE CREATED AUTHOR AUTHOR'S ORGANIZ ATION 12/27/[address] [facility] DATE CREATED AUTHOR AUTHOR'S ORGANIZ ATION 03/10/2023 [facility] DATE CREATED AUTHOR AUTHOR'S ORGANIZ ATION 05/22/2023 [facility] DATE CREATED AUTHOR AUTHOR'S ORGANIZ ATION 10/20/2023 [facility] DATE CREATED AUTHOR AUTHOR'S ORGANIZ ATION 11/29/2024 [facility] EPIC REASON FOR VISIT (unrecogniz ed section and content) Reason Comments Appointment Information Reason Comments IBD Flare Reason Comments Release Of Medical Records Reason Comments Knee Pain Reason Onset Date Comments Results 09/23/2024 Referral 09/23/2024 Reason Comments Pelvic Pain Pt present today for right pelvic pain and vaginal discharge. Source Comments (unrecognize d section and content) In the event this informatio n is protected by the Federal Confidentiality of Alcohol and Drug Abuse Patient Records regulations: The Federal rules restrict any use of the information to criminally investigate or prosecute any alcohol or drug abuse patient.[place] the event this information is protected by the Federal Confidentiality of Alcohol and Drug Abuse Patient Records regulations: The Federal rules restrict any use of the information to criminally investigate or prosecute any alcohol or drug abuse patient.[place] the event this information is protected by the Federal Confidentiality of Alcohol and Drug Abuse Patient Records regulations: The Federal rules restrict any use of the information to criminally investigate or prosecute any alcohol or drug abuse patient.[place] the event this information is protected by the Federal Confidentiality of Alcohol and Drug Abuse Patient Records regulations: The Federal rules restrict any use of the information to criminally investigate or prosecute any alcohol or drug abuse patient.[facility] Care Teams (unrecognized sec tion and content) Team Status: Active Member Role Status Dates Aliya Alicia DO Primary Care Provider Active Team Status: Inactive Member Role Status Dates Aliya Alicia DO Primary Care Provider Active Start: February 19, 2024 End: February 19, 2024 Marce Brenner APRN Attending Provider Active S tart: February 19, 2024 End: February 19, 2024 Team Status: Inactive Member Role Status Dates Aliya Alicia DO Primary Care Provider Active Start: June 24, 2024 End: June 24, 2024 Danae Rod APRN Attending Provider Active Start: June 24, 2024 End: June 24, 2024 Team Status: Inactive Member Role Status Dates Aliya Alicia DO Primary Care Provider Active Start: June 30, 2024 End: June 30, 2024 Danae Rod APRN Attending Provider Active Start: June 30, 2024 End: June 30, 2024 Manager Process Excellence Relationship Specialty Start Date End Date Aliya Alicia DO [address] [place] [address] PCP - General Family Medicine 01/08/24 Marv Rebollar DO [address] [place] [address] [place] [address] PCP - [facility] 01/29/24 Manager Process Excellence Relationship Specialty Start Date End Date Aliya Alicia DO [address] [place] [address] PCP - General Family Medicine 01/08/24 Marv Rebollar, DO [address] [place] [address] PCP - [facility] 01/29/24 Manager Process Excellence Relationship Specialty Start Date End Date Aliya Alicia, DO [address] [place] [address] PCP - General [facility] 01/08/24 Marv Rebollar, DO [address] [place] [address] PCP - [facility] 01/29/24 Manager Process Excellence Relationship Specialty Start Date End Date Aliya Alicia, DO [address] [place] [address] PCP - [facility] 01/08/24 Marv Rebollar, DO [address] [place] [address] PCP - [facility] 01/29/24 Manager Process Excellence Relationship Specialty Start Date End Date Aliya Alicia, DO [address] [place] [address] PCP - [facility] 01/08/24 Marv Rebollar, DO [address] [place] [address] PCP - [facility] 01/29/24 Manager Process Excellence Relationship Specialty Start Date End Date Aliya Alicia, DO [address] [place] [address] PCP - [facility] 01/08/24 Marv Rebollar, DO [address] [place] [address] PCP - [facility] 01/29/24 Manager Process Excellence Relationship Specialty Start Date End Date Aliya Alicia, DO [address] [place] [address] PCP - [facility] 01/08/24 Marv Rebollar, [place] [place] [address] PCP - [facility] 01/29/24 Manager Process Excellence Relationship Specialty Start Date End Date Aliya Alicia, DO [address] [place] [address] PCP - [facility] 01/08/24 Marv Rebollar, [place] [place] [address] PCP - [facility] 01/29/24 Manager Process Excellence Relationship Specialty Start Date End Date Aliya Alicia, DO [address] [place] [address] PCP - [facility] 01/08/24 Marv Rebollar, [place] [address] PCP [facility] 01/29/24 Manager Process Excellence Relationship Specialty Start Date End Date Aliya Alicia, DO [address] [place] [address] PCP - General Family [facility] 01/08/24 Marv Rebollar, [address] [place] [address] PCP - [facility] 01/29/24 Manager Process Excellence Relationship Specialty Start Date End Date Aliya Alicia DO [address] [place] [address] PCP - [facility] 01/08/24 Marv Rebollar, [place] [place] [address] PCP - [facility] 01/29/24 Manager Process Excellence Relationship Specialty Start Date End Date Aliya Alicia DO [address] [place] [address] PCP - [facility] 01/08/24 Marv Rebollar, [place] [address] PCP - [facility] 01/29/24 Manager Process Excellence Relationship Specialty Start Date End Date Aliya Alicia DO [address] [place] [address] PCP - [facility] 01/08/24 Marv Rebollar, [place] [address] PCP - [facility] 01/29/24 Goals (unrecognized section and content) Goals may be documented in a n alternate section FOR RECORDS PERTAINING TO PATIENTS WHO ARE [...] BE BASED ON THE PRIMARY CLINICAL RECORDS. [facility], [facility]. provides no warranty or guarantee of the accuracy or completeness of information in this document.
== END 2024-12-17 12:48 | disposition home or self-care (01) ==
LOC: US 12:48
PROVIDERS: Visit Provider Obstetrics & Gynecology
DX: R10.2 Pelvic and perineal pain (principal); N83.292 Other ovarian cyst, left side; N93.9 Abnormal uterine and vaginal bleeding, unspecified
CPT/HCPCS: 36415; 76830; 76856; 82626; 82627; 83001; 83002; 83036; 84439; 84443; 84702; 85025

== ENCOUNTER 2024-12-17 13:19 | Outpatient (OUT) | payer OTHER, SELFPAY ==
[2024-12-17 13:38] LABS: Basophils Percent Auto 0.6 % (0.2-2.0); Eosinophils Absolute Auto 0.1 10^3/uL (0.0-0.7); Eosinophils Percent Auto 1.5 % (0.9-7.0); Hematocrit 38.6 % (36.0-48.0); Hemoglobin 13.9 g/dL (12.0-16.0); Immature Granulocytes Abs Auto 0.01 10^3/uL (0.00-0.03); Immature Granulocytes Pct Auto 0.2 % (0.0-0.5); Lymphocytes Absolute Auto 1.3 10^3/uL (1.2-3.8); Lymphocytes Percent Auto 24.1 % (20.5-60.0); Mean Corpuscular Hemoglobin 32.3 pg (26.7-34.0); Mean Corpuscular Volume 89.6 fL (81.0-99.0); Mean Platelet Volume 10.5 fL (9.5-13.5); Monocytes Absolute Auto 0.4 10^3/uL (0.3-0.8); Monocytes Percent Auto 7.3 % (1.7-12.0); Neutrophils Absolute Auto 3.5 10^3/uL (1.4-6.5); Neutrophils Percent Auto 66.3 % (43.0-75.0); Platelet Count 207 10^3/uL (150-450); Red Blood Count 4.31 10^6/uL (4.20-5.40); Red Cell Distribution Width 12.1 % (11.0-15.0); White Blood Count 5.2 10^3/uL (4.0-11.0)
[2024-12-17 13:58] LABS: Estimated Average Glucose 100 mg/dL; Glycohemoglobin A1C 5.1 % (4.5-6.2)
[2024-12-17 14:38] LABS: Thyroid Stimulating Hormone 1.686 uIU/mL (0.358-3.740)
[2024-12-17 14:41] LABS: HCG Quantitative <1 mIU/mL
[2024-12-17 15:05] LABS: Free T4 0.79 ng/dL (0.76-1.46)
[2024-12-18 04:07] LABS: FSH 3.3 mIU/mL (.); Luteinizing Hormone(LH) 3.2 mIU/mL (.)
[2024-12-21 08:08] LABS: DHEA, Serum 90 ng/dL (31-701)
== END 2024-12-17 13:20 | disposition home or self-care (01) ==
LOC: LAB 13:20
PROVIDERS: PCP Family Medicine; Visit Provider Obstetrics & Gynecology
DX: E28.2 Polycystic ovarian syndrome (principal); N93.9 Abnormal uterine and vaginal bleeding, unspecified
CPT/HCPCS: 36415; 82626; 82627; 83001; 83002; 83036; 84439; 84443; 84702; 85025

== ENCOUNTER 2024-12-23 13:10 | Outpatient (OUT) | payer OTHER, SELFPAY ==
--- OUTSIDE RECORDS SUMMARY | 2024-12-23 13:34 | XMS_ITS | CCD ---
Author Organization [facility] Care Team Providers Care Director Of Strategic Sales Name Role Phone Beckie Eli Unavailable LloydVaishali potter Unavailable Baldemar Arnett Unavailable KETURAH ., DR CARMICHAEL Attending Unavailable KETURAH ., DR CARMICHAEL Admitting Unavailable [facility], [facility] Primary Care Unavailable KARMARCOS AVILA Attending Unavailable MARCOS MARTELL Admitting Unavailable [facility], [facility] Primary Care Unavailable MARCOS MARTELL Consulting Unavailable KETURAH ., DR CARMICHAEL Consulting Unavailable KETURAH ., DR CARMICHAEL Attending Unavailable [facility], [facility] Primary Care Unavailable KETURAH ., DR CARMICHAEL [...] Unavailable KETURAH ., DR CARMICHAEL Attending Unavailable [facility], [facility] Primary Care Unavailable KETURAH ., DR CARMICHAEL Admitting Unavailable KETURAH ., DR CARMICHAEL Consulting Unavailable KETURAH ., DR CARMICHAEL Attending Unavailable REQUEST, DR NONE LISTED Primary Care Unavaila ble KETURAH ., DR CARMICHAEL Admitting Unavailable KETURAH ., DR CARMICHAEL Admitting Unavailable KETURAH ., DR CARMICHAEL Consulting Unavailable [facility] Primary Care Unavailable KETURAH ., DR CARMICHAEL Attending Unavailable KETURAH ., DR CARMICHAEL Consulting Unavailable KETURAH ., DR CARMICHAEL Attending Unavailable [facility], [facility] Primary Care Unavailable KETURAH ., DR CARMICHAEL Admitting Unavailable KETURAH ., DR CARMICHAEL Consulting Unavailable KETURAH ., DR CARMICHAEL Attending Unavailable REQUEST, DR NONE LISTED Primary Care Unavaila ble KETURAH ., DR CARMICHAEL Admitting Unavailable ZIEBER, DR NANCY Luis Consulting Unavailable REQUEST, DR SAHARA LISTED Consulting Unavaila ble KETURAH ., DR CARMICHAEL Procedure Practitioner Unavail able MARCOS MARTELL Attending Unavailable JASBIR, MARCOS Admitting Unavailable MARCOS MARTELL Consulting Unavailable BECKIE ELI Primary Care Unavailable KETURAH ., DR CARMICHAEL Consulting Unavailable MCCORNACK, NANCY Consulting Unavailable KETURAH ., DR CARMICHAEL Consulting Unavailable KETURAH ., DR CARMICHAEL Attending Unavailable SHIRAZNAYELI, GTZ H Primary Care Unavailable KETURAH ., DR CARMICHAEL Admitting Unavailable Unavailable Primary Care Provider Unavailabl e EVERT, VANDANA R Attending Unavailable EVERT, VANDANA R Referring Unavailable EVERT, VANDANA Luis Referring Unavailable MARCOS SILVERIO Attending Unavailable Petznick DOAliya Primary Care Provider [phone] Juanito Rebollar DOy Unavailable MARV REBOLLAR Attending Unavailable PETZNICK, ALIYA C Attending Unavailable PETZNICK, ALIYA C Referring Unavailable PETZNICK, ALIYA C Referring Unavailable PETZNICK, ALIYA C Attending Unavailable PETZNICK, ALIYA C Referring Unavailable PETZNICK, ALIYA C Referring Unavailable ECLENA CLEMENTS Attending Unavailable PETZNICK, ALIYA C Referring Unavailable CHRISTOPHER BOY Attending Unavailable PETZNICK, ALIYA C Referring Unavailable CHRISTOPHER BOY Attending Unavailable PETZNICK, ALIYA C Referring Unavailable MAKENNA CAMACHO Attending Unavailable PETZNICK, ALIYA C Referring Unavailable CHRISTOPHER BOY Attending Unavailable PETZNICK, ALIYA C Referring Unavailable Allergies Allergy Classification Reported Allergen(s) Allergy Type Date of Onset Reaction(s) Facility (6 sources) Bee Sting Drug allergy [facility] [place] Other Medications Current Medications Medication Drug Class(es) Dates Sig (Normalized) Sig (Original) [id number] 200 actuat albuterol 0.09 mg/actuat metered dose inhaler (20 sources) beta2-Adrenergic Agonist Start: 02-19-2024 Albuterol Sulfate [...] June 24, 2024 12:00am swish and spit [id number] 0.3 ml EPINEPHrine 1 mg/ml auto-injector (19 sources) alpha-Adrenergic Agonist, beta-Adrenergic Agonist, Catecholamine Start: [...] 2024 12:00am meloxicam 15 mg oral tablet (15 sources) Nonsteroidal Anti-inflammatory Drug Start: 09-23-2024 End: [...] ANUS AND RECTUM] Onset: 12-10-2022 Episodic Asthma (19 sources) Unspecified asthma, uncomplicated; Translations: [Asthma without [...] vagina] 11-27-2024 Episodic Other nervous system disorders (18 sources) Chronic pain; Translations: [Other chronic pain] Onset: 05-03-2023 05-03-2023 Chronic Other non-traumatic joint disorders (8 sources) Pain in right knee; Translations: [Pain in joint, lower leg] 09-09-2024 Episodic Other nutritional; endocrine; and metabolic disorders (18 sources) Obesity; Translations: [Obesity, unspecified] Onset: 05-03-2023 [...] Onset: 04-09-2022 Episodic Other connective tissue disease (18 sources) Partial thickness rotator cuff tear; Translations: [...] Test Name Value Interpretation Reference Range Facility ALL CBC WITH AUTO DIFFon BASOPHILS ABSOLUTE AUTO [address] [facility] Basophils/100 WBC (Bld) 0.6 % 0.2 - 2.0 % [facility] Eosinophils/100 WBC (Bld) 1.5 % 0.9 - 7.0 % [facility] Erythrocyte distribution width (RBC) [Ratio] 12.1 % 11.0 - 15.0 % [facility] Hematocrit (Bld) [Volume fraction] 38.6 % 36.0 - 48.0 % [facility] Hemoglobin (Bld) [Mass/Vol] 13.9 g/dL 12.0 - 16.0 g/dL [facility] IMMATURE GRANULOCYTES ABS AUTO 0.01 [facility] Immature granulocytes/100 WBC (Bld) 0.2 % 0.0 - 0.5 % [facility] Interpretation and review of laboratory results Abnormal [facility] LYMPHOCYTES ABSOLUTE AUTO 1.3 [facility] Lymphocytes/100 WBC (Bld) 24.1 % 20.5 - 60.0 % [facility] MCH (RBC) [Entitic mass] 32.3 pg 26. 7 - 34.0 pg [facility] MCHC (RBC) [Mass/Vol] 36 g/dL High 29.9 - 35.2 g/dL [facility] MCV (RBC) [Entitic vol] 89.6 fL 81.0 - 99.0 fL [facility] MONOCYTES ABSOLUTE AUTO 0.[address] [facility] Monocytes/100 WBC (Bld) 7.3 % 1.7 - 12.0 % [facility] NEUTROPHILS ABSOLUTE AUTO 3.5 [facility] Neutrophils/100 WBC (Bld) 66.3 % 43.0 - 75.0 % [facility] Platelet mean volume (Bld) [Entitic vol] 10.5 fL 9.5 - 13.5 fL [facility] EO # 0.1 [facility] PLT [address] [facility] RBC 4.31 [facility] WBC 5.2 [facility] US PELVIS W/ TRANSVAGINALon 12-17-[address] [address] Ultrasound Report Signed Patient: MARLIN CADE MR#: [id number] : 1990 Acct:[id number] Age/Sex: 34 / F ADM Date: 12/17/24 Loc: US Attending Dr: Marv Rebollar D.O. Ordering Physician: Marv Rebollar D.O. Date of Service: 12/17/24 Procedure(s): US pelvis w/ transvaginal Accession Number(s): [id number] cc: Marv Rebollar D.O.; Physician,Non-Staff [place] [id number] Patient Name: MARLIN CAED MRN: [id number] date: 1990 Sex: F Assigned Patient Location: US Current Patient Location: US Accession/Order Number: [id number] Exam Date: 12/17/2024 15:34 Report Date: 12/17/2024 15:45 At the request of: MARV REBOLLAR DO Procedure: US pelvis w/ transvaginal CLINICAL ULTRASOUND WITH TRANSVAGINAL IMAGING CLINICAL DATA: Pelvic pain and irregular menses COMPARISON: CT 12/10/2022 Real-time ultrasound evaluation the pelvis was performed utilizing both a transabdominal and transvaginal approach TRANSABDOMINAL: The uterus is slightly retroverted. Estimated uterine size is approximately 7.5 x 5.7 x 5.6 cm. No focal myometrial abnormalities are noted. The endometrial lining is not well seen. There is a bilobed cystic structure at the posterior cul-de-sac which is thought to be associated with the left ovary. The right ovary was not identified. TRANSVAGINAL: Transvaginal scans were performed to better evaluate the uterus and adnexa. The uterus is slightly retroverted. The endometrial lining is estimated at 9 - 10 mm. No focal myometrial abnormalities are seen. The right ovary is still not identified. The left ovary measures approximately 7.5 x 4.7 x 5.0 cm in size. There is a simple cystic area measuring 4.8 x 3.7 x 3.7 cm. There is also an adjacent complex cystic area with septation and possible debris measuring 3.0 x 3.8 x 4.5 cm. There is documentation of left ovarian blood flow. No free fluid is seen. US/US pelvis w/ transvaginal IMPRESSION: SIMPLE AND COMPLICATED LEFT OVARIAN CYSTS. NONVISUALIZATION OF THE RIGHT OVARY. Impression dictated by: Vani rOdaz M.D.12/17/2024 3:45 PM Dictation Location: [place] [address] Electronically authenticated by: [id number] Y Date: 12/17/2024 15:45 Dictated By: Vani Ordaz M.D. Signed By: 12/17/24 1548 DD/ 44 TD/TT: [employer] Internship: [facility] Radiology, Radiologist, MD - 12/17/2024 [place] [address] Ultrasound Report Signed Patient: MARLIN CADE MR#: [id number] : 1990 Acct:[id number] Age/Sex: 34 / F ADM Date: 12/17/24 Loc: US Attending Dr: Marv Rebollar D.O. Ordering Physician: Marv Rebollar D.O. Date of Service: 12/17/24 Procedure(s): US pelvis w/ transvaginal Accession Number(s): [id number] cc: Marv Rebollar D.O.; Physician,Non-Staff [place] The [address] [address] Patient Name: MARLIN CADE MRN: [facility]:[id number] date: 1990 Sex: F Assigned Patient Location: US Current Patient Location: US Accession/Order Number: [id number] Exam Date: 12/17/2024 15:34 Report Date: 12/17/2024 15:45 At the request of: MARV REBOLLAR DO Procedure: US pelvis w/ transvaginal CLINICAL ULTRASOUND WITH TRANSVAGINAL IMAGING CLINICAL DATA: Pelvic pain and irregular menses COMPARISON: CT 12/10/2022 Real-time ultrasound evaluation the pelvis was performed utilizing both a transabdominal and transvaginal approach TRANSABDOMINAL: The uterus is slightly retroverted. Estimated uterine size is approximately 7.5 x 5.7 x 5.6 cm. No focal myometrial abnormalities are noted. The endometrial lining is not well seen. There is a bilobed cystic structure at the posterior cul-de-sac which is thought to be associated with the left ovary. The right ovary was not identified. TRANSVAGINAL: Transvaginal scans were performed to better evaluate the uterus and adnexa. The uterus is slightly retroverted. The endometrial lining is estimated at 9 - 10 mm. No focal myometrial abnormalities are seen. The right ovary is still not identified. The left ovary measures approximately 7.5 x 4.7 x 5.0 cm in size. There is a simple cystic area measuring 4.8 x 3.7 x 3.7 cm. There is also an adjacent complex cystic area with septation and possible debris measuring 3.0 x 3.8 x 4.5 cm. There is documentation of left ovarian blood flow. No free fluid is seen. US/US pelvis w/ transvaginal IMPRESSION: SIMPLE AND COMPLICATED LEFT OVARIAN CYSTS. NONVISUALIZATION OF THE RIGHT OVARY. Impression dictated by: Vani Ordaz M.D.12/17/2024 3:45 PM Dictation Location: [place] [address] Electronically authenticated by: [id number] Y Date: 12/17/2024 15:45 Dictated By: Vani Ordaz M.D. Signed By: 12/17/24 1548 DD/ 44 TD/TT: Wildlife [employer] Internship: [facility] Radiology Study observation (narrative) [facility] US PELVIS W/ TRANSVAGINALOrd ered By: Radiologist Radiology on 12-17-2024 [facility] Work Phone: HCG ( test) Ql (U)o n 11-27-2024 Interpretation and review of laboratory results Normal [facility] Preg Test, Ur Negative Negative [facility] Urinalysis macro (dipstick) panel (U)on 11-27-2024 Bilirubin, UA Negative Negative - 4(70) +++ mg/dL [facility] Blood, UA Positive Negative - 50 Yony/mcL [facility] Comment on above: Moderate Clarity, UA Clear [facility] Color, UA Yellow [facility] Glucose, UA Negative Negative - 1999(110) ++++ mg/dL [facility] Interpretation and review of laboratory results Abnormal [facility] Ketones, UA Negative Negative - 160(16) ++++ mg/dL [facility] Leukocytes, UA Negative Negative - 500+++ Marco Antonio/mcL [facility] Nitrite, UA Negative Negative - Positive [facility] pH, UA 5.5 5 - 9 [facility] Protein, UA Trace Negative - 1999(20) ++++ mg/dL [facility] Spec Grav, UA 1.03 1 - 1.03 [facility] Urobilinogen, UA 0.2 0.2 - 12 mg/dL [facility] MR KNEE RIGHT WO IV CONTRAST on [...] signed and approved by the interpreting Radiologist. [facility] Radiology Study observation (narrative) [facility] XR Knee - right 3 ViewsOrder ed By: Rubin Salas on 09-09-2024 [facility] Work Phone: XR SCOLIOSIS 1 VWon 01-08-20 [...] 023 Case Report Surgical Pathology Report Case: [id number] Authorizing Provider: Vandana Loyd MD, Collected: 10/18/2023 08:19 AM PhD Ordering Location: Procedures Received: 10/18/2023 08:46 AM Pathologist: Singh Rod MD Specimen: SIGMOID COLON POLYP [facility] FINAL DIAGNOSIS Sigmoid colon polyp, biopsy: - Hyperplastic polyp. [facility] Gross Description A. SIGMOID COLON POLYP Received in formalin is a diego-red polypoid segment of tissue measuring 0.6 x 0.4 x 0.1 cm. No stalk is present. The line of resection is noted. The specimen is bisected and totally submitted in one cassette. JTS October 18, 2023 3:20 PM Gross examination performed at [facility], [facility] Performing Lab Diagnostic interpretation performed at [facility], [facility] [place] [address] CLIA# [id number] Tufter: Mike Jackson M.D. [facility] ANES POSTPROC EVALon 023 ANES POSTPROC EVAL HNO ID: [id number] Author: Elidia Ness MD Service: Anesthesiology Author Type: Anesthesiologist Type: Anesthesia Postprocedure Evaluation Filed: 10/18/2023 1:15 PM Note Text: POST ANESTHESIA EVALUATION NOTE : 1990 Procedure Summary Date: 10/18/23 Room / Location: Procedures Anesthesia Start: 0804 Anesthesia Stop: 820 Procedure: COLONOSCOPY DIAGNOSTIC Diagnosis: Rectal bleeding (Hematochezia) Scheduled Providers: Vandana Loyd MD, PhD; Elidia Ness MD; Marcos Silverio APRN.TRESTLE MAINTERNANCE LABORER; Kai Aponte RN Responsible Provider: Elidia Ness [...] October 18, 2023 TIME: 1:15 PM CSN: [id number] [facility] ANES PRE-OPon 10-18-2023 ANES PRE-OP HNO ID: [id number] Author: Elidia Ness MD Service: Anesthesiology Author Type: Anesthesiologist Type: Anesthesia Preprocedure Evaluation Filed: 10/18/2023 7:48 AM Note Text: OB ANESTHESIA PRE-PROCEDURE ASSESSMENT 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 No past medical history on file. PAST SURGICAL HISTORY Procedure Laterality Date - SECTION HX 3 No family history on file. (Not in a hospital admission) Inpatient medications reviewed in PSYCHIATRIC I have interviewed and examined the patient. I have reviewed the medical record and/or the pre-anesthesia evaluation, pertinent labs, and test results. This contains updated information obtained within 48 hours of Surgery/Procedure. SIGNATURE: Elidia Ness MD PATIENT NAME: Marlin Cade DATE: October 18, 2023 TIME: 7:47 AM : 1990 Normal [facility] COLONOSCOPY DIAGNOSTICon [facility] Colonoscopyon 10-18-2023 Colonoscopy [facility] Gastrointestinal Endoscopy Patient Name: Marlin Cade Procedure Date: 10/18/2023 7:49 AM Date of : 1990 Admit Type: Outpatient Age: 32 Room: [place] [address] Gender: Female Note Status: Finalized Attending MD: Vandana Loyd MD, PhD, [id number] Procedure: Colonoscopy Indications: Hematochezia Providers: Vandana Loyd MD, PhD Patient Profile: This is a 32 year old female. Refer to note in patient chart for documentation of history and physical. Last Colonoscopy: none. The patient's first colonoscopy is today. Referring Physician: Vandana Loyd MD, PhD (Referring MD) Medicines: Monitored Anesthesia [...] telephone call in one week telephone Dr. Loyd at [phone] for results. - Repeat colonoscopy in 7-10 years for surveillance. Procedure Code(s): --- Professional --- 43168, Colonoscopy, flexible; with biopsy, single or multiple CPT copyright 2020 [employer]. All rights reserved. The codes documented in this report are preliminary and upon certified medical coder review may be revised to meet current compliance requirements. Attending Participation: I personally performed the entire procedure. Scope In: 8:09:14 AM Scope Out: 8:20:[address] Vandana Loyd MD, PhD Vandana Loyd MD, PhD 10/18/2023 8:25:12 AM This report has been signed electronically by Vandana Loyd MD, PhD Number of Addenda: 0 Note Initiated On: 10/18/2023 7:49 AM Estimated Blood Loss: Estimated blood loss was minimal. Normal [facility] HISTORY PHYSICALon 3 HISTORY PHYSICAL HNO ID: [id number] Author: Vandana Loyd MD, PhD Service: Gastroenterology Author Type: Physician [...] none Provisional Diagnosis/Treatment Plan: colon SIGNATURE: Vandana Loyd MD, PhD PATIENT NAME: Marlin Cade DATE: October 18, 2023 TIME: 7:57 AM [facility] SURGICAL PATHOLOGYon 023 CASE REPORT [facility] Comment on above: Order Comment: Speci men Type: TISSUE SPECIMEN Ordering Facility: [facility] Address: [address] [place] [address] Result Comment: Surg [facility] Pathology Report Case: [id number] Authorizing Provider: Vandana Loyd MD, Collected: 10/18/2023 08:19 AM PhD Ordering Location: Procedures Received: 10/18/2023 08:46 AM Pathologist: Singh Rod MD Specimen: SIGMOID COLON POLYP Performed By: #### S #### [facility] CLIA [id number] [address] [facility] [place] [address] [place] FINAL DIAGNOSIS Normal [facility] Comment on above: Order Comment: Speci men Type: TISSUE SPECIMEN Ordering Facility: [facility] Address: [address] [place] [address] Result Comment: Sigm oid colon polyp, biopsy: - Hyperplastic polyp. Performed By: #### S #### [facility] CLIA [id number] [address] [place] [address] [place] FINAL PERFORMING LAB Normal [facility] Comment on above: Order Comment: Speci men Type: TISSUE SPECIMEN Ordering Facility: [facility] Address: [address] [place] [address] Result Comment: Diag nostic interpretation performed at [facility], [address] [place] [address] CLIA# [id number] Tufter: Mike Jackson M.D. Performed By: #### S #### [facility] CLIA [id number] [address] [place] [address] [place] GROSS DESCRIPTION Normal [facility] Comment on above: Order Comment: Speci men Type: TISSUE SPECIMEN Ordering Facility: [facility] Address: [address] [place] [address] Result Comment: A. S IGMOID COLON POLYP Received in formalin is a diego-red polypoid segment of tissue measuring 0.6 x 0.4 x 0.1 cm. No stalk is present. The line of resection is noted. The specimen is bisected and totally submitted in one cassette. JTS October 18, 2023 3:20 PM Gross examination performed at [facility], [address] [place] [address] Performed By: #### S #### [facility] CLIA [id number] [address] [place] [address] [place] CNPHolly 05-15-2023 MARLENYN Telephone (FRANCES) MARLIN CADE ([id number]) 1990 F Date Time Provider Department 05/15/23 EVERT DANIELS During your visit today, we recorded the following information about you: Naomi Cain Ma 05/15/2023 2:12 PM Signed Sent out two medical release forms for patient 05/15/23: [facility] - Dr. Baldemar Arnett [place], [place] - ED Naomi Cain Ma 05/22/2023 8:57 AM Signed Received medical records from [facility] ED and sent for scanning. Resent medical records request to [facility] - Dr. Baldemar Arnett. Allergies [...] by NAOMI CAIN MA on 05/15/23 Normal [facility] C-REACTIVE PROTEIN (CRP)on 0 05-12-2023 CRP [Mass/Vol] <0.9 mg/dL [facility] CBC panel Auto (Bld)on 05-12 Erythrocyte distribution width (RBC) [Ratio] 13.8 % Normal 11.5-15.0 [facility] l Comment on above: Order Comment: Speci men Type: BLOOD SPECIMEN Ordering Facility: [facility] Address: [place] [address] Performed By: #### 5 8410-2 #### [facility] CLIA [id number] [address] [place] [address] [place] Hematocrit (Bld) [Volume fraction] 35.7 % Low 36.0-46.0 [facility] Comment on above: Order Comment: Speci men Type: BLOOD SPECIMEN Ordering Facility: [facility] Address: [address] [place] [address] Performed By: #### 5 8410-2 #### [facility] [place] [id number] [address] [place] [address] [place] Hemoglobin (Bld) [Mass/Vol] 12.3 g/dL Normal 11.5-15.5 [facility] Comment on above: Order Comment: Speci men Type: BLOOD SPECIMEN Ordering Facility: [facility] Address: [address] [place] [address] Performed By: #### 5 8410-2 #### [facility] [place] [id number] [address] [place] [address] [place] MCH (RBC) [Entitic mass] 32.1 pg Normal 26.0-34.0 [facility] Comment on above: Order Comment: Speci men Type: BLOOD SPECIMEN Ordering Facility: [facility] Address: [address] [place] [address] Performed By: #### 5 8410-2 #### [facility] [place] [id number] [place] [address] [place] MCHC (RBC) [Mass/Vol] 34.5 g/dL Normal 30.5-36.0 [facility] Comment on above: Order Comment: Speci men Type: BLOOD SPECIMEN Ordering Facility: [facility] Address: [address] Performed By: #### 5 8410-2 #### [facility] [place] [id number] [address] [place] [address] [place] MCV (RBC) [Entitic vol] 93.2 fL Normal 80.0-100.0 [facility] Comment on above: Order Comment: Speci men Type: BLOOD SPECIMEN Ordering Facility: [facility] Address: [address] [place] [address] Performed By: #### 5 8410-2 #### [facility] [place] [id number] [address] [place] [address] [place] Nucleated RBC (Bld) [#/Vol] 10*3/uL Normal <0.01 [facility] Comment on above: Order Comment: Speci men Type: BLOOD SPECIMEN Ordering Facility: [facility] Address: [address] [place] [address] Performed By: #### 5 8410-2 #### [facility] CLIA [id number] [address] [place] [address] [place] Platelet mean volume (Bld) [Entitic vol] 11.2 fL Normal 9.0-12.7 [facility] Comment on above: Order Comment: Speci men Type: BLOOD SPECIMEN Ordering Facility: [facility] Address: [address] [place] [address] Performed By: #### 5 8410-2 #### [facility] CLIA [id number] [address] [place] [address] [place] Platelets (Bld) [#/Vol] 148 10*3/uL Low 150-400 [facility] Comment on above: Order Comment: Speci men Type: BLOOD SPECIMEN Ordering Facility: [facility] Address: [address] [place] [address] Performed By: #### 5 8410-2 #### [facility] CLIA [id number] [address] [place] [address] [place] RBC (Bld) [#/Vol] 3.83 10*6/uL Low 3.90-5.20 [facility] Comment on above: Order Comment: Speci men Type: BLOOD SPECIMEN Ordering Facility: [facility] Address: [address] [place] [address] Performed By: #### 5 8410-2 #### [facility] [facility] CLIA [id number] [address] [place] [address] [place] WBC (Bld) [#/Vol] 7.57 10*3/uL Normal 3.70-11.00 [facility] Comment on above: Order Comment: Speci men Type: BLOOD SPECIMEN [facility]ing Facility[facility] Address: [facility] [address] Performed By: #### 5 8410-2 #### [facility] CLIA [id number] [address] [facility] [place] [address] [place] [facility] Erythrocyte distribution width (RBC) [Ratio] 13.8 % 11.5 - 15.0 % [facility] Hematocrit (Bld) [Volume fraction] 35.7 % Low 36.0 - 46.0 % [facility] Hemoglobin (Bld) [Mass/Vol] 12.3 g/dL 11.5 - 15.5 g/dL [facility] MCH (RBC) [Entitic mass] 32.1 pg 26. 0 - 34.0 pg [facility] MCHC (RBC) [Mass/Vol] 34.5 g/dL 30.5 - 36.0 g/dL [facility] MCV (RBC) [Entitic vol] 93.2 fL 80.0 - 100.0 fL [facility] Nucleated RBC (Bld) [#/Vol] <0.01 k/uL [facility] Platelet mean volume (Bld) [Entitic vol] 11.2 fL 9.0 - 12.7 fL [facility] Platelets (Bld) [#/Vol] 148 10*3/uL Low 150 - 400 k/uL [facility] RBC (Bld) [#/Vol] 3.83 10*6/uL Low 3.90 - 5.2 0 m/uL [facility] WBC (Bld) [#/Vol] 7.57 10*3/uL 3.70 - 11. 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 Normal [facility] CRP SerPl-ncon 05-12-2023 CRP [Mass/Vol] mg/L Normal <0.9 [facility]at[facility] paul Comment on above: Order Comment: Speczach villalpando Type: BLOOD SPECIMEN [facility] Facility: [facility] Address: [address] [place] [address] Performed By: #### 2 4323-8, 1987-, 95257-7 #### [facility] CLIA [id number] [address] [facility] [place] [address] [place] Calprotectin (Stl) [Mass/Mas s]on 05-12-2023 CALPROTECTIN, FECAL INTERP Normal Normal [facility] CALPROTECTIN, FECAL QUANTITATIVE 20.9 ug/g <50 ug/g [facility] CALPROTECTIN, FECAL INTERP Normal Normal Normal [facility] Comment on above: Order Comment: Lise villalpando Type: STOOL SPECIMEN [facility] Facility: [facility] Address: [address] [place], [place] [phone] Result Comment: On 2022, [facility] implemented a new fecal calprotectin method, the [employer]iaison Calprotectin assay. For assistance with interpretation of results in patients undergoing serial monitoring, contact Client Services at [phone] or [phone] to discuss options, preferably within 7 days of issuing this report. Interpretation: <50.0 ug/g: Normal 50.0 ug/g - 120.0 ug/g: Borderline elevated. Re-evaluation in 4-6 weeks is recommended if clinically indicated. >120.0 ug/g: Elevated Performed By: #### 3 8445-3 #### [facility] CLIA [id number] [address] [facility] [id number] [address] [place] CALPROTECTIN, FECAL QUANTITATIVE 20.9 ug/g Normal <50 [facility] Comment on above: Order Comment: Lauriei irasema Type: STOOL SPECIMEN [facility] Facility: [facility] Address: [address] [place], [place] [phone] Performed By: #### 3 8445-3 #### [facility] CLIA [id number] [address] [facility] [address] [id number], [place] [address] [place] Comprehensive metabolic 2000 panelon 05-12-2023 Albumin [Mass/Vol] 3.7 g/dL Low 3.9-4.9 [facility] Comment on above: Order Comment: Speci men Type: BLOOD SPECIMEN [facility] Facility: [facility] Address: [address] Performed By: #### 2 4323-8, 1988-02, #### [facility] CLIA [id number] [address] [place] [address] [place] ALP [Catalytic activity/Vol] 39 U/L Normal 34-123 [facility] Comment on above: Order Comment: Speci men Type: BLOOD SPECIMEN [facility] Facility: [facility] Address: [address] [place] [address] Performed By: #### 2 8, 1988-02, #### [facility] [place] [id number] [address] [place] [address] [place] ALT [Catalytic activity/Vol] 8 U/L Normal 7-38 [facility] Comment on above: Order Comment: Speci men Type: BLOOD SPECIMEN [facility]: [facility] Address: [address] [place], [place] Performed By: #### 2 8, 1988-02, #### [facility] CLIA [id number] [address] [place] [address] [place] Anion gap [Moles/Vol] 11 mmol/L Normal 9-18 [facility] Comment on above: Order Comment: Speci men Type: BLOOD SPECIMEN [facility]: [facility] Address: [address] [place], [place] Performed By: #### 2 4323-8, 1988-02, #### [facility] CLIA [id number] [address] [place] [address] [place] AST [Catalytic activity/Vol] 13 U/L Normal 13-35 [facility] Comment on above: Order Comment: Speci men Type: BLOOD SPECIMEN [facility] Facility: [facility] Address: [address] [place] [phone] Performed By: #### 2 [address], 1988-02, #### [facility] CLIA [id number] [address] [place] [address] [place] Bilirubin [Mass/Vol] 0.3 mg/dL Normal 0.2-1.3 [facility] Comment on above: Order Comment: Speci men Type: BLOOD SPECIMEN [facility] Facility: [facility] Address: [address] [place], [place] [address] Performed By: #### 2 4328, #### [facility] IA [id number] [place] [address] [place] Calcium [Mass/Vol] 9.0 mg/dL Normal 8.5-10.2 [facility] Comment on above: Order Comment: Speci men Type: BLOOD SPECIMEN Ordering Facility: [facility] Address: [address] [place] [phone] Performed By: #### 2 4328, 1988-02, #### [facility] IA [id number] [address] [place] [address] [place] Chloride [Moles/Vol] 104 mmol/L Normal 97-105 [facility] Comment on above: Order Comment: Speci men Type: BLOOD SPECIMEN [facility]: [facility] Address: [address] [place] [phone] Performed By: #### 2 4323-8, #### [facility] IA [id number] [address] [place] [address] [place] CO2 [Moles/Vol] 22 mmol/L Normal 22-30 [facility] Comment on above: Order Comment: Speci men Type: BLOOD SPECIMEN [facility]: [facility] Address: [address] [place] [phone] Performed By: #### 2 4323-8, #### [facility] CLIA [id number] [address] [place] [address] [place] Creatinine [Mass/Vol] 0.76 mg/dL Normal 0.58-0.96 [facility] Comment on above: Order Comment: Lise villalpando Type: BLOOD SPECIMEN [facility] Address: [address] Performed By: #### 2 4323-8, #### [facility] CLIA [id number] [address] [place] [address] [place] ESTIMATED GLOMERULAR FILTRATION RATE 108 mL/min/1.73m??? Normal >=60 [facility] Comment on above: Order Comment: Lise villalpando Type: BLOOD SPECIMEN [facility] Address: [address] Result Comment: Albina mated Glomerular Filtration Rate [...] actual GFR. Performed By: #### 2 4323-8, #### [facility] CLIA [id number] [address] [place] [address] [place] Glucose [Mass/Vol] 88 mg/dL Normal 74-99 [facility] Comment on above: Order Comment: Lise villalpando Type: BLOOD SPECIMEN [facility]: [facility] Address: [address] Result Comment: The [place] Diabetes Association (ADA) provides guidance for cutoff [...] Standards of Medical Care in Diabetes 2016, [place] [employer]. Diabetes Care. 2016.39(Suppl 1). Performed By: #### 2 4323-05, #### [facility] CLIA [id number] [address] [place] [address] [place] Potassium [Moles/Vol] 4.2 mmol/L Normal 3.7-5.1 [facility] Comment on above: Order Comment: Lise villalpando Type: BLOOD SPECIMEN [facility] Address: [address] [place] [address] Performed By: #### 2 4323-05, #### [facility] CLIA [id number] [address] [place] [address] [place] Protein [Mass/Vol] 6.3 g/dL Normal 6.3-8.0 [facility] Comment on above: Order Comment: Lise villalpando Type: BLOOD SPECIMEN [facility] Address: [address] [place] [address] Performed By: #### 2 4323-05, #### [facility] CLIA [id number] [address] [place] [address] [place] Sodium [Moles/Vol] 137 mmol/L Normal 136-144 [facility] Comment on above: Order Comment: Lauriei men Type: BLOOD SPECIMEN [facility] Address: [address] [place], [place] [phone] Performed By: #### 2 8, #### [facility] CLIA [id number] [address] [place] [address] [place] Urea nitrogen [Mass/Vol] 8 mg/dL Normal 7-21 [facility] Comment on above: Order Comment: Speci men Type: BLOOD SPECIMEN [facility]: [facility] Address: [place] [address] Performed By: #### 2 4323-8, 1988-02, 29319-5 #### [facility] CLIA [id number] [address] [facility] [address] OF [facility] Albumin [Mass/Vol] 3.7 g/dL Low 3.9 - 4.9 g/dL [facility] ALP [Catalytic activity/Vol] 39 U/L 34 - 123 U/L [facility] ALT [Catalytic activity/Vol] 8 U/L 7 - 38 U/L [facility] Anion gap [Moles/Vol] 11 mmol/L 9 - 18 mmol/L [facility] AST [Catalytic activity/Vol] 13 U/L 13 - 35 U/L [facility] Bilirubin [Mass/Vol] 0.3 mg/dL 0.2 - 1 .3 mg/dL [facility] Calcium [Mass/Vol] 9.0 mg/dL 8.5 - 10. 2 mg/dL [facility] Chloride [Moles/Vol] 104 mmol/L 97 - 10 5 mmol/L [facility] CO2 [Moles/Vol] 22 mmol/L 22 - 30 mmol/L [facility] Creatinine [Mass/Vol] 0.76 mg/dL 0.58 - 0.96 mg/dL [facility] Estimated Glomerular Filtration Rate 108 mL/min/1.73m >=60 mL/min/1.73m [facility] Glucose [Mass/Vol] 88 mg/dL 74 - 99 mg/dL [facility] Potassium [Moles/Vol] 4.2 mmol/L 3.7 - 5.1 mmol/L [facility] Protein [Mass/Vol] 6.3 g/dL 6.3 - 8.0 g/dL [facility] Sodium [Moles/Vol] 137 mmol/L 136 - 144 mmol/L [facility] Urea nitrogen [Mass/Vol] 8 mg/dL 7 - 21 mg/d L [facility] Iron and Iron binding capaci ty panelon 05-12-2023 Iron [Mass/Vol] 113 ug/dL Normal 41-186 [facility] Comment on above: Order Comment: Lauriei men Type: BLOOD SPECIMEN [facility] Address: [address] [place] [address] Performed By: #### 2 432-8, 1988-02, #### [facility] CLIA [id number] [address] [place] [address] [place] [facility] Iron binding capacity [Mass/Vol] 416 ug/dL High 232-386 [facility] Comment on above: Order Comment: Lauriei men Type: BLOOD SPECIMEN [facility] Address: [address] Performed By: #### 2 4328, #### [facility] CLIA [id number] [address] [place] [address] [place] [facility] Iron/TIBC [Molar ratio] 27.2 % Normal 15.0-57.0 [facility] Comment on above: Order Comment: Lise men Type: BLOOD SPECIMEN [facility] Address: [address] [place] [address] Performed By: #### 2 4323-8, #### [facility] IA [id number] [address] [place] [address] [place] Iron [Mass/Vol] 113 ug/dL 41 - 186 ug/dL [facility] Iron binding capacity [Mass/Vol] 416 ug/dL High 232 - 386 ug/dL [facility] Iron/TIBC [Molar ratio] 27.2 % 15.0 - 57.0 % [facility] Luis Fernando 05-11-2023 MARLENYN Telephone (FRANCES) MARLIN CADE ([id number]) 1990 F Date Time Provider Department 05/11/23 EVERT DANIELS During your visit today, we recorded the following information about you: Naomi Cain Ma 05/11/2023 3:06 PM Signed Called patient for more information about her visit tomorrow with Dr. Loyd in Gastroenterology for IBD. We have no medical information on file, or in Care Everywhere. Patient stated she had sought medical care in [place], with Dr. Baldemar Arnett, Gastroenterology, [facility], presenting with bleeding when having a BM. Patient states that the bleeding is sometimes heavy and sometimes it just colors the toilet paper. She has no pain with it, and wasn't actually diagnosed with IBD, but she is concerned. She was scheduled to have a colonoscopy in [place], but when she got they canceled the procedure. She is currently 21.5 weeks into her . She stated the medical center recommended she came to the [facility] for further evaluation. Naomi Cain, [facility] Allergies As of Date: 05/11/2023 (Not on File) Date Reviewed: Never Reviewed Reason for Visit: Appointment Information [Other] Problem List As Of Date: 05/11/2023 (None) Encounter Status:Closed by NAOMI CAIN MA on 05/11/23 Normal [facility] HEP B SURFACE ANTIGEN SCREEN on 03-03-2023 HBsAg Screen Negative Normal Negative [facility] Comment on above: Performed By: #### H BSANS #### [facility] [address] [place] [address] Dr. David Garduno HEPATITIS C VIRUS AB W/ REFL EX QUANTon 03-03-2023 HCV AB Non-Reactive Normal Non Reactive [facility] Comment on above: Performed By: #### C BC #### [facility] [address] [place] [address] [address] David Garduno Interpretation: Comment Normal [facility] Comment on above: Result Comment: Not infected with HCV unless early or acute infection is suspected (which may be delayed in an immunocompromised individual), or other evidence exists to indicate HCV infection. Performed By: #### C BC #### [facility] [address] [place] [address] Dr. David Garduno HIV 1 AND 2 WITH REFLEXon HIV Screen 4th Generation wRfx Non-Reactive Normal Non Reactive [facility] Comment on above: Result Comment: HIV Negative HIV-1/HIV-2 antibodies and HIV-1 p24 antigen were NOT detected. There is no laboratory evidence of HIV infection. Performed By: #### R PRQ #### [facility] [address] [place] [address] Dr. David Garduno RPR QUANTon 03-03-2023 Rapid Plasma Reagin, Quant Non-Reactive Normal NonRea<1:1 [facility] Comment on above: Result [...] utilized, such as Treponema pallidum (Syphilis) Screening Sac (324916) or Rapid Plasma Reagin (RPR) Test With Reflex to Quantitative RPR and Confirmatory Treponema pallidum Antibodies (895907). Performed By: #### R PRQ #### [facility] [address] [place] [address] Dr. David Garduno RUBELLA AB IGGon 03-03-2023 Rubella Antibodies, IgG 1.15 index Normal Immune >0.99 [facility] Comment on above: Result Comment: Non- immune <0.90 Equivocal 0.90 - 0.99 Immune >0.99 Performed By: #### R PRQ #### [facility] [address] [place] [address] Dr. David Garduno CBC AUTO DIFFon 03-02-2023 BASO # 0.0 103/ul Normal 0.0-0.1 [facility] Comment on above: Performed By: #### C BC #### [facility] [address] [place] [address] Dr. David Garduno Basophils/100 WBC (Bld) 0.3 % Normal 0.2-2.0 [facility] Comment on above: Performed By: #### C BC #### [facility] [address] [place] [address] Dr. David Garduno EO # 0.1 103/ul Normal 0.0-0.7 [facility] Comment on above: Performed By: #### C BC #### [facility] [address] [place] [address] Dr. David Garduno Eosinophils/100 WBC (Bld) 1.1 % Normal 0.9-7.0 [facility] Comment on above: Performed By: #### C BC #### [facility] [address] [place] [address] Dr. David Garduno Erythrocyte distribution width (RBC) [Ratio] 12.6 % Normal 11.0-15.0 [facility] Comment on above: Performed By: #### C BC #### [facility] [address] [place] [address] Dr. David Garduno Hematocrit (Bld) [Volume fraction] 38.8 % Normal 36.0-48.0 [facility] Comment on above: Performed By: #### C BC #### [facility] [address] [place] [address] Dr. David Garduno Hemoglobin (Bld) [Mass/Vol] 13.8 g/dL Normal 12.0-16.0 [facility] Comment on above: Performed By: #### C BC #### [facility] [address] [place] [address] Dr. David Garduno IG # 0.03 10e3/ul Normal 0.00-0.03 [facility] Comment on above: Performed By: #### C BC #### [facility] [address] [place] [address] Dr. David Garduno IG % 0.5 % Normal 0.0-0.5 [facility] Comment on above: Performed By: #### C BC #### [facility] [address] [place] [address] Dr. David Garduno LYMPH # 1.8 103/ul Normal 1.2-3.8 [facility] Comment on above: Performed By: #### C BC #### [facility] [address] [place] [address] Dr. David Garduno Lymphocytes/100 WBC (Bld) 28.5 % Normal 20.5-60.0 [facility] Comment on above: Performed By: #### C BC #### [facility] [address] [place] [address] Dr. David Garduno MANUAL DIFF REQ NO Normal [facility] Comment on above: Performed By: #### C BC #### [facility] [address] [place] [address] Dr. David Garduno MCH (RBC) [Entitic mass] 31.4 pg Normal 26.7-34.0 [facility] Comment on above: Performed By: #### C BC #### [facility] [address] [place] [address] Dr. David Garduno MCHC (RBC) [Mass/Vol] 35.6 g/dL Critically high 29.9-35.2 [facility] Comment on above: Performed By: #### C BC #### [facility] [address] [place] [address] Dr. David Garduno MCV (RBC) [Entitic vol] 88.2 fL Normal 81.0-99.0 [facility] Comment on above: Performed By: #### C BC #### [facility] [address] [place] [address] Dr. David Garduno MONO # 0.4 103/ul Normal 0.3-0.8 [facility] Comment on above: Performed By: #### C BC #### [facility] [address] [place] [address] Dr. David Garduno Monocytes/100 WBC (Bld) 7.0 % Normal 1.7-12.0 [facility] Comment on above: Performed By: #### C BC #### [facility] [address] [place] [address] Dr. David Garduno NEUT # 3.8 103/ul Normal 1.4-6.5 [facility] Comment on above: Performed By: #### C BC #### [facility] [address] [place] [address] Dr. David Garduno Neutrophils/100 WBC (Bld) 62.6 % Normal 43.0-75.0 [facility] Comment on above: Performed By: #### C BC #### [facility] [address] [place] [address] Dr. David Garduno Platelet mean volume (Bld) [Entitic vol] 10.9 fL Normal 9.5-13.5 [facility] Comment on above: Performed By: #### C BC #### [facility] [address] [place] [address] Dr. David Garduno PLT 184 103/ul Normal 150-450 [facility] Comment on above: Performed By: #### C BC #### [facility] [address] [place] [address] Dr. David Garduno RBC 4.40 106/ul Normal 4.20-5.40 [facility] Comment on above: Performed By: #### C BC #### [facility] [address] [place] [address] Dr. David Garduno WBC 6.1 103/ul Normal 4.0-11.0 [facility] Comment on above: Performed By: #### C BC #### [facility] [address] [place] [address] Dr. David Garduno CULTURE URINEon 03-02-2023 CULTURE URINE Culture Observations: MODERATE GROWTH OF MIXED GENITAL CLARIBEL. NO POTENTIAL PATHOGENS SEEN. Normal [facility] Comment on above: Performed By: #### U RCX #### [facility] [address] [place] [address] Dr. David Garduno GLYCOHEMOGLOBIN A1Con 2022 ADA RECOMMENDATION SEE BELOW Normal [facility] Comment on above: Result Comment: ADA RECOMMENDED LIMIT 4.0 - 6.0 ADA THERAPEUTIC TARGET < 7.0 ACTION SUGGESTED > 7.0 Performed By: #### A 1C #### [facility] [address] [place] [address] Dr. David Garduno Glucose [Mass/Vol] 94 mg/dL Normal [facility] Comment on above: Performed By: #### A 1C #### [facility] [address] [place] [address] [address] David Garduno HbA1c (Bld) [Mass fraction] 4.9 % Normal 4.5-6.2 [facility] Comment on above: Performed By: #### A 1C #### [facility] [address] [place] [address] [address] David Garduno TSHon 03-02-2023 TSH 0.430 uIU/mL Normal 0.358-3.740 [facility] Comment on above: Performed By: #### R PRQ #### [facility] [address] [place] [address] [address] David Garduno TYPE AND SCREENon 03-02-2023 TYPE AND SCREEN Negative Normal [facility] Comment on above: Performed By: #### T NS #### [facility] [address] [place] [address] Dr. David Garduno US PREG TVon 02-16-2023 [...] Date: 2023-02-16 16:03 Normal [facility] CBC AUTO DIFFon 12-10-2022 BASO # 0.0 103/ul Normal 0.0-0.1 [facility] Comment on above: Performed By: #### C BC #### [facility] [address] [place] [address] [address] David Garduno Basophils/100 WBC (Bld) 0.6 % Normal 0.2-2.0 [facility] Comment on above: Performed By: #### C BC #### [facility] [address] [place] [address] Dr. David Garduno EO # 0.1 103/ul Normal 0.0-0.7 [facility] [facility] Comment on above: Performed By: #### C BC #### [facility] [address] [place] [address] Dr. David Garduno Eosinophils/100 WBC (Bld) 1.7 % Normal 0.9-7.0 [facility] Comment on above: Performed By: #### C BC #### [facility] [address] [place] [address] Dr. David Garduno Erythrocyte distribution width (RBC) [Ratio] 12.4 % Normal 11.0-15.0 [facility] Comment on above: Performed By: #### C BC #### [facility] [address] [place] [address] Dr. David Garduno Hematocrit (Bld) [Volume fraction] 41.9 % Normal 36.0-48.0 [facility] Comment on above: Performed By: #### C BC #### [facility] [address] [place] [address] Dr. David Garduno Hemoglobin (Bld) [Mass/Vol] 14.8 g/dL Normal 12.0-16.0 [facility] Comment on above: Performed By: #### C BC #### [facility] [address] [place] [address] Dr. David Garduno IG # 0.01 10e3/ul Normal 0.00-0.03 [facility] Comment on above: Performed By: #### C BC #### [facility] [address] [place] [address] Dr. David Garduno IG % 0.3 % Normal 0.0-0.5 [facility] Comment on above: Performed By: #### C BC #### [facility] [address] [place] [address] Dr. David Garduno LYMPH # 0.8 103/ul Critically low 1.2-3.8 [facility] Comment on above: Performed By: #### C BC #### [facility] [address] [address] [address] David Garduno Lymphocytes/100 WBC (Bld) 22.3 % Normal 20.5-60.0 [facility] Comment on above: Performed By: #### C BC #### [facility] [address] [place] [address] Dr. David Garduno MANUAL DIFF REQ NO Normal [facility] Comment on above: Performed By: #### C BC #### [facility] [address] [place] [address] Dr. David Garduno MCH (RBC) [Entitic mass] 31.0 pg Normal 26.7-34.0 [facility] Comment on above: Performed By: #### C BC #### [facility] [address] [place] [address] Dr. David Garduno MCHC (RBC) [Mass/Vol] 35.3 g/dL Critically high 29.9-35.2 [facility] Comment on above: Performed By: #### C BC #### [facility] [address] [place] [address] Dr. David Garduno MCV (RBC) [Entitic vol] 87.8 fL Normal 81.0-99.0 [facility] Comment on above: Performed By: #### C BC #### [facility] [address] [place] [address] Dr. David Garduno MONO # 0.5 103/ul Normal 0.3-0.8 [facility] Comment on above: Performed By: #### C BC #### [facility] [address] [place] [address] Dr. David Garduno Monocytes/100 WBC (Bld) 13.0 % Critically high 1.7-12. 0 [facility] Comment on above: Performed By: #### C BC #### [facility] [address] [place] [address] Dr. David Garduno NEUT # 2.2 103/ul Normal 1.4-6.5 [facility] Comment on above: Performed By: #### C BC #### [facility] [address] [place] [address] Dr. David Garduno Neutrophils/100 WBC (Bld) 62.1 % Normal 43.0-75.0 [facility] Comment on above: Performed By: #### C BC #### [facility] [address] [address] [address] David Garduno Platelet mean volume (Bld) [Entitic vol] 10.4 fL Normal 9.5-13.5 [facility] Comment on above: Performed By: #### C BC #### [facility] [address] [address] [address] David Garduno PLT 174 103/ul Normal 150-450 [facility] Comment on above: Performed By: #### C BC #### [facility] [address] [address] [address] David Garduno RBC 4.77 106/ul Normal 4.20-5.40 [facility] Comment on above: Performed By: #### C BC #### [facility] [address] [address] [address] David Garduno WBC 3.5 103/ul Critically low 4.0-11.0 [facility] Comment on above: Performed By: #### C BC #### [facility] [address] [place] [address] ABD/PELVIS WO CONon [...] by: PAIGE KERR Date: 2022-12-10 10:51 Normal [facility] PREG HCG QUALon 12-10-2022 , QUAL Negative Normal NEGATIVE [facility] Comment on above: Performed By: #### P REG #### [facility] [address] [place] [address] Dr. David Garduno PROF CHEM 8 (BAS METB)on Anion gap [Moles/Vol] 13.0 mmol/L Normal [facility] Comment on above: Performed By: #### R PRQ #### [facility] [address] [address] [address] David Garduno Calcium [Mass/Vol] 8.5 mg/dL Normal 8.5-10.1 [facility] Comment on above: Performed By: #### R PRQ #### [facility] [address] [address] [address] David Garduno Chloride [Moles/Vol] 103 mmol/L Normal 98-107 [facility] Comment on above: Performed By: #### R PRQ #### [facility] [address] [address] [address] David Garduno CO2 [Moles/Vol] 26.4 mmol/L Normal 21.0-32.0 [facility] Comment on above: Performed By: #### R PRQ #### [facility] [address] [address] [address] David Garduno Creatinine [Mass/Vol] 0.85 mg/dL Normal 0.55-1.02 [facility] Comment on above: Performed By: #### R PRQ #### [facility] [address] [address] [address] David Garduno EGFR-AF JORDANIAN >60 Normal >=60 [facility] Comment on above: Performed By: #### R PRQ #### [facility] [address] [place] [address] Dr. David Garduno EGFR-NON AF JORDANIAN >60 Normal >=60 [facility] Comment on above: Performed By: #### R PRQ #### [facility] [address] [address] [address] Daivd Garduno Glucose [Mass/Vol] 97 mg/dL Normal 74-106 [facility] Comment on above: Performed By: #### R PRQ #### [facility] [address] [place] [address] Dr. David Garduno Potassium [Moles/Vol] 4.4 mmol/L Normal 3.5-5.1 [facility] Comment on above: Performed By: #### R PRQ #### [facility] [address] [place] [address] Dr. David Garduno Sodium [Moles/Vol] 138 mmol/L Normal 136-145 [facility] Comment on above: Performed By: #### R PRQ #### [facility] [address] [place] [address] Dr. David Garduno Urea nitrogen [Mass/Vol] 8.0 mg/dL Normal 7.0-18.0 [facility] Comment on above: Performed By: #### R PRQ #### [facility] [address] [place] [address] Dr. David Garduno Urea nitrogen/Creatinine [Mass ratio] 9.4 mg/mg Normal [facility] Comment on above: Performed By: #### R PRQ #### [facility] [address] [place] [address] Dr. David Garduno CBC AUTO DIFFon 04-10-2022 BASO # 0.0 103/ul Normal 0.0-0.1 [facility] Comment on above: Performed By: #### C BC #### [facility] [address] [place] [address] Dr. David Garduno Basophils/100 WBC (Bld) 0.2 % Normal 0.2-2.0 [facility] Comment on above: Performed By: #### C BC #### [facility] [address] [place] [address] Dr. David Garduno EO # 0.0 103/ul Normal 0.0-0.7 [facility] Comment on above: Performed By: #### C BC #### [facility] [address] [place] [address] Dr. David Garduno Eosinophils/100 WBC (Bld) 0.1 % Critically low 0.9-7.0 [facility] Comment on above: Performed By: #### C BC #### [facility] [address] [place] [address] Dr. David Garduno Erythrocyte distribution width (RBC) [Ratio] 13.8 % Normal 11.0-15.0 [facility] Comment on above: Performed By: #### C BC #### [facility] [address] [place] [address] Dr. David Garduno Hematocrit (Bld) [Volume fraction] 30.0 % Critically low 36.0-48.0 [facility] Comment on above: Performed By: #### C BC #### [facility] [address] [place] [address] Dr. David Garduno Hemoglobin (Bld) [Mass/Vol] 9.9 g/dL Critically low 12.0-16.0 [facility] Comment on above: Performed By: #### C BC #### [facility] [address] [place] [address] Dr. David Garduno IG # 0.03 10e3/ul Normal 0.00-0.03 [facility] Comment on above: Performed By: #### C BC #### [facility] [address] [place] [address] Dr. David Garduno IG % 0.3 % Normal 0.0-0.5 [facility] Comment on above: Performed By: #### C BC #### [facility] [address] [address] [address] David Garduno LYMPH # 1.8 103/ul Normal 1.2-3.8 [facility] Comment on above: Performed By: #### C BC #### [facility] [address] [address] [address] David Garduno Lymphocytes/100 WBC (Bld) 17.2 % Critically low 20.5-60.0 [facility] Comment on above: Performed By: #### C BC #### [facility] [address] [place] [address] Dr. David Garduno MANUAL DIFF REQ NO Normal [facility] Comment on above: Performed By: #### C BC #### [facility] [address] [place] [address] Dr. David Garduno MCH (RBC) [Entitic mass] 28.4 pg Normal 26.7-34.0 [facility] Comment on above: Performed By: #### C BC #### [facility] [address] [place] [address] Dr. David Garduno MCHC (RBC) [Mass/Vol] 33.0 g/dL Normal 29.9-35.2 [facility] Comment on above: Performed By: #### C BC #### [facility] [address] [place] [address] Dr. David Garduno MCV (RBC) [Entitic vol] 86.0 fL Normal 81.0-99.0 [facility] Comment on above: Performed By: #### C BC #### [facility] [address] [place] [address] Dr. David Garduno MONO # 0.8 103/ul Normal 0.3-0.8 [facility] Comment on above: Performed By: #### C BC #### [facility] [address] [place] [address] Dr. David Garduno Monocytes/100 WBC (Bld) 7.9 % Normal 1.7-12.0 [facility] Comment on above: Performed By: #### C BC #### [facility] [address] [address] [address] David Garduno NEUT # 7.6 103/ul Critically high 1.4-6.5 [facility] Comment on above: Performed By: #### C BC #### [facility] [address] [address] [address] David Garduno Neutrophils/100 WBC (Bld) 74.3 % Normal 43.0-75.0 [facility] Comment on above: Performed By: #### C BC #### [facility] [address] [place] [address] Dr. David Garduno Platelet mean volume (Bld) [Entitic vol] 11.6 fL Normal 9.5-13.5 [facility] Comment on above: Performed By: #### C BC #### [facility] [address] [place] [address] Dr. David Garduno PLT 155 103/ul Normal 150-450 [facility] Comment on above: Performed By: #### C BC #### [facility] [address] [place] [address] Dr. David Garduno RBC 3.49 106/ul Critically low 4.20-5.40 [facility] Comment on above: Performed By: #### C BC #### [facility] [address] [place] [address] Dr. David Garduno WBC 10.2 103/ul Normal 4.0-11.0 [facility] Comment on above: Performed By: #### C BC #### [facility] [address] [place] [address] Dr. David Garduno CBC AUTO DIFFon 04-09-2022 BASO # 0.0 103/ul Normal 0.0-0.1 [facility] Comment on above: Performed By: #### C BC #### [facility] [address] [place] [address] Dr. David Garduno Basophils/100 WBC (Bld) 0.2 % Normal 0.2-2.0 [facility] Comment on above: Performed By: #### C BC #### [facility] [address] [place] [address] Dr. David Garduno EO # 0.0 103/ul Normal 0.0-0.7 [facility] Comment on above: Performed By: #### C BC #### [facility] [address] [place] [address] Dr. David Garduno Eosinophils/100 WBC (Bld) 0.5 % Critically low 0.9-7.0 [facility] Comment on above: Performed By: #### C BC #### [facility] [address] [place] [address] Dr. David Garduno Erythrocyte distribution width (RBC) [Ratio] 14.0 % Normal 11.0-15.0 [facility] Comment on above: Performed By: #### C BC #### [facility] [address] [place] [address] Dr. David Garduno Hematocrit (Bld) [Volume fraction] 35.5 % Critically low 36.0-48.0 [facility] Comment on above: Performed By: #### C BC #### [facility] [address] [place] [address] Dr. David Garduno Hemoglobin (Bld) [Mass/Vol] 11.6 g/dL Critically low 12.0-16.0 [facility] Comment on above: Performed By: #### C BC #### [facility] [address] [place] [address] Dr. David Garduno IG # 0.02 10e3/ul Normal 0.00-0.03 [facility] Comment on above: Performed By: #### C BC #### [facility] [address] [place] [address] Dr. David Garduno IG % 0.2 % Normal 0.0-0.5 [facility] Comment on above: Performed By: #### C BC #### [facility] [address] [place] [address] Dr. David Garduno LYMPH # 1.9 103/ul Normal 1.2-3.8 [facility] Comment on above: Performed By: #### C BC #### [facility] [address] [place] [address] Dr. David Garduno Lymphocytes/100 WBC (Bld) 22.8 % Normal 20.5-60.0 [facility] Comment on above: Performed By: #### C BC #### [facility] [address] [place] [address] Dr. David Garduno MANUAL DIFF REQ NO Normal [facility] Comment on above: Performed By: #### C BC #### [facility] [address] [place] [address] Dr. David Garduno MCH (RBC) [Entitic mass] 28.4 pg Normal 26.7-34.0 [facility] Comment on above: Performed By: #### C BC #### [facility] [address] [place] [address] Dr. David Garduno MCHC (RBC) [Mass/Vol] 32.7 g/dL Normal 29.9-35.2 [facility] Comment on above: Performed By: #### C BC #### [facility] [address] [place] [address] Dr. David Garduno MCV (RBC) [Entitic vol] 86.8 fL Normal 81.0-99.0 [facility] Comment on above: Performed By: #### C BC #### [facility] [address] [place] [address] Dr. David Garduno MONO # 0.8 103/ul Normal 0.3-0.8 [facility] Comment on above: Performed By: #### C BC #### [facility] [address] [place] [address] Dr. David Garduno Monocytes/100 WBC (Bld) 9.6 % Normal 1.7-12.0 [facility] Comment on above: Performed By: #### C BC #### [facility] [address] [place] [address] Dr. David Garduno NEUT # 5.6 103/ul Normal 1.4-6.5 [facility] Comment on above: Performed By: #### C BC #### [facility] [address] [place] [address] Dr. David Garduno Neutrophils/100 WBC (Bld) 66.7 % Normal 43.0-75.0 [facility] Comment on above: Performed By: #### C BC #### [facility] [address] [place] [address] Dr. David Garduno Platelet mean volume (Bld) [Entitic vol] 12.0 fL Normal 9.5-13.5 [facility] Comment on above: Performed By: #### C BC #### [facility] [address] [place] [address] Dr. David Garduno PLT 197 103/ul Normal 150-450 [facility] Comment on above: Performed By: #### C BC #### [facility] [address] [place] [address] Dr. David Garduno RBC 4.09 106/ul Critically low 4.20-5.40 [facility] Comment on above: Performed By: #### C BC #### [facility] [address] [place] [address] Dr. David Garduno WBC 8.3 103/ul Normal 4.0-11.0 [facility] Comment on above: Performed By: #### C BC #### [facility] [address] [place] [address] Dr. David Garduno TYPE AND SCREENon 04-09-2022 TYPE AND SCREEN Negative Normal [facility] Comment on above: Performed By: #### C BC #### [facility] [address] [place] [address] Dr. David Garduno UA (CLEAN/CATCH) ETYMOLOGY PROFESSOR/MICRO I F IND.on 04-09-2022 Bilirubin Ql (U) Negative Normal NEGATIVE [facility] Comment on above: Performed By: #### R PRQ #### [facility] [address] [place] [address] Dr. David Garduno Clarity (U) CLEAR Normal CLEAR [facility] Comment on above: Performed By: #### R PRQ #### [facility] [address] [place] [address] Dr. David Garduno Color (U) LT. YELLOW Normal YELLOW [facility] Comment on above: Performed By: #### R PRQ #### [facility] [address] [address] [address] David Garduno Glucose Ql (U) Negative Normal NEGATIVE [facility] Comment on above: Performed By: #### R PRQ #### [facility] [address] [address] [address] David Garduno Hemoglobin Ql (U) Negative Normal NEGATIVE [facility] Comment on above: Performed By: #### R PRQ #### [facility] [address] [place] [address] Dr. Daivd Garduno Ketones Ql (U) Negative Normal NEGATIVE [facility] Comment on above: Performed By: #### R PRQ #### [facility] [address] [place] [address] Dr. David Garduno LEUKOCYTES Negative Normal NEGATIVE [facility] Comment on above: Performed By: #### R PRQ #### [facility] [address] [address] [address] David Garduno Nitrite Ql (U) Negative Normal NEGATIVE [facility] Comment on above: Performed By: #### R PRQ #### [facility] [address] [place] [address] Dr. David Garduno pH (U) 6.5 [pH] Normal 5-9 [facility] Comment on above: Performed By: #### R PRQ #### [facility] [address] [place] [address] Dr. David Garduno SPEC GRAVITY 1.010 Normal 1.005-<=1.02 5 [facility] Comment on above: Performed By: #### R PRQ #### [facility] [address] [address] [address] David Garduno UA PROTEIN Negative Normal NEGATIVE/ TRACE [facility] Comment on above: Performed By: #### R PRQ #### [facility] [address] [place] [address] Dr. David Garduno UR MICRO IND NOT INDICATED Normal [facility] Comment on above: Performed By: #### R PRQ #### [facility] [address] [place] [address] Dr. David Garduno Urobilinogen Qn (U) 0.2 {Taye'U}/dL Normal 0.2 - 1. 0 [facility] Comment on above: Performed By: #### R PRQ #### [facility] [address] [address] [address] David Garduno Covid-19 PCR ([facility])on 03-30 SARS-CoV-2 (COVID-19) RNA CARLOS+probe Ql (Unsp spec) Not detected Normal NOT DETECTED [facility] Comment on above: Result Comment: This test is not yet approved or cleared by the [place] FDA. When there are no FDA-approved or cleared tests available, and other criteria are met, FDA can make tests available under an emergency access mechanism called an Emergency Use Authorization (EUA). The EUA for this test is supported by the [employer] of Health and Human Service's (HHS's) declaration [...] By: #### C VDTBH #### [facility] [address] [place] [address] Dr. David Garduno US PREG BIOPHY W [...] ; BPP 8/8. Electronically authenticated by: ALEXI WINN Date: 2022-04-06 18:46 Normal [facility] GROUP B STREP CULTUREon S. agalactiae Ag Ql (Unsp spec) Culture Observations: NEGATIVE FOR GROUP B STREPTOCOCCUS. Normal [facility] Comment on above: Performed By: #### C BC #### [facility] [address] [address] [address] David Garduno UA (CLEAN/CATCH) ETYMOLOGY PROFESSOR/MICRO I F IND.on 03-25-2022 Bilirubin Ql (U) Negative Normal NEGATIVE [facility] Comment on above: Performed By: #### U ACSIND #### [facility] [address] [place] [address] Dr. David Garduno Clarity (U) CLEAR Normal CLEAR [facility] Comment on above: Performed By: #### U ACSIND #### [facility] [address] [place] [address] Dr. David Garduno Color (U) LT. YELLOW Normal YELLOW [facility] Comment on above: Performed By: #### U ACSIND #### [facility] [address] [address] [address] David Garduno Glucose Ql (U) Negative Normal NEGATIVE [facility] Comment on above: Performed By: #### U ACSIND #### [facility] [address] [address] [address] David Garduno Hemoglobin Ql (U) Negative Normal NEGATIVE [facility] Comment on above: Performed By: #### U ACSIND #### [facility] [address] [address] [address] David Garduno Ketones Ql (U) Negative Normal NEGATIVE [facility] Comment on above: Performed By: #### U ACSIND #### [facility] [address] [address] [address] David Garduno LEUKOCYTES Negative Normal NEGATIVE [facility] Comment on above: Performed By: #### U ACSIND #### [facility] [address] [place] [address] Dr. David Garduno Nitrite Ql (U) Negative Normal NEGATIVE [facility] Comment on above: Performed By: #### U ACSIND #### [facility] [address] [address] [address] David Garduno pH (U) 6.0 [pH] Normal 5-9 [facility] Comment on above: Performed By: #### U ACSIND #### [facility] Laboratory [address] [address] [address] David Garduno SPEC GRAVITY <=1.005 Abnormal 1.005-<=1.02 5 [facility] Comment on above: Performed By: #### U ACSIND #### [facility] [address] [place] [address] Dr. David Garduno UA PROTEIN Negative Normal NEGATIVE/ TRACE [facility] Comment on above: Performed By: #### U ACSIND #### [facility] [address] [place] [address] Dr. David Garduno UR MICRO IND NOT INDICATED Normal [facility] Comment on above: Performed By: #### U ACSIND #### [facility] [address] [place] [address] Dr. David Garduno Urobilinogen Qn (U) 0.2 {Taye'U}/dL Normal 0.2 - 1. 0 [facility] Comment on above: Performed By: #### U ACSIND #### [facility] [address] [place] [address] Dr. David Garduno UA (CLEAN/CATCH) ETYMOLOGY PROFESSOR/MICRO I F IND.on 03-16-2022 Bilirubin Ql (U) Negative Normal NEGATIVE [facility] Comment on above: Performed By: #### R PRQ #### [facility] [address] [place] [address] Dr. David Garduno Clarity (U) CLEAR Normal CLEAR [facility] Comment on above: Performed By: #### R PRQ #### [facility] [address] [place] [address] Dr. David Garduno Color (U) LT. YELLOW Normal YELLOW [facility] Comment on above: Performed By: #### R PRQ #### [facility] [address] [place] [address] Dr. David Garduno Glucose Ql (U) Negative Normal NEGATIVE [facility] Comment on above: Performed By: #### R PRQ #### [facility] [address] [place] [address] Dr. David Garduno Hemoglobin Ql (U) Negative Normal NEGATIVE [facility] Comment on above: Performed By: #### R PRQ #### [facility] [address] [place] [address] Dr. David Garduno Ketones Ql (U) Negative Normal NEGATIVE [facility] Comment on above: Performed By: #### R PRQ #### [facility] [address] [place] [address] Dr. David Garduno LEUKOCYTES Negative Normal NEGATIVE [facility] Comment on above: Performed By: #### R PRQ #### [facility] [address] [place] [address] Dr. David Garduno Nitrite Ql (U) Negative Normal NEGATIVE [facility] Comment on above: Performed By: #### R PRQ #### [facility] [address] [place] [address] Dr. David Garduno pH (U) 6.0 [pH] Normal 5-9 [facility] Comment on above: Performed By: #### R PRQ #### [facility] [address] [place] [address] Dr. David Garduno SPEC GRAVITY <=1.005 Abnormal 1.005-<=1.02 5 [facility] Comment on above: Performed By: #### R PRQ #### [facility] [address] [place] [address] Dr. David Garduno UA PROTEIN Negative Normal NEGATIVE/ TRACE [facility] Comment on above: Performed By: #### R PRQ #### [facility] [address] [place] [address] Dr. David Garduno UR MICRO IND NOT INDICATED Normal [facility] Comment on above: Performed By: #### R PRQ #### [facility] [address] [place] [address] Dr. David Garduno Urobilinogen Qn (U) 0.2 {Taye'U}/dL Normal 0.2 - 1. 0 [facility] Comment on above: Performed By: #### R PRQ #### [facility] [address] [address] [address] David Garduno XR wrist LT min 3V*on 2020 XR wrist LT min 3V* [facility] [place] [address] [place] [address] XRay Report Signed Patient: Marlin Cade MR#: [id number] : 1990 Acct:[id number] Age/Sex: 30 / F ADM Date: 05/21/21 Loc: XDUCLY Room: Type: [facility] Attending Dr: Beckie WRAY Ordering Provider: BECKIE ELI Date of Service: 05/21/21 XR/XR wrist LT min 3V*: Left wrist pain Copies to: BECKIE ELI 4 viewsLEFT wrist plain film COMPARISON:None HISTORY:LEFT wrist pain for 2 weeks. No injury. No fracture, dislocation or focal soft tissue abnormality seen. No significant degeneration. XR/XR wrist LT min 3V* IMPRESSION:Unremarka ble exam. Impression dictated by: Cedric Joy M.D.05/21/2021 2:31 PM Dictation Location: [address] [address] Transcribed By: [facility] 05/21/21 1431 Dictated By: Cedric Joy DO 05/21/21 1429 Signed By: 05/21/21 1431 Normal [facility] Physician Orderon 09-23-2020 Physician Order [id number] 5#1.00CD:127 Normal [facility] Physician Order [id number] 0#1.00CD:127 Normal [facility] Suboxone Scr Uron 09-23-2020 Buprenorphine Ql (U) Negative Normal Negative Fish er [facility] Comment on above: Performed By: #### 7 [id number] #### [facility] Laboratory [address] [place] [address] U Drug Screenon 09-23-2020 Amphetamines Screen method >1000 ng/mL Ql (U) Negative Normal Negative [facility] Comment on above: Result Comment: Nega tive Cutoff: <1000 ng/mL Performed By: #### 7 [id number] #### [facility] Laboratory [address] [place] [address] Barbiturates Screen Ql (U) Negative Normal Negative [facility] Comment on above: Result Comment: Nega tive Cutoff: <200 ng/mL Performed By: #### 7 [id number] #### [facility] [address] [place] [address] Benzodiazepines Ql (U) Negative Normal Negative [facility] Comment on above: Result Comment: Nega tive Cutoff: <200 ng/mL Performed By: #### 7 [id number], [id number] #### [facility] [address] [place] [address] Cocaine Ql (U) Negative Normal Negative [facility] Comment on above: Result Comment: Nega tive Cutoff: <300 ng/mL Performed By: #### 7 [id number], [id number] #### [facility] [address] [place] [address] Opiates Screen Ql (U) Negative Normal Negative [facility] Comment on above: Result Comment: Nega tive Cutoff: <300 ng/mL Performed By: #### 7 [id number], [id number] #### [facility] [address] [place] [address] Phencyclidine Screen method >25 ng/mL Ql (U) Negative Normal Negative [facility] Comment on above: Result Comment: Nega tive Cutoff: <25 ng/mL These drug screen results are to be used for medical (i.e., treatment) purposes only. Unconfirmed drug screening results must not be used for non-medical purposes (e.g., employment testing, legal testing). Performed By: #### 7 [id number], [id number] #### [facility] [address] [place] [address] Tetrahydrocannabinol Screen method >50 ng/mL Ql (U) Negative Normal Negative [facility] Comment on above: Result Comment: Nega tive Cutoff: <50 ng/mL Performed By: #### 7 [id number], [id number] #### [facility] [address] [place] [address] Vital Signs Date Time Vital Sign Value Performing Clinician Facility 11-27-2024 13:41-0500 Body mass index (BMI) [Ratio] 36.18 kg/m2 Marv Keturah DO Work Phone: [facility] 11-27-2024 13:41-0500 Body weight 111.13 kg Marv Keturah DO Work Phone: [facility] 11-27-2024 13:41-0500 Diastolic blood pressure 72 mm[Hg] Marv Keturah DO Work Phone: [facility] 11-27-2024 13:41-0500 Systolic blood pressure 114 mm[Hg] Marv Keturah DO Work Phone: [facility] 09-09-2024 13:53-0500 Body height 175.3 cm Aliya Alicia DO Work Phone: [facility] 09-09-2024 13:53-0500 Body mass index (BMI) [Ratio] 35.65 kg/m2 Aliya Alicia DO Work Phone: [facility] 09-09-2024 13:53-0500 Body temperature 97.39 [degF] Aliya Alicia DO Work Phone: [facility] 09-09-2024 13:53-0500 Body weight 109.5 kg Aliya Alicia DO Work Phone: [facility] 09-09-2024 13:53-0500 Diastolic blood pressure 78 mm[Hg] Aliya Alicia DO Work Phone: [facility] 09-09-2024 13:53-0500 Heart rate 85 /min Aliya Alicia DO Work Phone: [facility] 09-09-2024 13:53-0500 SaO2% (BldA) [Mass fraction] 96 % Aliya Alicia DO Work Phone: [facility] 09-09-2024 13:53-0500 Systolic blood pressure 114 mm[Hg] Aliya Alicia DO Work Phone: [facility] 06-30-2024 14:04-0400 Body height 175.26 cm [facility] 06-30-2024 14:04-0400 Body mass index (BMI) [Ratio] 35.2 kg/m2 [facility] 06-30-2024 14:04-0400 Body temperature 97.8 [degF] [facility] 06-30-2024 14:04-0400 Body weight 108.4 kg [facility] 06-30-2024 14:04-0400 Diastolic blood pressure 76 mm[Hg] [facility] 06-30-2024 14:04-0400 Heart rate 81 /min [facility] 06-30-2024 14:04-0400 Respiratory rate 16 /min [facility] 06-30-2024 14:04-0400 SaO2% (BldA) [Mass fraction] 98 % [facility] 06-30-2024 14:04-0400 Systolic blood pressure 116 mm[Hg] [facility] 06-24-2024 11:12-0400 Body height 175.26 cm [facility] 06-24-2024 11:12-0400 Body mass index (BMI) [Ratio] 33.5 kg/m2 [facility] 06-24-2024 11:12-0400 Body temperature 98.1 [degF] [facility] 06-24-2024 11:12-0400 Body weight 102.96 kg [facility] 06-24-2024 11:12-0400 Diastolic blood pressure 67 mm[Hg] [facility] 06-24-2024 11:12-0400 Heart rate 85 /min [facility] 06-24-2024 11:12-0400 Respiratory rate 18 /min [facility] 06-24-2024 11:12-0400 SaO2% (BldA) [Mass fraction] 98 % [facility] 06-24-2024 11:12-0400 Systolic blood pressure 108 mm[Hg] [facility] 02-19-2024 09:43-0400 Body height 175.26 cm [facility] 02-19-2024 09:43-0400 Body mass index (BMI) [Ratio] 35.6 kg/m2 [facility] 02-19-2024 09:43-0400 Body temperature 98 [degF] [facility] 02-19-2024 09:43-0400 Body weight 109.31 kg [facility] 02-19-2024 09:43-0400 Heart rate 80 /min [facility] 02-19-2024 09:43-0400 Respiratory rate 18 /min [facility] 02-19-2024 09:43-0400 SaO2% (BldA) [Mass fraction] 97 % [facility] 10-18-2023 08:50-0500 Diastolic blood pressure 66 mm[Hg] Vandana Loyd MD, PhD Work Phone: [facility] 10-18-2023 08:50-0500 Heart rate 71 /min Vandana Loyd MD, PhD Work Phone: [facility] 10-18-2023 08:50-0500 Respiratory rate 14 /min Vandana Loyd MD, PhD Work Phone: [facility] 10-18-2023 08:50-0500 SaO2% (BldA) [Mass fraction] 97 % Vandana Loyd MD, PhD Work Phone: [facility] 10-18-2023 08:50-0500 Systolic blood pressure 106 mm[Hg] Vandana Loyd MD, PhD Work Phone: [facility] 10-18-2023 08:28-0500 Body temperature 97.5 [degF] Vandana Loyd MD, PhD Work Phone: [facility] 10-18-2023 07:46-0500 Body height 175.3 cm Vandana Loyd MD, PhD Work Phone: [facility] 10-18-2023 07:46-0500 Body weight 108.86 kg Vandana Loyd MD, PhD Work Phone: [facility] 05-12-2023 07:44-0400 Body height 175.3 cm Vandana Loyd MD, PhD Work Phone: [facility] 05-12-2023 07:44-0400 Body weight 105.87 kg Vandana Loyd MD, PhD Work Phone: [facility] 05-12-2023 07:44-0400 Diastolic blood pressure 58 mm[Hg] Vandana Loyd MD, PhD Work Phone: [facility] 05-12-2023 07:44-0400 Heart rate 78 /min Vandana Loyd MD, PhD Work Phone: [facility] 05-12-2023 07:44-0400 Systolic blood pressure 115 mm[Hg] Vandana Loyd MD, PhD Work Phone: [facility] 10-19-2022 14:00-0500 Body height 175.26 cm Baldemar Arnett Other [employer] Other 10-19-2022 14:00-0500 Body mass index (BMI) [Ratio] 31.01 kg/m2 Baldemar Arnett Other [employer] Other 10-19-2022 14:00-0500 Body weight 95.26 kg Baldemar Arnett Other [employer] Other 10-19-2022 14:00-0500 Diastolic blood pressure 64 mm[Hg] Baldemar Arnett Other [employer] Other 10-19-2022 14:00-0500 Systolic blood pressure 110 mm[Hg] Baldemar Arnett Other [employer] Other 08-09-2021 18:30-0400 Body height 175.26 cm Beckie Eli Other [employer] Other 08-09-2021 18:30-0400 Body mass index (BMI) [Ratio] 30.65 kg/m2 Beckie Eli Other [employer] Other 08-09-2021 18:30-0400 Body weight 94.17 kg Beckie Eli Other [employer] Other 08-09-2021 18:30-0400 Diastolic blood pressure 68 mm[Hg] Beckie Pratherault Other [employer] Other 08-09-2021 18:30-0400 Respiratory rate 16 /min Beckie Eli Other [employer] Other 08-09-2021 18:30-0400 SaO2% (BldA) [Mass fraction] 99 % Beckie Eli Other [employer] Other 08-09-2021 18:30-0400 Systolic blood pressure 117 mm[Hg] Beckie Pratherault Other [employer] Other 07-25-2021 14:20-0400 Body height 175.26 cm Vaishali Desir Other [employer] Other 07-25-2021 14:20-0400 Body mass index (BMI) [Ratio] 31.3 kg/m2 Vaishali Desaiy Other [employer] Other 07-25-2021 14:20-0400 Body temperature 97.1 [degF] Vaishali Ginty Other [employer] Other 07-25-2021 14:20-0400 Body weight 96.16 kg Vaishali Ginty Other [employer] Other 07-25-2021 14:20-0400 Diastolic blood pressure 58 mm[Hg] Vaishali Ginty Other [employer] Other 07-25-2021 14:20-0400 Respiratory rate 16 /min Vaishali Ginty Other [employer] Other 07-25-2021 14:20-0400 SaO2% (BldA) [Mass fraction] 99 % Vaishali Ginty Other [employer] Other 07-25-2021 14:20-0400 Systolic blood pressure 107 mm[Hg] Vaishali Ginty Other [employer] Other Encounters Encounter Date Encounter Type Care Provider Facility Start: 12-17-2024 End: 12-17-2024 Clinisync Result Encounter Marv Keturah DO Work Phone: [facility] Unsolicited Start: 12-17-2024 End: 12-17-2024 Clinisync Result Encounter Marv Keturah DO Work Phone: [facility] Unsolicited Start: 11-27-2024 End: 11-27-2024 Bamboo flowsheet Marv Keturah DO Work Phone: [facility] Start: 11-27-2024 End: 11-27-2024 Bamboo flowsheet Marv Keturah DO Work Phone: [facility] Start: 11-27-2024 End: 11-27-2024 Office outpatient visit 15 minutes Marv Rebollar DO Work Phone: [facility] Comment on above: Pelvic pain in femal e; Vaginal discharge; PCOS (polycystic ovarian syndrome); Abnormal uterine bleeding (AUB) Start: 11-27-2024 End: 11-27-2024 ambulatory MARV REBOLLAR Not Available Start: 10-15-2024 End: 10-16-2024 ambulatory Boy Morales [employer] [facility] Comment on above: Sprain of medial col lateral ligament of right knee, initial encounter (Primary Dx); Right knee pain, unspecified chronicity Start: 10-15-2024 End: 10-15-2024 Bamboo flowsheet Boy Morales [employer] [facility] Start: 10-15-2024 End: 10-15-2024 Bamboo flowsheet Boy Morales [employer] [facility] Start: 10-10-2024 End: 10-10-2024 ambulatory Makenna Camacho [facility] [employer] [facility] Comment on above: Sprain of medial col lateral ligament of right knee, initial encounter (Primary Dx); Right knee pain, unspecified chronicity Start: 10-10-2024 End: 10-10-2024 Bamboo flowsheet Makenna Camacho [employer] [facility] Start: 10-10-2024 End: 10-10-2024 Bamboo flowsheet Makenna Camacho [employer] [employer] [facility] Start: 10-07-2024 End: 10-07-2024 ambulatory Boy Christopher [employer] [employer] [facility] Comment on above: Sprain of medial col lateral ligament of right knee, initial encounter (Primary Dx); Right knee pain, unspecified chronicity Start: 10-07-2024 End: 10-07-2024 Bamboo flowsheet Boy Morales [employer] [employer] [facility] Start: 10-07-2024 End: 10-07-2024 Bamboo flowsheet Boy Morales [employer] [employer] [facility] Start: 10-04-2024 End: 10-04-2024 Bamboo flowsheet Boy Morales [employer] [facility] Start: 10-04-2024 End: 10-04-2024 Bamboo flowsheet Boy Morales [employer] [facility] Start: 10-04-2024 End: 10-04-2024 ambulatory Boy Morales [employer] [facility] Comment on above: Sprain [...] 09-23-2024 Telephone encounter Aaliyah Oh LPN [facility] Comment on above: Results; Referral Start: 09-20-2024 End: 09-20-2024 ambulatory ALIYA Galeano PETJAKIICK Not Available Start: 09-09-2024 End: 09-09-2024 ambulatory ALIYA C PETZNICK Not Available Start: 09-09-2024 End: 09-09-2024 Bamboo flowsheet Aliya Galeano Petznick DO Work Phone: [facility] Start: 09-09-2024 End: 09-09-2024 Bamboo flowsheet Aliya Galeano Petznick DO Work Phone: [facility] Start: 09-09-2024 End: 09-09-2024 Office outpatient visit 25 minutes Aliya Galeano Petznick DO Work Phone: [facility] Comment on above: Right knee pain, uns pecified chronicity (Primary Dx); Severe obesity (BMI 35.0-39.9) with comorbidity (CMS/HCC) Start: 09-09-2024 End: 09-09-2024 ambulatory ALIYA Galeano PETZNICK Not Available Start: 06-30-2024 End: 06-30-2024 ambulatory [facility] Work Phone: Start: 06-30-2024 End: 06-30-2024 Patient encounter procedure [facility] Work Phone: Start: 06-24-2024 End: 06-24-2024 ambulatory [facility] Work Phone: Start: 06-24-2024 End: 06-24-2024 Patient encounter procedure [facility] Work Phone: Start: 02-19-2024 End: 02-19-2024 ambulatory [facility] Work Phone: Start: 02-19-2024 End: 02-19-2024 Patient encounter procedure [facility] Work Phone: Start: 01-08-2024 End: 01-08-2024 ambulatory ALIYA ALICIA Not Available Start: 10-18-2023 ambulatory VANDANA LOYD Faci lity:[facility] Start: 10-18-2023 End: 10-18-2023 Subsequent hospital visit by physician Vandana Loyd MD, PhD Work Phone: Procedures Comment on above: Rectal bleeding [K62 .5] Start: 05-15-2023 Telephone encounter Evert salazar Work Phone: Gastroenterology Comment on above: Release Of Medical R ecords (/) Start: 05-12-2023 End: 05-13-2023 ambulatory VANDANA LOYD Facility:[facility] Start: 05-12-2023 End: 05-12-2023 Patient encounter procedure Vandana Loyd MD, PhD Work Phone: Gastroenterology Comment on [...] 01-17-2023 End: 01-17-2023 ambulatory Baldemar Arnett Other [employer] Other Start: 01-17-2023 Telephone encounter Baldemar IVY G [facility] Start: 01-16-2023 End: 01-16-2023 ambulatory Baldemar Arnett Other [employer] Other Start: 01-16-2023 Telephone encounter Baldemar IVY G [facility] Start: 12-10-2022 End: 12-10-2022 ambulatory BECKIE ELI Facility:[facility] Start: 10-19-2022 End: 10-19-2022 ambulatory Baldemar Arnett Other [employer] Other Start: 10-19-2022 [facility] visit new patient Baldemar GARCIA [facility] Start: 04-21-2022 Encounter for preprocedural laboratory examination MARCOS MARTELL [facility] Start: 04-14-2022 End: 04-14-[address] MARV REBOLLAR . Facility:[facility] Start: 04-11-2022 Encounter for preprocedural laboratory examination DR MARV REBOLLAR . [facility] Start: 04-11-2022 Evaluation and management of inpatient DR MARV REBOLLAR . Facility:[facility] Start: 04-09-2022 End: 04-11-2022 Evaluation and management of inpatient DR MAVR REBOLLAR . Facility:[facility] Start: 04-08-2022 End: 04-09-2022 [...] Facility:[facility] Start: 08-20-2021 Telephone encounter Beckie traore [facility] Director Of Litigation Start: 08-09-2021 Office outpatient visit 15 minutes Beckie Eli [facility] Start: 07-25-2021 Office outpatient visit 15 minutes Vaishali Desir [facility] Procedures Date Procedure Procedure Detail Performing Clinician Start: 12-17-2024 US PELVIS W/ TRANSVAGINAL Marv Keturah DO Work Phone: Start: 12-17-2024 ALL CBC WITH AUTO DIFF Marv Keturah DO Work Phone: Start: 11-27-2024 End: 11-27-2024 Urnls dip stick/tablet rgnt non-auto w/o micrscp Marv Keturah DO Work Phone: Start: 09-09-2024 Radiologic examinati on knee 3 views Aliya Alicia DO Work Phone: Start: 10-18-2023 Colonoscopy flx dx w/collj spec when pfrmd Vandana Loyd MD, PhD Work Phone: Start: 10-18-2023 SURGICAL PATHOLOGY Franca Loyd MD, PhD Work Phone: Start: 05-12-2023 Assay of calprotecti n fecal Vandana Loyd MD, PhD Work Phone: Start: 04-03-2023 Microscopic [...] for malign ant neoplasm of cervix HPV/Cotest [facility] Start: 04-03-2028 Screening for malign ant neoplasm of cervix [facility] Start: 12-23-2024 End: 12-23-2024 Patient encounter procedure 12/23/2024 1:50 PM EST Consult [facility] [address] [place] [phone] Marv Rebollar, DO [address] [facility] [address] [place], [place] [id number] [facility] Start: 12-11-2024 End: 12-11-2024 Professional / ancillary services management 12/11/2024 9:00 AM EST Ancillary Procedure [address] [place] [phone] [facility] Start: 11-27-2024 End: 11-27-2025 DHEA DHEA Lab Routine PCOS (polycystic ovarian syndrome) Expected: 11/27/2024 (Approximate), Expires: 11/27/2025 [facility] Comment on above: Expected: 11/27/2024 (Approximate), Expires: 11/27/2025 Start: 11-27-2024 End: 11-27-2025 SURESWAB(R) ADVANCED VAGINITIS PLUS, TMA SURESWAB(R) ADVANCED VAGINITIS PLUS, TMA Pathology and Cytology Routine Pelvic pain in female Expected: 11/27/2024 (Approximate), Expires: 11/27/2025 [facility] Work Phone: Comment on above: Expected: 11/27/2024 (Approximate), Expires: 11/27/2025 Start: 11-27-2024 End: 11-27-2025 US Pelvis US Pelvis w/ TV Imaging Routine Pelvic pain in female Expected: 11/27/2024 (Approximate), Expires: 11/27/2025 [facility] Comment on above: Expected: 11/27/2024 (Approximate), Expires: 11/27/2025 Start: 11-27-2024 End: 11-27-2024 Patient encounter procedure 11/27/2024 1:30 PM EST Office Visit [facility] [address] [place] [phone] Marv Rebollar, [address] [facility] [place] [address] Arrived [facility] Comment on above: Arrived Start: 11-04-2024 Influenza vaccination Influenza Vacc ine (#1) [facility] Comment on above: Postponed from 06/30 (Patient Refused) Start: 10-17-2024 End: 10-17-2024 ambulatory 10/17/2024 2:30 PM EST Treatment [facility] [address] [facility] [address] [place] [address] Celena Clements, PT [facility] Start: 10-15-2024 End: 10-15-2024 ambulatory 10/15/2024 6:00 PM EST Treatment [facility] [address] [facility] [address] [place] [address] Boy Morales, PLATE ROLLER Sprain of medial collateral ligament of right knee, initial encounter (Primary Dx); Right knee pain, unspecified chronicity [facility] Comment on above: Sprain of medial col lateral ligament of right knee, initial encounter (Primary Dx); Right knee pain, unspecified chronicity Start: 10-14-2024 End: 10-14-2024 ambulatory 10/14/2024 1:30 PM EST Treatment [facility] [address] [facility] [address] [place] [address] Boy Morales, PLATE ROLLER [facility] Start: 10-10-2024 End: 10-10-2024 ambulatory [facility] Comment on above: Arrived Start: 10-07-2024 End: 10-07-2024 ambulatory [facility] Comment on above: Arrived Start: 10-04-2024 End: 10-04-2024 ambulatory [facility] Comment on above: Arrived Start: 09-20-2024 End: 09-20-2024 Professional / ancillary services management 09/20/2024 1:30 PM EST Ancillary Procedure [facility] MR [address] [place] [address] [facility] FNR MR Start: 06-30-2024 Influenza vaccination Influenza Vacc ine (#1) [facility] Start: 06-30-2023 Influenza vaccination [facility] Start: 2022 HPV TESTING HPV TESTING [facility] Start: 2022 Screening for malign ant neoplasm of cervix HPV Testing [facility] Start: 10-30-2022 DEPRESSION ASSESSMENT DEPRESSION ASS ESSMENT [facility] Start: 2013 PAP TESTING PAP TESTING [facility] Start: 2013 Screening for malign ant neoplasm of cervix Pap Testing [facility] Start: 2011 Urine microalbumin profile [facility] Start: 2010 HEPATITIS C SCREENING HEPATITIS C [facility] Start: 2010 Hepatitis C screening Hepatitis C [facility] Start: 2010 HIV SCREENING HIV SCREENING [facility] Start: 2010 HIV screening HIV Screening [facility] Start: 06-15-1993 COVID-19 VACCINE (#1) COVID-19 VACCI NE (#1) [facility] Start: 1992 HEPATITIS B (1 of 3 - 3-dose series) HEPATITIS B (1 of 3 - 3-dose series) [facility] Start: 1992 Hepatitis B Vaccine (1 of 3 - 3-dose series) Hepatitis B Vaccine (1 of 3 - 3-dose series) [facility] CBC W Auto Different ial panel - Blood CBC and differential Lab Routine PCOS (polycystic ovarian syndrome) Ordered: 11/27/2024 [facility] Comment on above: Ordered: 11/27/2024 CHLAMYDIA TRACHOMATI S (GENITO/STI) CHLAMYDIA TRACHOMATIS (GENITO/STI) Lab Routine Pelvic pain in female Ordered: 11/27/2024 [facility] Comment on above: Ordered: 11/27/2024 End: 05-12-2024 COLONOSCOPY DIAGNOSTIC COLONOSCOPY DIAGNOSTIC Endoscopy Routine Rectal bleeding 1 Occurrences starting 05/12/2023 until 05/12/2024 [facility] Work Phone: Comment on above: 1 Occurrences starti ng 05/12/2023 until 05/12/2024 DHEA-sulfate DHEA-sulfate Lab Routine PCOS (polycystic ovarian syndrome) Ordered: 11/27/2024 [facility] Comment on above: Ordered: 11/27/2024 Follicle stimulating hormone Follicle stimulating hormone Lab Routine PCOS (polycystic ovarian syndrome) Ordered: 11/27/2024 [facility] Comment on above: Ordered: 11/27/2024 hCG, quantitative, hCG, quantitative, Lab Routine PCOS (polycystic ovarian syndrome) Ordered: 11/27/2024 [facility] Comment on above: Ordered: 11/27/2024 Hemoglobin A1c/Hemoglobin.total in Blood Hemoglobin A1c Lab Routine Abnormal uterine bleeding (AUB) Ordered: 11/27/2024 [facility] Comment on above: Ordered: 11/27/2024 Luteinizing hormone Luteinizing hormone Lab Routine PCOS (polycystic ovarian syndrome) Ordered: 11/27/2024 [facility] Comment on above: Ordered: 11/27/2024 MR Knee - right WO contrast MR knee right wo IV contrast Imaging Routine Right knee pain, unspecified chronicity Ordered: 09/11/2024 [facility] Work Phone: Comment on above: Ordered: 09/11/2024 Neisseria gonorrhoea e DNA [Presence] in Unspecified specimen by CARLOS with probe detection Neisseria gonorrhea DNA probe, direct Lab Routine Pelvic pain in female Ordered: 11/27/2024 [facility] Comment on above: Ordered: 11/27/2024 Thyrotropin [Units/volume] in Serum or Plasma TSH Lab Routine PCOS (polycystic ovarian syndrome) Ordered: 11/27/2024 [facility] Comment on above: Ordered: 11/27/2024 Thyroxine (T4) free [Mass/volume] in Serum or Plasma T4, free Lab Routine PCOS (polycystic ovarian syndrome) Ordered: 11/27/2024 [facility] Comment on above: Ordered: 11/27/2024 [facility] Payers Date Payer Category Payer Private Health Insurance [facility] MEDICAID [id number] 2022 Medicaid [id number] 1992 Unknown [id number] 2.16.840.1.395056.3.579.2. 593 1992 Unknown [id number] 2.16.840.1.929580.3.579.2. 593 1992 Unknown [id number] 2.16.840.1.848970.3.579.2. 593 1992 Unknown [id number] 2.16.840.1.065385.3.579.2. 593 1992 Unknown [id number] 2.16.840.1.789570.3.579.2. 593 1992 Unknown [id number] 2.16.840.1.649736.3.579.2. 593 1992 Unknown [id number] 2.16.840.1.473505.3.579.2. 593 1992 Unknown [id number] 2.16.840.1.290301.3.579.2. 593 1992 Unknown [id number] 2.16.840.1.254664.3.579.2. 593 1992 Unknown [id number] 2.16.840.1.884038.3.579.2. 593 1992 Unknown [id number] 2.16.840.1.211517.3.579.2. 593 1992 Unknown [id number] 2.16.840.1.450095.3.579.2. 593 1992 Unknown [id number] 2.16.840.1.674363.3.579.2. 1259 1992 Unknown [id number] 2.16.840.1.932544.3.579.2. 1259 1992 Unknown [id number] 2.16.840.1.070100.3.579.2. 9 1992 Unknown [id number] 2.16.840.1.990862.3.579.2. 1259 1992 Unknown [id number] 2.16.840.1.805050.3.579.2. 9 1992 Unknown [id number] 2.16.840.1.912994.3.579.2. 1259 1992 Unknown [id number] 2.16.840.1.284109.3.579.2. 9 1992 Unknown [id number] 2.16.840.1.736259.3.579.2. 9 1992 Unknown [id number] 2.16.840.1.629321.3.579.2. 9 1992 Unknown [id number] 2.16.840.1.031981.3.579.2. 9 1992 Unknown [id number] 2.16.840.1.886820.3.579.2. 1259 1959 Unknown [id number] 2.16.840.1.911277.19 1959 Unknown [id number] Private Health Insurance [facility] [id number] Self-pay Self Pay [id number] Unknown [id number] 2.16.840.1.670716.19 Social History Date Type Detail Facility Unknown if ever smoked [facility] [employer] Other Start: 09-09-2024 Sex Assigned At N [facility] [employer] Other Tobacco smoking status [facility] Tobacco smoking consumption unknown [facility] Start: 1992 Sex Assigned At Not on file [facility] Start: 05-04-2023 End: 02-19-2024 Tobacco smoking status NHIS Never smoked tobacco (finding) [facility] Start: 1992 Sex Assigned At Female F [facility] Start: 05-04-2023 Tobacco use and exposure Smokeless tobacco non-user [facility] Start: 09-09-2024 Alcoholic beverage intake Lifetime non-drinker (finding) [facility] Start: 09-09-2024 History of Social function [facility] Start: 05-04-2023 Alcohol Comment caffeine: none [facility] Clinical Notes 07-25-2021 to 11-27-2024 Vani Guerreroandreia, BEESWAX BLEACHER - 11/27/2024 1:30 PM ESTTelephone Encounter - Marlyn Quirosrolando - 09/23/2024 1:01 PM ESTTelephone Encounter - Marlyn Quirosrolando - 09/23/2024 1:01 PM EST Note [...] SECTION, LOW TRANSVERSE 08/23/2023 KNEE SURGERY Left 2015 torn meniscus,calcium build up MR SHOULDER ARTHROGRAM [...] calculated from the following: Height as of 24: 5' 9 . Weight as of this [...] Marv Rebollar DO documented in this encounter [facility] 09-23-2024 Telephone encounter Note Pt wants to know if knee brace is something DR. Reed prescribes. If yes. She would like to try that. Please send this to company closer to [place] if possible. Ok to send PT order to [facility]. [facility] 09-23-2024 Miscellaneous Notes Pt wants to know if knee brace is something DR. Reed prescribes. If yes. She would like to try that. Please send this to company closer to [place] if possible. [facility] Left detailed message informing pt of results and recommendations. Instructed pt to stop NSAIDS while taking mobic. Pt to return call with where to send PT order. -RX sent to [facility] in [place]. ----- Message from Dr. Aliya Alicia sent at 09/22/2024 4:44 PM EST ----- Low grade sprain of mcl of her knee Noted signs of patellar instability If pain continues would rec hinge knee brace and PT also would rx mobic 15 mg a day stop motrin documented in this encounter [facility] 09-23-2024 Telephone encounter Note Left detailed message informing pt of results and recommendations. Instructed pt to stop NSAIDS while taking mobic. Pt to return call with where to send PT order. -RX sent to [facility] in [place]. [facility] 09-23-2024 Telephone encounter Note ----- Message from Dr. Aliya Alicia sent at 09/22/2024 4:44 PM EST ----- Low grade sprain of mcl of her knee Noted signs of patellar instability If pain continues would rec hinge knee brace and PT also would rx mobic 15 mg a day stop motrin [facility] 09-09-2024 History of Presen t illness Narrative [...] a month ago after slipping on a sign hanger and twisting her knee. Pain occurs [...] ALICIA D.O. This note was entered using [employer]. Grammatical and dictation errors maybe present in [...] ago. Pt states she slipped on a sign hanger and twisted her knee. Denies swelling. Pt states pain occurs when her knee twists or if she sleeps on her side will flare pain. Pt states sitting pain is a 2/10, when laying or twisting pain is a 7/10. Denies numbness/tingling. The patient presents with right knee pain that started about a month ago. The pain began after she slipped on a sign hanger and twisted her knee. She reports [...] joint line tenderness. documented in this encounter [facility] 10-18-2023 History and physical note PROCEDURAL SEDATION [...] none Provisional Diagnosis/Treatment Plan: colon SIGNATURE: Vandana Loyd MD, PhD PATIENT NAME: Marlin Cade DATE: October 18, 2023 TIME: 7:57 AM documented in this encounter [facility] 05-15-2023 Miscellaneous Notes Sent out two medical release forms for patient 05/15/23: [facility] - Dr. Baldemar Arnett [place], [place] - ED documented in this encounter [facility] 05-12-2023 Note HNO ID: [id number] Author: Vandana Loyd MD, PhD Service: ? Author Type: Physician [...] No history of dysuria, frequency or incontinence INVESTIGATIONS DIRECTOR: Negative for abnormal vaginal bleeding, abnormal vaginal [...] not plan c (more content not included)... [facility] 05-12-2023 History of Presen t illness Narrative [...] No history of dysuria, frequency or incontinence INVESTIGATIONS DIRECTOR: Negative for abnormal vaginal bleeding, abnormal vaginal [...] respond can do topical. 3rd trimester Vandana Loyd MD, PhD documented in this encounter [facility] 05-11-2023 Miscellaneous Notes Called patient for more information about her visit tomorrow with Dr. Loyd in Gastroenterology for IBD. We have no medical information on file, or in Care Everywhere. Patient stated she had sought medical care in [place], with Dr. Baldemar Arnett, Gastroenterology, [facility], presenting with bleeding when having a BM. Patient states that the bleeding is sometimes heavy and sometimes it just colors the toilet paper. She has no pain with it, and wasn't actually diagnosed with IBD, but she is concerned. She was scheduled to have a colonoscopy in [place], but when she got they canceled the procedure. She is currently 21.5 weeks into her . She stated the medical center recommended she came to the [facility] for further evaluation. Naomi Cain, PROFESSOR OF GRAPHIC DESIGN documented in this encounter [facility] 10-19-2022 Evaluation note Encounter Date Diagnosis Assessment Notes Sep, Rectal bleeding (ICD-10 - K62.5) [employer] Other 06-11-2022 NoteDISCHARGE SUMMARY DISCHARGE DATE: 04/21/2022 [...] pain free and no longer on narcotics. [facility] Signed and Approved by: DR MARV REBOLLAR . 04/24/2022 10:48:00[facility]06-11-2022 NoteOPERATIVE NOTE OPERATION DATE: 04/09/2022 PROCEDURE: Repeat low transverse section. PREOPERATIVE DIAGNOSIS: 1. Intrauterine at 38 6/7 weeks. 2. Previous . 3. Early onset labor. POSTOPERATIVE DIAGNOSIS:: 1. Intrauterine at 38 6/7 weeks. 2. Previous . 3. Early onset labor. SURGEON: Marv Rebollar D.O. DINKEY PRESS OPERATOR: CAMERON Be URINE OUTPUT: Yellow and clear. BLOOD LOSS: 575 mL. SPECIMEN: Placenta. FINDING: A viable female infant. Apgars 9 at 1, 9 at 5. [...] patient's uterus and extended laterally digitally. The infant was then delivered atraumatically after the bladder [...] to the Recovery Room in stable condition. [facility] Signed and Approved by: DR MARV REBOLLAR . 04/18/2022 07:58:00[facility]10-11-2021 Evaluation note* Encounter Date Diagnosis Assessment Notes Treatment Notes Treatment Clinical Notes Jul, Rectal bleeding (ICD-10 - K62.5) Lets start with these tests at this point and referral. May use Benefiber supplement since Metamucil is harder to drink due to texture. 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 Use this medication as prescribed when stung by bee. [employer] Other 09-26-2021 Evaluation note* Encounter Date Diagnosis [...] nonvenomous arthropods, initial encounter (ICD-10 - W57.XXXA) [facility] [employer] Other Evaluation noteNo [facility] [employer] Other Evaluation note* Diagnosis Rectal bleeding- Primary Hemorrhage of rectum and anus [facility] Diagnosis Rectal bleeding Hemorrhage of rectum and anus documented in this [facility] noteNo assessment information [facility] Work Phone: Evaluation note* Diagnosis Onset Date Resolution Status Canker sore noneactive Oral mucositis (ulcerative), unspecified acute [facility] Work Phone: Evaluation note* Diagnosis Right knee pain, unspecified chronicity- Primary Severe obesity (BMI 35.0-39.9) with comorbidity (CMS/HCC) documented in this encounter [facility] HealthcareEvaluation note* Diagnosis Right knee pain, unspecified chronicity documented in this encounter [facility] HealthcareEvaluation note* Diagnosis Sprain of medial collateral [...] left knee Hospitalization History see above surg [facility] [employer] Other [employer] for referral (narrative)* Outpatient Procedure (Routine) - Authorized Specialty Diagnoses / Procedures Referred By Krista traore Referred To Contact [facility] [place] Diagnoses Rectal bleeding Procedures COLONOSCOPY DIAGNOSTIC COLONOSCOPY FLX DX W/COLLJ SPEC WHEN Vandana Rojas MD, PhD [address] [place] [address] [facility] [place] [address] Referral ID Status Reason Start Date Expiration Date Visits Requested Visits Authorized [id number] Authorized Auto-Generat ed Referral 05/12/2023 05/12/2024 1 1 [facility] for referral (narrative)* Outpatient Procedure (Routine) - Closed Specialty Diagnoses / Procedures Referred By Contac león Referred To Contact [facility] [place] Diagnoses Rectal bleeding Procedures COLONOSCOPY DIAGNOSTIC COLONOSCOPY FLX DX W/COLLJ SPEC WHEN Vandana Rojas MD, PhD [address] [place] [address] [address] Referral ID Status Reason Start Date Expiration Date V isits Requested Visits Authorized [id number] Closed Auto-Generate d Referral 05/12/2023 05/12/2024 1 1 [facility] for visit Narrative* Outpatient Procedure (Routine) - Closed Specialty Diagnoses / Procedures Referred By Contac t Referred To Contact [facility]EASE [place] Diagnoses Rectal bleeding Procedures COLONOSCOPY DIAGNOSTIC COLONOSCOPY FLX DX W/COLLJ SPEC WHEN PFVandana Dunn MD, PhD [address] [place] [address] [address] Referral ID Status Reason Start Date Expiration Date V isits Requested Visits Authorized [id number] Closed Auto-Generate d Referral 05/12/2023 05/12/2024 1 1 [facility] for visit Narrative* Rehabilitation - Outpatient (Routine) - Authorized Specialty Diagnoses / Procedures Referred By Contac t Referred To Contact Physical Therapy Diagnoses Sprain of medial collateral ligament of right knee, initial encounter Procedures [place] [facility] EVALUATION MOD COMPLEX 30 MINS Aliya Alicia, DO [address] [place] [address] Phone: tel: fax: Celena Clements PT Referral ID Status Reason Start Date Expiration Date V isits Requested Visits Authorized [id number] Authorized 09/23/2024 03/22/2025 30 30 [facility] for visit Narrative* Rehabilitation - Outpatient (Routine) - Authorized Specialty Diagnoses / Procedures Referred By Contac t Referred To Contact Physical Therapy Diagnoses Sprain of medial collateral ligament of right knee, initial encounter Procedures [place] PHYSICAL THERAPY EVALUATION MOD COMPLEX 30 MINS Aliya Alicia, DO [address] [place] [address] Phone: tel: fax: Celena Clements PT Referral ID Status Reason Start Date Expiration Date V isits Requested Visits Authorized [id number] Authorized 09/23/2024 10/29/2024 30 30 [facility] Summary Purpose Family History No Family History Records FoundNo Family History Records FoundNo Family History Records FoundNo Family History Records FoundNo Family History Records FoundNo Family History Records Found Advance Directives Advance Directive Response Recorded Date/ Time Advance Directives No April 19 8:32am Reason for Referral Reason chronic in natu re for several months now - can be like a menstrual cycle at times. Diagnosis 1 Rectal bleeding (K62 .5) Referral Organization [facility] Referring Provider First Name Beckie Referring Provider Last Name Alcira Referring Provider Specialty Nurse Pract itioner Referred Organization [facility] Referred Provider Christopher Locke Referred Address [address] [facility] [address] ,[place], [place],[address] Referred Provider Specialty Gastroentero logy Referral Priority [...] and content) DATE CREATED AUTHOR 09/24/[address] [facility] DATE CREATED AUTHOR AUTHOR'S ORGANIZ ATION 12/27/2021 [facility] DATE CREATED AUTHOR AUTHOR'S ORGANIZ ATION 03/10/2023 [facility] DATE CREATED AUTHOR AUTHOR'S ORGANIZ ATION 05/22/2023 [facility] DATE CREATED AUTHOR AUTHOR'S ORGANIZ ATION 10/20/2023 [facility] DATE CREATED AUTHOR AUTHOR'S ORGANIZ ATION 11/29/2024 [facility] EPIC REASON FOR VISIT [...] or prosecute any alcohol or drug abuse patient.[facility] the event this information is protected by the Federal Confidentiality of Alcohol and Drug Abuse Patient Records regulations: The Federal rules restrict any use of the information to criminally investigate or prosecute any alcohol or drug abuse patient.[facility] Center[facility] the event this information is protected by the Federal Confidentiality of Alcohol and Drug Abuse Patient Records regulations: The Federal rules restrict any use of the information to criminally investigate or prosecute any alcohol or drug abuse patient.[facility] Center[facility] the event this information is protected by the Federal Confidentiality of Alcohol and Drug Abuse Patient Records regulations: The Federal rules restrict any use of the information to criminally investigate or prosecute any alcohol or drug abuse patient.[facility] Care Teams (unrecognized sec tion and content) [...] June 30, 2024 End: June 30, 2024 Director Of Strategic Sales Relationship Specialty Start Date End Date Aliya Alicia DO [address] [place] [address] PCP - General Family Medicine 01/08/24 Marv Rebollar DO [address] [place] [address] [place] [address] PCP - [facility] 01/29/24 Director Of Strategic Sales Relationship Specialty Start Date End Date Aliya Alicia DO [address] [place] [address] PCP - General [facility] 01/08/24 Marv Rebollar, DO [facility] [place] [address] PCP - [facility] 01/29/24 Director Of Strategic Sales Relationship Specialty Start Date End Date Aliya Alicia, DO [address] [place] [address] PCP - [facility] 01/08/24 Marv Rebollar, DO [facility] [place] [address] PCP - [facility] 01/29/24 Director Of Strategic Sales Relationship Specialty Start Date End Date Aliya Alicia, [address] [place] [address] PCP - [facility] 01/08/24 Marv Rebollar, DO [facility] [place] [address] PCP - [facility] 01/29/24 Director Of Strategic Sales Relationship Specialty Start Date End Date Aliya Alicia, [address] [place] [address] PCP - [facility] 01/08/24 Marv Rebollar, DO [facility] [place] [address] PCP - [facility] 01/29/24 Director Of Strategic Sales Relationship Specialty Start Date End Date Aliya Alicia, DO [address] [place] [address] PCP - General [facility] 01/08/24 Marv Rebollar, [facility] [place] [address] PCP - [facility] 01/29/24 Director Of Strategic Sales Relationship Specialty Start Date End Date Aliya Alicia, [address] [place] [address] PCP - General [facility] 01/08/24 Marv Rebollar, [facility] [place] [id number] PCP - [facility] 01/29/24 Director Of Strategic Sales Relationship Specialty Start Date End Date Aliya Alicia, [address] [place] [address] PCP - [facility] 01/08/24 Marv Rebollar, [facility] [place] [address] PCP - [facility] 01/29/24 Director Of Strategic Sales Relationship Specialty Start Date End Date Aliya Alicia, [address] [place] [address] PCP - General [facility] 01/08/24 Marv Rebollar, [facility] [place] [address] PCP - [facility] 01/29/24 Director Of Strategic Sales Relationship Specialty Start Date End Date Aliya Alicia DO [address] [place] [address] PCP - General [facility] 01/08/24 Marv Rebollar, DO [address] [place] [address] PCP - [facility] 01/29/24 Director Of Strategic Sales Relationship Specialty Start Date End Date Aliya Alicia, DO [address] [place] [address] PCP - [facility] 01/08/24 Marv Rebollar, DO [facility] [place] [address] PCP - [facility] 01/29/24 Director Of Strategic Sales Relationship Specialty Start Date End Date Aliya Alicia, DO [address] [place] [address] PCP - [facility] 01/08/24 Marv Rebollar, DO [facility] [place] [address] PCP - [facility] 01/29/24 Director Of Strategic Sales Relationship Specialty Start Date End Date Aliya Alicia, DO [address] [place] [address] PCP - [facility] 01/08/24 Marv Rebollar, DO [facility] [place] [address] PCP [facility] 01/29/24 Goals (unrecognized section and content) Goals [...] BE BASED ON THE PRIMARY CLINICAL RECORDS. [place] Critical [facility] provides no warranty or guarantee of the accuracy or completeness of information in this [email or web address]
[2024-12-23 14:04] LABS: Lactate Dehydrogenase 175 U/L (81-234)
[2024-12-24 04:07] LABS: AFP, Serum, Tumor Marker 1.9 ng/mL (0.0-6.4); CEA 1.1 ng/mL (0.0-4.7); Cancer Antigen (CA) 125 22.8 U/mL (0.0-38.1); HCG Tumor Marker <1 mIU/mL (.)
== END 2024-12-23 13:11 | disposition home or self-care (01) ==
LOC: LAB 13:18
PROVIDERS: PCP Family Medicine; Visit Provider Obstetrics & Gynecology
DX: N83.299 Other ovarian cyst, unspecified side (principal)
CPT/HCPCS: 36415; 82105; 82378; 83615; 84702; 86304

== ENCOUNTER 2025-01-09 08:55 | Outpatient (OUT) | payer OTHER, SELFPAY | END 2025-01-09 08:56 | disposition home or self-care (01) | LOC: PST 08:56 | PROVIDERS: PCP Family Medicine; Visit Provider Obstetrics & Gynecology | DX: Z01.818 Encounter for other preprocedural examination (principal); R10.2 Pelvic and perineal pain; N93.9 Abnormal uterine and vaginal bleeding, unspecified; N83.299 Other ovarian cyst, unspecified side; R10.31 Right lower quadrant pain ==

== ENCOUNTER 2025-01-17 06:45 | Day surgery (SDC) | payer OTHER, SELFPAY ==
[2025-01-09 09:33] VITALS: BP 115/75; PULSE 75; TEMP 36.2; O2SAT 97; BMI 36.5
[2025-01-17] VITALS (14 sets, daily range): BP systolic 89–126; BP diastolic 49–79; PULSE 58–84; TEMP 36.1–36.7; O2SAT 95–100; BMI 36.5
--- OUTSIDE RECORDS SUMMARY | 2025-01-17 06:49 | XMS_ITS | CCD ---
Author Organization [facility] Care Team Providers Care Keypuncher Name Role Phone Beckie Eli Unavailable LloydVaishali potter Unavailable Baldemar Arnett Unavailable KETURAH ., DR CARMICHAEL Attending Unavailable KETURAH ., DR CARMICHAEL Admitting Unavailable FAWCAD, [facility] Primary Care Unavailable KARMARCOS AVILA Attending Unavailable MARCOS MARTELL Admitting Unavailable [facility], [facility] Primary Care Unavailable MARCOS MARTELL Consulting Unavailable KETURAH ., DR CARMICHAEL Consulting Unavailable KETURAH ., DR CARMICHAEL Attending Unavailable [facility], [facility] Primary Care Unavailable KETURAH ., DR CARMICHAEL [...] Unavailable KETURAH ., DR CARMICHAEL Attending Unavailable [facility], [facility] Primary Care Unavailable KETURAH ., DR CARMICHAEL Admitting Unavailable KETURAH ., DR CARMICHAEL Consulting Unavailable KETURAH ., DR CARMICHAEL Attending Unavailable REQUEST, DR NONE LISTED Primary Care Unavaila ble KTEURAH ., DR CARMICHAEL Admitting Unavailable KETURAH ., DR CARMICHAEL Admitting Unavailable KETURAH ., DR CARMICHAEL Consulting Unavailable [facility], [facility] Primary Care Unavailable KETURAH ., DR CARMICHAEL Attending Unavailable KETURAH ., DR CARMICHAEL Consulting Unavailable KETURAH ., DR CARMICHAEL Attending Unavailable FATRUMAN, [facility] Primary Care Unavailable KETURAH ., DR CARMICHAEL [...] KETURAH ., DR CARMICHAEL Attending Unavailable [facility], [facility] Primary Care Unavailable KETURAH ., DR CARMICHAEL Admitting Unavailable Unavailable Primary Care Provider Unavailabl e EVERT, VANDANA R Attending Unavailable EVERT, VANDANA R Referring Unavailable EVERT, VANDANA Luis Referring Unavailable MARCOS SILVERIO Attending Unavailable Petznick DOAliya C Primary Care Provider [phone] Keturah BIRD Marv Unavailable MARV REBOLLAR Attending Unavailable KETURAHNICKYY Attending Unavailable PETZNICK, ALIYA C Attending Unavailable PETZNICK, ALIYA C Referring Unavailable PETZNICK, ALIYA C Referring Unavailable PETZNICK, ALIYA C Attending Unavailable PETZNICK, ALIYA C Referring Unavailable PETZNICK, ALIYA C Referring Unavailable CELENA CLEMENTS Attending Unavailable PETZNICK, ALIYA C Referring Unavailable CHRISTOPHER, BOY Attending Unavailable PETZNICK, ALIYA C Referring Unavailable CHRISTOPHER, BOY Attending Unavailable PETZNICK, ALIYA C Referring Unavailable MAKENNA CAMACHO Attending Unavailable PETZNICK, ALIYA C Referring Unavailable CHRISTOPHER, BOY Attending Unavailable PETZNICK, ALIYA C Referring Unavailable Allergies Allergy Classification Reported Allergen(s) Allergy Type Date of Onset Reaction(s) Facility (6 sources) Bee Sting Drug allergy [facility] Dheere Bolo Other Medications Current Medications Medication Drug Class(es) Dates Sig (Normalized) Sig (Original) [id number] 200 actuat albuterol 0.09 mg/actuat metered dose [...] June 24, 2024 12:00am swish and spit [id number] 0.3 ml EPINEPHrine 1 mg/ml auto-injector (20 sources) alpha-Adrenergic Agonist, beta-Adrenergic Agonist, Catecholamine Start: [...] Twice daily 100 June 24, 2024 12:00am predniSONE 20 mg oral tablet (3 sources) Start: 06-30-2024 take 2 tablets by mouth once daily Prednisone Active 20 MG PO .COMPLEX 10 June 30, 2024 12:00am Take 2 tabs [...] 19, 2024 12:00am June 24, 2024 11:10am meloxicam 15 mg oral tablet (17 sources) Nonsteroidal Anti-inflammatory Drug Start: 09-23-2024 End: 09-23-2025 take 1 tablet by mouth once daily meloxicam (Mobic) 15 MG tablet Indications: Right knee pain, unspecified chronicity Take 1 tablet (15 mg) by mouth Daily 30 tablet 1 09/23/2024 12/23/2024 Discontinued (Other) vits62/FA/om3/dha/e pa ( GUMMY ORAL) (3 sources) [...] Problem Date Documented Date Episodic/Chronic Abdominal pain (4 sources) Pain in female pelvis; Translations: [Pelvic and perineal pain] 11-27-2024 Episodic Allergic reactions (7 sources) Allergy to bee venom; Translations: [Bee allergy status] Onset: 08-09-2021 Resolved: 08-09-2021 Episodic Anal and rectal conditions (3 sources) Other specified diseases of anus and rectum; Translations: [OTHER SPEC DISEASES ANUS AND RECTUM] Onset: 12-10-2022 Episodic Asthma (20 sources) Unspecified asthma, uncomplicated; Translations: [Asthma without status asthmaticus] Onset: 04-21-2022 05-03-2023 Chronic Calculus of urinary tract (1 source) Calculus of kidney; Translations: [CALCULUS OF KIDNEY] Onset: 12-13-2022 Episodic Coagulation and hemorrhagic disorders (1 source) Thrombocytopenic disorder; Translations: [Thrombocytopenia, unspecified] 12-23-2024 Chronic Diseases of mouth; excluding dental (3 sources) [...] syndrome] 11-27-2024 Chronic Other female genital disorders (3 sources) Abnormal uterine bleeding; Translations: [Abnormal uterine and vaginal bleeding, unspecified] 11-27-2024 Chronic Other female genital disorders (2 sources) Vaginal discharge; Translations: [Other specified noninflammatory disorders of vagina] 11-27-2024 Episodic Other nervous system disorders (20 sources) Chronic pain; Translations: [Other chronic pain] Onset: 05-03-2023 05-03-2023 Chronic Other non-traumatic joint disorders (8 sources) Pain in right knee; Translations: [Pain in joint, lower leg] 09-09-2024 Episodic Other nutritional; endocrine; and metabolic disorders (20 sources) Obesity; Translations: [Obesity, unspecified] Onset: 05-03-2023 [...] Translations: [ACUTE PHARYNGITIS UNSPECIFIED] Onset: 02-09-2023 Episodic Ovarian cyst (1 source) Complex ovarian cyst; Translations: [Other ovarian cyst, unspecified side] 12-23-2024 Episodic Residual codes; unclassified (1 source) 8 [...] Onset: 04-09-2022 Episodic Other connective tissue disease (20 sources) Partial thickness rotator cuff tear; Translations: [...] (nonvenomous) of right upper arm, initial encounter S40.524I] Onset: 07-25-2021 Resolved: 07-25-2021 Episodic Unclassified (1 source) COUGH, UNSPECIFIED; Translations: [COUGH, UNSPECIFIED] Onset: 02-08-2023 Results Test Name Value Interpretation Reference Range Facility ALL LDHon 12-23-2024 LDH [Catalytic activity/Vol] 175 U/L 81 - 234 U/L [facility] ALL CBC WITH AUTO DIFFon BASOPHILS ABSOLUTE AUTO [address] [facility] Basophils/100 WBC (Bld) 0.6 % 0.2 - 2.0 % [facility] Eosinophils/100 WBC (Bld) 1.5 % 0.9 - 7.0 % [facility] Erythrocyte distribution width (RBC) [Ratio] 12.1 % 11.0 - 15.0 % [facility] Hematocrit (Bld) [Volume fraction] 38.6 % 36.0 - 48.0 % [facility] Hemoglobin (Bld) [Mass/Vol] 13.9 g/dL 12.0 - 16.0 g/dL [facility] IMMATURE GRANULOCYTES ABS AUTO 0.01 [facility] Immature granulocytes/100 WBC (Bld) 0.2 % 0.0 - 0.5 % [facility] Interpretation and review of laboratory results Abnormal [facility] LYMPHOCYTES ABSOLUTE AUTO 1.3 [facility] Lymphocytes/100 WBC (Bld) 24.1 % 20.5 - 60.0 % [facility] MCH (RBC) [Entitic mass] 32.3 pg 26. 7 - 34.0 pg [facility] MCHC (RBC) [Mass/Vol] 36 g/dL High 29.9 - 35.2 g/dL [facility] MCV (RBC) [Entitic vol] 89.6 fL 81.0 - 99.0 fL [facility] MONOCYTES ABSOLUTE AUTO 0.[address] [facility] Monocytes/100 WBC (Bld) 7.3 % 1.7 - 12.0 % [facility] NEUTROPHILS ABSOLUTE AUTO 3.5 [facility] Neutrophils/100 WBC (Bld) 66.3 % 43.0 - 75.0 % [facility] Platelet mean volume (Bld) [Entitic vol] 10.5 fL 9.5 - 13.5 fL [facility] EO # 0.1 [facility] PLT 207 [facility] RBC 4.31 [facility] WBC 5.2 [facility] US PELVIS W/ TRANSVAGINALon 12-17-2024 [place] [address] Ultrasound Report Signed Patient: MARLIN CADE MR#: [id number] : 1990 Acct:[id number] Age/Sex: 34 / F ADM Date: 12/17/24 Loc: US Attending Dr: Marv Rebollar D.O. Ordering Physician: Marv Rebollar D.O. Date of Service: 12/17/24 Procedure(s): US pelvis w/ transvaginal Accession Number(s): [id number] cc: Marv Rebollar D.O.; Physician,Non-Staff M.DEdmund [place] [id number] Patient Name: MARLIN CADE MRN: [facility]:[id number] date: 1990 Sex: F Assigned Patient Location: Current Patient Location: US Accession/Order Number: [id number] Exam Date: 12/17/2024 15:34 Report Date: 12/17/2024 [...] Vani Ordaz M.D.12/17/2024 3:45 PM Dictation Location: [place] [address] Electronically authenticated by: [id number] Y Date: 12/17/2024 15:45 Dictated By: Vani Ordaz M.D. Signed By: 12/17/24 1548 DD/ 1545 TD/TT: Functional Architect: [facility] Radiology, Radiologist, MD - 12/17/2024 [place] [address] Ultrasound Report Signed Patient: MARLIN CADE MR#: [id number] : 1990 Acct:[id number] Age/Sex: 34 / F ADM Date: 12/17/24 Loc: US Attending Dr: Marv Rebollar D.O. Ordering Physician: Marv Rebollar D.O. Date of Service: 12/17/24 Procedure(s): US pelvis w/ transvaginal Accession Number(s): [id number] cc: Marv Rebollar D.O.; Physician,Non-Staff [facility] [address] [address] Patient Name: MARLIN CADE MRN: [facility]:[id number] date: 1990 Sex: F Assigned Patient Location: US Current Patient Location: US Accession/Order Number: [id number] Exam Date: 12/17/2024 15:34 Report Date: 12/17/2024 [...] Vani Ordaz M.D.12/17/2024 3:45 PM Dictation Location: [place] [address] Electronically authenticated by: [id number] Y Date: 12/17/2024 15:45 Dictated By: Vani Ordaz M.D. Signed By: 12/17/24 1548 DD/ 44 TD/TT: Functional Architect: [facility] Radiology Study observation (narrative) [facility] US PELVIS W/ TRANSVAGINALOrd ered By: Radiologist Radiology on 12-17-2024 [facility] Work Phone: HCG ( test) Ql (U)o n 11-27-2024 Interpretation and review of laboratory results Normal [facility] Preg Test, Ur Negative Negative [facility]ly [facility], 1928–1983 Urinalysis macro (dipstick) panel (U)on 11-27-2024 Bilirubin, UA Negative Negative - 4(70) +++ mg/dL [facility] Blood, UA Positive Negative - 50 Yony/mcL [facility] Comment on above: Moderate Clarity, UA Clear [facility] Color, UA Yellow [facility] Glucose, UA Negative Negative - 1999(110) ++++ mg/dL [facility] Interpretation and review of laboratory results Abnormal [facility] Ketones, UA Negative Negative - 160(16) ++++ mg/dL [facility] Leukocytes, UA Negative Negative - 500+++ Marco Antonio/mcL [facility] Nitrite, UA Negative Negative - Positive [facility] pH, UA 5.5 5 - 9 [facility] Protein, UA Trace Negative - 1999(20) ++++ mg/dL [facility] Spec Grav, UA 1.03 1 - 1.03 [facility] Urobilinogen, UA 0.2 0.2 - 12 mg/dL [facility]ly [facility], 1928–1983 MR KNEE RIGHT WO IV CONTRAST on [...] signed and approved by the interpreting Radiologist. Rubin Stark DO - 09/09/2024 EXAM: XR KNEE 3 VIEWS RIGHT REASON FOR STUDY: Knee pain COMPARISON: None FINDINGS: Bony alignment is satisfactory. There is no acute fracture or dislocation. No joint effusion. IMPRESSION: Negative right knee Dictated on: 09/09/2024 1:36 PM This report has been electronically signed and approved by the interpreting Radiologist. [facility] Radiology Study observation (narrative) [facility] XR Knee - right 3 ViewsOrder ed By: Rubin Salas on 09-09-2024 [facility] Work Phone: XR SCOLIOSIS 1 [...] 023 Case Report Surgical Pathology Report Case: [id number] Authorizing Provider: Vandana Loyd MD, Collected: 10/18/2023 08:19 AM PhD Ordering Location: Procedures Received: 10/18/2023 08:46 AM Pathologist: Singh Rod MD Specimen: SIGMOID COLON POLYP [facility] FINAL DIAGNOSIS Sigmoid colon polyp, biopsy: - Hyperplastic polyp. [facility] Gross Description A. SIGMOID COLON POLYP Received in formalin is a diego-red polypoid segment of tissue measuring 0.6 x 0.4 x 0.1 cm. No stalk is present. The line of resection is noted. The specimen is bisected and totally submitted in one cassette. JTS October 18, 2023 3:20 PM Gross examination performed at [facility], [address] [place] [address] Performing Lab Diagnostic interpretation performed at [facility], [address] [place] [address]# [id number] Media Production Manager: Mike Jackson M.D. [facility] ANES POSTPROC EVALon 023 ANES POSTPROC EVAL HNO ID: [id number] Author: Elidia Ness MD Service: Anesthesiology Author Type: Anesthesiologist Type: Anesthesia Postprocedure Evaluation Filed: 10/18/2023 1:15 PM Note Text: POST ANESTHESIA EVALUATION NOTE : 1990 Procedure Summary Date: 10/18/23 Room / Location: Procedures Anesthesia Start: 803 Anesthesia Stop: 820 Procedure: COLONOSCOPY DIAGNOSTIC Diagnosis: Rectal bleeding (Hematochezia) Scheduled Providers: Vandana Loyd MD, PhD; Elidia Ness MD; Marcos Silverio APRN.INSOLE RASPER; Kai Aponte RN Responsible Provider: Elidia Ness [...] October 18, 2023 TIME: 1:15 PM CSN: [id number] [facility] ANES PRE-OPon 10-18-2023 ANES PRE-OP HNO ID: [id number] Author: Elidia Ness MD Service: Anesthesiology Author Type: Anesthesiologist Type: Anesthesia Preprocedure Evaluation Filed: 10/18/2023 7:48 AM Note Text: OB ANESTHESIA PRE-PROCEDURE ASSESSMENT PATIENT NAME: Marlin Cade : 1990 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 Patient / Responsible Democrat agrees to proceed: yes Patient / Surrogate agrees to blood products: blood products not planned Significant changes in the patient condition since the History and Physical, not otherwise documented in primary service progress note: no. Potential Anesthesia issues that may suggest increased risk of complications or contraindication to planned procedure: none. Discussed the possibility of lip / dental damage: yes [facility] CHART REVIEW: There is no problem list on file for this patient. No past medical history on file. PAST SURGICAL HISTORY Procedure Laterality Date - SECTION HX 3 No family history on file. (Not in a hospital admission) Inpatient medications reviewed in [facility] I have interviewed and examined the patient. I have reviewed the medical record and/or the pre-anesthesia evaluation, pertinent labs, and test results. This contains updated information obtained within 48 hours of Surgery/Procedure. SIGNATURE: Elidia Ness MD PATIENT NAME: Marlin Cade DATE: October 18, 2023 TIME: 7:47 AM : 1990 Normal [facility] COLONOSCOPY DIAGNOSTICon [facility] Colonoscopyon 10-18-2023 Colonoscopy [facility] Gastrointestinal Endoscopy Patient Name: Marlin Cade Procedure Date: 10/18/2023 7:49 AM Date of : 1990 Admit Type: Outpatient Age: 32 Room: [place] [address] Gender: Female Note Status: Finalized Attending MD: Vandana Loyd MD, PhD, [id number] Procedure: Colonoscopy Indications: Hematochezia Providers: Vandana Loyd [...] in one week telephone Dr. Loyd at [phone] for results. - Repeat colonoscopy in 7-10 years for surveillance. Procedure Code(s): --- Professional --- 29179, Colonoscopy, flexible; with biopsy, single or multiple CPT copyright 2020 [employer]. All rights reserved. The codes documented in this report are preliminary and upon service coordinator elderly facility review may be revised to meet current [...] Loss: Estimated blood loss was minimal. Normal [facility] HISTORY PHYSICALon HISTORY PHYSICAL HNO ID: [id number] Author: Vandana Loyd MD, PhD Service: Gastroenterology [...] October 18, 2023 TIME: 7:57 AM Normal [facility] SURGICAL PATHOLOGYon 023 CASE REPORT [facility] Comment on above: Order Comment: Speci men Type: TISSUE SPECIMEN Ordering Facility: [facility] Address: [address] [place] [address] Result Comment: Surg [facility] Pathology Report Case: [id number] Authorizing Provider: Vandana Loyd MD, Collected: 10/18/2023 08:19 AM PhD Ordering Location: Procedures Received: 10/18/2023 08:46 AM Pathologist: Singh Rod MD Specimen: SIGMOID COLON POLYP Performed By: #### S #### [facility] CLIA [id number] [address] [place] [address] FINAL DIAGNOSIS Normal [facility] ital Comment on above: Order Comment: Speci men Type: TISSUE SPECIMEN Ordering Facility: [facility] Address: [address] [place] [address] Result Comment: Sigm oid colon polyp, biopsy: - Hyperplastic polyp. Performed By: #### S #### [facility] CLIA [id number] [address] [place] [address] OF [facility] FINAL PERFORMING LAB [facility] Comment on above: Order Comment: Speci men Type: TISSUE SPECIMEN Ordering Facility: [facility] Address: [address] [place] [address] Result Comment: Diag nostic interpretation performed at [facility], [address] [place] [address] CLIA# [id number] Media Production Manager: Mike Jackson M.D. Performed By: #### S #### [facility] CLIA [id number] [address] [place] [address] GROSS DESCRIPTION Normal [facility] Comment on above: Order Comment: Speci men Type: TISSUE SPECIMEN Ordering Facility: [facility] Address: [address] [place] [address] Result Comment: A. S IGMOID COLON POLYP Received in formalin is a diego-red polypoid segment of tissue measuring 0.6 x 0.4 x 0.1 cm. No stalk is present. The line of resection is noted. The specimen is bisected and totally submitted in one cassette. JTS October 18, 2023 3:20 PM [place] [address] Performed By: #### S #### [facility] CLIA [id number] [address] [place] [address] [place] Luis Fernando 05-15-2023 CNPN Telephone (GASTAV) MARLIN CADE ([id number]) 1990 F Date Time Provider Department 05/15/23 EVERTSusie DANIELS During your visit today, we recorded the following information about you: Naomi Cain Ma 05/15/2023 2:12 PM Signed Sent out two medical release forms for patient 05/15/23: [facility] - Dr. Baldemar Arnett [place], [place] - ED Naomi Cain Ma 05/22/2023 8:57 AM Signed Received medical records from [facility] ED and sent for scanning. Resent medical records request to [facility] - Dr. Baldemar Arnett. Allergies [...] by NAOMI CAIN MA on 05/15/23 Normal [facility] C-REACTIVE PROTEIN (CRP)on 0 05-12-2023 CRP [Mass/Vol] <0.9 mg/dL [facility] CBC panel Auto (Bld)on 05-12 Erythrocyte distribution width (RBC) [Ratio] 13.8 % Normal 11.5-15.0 [facility] Comment on above: Order Comment: Speci men Type: BLOOD SPECIMEN Ordering Facility: [facility] Address: [address] [place] [address] Performed By: #### 5 8410-2 #### [facility] [place] [id number] [facility] Hematocrit (Bld) [Volume fraction] 35.7 % Low 36.0-46.0 [facility] Comment on above: Order Comment: Speci men Type: BLOOD SPECIMEN Ordering Facility: [facility] Address: [address] [place] [address] Performed By: #### 5 8410-2 #### [facility] [place] [id number] [address] [place] [address] [place] Hemoglobin (Bld) [Mass/Vol] 12.3 g/dL Normal 11.5-15.5 [facility] Comment on above: Order Comment: Speci men Type: BLOOD SPECIMEN Ordering Facility: [facility] Address: [address] [place] [address] Performed By: #### 5 8410-2 #### [facility] [place] [id number] [address] [place] [address] [place] MCH (RBC) [Entitic mass] 32.1 pg Normal 26.0-34.0 [facility] Comment on above: Order Comment: Speci men Type: BLOOD SPECIMEN Ordering Facility: [facility] Address: [address] [place] [address] Performed By: #### 5 8410-2 #### [facility] [place] [id number] [address] [place] MCHC (RBC) [Mass/Vol] 34.5 g/dL Normal 30.5-36.0 [facility] Comment on above: Order Comment: Speci men Type: BLOOD SPECIMEN Ordering Facility: [facility] Address: [address] [place] [address] Performed By: #### 5 8410-2 #### [facility] [place] [id number] [address] [place] [address] [place] MCV (RBC) [Entitic vol] 93.2 fL Normal 80.0-100.0 [facility] Comment on above: Order Comment: Speci men Type: BLOOD SPECIMEN Ordering Facility: [facility] Address: [address] [place] [address] Performed By: #### 5 8410-2 #### [facility] CLIA [id number] [address] [place] [address] [place] Nucleated RBC (Bld) [#/Vol] 10*3/uL Normal <0.01 [facility] Comment on above: Order Comment: Speci men Type: BLOOD SPECIMEN Ordering Facility: [facility] Address: [address] [place] [address] Performed By: #### 5 8410-2 #### [facility] [place] [id number] [address] [place] [address] [place] Platelet mean volume (Bld) [Entitic vol] 11.2 fL Normal 9.0-12.7 [facility] l Comment on above: Order Comment: Speci men Type: BLOOD SPECIMEN Ordering Facility: [facility] Address: [address] [place] [address] Performed By: #### 5 8410-2 #### [facility] [place] [id number] [address] [place] [address] [facility] [place] Platelets (Bld) [#/Vol] 148 10*3/uL Low 150-400 [facility] Comment on above: Order Comment: Speci men Type: BLOOD SPECIMEN Ordering Facility: [facility] Address: [address] Performed By: #### 5 8410-2 #### [facility] [place] [id number] [address] [place] [address] [place] RBC (Bld) [#/Vol] 3.83 10*6/uL Low 3.90-5.20 [facility] Comment on above: Order Comment: Speci men Type: BLOOD SPECIMEN Ordering Facility: [facility] Address: [address] [facility] [place] [address] Performed By: #### 5 8410-2 #### [facility] CLIA [id number] [address] OF [facility] WBC (Bld) [#/Vol] 7.57 10*3/uL Normal 3.70-11.00 [facility] Comment on above: Order Comment: Speci men Type: BLOOD SPECIMEN Ordering Facility: [facility] Address: [address] [place] [address] Performed By: #### 5 8410-2 #### [facility] CLIA [id number] [address] STATES OF [facility] Erythrocyte distribution width (RBC) [Ratio] 13.8 % 11.5 - 15.0 % [facility] Hematocrit (Bld) [Volume fraction] 35.7 % Low 36.0 - 46.0 % [facility] Hemoglobin (Bld) [Mass/Vol] 12.3 g/dL 11.5 - 15.5 g/dL [facility] MCH (RBC) [Entitic mass] 32.1 pg 26. 0 - 34.0 pg [facility] MCHC (RBC) [Mass/Vol] 34.5 g/dL 30.5 - 36.0 g/dL [facility] MCV (RBC) [Entitic vol] 93.2 fL 80.0 - 100.0 fL [facility] Nucleated RBC (Bld) [#/Vol] <0.01 k/uL [facility] Platelet mean volume (Bld) [Entitic vol] 11.2 fL 9.0 - 12.7 fL [facility] Platelets (Bld) [#/Vol] 148 10*3/uL Low 150 - 400 k/uL [facility] RBC (Bld) [#/Vol] 3.83 10*6/uL Low 3.90 - 5.2 0 m/uL [facility] WBC (Bld) [#/Vol] 7.57 10*3/uL 3.70 - 11. 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 Normal [facility] CRP [facility] CRP [Mass/Vol] mg/L Normal <0.9 [facility] Comment on above: Order Comment: Speczach villalpando Type: BLOOD SPECIMEN Ordering Facility: [facility] Address: [address] [place] [address] Performed By: #### 2 4323-8, 1988-02, 00663-6 #### [facility] CLIA [id number] [address] [place] [address] [place] Calprotectin (Stl) [Mass/Mas s]on 05-12-2023 CALPROTECTIN, FECAL INTERP Normal Normal [facility] CALPROTECTIN, FECAL QUANTITATIVE 20.9 ug/g <50 ug/g [facility] CALPROTECTIN, FECAL INTERP Normal Normal Normal [facility] Comment on above: Order Comment: Lise villalpando Type: STOOL SPECIMEN Ordering Facility: [facility] Address: [address] [place] [phone] Result Comment: On 2022, [facility] [employer] implemented a new fecal calprotectin method, the [employer] Calprotectin assay. For assistance with interpretation of results in patients undergoing serial monitoring, contact Client Services at [phone] or [phone] to discuss options, preferably within 7 days of issuing this report. Interpretation: <50.0 ug/g: Normal 50.0 ug/g - 120.0 ug/g: Borderline elevated. Re-evaluation in 4-6 weeks is recommended if clinically indicated. >120.0 ug/g: Elevated Performed By: #### 3 8445-3 #### [facility] CLIA [id number] [address] [place] [address] [place] CALPROTECTIN, FECAL QUANTITATIVE 20.9 ug/g Normal <50 [facility] Comment on above: Order Comment: Speci men Type: STOOL SPECIMEN Ordering Facility: [facility] Address: [address] [place] [place] [address] Performed By: #### 3 8445-3 #### [facility] CLIA [id number] [address] [place] [address] [place] Comprehensive metabolic 2000 panelon 05-12-2023 Albumin [Mass/Vol] 3.7 g/dL Low 3.9-4.9 [facility] Comment on above: Order Comment: Speci men Type: BLOOD SPECIMEN Ordering Facility: [facility] Address: [address] [place] [address] Performed By: #### 2 4323-8, 1988-02, #### [facility] IA [id number] [address] [place] [address] [place] ALP [Catalytic activity/Vol] 39 U/L Normal 34-123 [facility] Comment on above: Order Comment: Speci men Type: BLOOD SPECIMEN Ordering Facility: [facility] Address: [address] [place], [place] [address] Performed By: #### 2 4323-8, 1988-02, #### [facility] IA [id number] [address] [place] [address] [place] ALT [Catalytic activity/Vol] 8 U/L Normal 7-38 [facility] Comment on above: Order Comment: Speci men Type: BLOOD SPECIMEN Ordering Facility: [facility] Address: [address] [place], [place] [address] Performed By: #### 2 4323-8, 1988-02, #### [facility] IA [id number] [address] [place] [address] [place] Anion gap [Moles/Vol] 11 mmol/L Normal 9-18 [facility] Comment on above: Order Comment: Speci men Type: BLOOD SPECIMEN Ordering Facility: [facility] Address: [place] [address] Performed By: #### 2 8, 1988-02, #### [facility] CLIA [id number] [address] [place] [address] [place] AST [Catalytic activity/Vol] 13 U/L Normal 13-35 [facility] Comment on above: Order Comment: Speci men Type: BLOOD SPECIMEN Ordering Facility: [facility] Address: [address] Performed By: #### 2 4328, 1988-02, #### [facility] CLIA [id number] [address] [place] [address] [place] Bilirubin [Mass/Vol] 0.3 mg/dL Normal 0.2-1.3 [facility] Comment on above: Order Comment: Speci men Type: BLOOD SPECIMEN Ordering Facility: [facility] Address: [place] [address] Performed By: #### 2 8, 1988-02, #### [facility] CLIA [id number] [address] [place] [address] [place] Calcium [Mass/Vol] 9.0 mg/dL Normal 8.5-10.2 [facility] Comment on above: Order Comment: Speci men Type: BLOOD SPECIMEN Ordering Facility: [facility] Address: [place] [address] Performed By: #### 2 4322-8, 1988-02, #### [facility] CLIA [id number] [address] [place] [address] [place] Chloride [Moles/Vol] 104 mmol/L Normal 97-105 [facility] Comment on above: Order Comment: Speci men Type: BLOOD SPECIMEN Ordering Facility: [facility] Address: [address] [place] [phone] Performed By: #### 2 4328, 1988-02, #### [facility] CLIA [id number] [address] [place] [address] [place] CO2 [Moles/Vol] 22 mmol/L Normal 22-30 [facility] Comment on above: Order Comment: Speci men Type: BLOOD SPECIMEN Ordering Facility: [facility] Address: [address] [place], [place] [address] Performed By: #### 2 4328, 1988-02, #### [facility] CLIA [id number] [address] [place] [address] [place] Creatinine [Mass/Vol] 0.76 mg/dL Normal 0.58-0.96 [facility] Comment on above: Order Comment: Speci men Type: BLOOD SPECIMEN Ordering Facility: [facility] Address: [address] [place], [place] [address] Performed By: #### 2 4328, 1988-02, #### [facility] CLIA [id number] [address] [place] [address] [place] ESTIMATED GLOMERULAR FILTRATION RATE 108 mL/min/1.73m??? Normal >=60 [facility] Comment on above: Order Comment: Speci men Type: BLOOD SPECIMEN Ordering Facility: [facility] Address: [address] [place], [place] [address] Result Comment: Albina mated Glomerular Filtration Rate [...] Performed By: #### 2 4323-8, 1988-02, #### [facility] CLIA [id number] [address] [place] [address] [place] Glucose [Mass/Vol] 88 mg/dL Normal 74-99 [facility] Comment on above: Order Comment: Lise villalpando Type: BLOOD SPECIMEN Ordering Facility: [facility] Address: [address] [place] [address] Result Comment: The [place] Diabetes Association (ADA) provides guidance for cutoff [...] Standards of Medical Care in Diabetes 2016, [place] [employer]. Diabetes Care. 2016.39(Suppl 1). Performed By: #### 2 4328, #### [facility] CLIA [id number] [address] [place] [address] [place] Potassium [Moles/Vol] 4.2 mmol/L Normal 3.7-5.1 [facility] Comment on above: Order Comment: Lise villalpando Type: BLOOD SPECIMEN Ordering Facility: [facility] Address: [address] [place] [phone] Performed By: #### 2 4328, #### [facility] CLIA [id number] [address] [place] [address] [place] Protein [Mass/Vol] 6.3 g/dL Normal 6.3-8.0 [facility] Comment on above: Order Comment: Lise villalpando Type: BLOOD SPECIMEN Ordering Facility: [facility] Address: [address] Performed By: #### 2 [address], #### [facility] CLIA [id number] [address] [place] [address] [place] Sodium [Moles/Vol] 137 mmol/L Normal 136-144 [facility] Comment on above: Order Comment: Speci men Type: BLOOD SPECIMEN Ordering Facility: [facility] Address: [place] [address] Performed By: #### 2 4323-8, 1988-02, #### [facility] CLIA [id number] [address] [place] [address] [place] Urea nitrogen [Mass/Vol] 8 mg/dL Normal 7-21 [facility] Comment on above: Order Comment: Speci men Type: BLOOD SPECIMEN Ordering Facility: [facility] Address: [place] [address] Performed By: #### 2 4323-8, #### [facility] CLIA [id number] [address] [place] [address] [place] Albumin [Mass/Vol] 3.7 g/dL Low 3.9 - 4.9 g/dL [facility] ALP [Catalytic activity/Vol] 39 U/L 34 - 123 U/L [facility] ALT [Catalytic activity/Vol] 8 U/L 7 - 38 U/L [facility] Anion gap [Moles/Vol] 11 mmol/L 9 - 18 mmol/L [facility] AST [Catalytic activity/Vol] 13 U/L 13 - 35 U/L [facility] Bilirubin [Mass/Vol] 0.3 mg/dL 0.2 - 1 .3 mg/dL [facility] Calcium [Mass/Vol] 9.0 mg/dL 8.5 - 10. 2 mg/dL [facility] Chloride [Moles/Vol] 104 mmol/L 97 - 10 5 mmol/L [facility] CO2 [Moles/Vol] 22 mmol/L 22 - 30 mmol/L [facility] Creatinine [Mass/Vol] 0.76 mg/dL 0.58 - 0.96 mg/dL [facility] Estimated Glomerular Filtration Rate 108 mL/min/1.73m >=60 mL/min/1.73m [facility] Glucose [Mass/Vol] 88 mg/dL 74 - 99 mg/dL [facility] Potassium [Moles/Vol] 4.2 mmol/L 3.7 - 5.1 mmol/L [facility] Protein [Mass/Vol] 6.3 g/dL 6.3 - 8.0 g/dL [facility] Sodium [Moles/Vol] 137 mmol/L 136 - 144 mmol/L [facility] Urea nitrogen [Mass/Vol] 8 mg/dL 7 - 21 mg/d L [facility] Iron and Iron binding capaci ty panelon 05-12-2023 Iron [Mass/Vol] 113 ug/dL Normal 41-186 [facility] Comment on above: Order Comment: Speci men Type: BLOOD SPECIMEN Ordering Facility: [facility] Address: [address] Performed By: #### 2 4323-8, 1988-02, #### [facility] CLIA [id number] [address] [place], [place] [id number] [place] [address] [place] [facility] Iron binding capacity [Mass/Vol] 416 ug/dL High 232-386 [facility] Comment on above: Order Comment: Speci men Type: BLOOD SPECIMEN Ordering Facility: [facility] Address: [address] [place] [phone] Performed By: #### 2 4323-8, 1988-02, #### [facility] IA [id number] [address] [place] [address] [place] Iron/TIBC [Molar ratio] 27.2 % Normal 15.0-57.0 [facility] Comment on above: Order Comment: Speci men Type: BLOOD SPECIMEN Ordering Facility: [facility] Address: [address] [place] [address] Performed By: #### 2 4323-8, #### [facility] IA [id number] [address] [place] [address] [place] Iron [Mass/Vol] 113 ug/dL 41 - 186 ug/dL [facility] Iron binding capacity [Mass/Vol] 416 ug/dL High 232 - 386 ug/dL [facility] Iron/TIBC [Molar ratio] 27.2 % 15.0 - 57.0 % [facility] Luis Fernando 05-11-2023 CNPN Telephone (GASTAV) MARLIN CADE ([id number]) 1990 F Date Time Provider Department 05/11/23 EVERT DANIELS During your visit today, we recorded the following information about you: Naomi Cain Ma 05/11/2023 3:06 PM Signed Called patient for more information about her visit tomorrow with Dr. Loyd in Gastroenterology for IBD. We have no medical information on file, or in Care Everywhere. Patient stated she had sought medical care in [place], with Dr. Baldemar Arnett, Gastroenterology, [facility], presenting with bleeding when having a BM. Patient states that the bleeding is sometimes heavy and sometimes it just colors the toilet paper. She has no pain with it, and wasn't actually diagnosed with IBD, but she is concerned. She was scheduled to have a colonoscopy in [place], but when she got they canceled the procedure. She is currently 21.5 weeks into her . She stated the [facility] recommended she came to the [facility] for further evaluation. Naomi Cain CMA Allergies As of Date: 05/11/2023 (Not on File) Date Reviewed: Never Reviewed Reason for Visit: Appointment Information [Other] Problem List As Of Date: 05/11/2023 (None) Encounter Status:Closed by NAOMI CAIN MA on 05/11/23 Normal [facility] HEP B SURFACE ANTIGEN SCREEN on 03-03-2023 HBsAg Screen Negative Normal Negative [facility] Comment on above: Performed By: #### [facility] #### [facility] [address] [place] [address] Dr. David Garduno HEPATITIS C VIRUS AB W/ REFL EX QUANTon 03-03-2023 HCV AB Non-Reactive Normal Non Reactive [facility] Comment on above: Performed By: #### C BC #### [facility] [address] [place] [address] Dr. David Garduno Interpretation: Comment Normal [facility] Comment on above: Result Comment: Not infected with HCV unless early or acute infection is suspected (which may be delayed in an immunocompromised individual), or other evidence exists to indicate HCV infection. Performed By: #### C BC #### [facility] [address] [place] [address] Dr. David Garduno HIV 1 AND 2 WITH REFLEXon HIV Screen 4th Generation wRfx Non-Reactive Normal Non Reactive [facility] Comment on above: Result Comment: HIV Negative HIV-1/HIV-2 antibodies and HIV-1 p24 antigen were NOT detected. There is no laboratory evidence of HIV infection. Performed By: #### R PRQ #### [facility] [address] [place] [address] Dr. David Garduno RPR QUANTon 03-03-2023 Rapid Plasma Reagin, Quant Non-Reactive Normal NonRea<1:1 [facility] Comment on above: Result Comment: Plea se Note: This test does not meet current guidelines for screening and diagnosis of syphilis. This test is intended for following treatment response in patients being treated for syphilis infection. To screen for syphilis infection, a reflex cascade that includes both RPR and a treponema-specific assay should be utilized, such as Treponema pallidum (Syphilis) Screening [place] (167976) or Rapid Plasma Reagin (RPR) Test With Reflex to Quantitative RPR and Confirmatory Treponema pallidum Antibodies (271634). Performed By: #### R PRQ #### [facility] [address] [place] [address] Dr. David Garduno RUBELLA AB IGGon 03-03-2023 Rubella Antibodies, IgG 1.15 index Normal Immune >0.99 [facility] Comment on above: Result Comment: Non- immune <0.90 Equivocal 0.90 - 0.99 Immune >0.99 Performed By: #### R PRQ #### [facility] [address] [place] [address] Dr. David Garduno CBC AUTO DIFFon 03-02-2023 BASO # 0.0 103/ul Normal 0.0-0.1 [facility] Comment on above: Performed By: #### C BC #### [facility] [address] [place] [address] Dr. David Garduno Basophils/100 WBC (Bld) 0.3 % Normal 0.2-2.0 [facility] Comment on above: Performed By: #### C BC #### [facility] [address] [place] [address] Dr. David Garduno EO # 0.1 103/ul Normal 0.0-0.7 [facility] Comment on above: Performed By: #### C BC #### [facility] [address] [place] [address] Dr. David Garduno Eosinophils/100 WBC (Bld) 1.1 % Normal 0.9-7.0 [facility] Comment on above: Performed By: #### C BC #### [facility] [address] [place] [address] Dr. David Garduno Erythrocyte distribution width (RBC) [Ratio] 12.6 % Normal 11.0-15.0 [facility] Comment on above: Performed By: #### C BC #### [facility] [address] [place] [address] Dr. David Garduno Hematocrit (Bld) [Volume fraction] 38.8 % Normal 36.0-48.0 [facility] Comment on above: Performed By: #### C BC #### [facility] [address] [place] [address] Dr. David Garduno Hemoglobin (Bld) [Mass/Vol] 13.8 g/dL Normal 12.0-16.0 [facility] Comment on above: Performed By: #### C BC #### [facility] [address] [place] [address] Dr. David Garduno IG # 0.03 10e3/ul Normal 0.00-0.03 [facility] Comment on above: Performed By: #### C BC #### [facility] [address] [place] [address] Dr. David Garduno IG % 0.5 % Normal 0.0-0.5 [facility] Comment on above: Performed By: #### C BC #### [facility] [address] [place] [address] Dr. David Garduno LYMPH # 1.8 103/ul Normal 1.2-3.8 [facility] Comment on above: Performed By: #### C BC #### [facility] [address] [place] [address] Dr. David Garduno Lymphocytes/100 WBC (Bld) 28.5 % Normal 20.5-60.0 [facility] Comment on above: Performed By: #### C BC #### [facility] [address] [place] [address] Dr. David Garduno MANUAL DIFF REQ NO Normal [facility] Comment on above: Performed By: #### C BC #### [facility] [address] [place] [address] Dr. David Garduno MCH (RBC) [Entitic mass] 31.4 pg Normal 26.7-34.0 [facility] Comment on above: Performed By: #### C BC #### [facility] [address] [place] [address] Dr. David Garduno MCHC (RBC) [Mass/Vol] 35.6 g/dL Critically high 29.9-35.2 [facility] Comment on above: Performed By: #### C BC #### [facility] [address] [place] [address] Dr. David Garduno MCV (RBC) [Entitic vol] 88.2 fL Normal 81.0-99.0 [facility] Comment on above: Performed By: #### C BC #### [facility] [address] [place] [address] Dr. David Garduno MONO # 0.4 103/ul Normal 0.3-0.8 [facility] Comment on above: Performed By: #### C BC #### [facility] [address] [place] [address] Dr. David Garduno Monocytes/100 WBC (Bld) 7.0 % Normal 1.7-12.0 [facility] Comment on above: Performed By: #### C BC #### [facility] [address] [place] [address] Dr. David Garduno NEUT # 3.8 103/ul Normal 1.4-6.5 [facility] Comment on above: Performed By: #### C BC #### [facility] [address] [place] [address] Dr. David Garduno Neutrophils/100 WBC (Bld) 62.6 % Normal 43.0-75.0 [facility] Comment on above: Performed By: #### C BC #### [facility] [address] [place] [address] Dr. David Garduno Platelet mean volume (Bld) [Entitic vol] 10.9 fL Normal 9.5-13.5 [facility] Comment on above: Performed By: #### C BC #### [facility] [address] [place] [address] Dr. David Garduno PLT 184 103/ul Normal 150-450 [facility] Comment on above: Performed By: #### C BC #### [facility] [address] [place] [address] Dr. David Garduno RBC 4.40 106/ul Normal 4.20-5.40 [facility] Comment on above: Performed By: #### C BC #### [facility] [address] [place] [address] Dr. David Garduno WBC 6.1 103/ul Normal 4.0-11.0 [facility] Comment on above: Performed By: #### C BC #### [facility] [address] [place] [address] Dr. David Garduno CULTURE URINEon 03-02-2023 CULTURE URINE Culture Observations: MODERATE GROWTH OF MIXED GENITAL CLARIBEL. NO POTENTIAL PATHOGENS SEEN. Normal [facility] Comment on above: Performed By: #### U RCX #### [facility] [address] [place] [address] Dr. David Garduno GLYCOHEMOGLOBIN A1Con 2022 ADA RECOMMENDATION SEE BELOW Normal [facility] Comment on above: Result Comment: ADA RECOMMENDED LIMIT 4.0 - 6.0 ADA THERAPEUTIC TARGET < 7.0 ACTION SUGGESTED > 7.0 Performed By: #### A 1C #### [facility] [address] [place] [address] Dr. David Garduno Glucose [Mass/Vol] 94 mg/dL Normal [facility] Comment on above: Performed By: #### A 1C #### [facility] [address] [place] [address] Dr. David Garduno HbA1c (Bld) [Mass fraction] 4.9 % Normal 4.5-6.2 [facility] Comment on above: Performed By: #### A 1C #### [facility] [address] [place] [address] Dr. David Garduno TSHon 03-02-2023 TSH 0.430 uIU/mL Normal 0.358-3.740 [facility] Comment on above: Performed By: #### R PRQ #### [facility] [address] [place] [address] Dr. David Garduno TYPE AND SCREENon 03-02-2023 TYPE AND SCREEN Negative Normal [facility] Comment on above: Performed By: #### T NS #### [facility] [address] [place] [address] Dr. David Garduno US PREG TVon 02-16-2023 [...] Date: 2023-02-16 16:03 Normal [facility] CBC AUTO DIFFon 12-10-2022 BASO # 0.0 103/ul Normal 0.0-0.1 [facility] Comment on above: Performed By: #### C BC #### [facility] [address] [place] [address] Dr. David Garduno Basophils/100 WBC (Bld) 0.6 % Normal 0.2-2.0 [facility] Comment on above: Performed By: #### C BC #### [facility] [address] [place] [address] Dr. aDvid Garduno EO # 0.1 103/ul Normal 0.0-0.7 [facility] Comment on above: Performed By: #### C BC #### [facility] [address] [place] [address] Dr. David Garduno Eosinophils/100 WBC (Bld) 1.7 % Normal 0.9-7.0 [facility] Comment on above: Performed By: #### C BC #### [facility] [address] [place] [address] Dr. David Garduno Erythrocyte distribution width (RBC) [Ratio] 12.4 % Normal 11.0-15.0 [facility] Comment on above: Performed By: #### C BC #### [facility] [address] [place] [address] Dr. David Garduno Hematocrit (Bld) [Volume fraction] 41.9 % Normal 36.0-48.0 [facility] Comment on above: Performed By: #### C BC #### [facility] [address] [place] [address] Dr. David Garduno Hemoglobin (Bld) [Mass/Vol] 14.8 g/dL Normal 12.0-16.0 [facility] Comment on above: Performed By: #### C BC #### [facility] [address] [place] [address] Dr. David Garduno IG # 0.01 10e3/ul Normal 0.00-0.03 [facility] Comment on above: Performed By: #### C BC #### [facility] [address] [place] [address] Dr. David Garduno IG % 0.3 % Normal 0.0-0.5 [facility] Comment on above: Performed By: #### C BC #### [facility] [address] [place] [address] Dr. David Garduno LYMPH # 0.8 103/ul Critically low 1.2-3.8 [facility] Comment on above: Performed By: #### C BC #### [facility] [address] [place] [address] Dr. David Garduno Lymphocytes/100 WBC (Bld) 22.3 % Normal 20.5-60.0 [facility] Comment on above: Performed By: #### C BC #### [facility] [address] [place] [address] Dr. David Garduno MANUAL DIFF REQ NO Normal [facility] Comment on above: Performed By: #### C BC #### [facility] [address] [place] [address] Dr. David Garduno MCH (RBC) [Entitic mass] 31.0 pg Normal 26.7-34.0 [facility] Comment on above: Performed By: #### C BC #### [facility] [address] [place] [address] Dr. David Garduno MCHC (RBC) [Mass/Vol] 35.3 g/dL Critically high 29.9-35.2 [facility] Comment on above: Performed By: #### C BC #### [facility] [address] [place] [address] Dr. David Garduno MCV (RBC) [Entitic vol] 87.8 fL Normal 81.0-99.0 [facility] Comment on above: Performed By: #### C BC #### [facility] [address] [place] [address] Dr. David Garduno MONO # 0.5 103/ul Normal 0.3-0.8 [facility] Comment on above: Performed By: #### C BC #### [facility] [address] [place] [address] Dr. David Garduno Monocytes/100 WBC (Bld) 13.0 % Critically high 1.7-12. 0 [facility] Comment on above: Performed By: #### C BC #### [facility] [address] [place] [address] Dr. David Garduno NEUT # 2.2 103/ul Normal 1.4-6.5 [facility] Comment on above: Performed By: #### C BC #### [facility] [address] [place] [address] Dr. David Garduno Neutrophils/100 WBC (Bld) 62.1 % Normal 43.0-75.0 [facility] Comment on above: Performed By: #### C BC #### [facility] [address] [place] [address] Dr. David Garduno Platelet mean volume (Bld) [Entitic vol] 10.4 fL Normal 9.5-13.5 [facility] Comment on above: Performed By: #### C BC #### [facility] [address] [place] [address] Dr. David Garduno PLT 174 103/ul Normal 150-450 [facility] Comment on above: Performed By: #### C BC #### [facility] [address] [place] [address] Dr. David Garduno RBC 4.77 106/ul Normal 4.20-5.40 [facility] Comment on above: Performed By: #### C BC #### [facility] [address] [place] [address] Dr. David Garduno WBC 3.5 103/ul Critically low 4.0-11.0 [facility] Comment on above: Performed By: #### C BC #### [facility] [address] [place] [address] ABD/PELVIS WO CONon [...] by: PAIGE KERR Date: 2022-12-10 10:51 Normal [facility] PREG HCG QUALon 12-10-2022 , QUAL Negative Normal NEGATIVE [facility] Comment on above: Performed By: #### P REG #### [facility] [address] [place] [address] Dr. David Garduno PROF CHEM 8 (BAS METB)on Anion gap [Moles/Vol] 13.0 mmol/L Normal [facility] Comment on above: Performed By: #### R PRQ #### [facility] [address] [place] [address] Dr. David Garduno Calcium [Mass/Vol] 8.5 mg/dL Normal 8.5-10.1 [facility] Comment on above: Performed By: #### R PRQ #### [facility] [address] [place] [address] Dr. David Garduno Chloride [Moles/Vol] 103 mmol/L Normal 98-107 [facility] Comment on above: Performed By: #### R PRQ #### [facility] [address] [address] [address] David Garduno CO2 [Moles/Vol] 26.4 mmol/L Normal 21.0-32.0 [facility] Comment on above: Performed By: #### R PRQ #### [facility] [address] [address] [address] David Garduno Creatinine [Mass/Vol] 0.85 mg/dL Normal 0.55-1.02 [facility] Comment on above: Performed By: #### R PRQ #### [facility] [address] [address] [address] David Garduno EGFR-AF SENEGALESE >60 Normal >=60 [facility] Comment on above: Performed By: #### R PRQ #### [facility] [address] [place] [address] Dr. David Garduno EGFR-NON AF SENEGALESE >60 Normal >=60 [facility] Comment on above: Performed By: #### R PRQ #### [facility] [address] [address] [address] David Garduno Glucose [Mass/Vol] 97 mg/dL Normal 74-[address] [facility] Comment on above: Performed By: #### R PRQ #### [facility] [address] [address] [address] David Garduno Potassium [Moles/Vol] 4.4 mmol/L Normal 3.5-5.1 [facility] Comment on above: Performed By: #### R PRQ #### [facility] [address] [address] [address] David Garduno Sodium [Moles/Vol] 138 mmol/L Normal 136-[address] [facility] Comment on above: Performed By: #### R PRQ #### [facility] [address] [place] [address] Dr. David Garduno Urea nitrogen [Mass/Vol] 8.0 mg/dL Normal 7.0-18.0 [facility] Comment on above: Performed By: #### R PRQ #### [facility] [address] [address] [address] David Garduno Urea nitrogen/Creatinine [Mass ratio] 9.4 mg/mg Normal [facility] Comment on above: Performed By: #### R PRQ #### [facility] [address] [place] [address] Dr. David Garduno CBC AUTO DIFFon 04-10-2022 BASO # 0.0 103/ul Normal 0.0-0.1 [facility] Comment on above: Performed By: #### C BC #### [facility] [address] [place] [address] Dr. David Garduno Basophils/100 WBC (Bld) 0.2 % Normal 0.2-2.0 [facility] Comment on above: Performed By: #### C BC #### [facility] [address] [place] [address] Dr. David Garduno EO # 0.0 103/ul Normal 0.0-0.7 [facility] Comment on above: Performed By: #### C BC #### [facility] [address] [place] [address] Dr. David Garduno Eosinophils/100 WBC (Bld) 0.1 % Critically low 0.9-7.0 [facility] Comment on above: Performed By: #### C BC #### [facility] [address] [place] [address] Dr. David Garduno Erythrocyte distribution width (RBC) [Ratio] 13.8 % Normal 11.0-15.0 [facility] Comment on above: Performed By: #### C BC #### [facility] [address] [place] [address] Dr. David Garduno Hematocrit (Bld) [Volume fraction] 30.0 % Critically low 36.0-48.0 [facility] Comment on above: Performed By: #### C BC #### [facility] [address] [place] [address] Dr. David Garduno Hemoglobin (Bld) [Mass/Vol] 9.9 g/dL Critically low 12.0-16.0 [facility] Comment on above: Performed By: #### C BC #### [facility] [address] [place] [address] Dr. David Garduno IG # 0.03 10e3/ul Normal 0.00-0.03 [facility] Comment on above: Performed By: #### C BC #### [facility] [address] [place] [address] Dr. David Garduno IG % 0.3 % Normal 0.0-0.5 [facility] Comment on above: Performed By: #### C BC #### [facility] [address] [place] [address] Dr. David Garduno LYMPH # 1.8 103/ul Normal 1.2-3.8 [facility] Comment on above: Performed By: #### C BC #### [facility] [address] [place] [address] Dr. David Garduno Lymphocytes/100 WBC (Bld) 17.2 % Critically low 20.5-60.0 [facility] Comment on above: Performed By: #### C BC #### [facility] [address] [place] [address] Dr. David Garduno MANUAL DIFF REQ NO Normal [facility] Comment on above: Performed By: #### C BC #### [facility] [address] [place] [address] Dr. David Garduno MCH (RBC) [Entitic mass] 28.4 pg Normal 26.7-34.0 [facility] Comment on above: Performed By: #### C BC #### [facility] [address] [place] [address] Dr. David Garduno MCHC (RBC) [Mass/Vol] 33.0 g/dL Normal 29.9-35.2 [facility] Comment on above: Performed By: #### C BC #### [facility] [address] [place] [address] Dr. David Garduno MCV (RBC) [Entitic vol] 86.0 fL Normal 81.0-99.0 [facility] Comment on above: Performed By: #### C BC #### [facility] [address] [place] [address] Dr. David Garduno MONO # 0.8 103/ul Normal 0.3-0.8 [facility] Comment on above: Performed By: #### C BC #### [facility] [address] [place] [address] Dr. David Garduno Monocytes/100 WBC (Bld) 7.9 % Normal 1.7-12.0 [facility] Comment on above: Performed By: #### C BC #### [facility] [address] [place] [address] Dr. David Garduno NEUT # 7.6 103/ul Critically high 1.4-6.5 [facility] Comment on above: Performed By: #### C BC #### [facility] [address] [place] [address] Dr. David Garduno Neutrophils/100 WBC (Bld) 74.3 % Normal 43.0-75.0 [facility] Comment on above: Performed By: #### C BC #### [facility] [address] [place] [address] Dr. David Garduno Platelet mean volume (Bld) [Entitic vol] 11.6 fL Normal 9.5-13.5 [facility] Comment on above: Performed By: #### C BC #### [facility] [address] [place] [address] Dr. David Garduno PLT 155 103/ul Normal 150-450 [facility] Comment on above: Performed By: #### C BC #### [facility] [address] [place] [address] Dr. David Garduno RBC 3.49 106/ul Critically low 4.20-5.40 [facility] Comment on above: Performed By: #### C BC #### [facility] [address] [place] [address] Dr. David Garduno WBC 10.2 103/ul Normal 4.0-11.0 [facility] Comment on above: Performed By: #### C BC #### [facility] [address] [place] [address] Dr. David Garduno CBC AUTO DIFFon 06-11-2022 BASO # 0.0 103/ul Normal 0.0-0.1 [facility] Comment on above: Performed By: #### C BC #### [facility] [address] [place] [address] Dr. David Garduno Basophils/100 WBC (Bld) 0.2 % Normal 0.2-2.0 [facility] Comment on above: Performed By: #### C BC #### [facility] [address] [place] [address] Dr. David Garduno EO # 0.0 103/ul Normal 0.0-0.7 [facility] Comment on above: Performed By: #### C BC #### [facility] [address] [place] [address] Dr. David Garduno Eosinophils/100 WBC (Bld) 0.5 % Critically low 0.9-7.0 [facility] Comment on above: Performed By: #### C BC #### [facility] [address] [place] [address] Dr. David Garduno Erythrocyte distribution width (RBC) [Ratio] 14.0 % Normal 11.0-15.0 [facility] Comment on above: Performed By: #### C BC #### [facility] [address] [place] [address] Dr. David Garduno Hematocrit (Bld) [Volume fraction] 35.5 % Critically low 36.0-48.0 [facility] Comment on above: Performed By: #### C BC #### [facility] [address] [place] [address] Dr. David Garduno Hemoglobin (Bld) [Mass/Vol] 11.6 g/dL Critically low 12.0-16.0 [facility] Comment on above: Performed By: #### C BC #### [facility] [address] [place] [address] Dr. David Garduno IG # 0.02 10e3/ul Normal 0.00-0.03 [facility] Comment on above: Performed By: #### C BC #### [facility] [address] [place] [address] Dr. David Garduno IG % 0.2 % Normal 0.0-0.5 [facility] Comment on above: Performed By: #### C BC #### [facility] [address] [place] [address] Dr. David Garduno LYMPH # 1.9 103/ul Normal 1.2-3.8 [facility] Comment on above: Performed By: #### C BC #### [facility] [address] [place] [address] Dr. David Garduno Lymphocytes/100 WBC (Bld) 22.8 % Normal 20.5-60.0 [facility] Comment on above: Performed By: #### C BC #### [facility] [address] [place] [address] Dr. David Garduno MANUAL DIFF REQ NO Normal [facility] Comment on above: Performed By: #### C BC #### [facility] [address] [place] [address] Dr. David Garduno MCH (RBC) [Entitic mass] 28.4 pg Normal 26.7-34.0 [facility] Comment on above: Performed By: #### C BC #### [facility] [address] [place] [address] Dr. David Garduno MCHC (RBC) [Mass/Vol] 32.7 g/dL Normal 29.9-35.2 [facility] Comment on above: Performed By: #### C BC #### [facility] [address] [place] [address] Dr. David Garduno MCV (RBC) [Entitic vol] 86.8 fL Normal 81.0-99.0 [facility] Comment on above: Performed By: #### C BC #### [facility] [address] [place] [address] Dr. David Garduno MONO # 0.8 103/ul Normal 0.3-0.8 [facility] Comment on above: Performed By: #### C BC #### [facility] [address] [place] [address] Dr. David Garduno Monocytes/100 WBC (Bld) 9.6 % Normal 1.7-12.0 [facility] Comment on above: Performed By: #### C BC #### [facility] [address] [place] [address] Dr. David Garduno NEUT # 5.6 103/ul Normal 1.4-6.5 [facility] Comment on above: Performed By: #### C BC #### [facility] [address] [place] [address] Dr. David Garduno Neutrophils/100 WBC (Bld) 66.7 % Normal 43.0-75.0 [facility] Comment on above: Performed By: #### C BC #### [facility] [address] [place] [address] Dr. David Garduno Platelet mean volume (Bld) [Entitic vol] 12.0 fL Normal 9.5-13.5 [facility] Comment on above: Performed By: #### C BC #### [facility] [address] [place] [address] Dr. David Garduno PLT 197 103/ul Normal 150-450 [facility] Comment on above: Performed By: #### C BC #### [facility] [address] [place] [address] Dr. David Garduno RBC 4.09 106/ul Critically low 4.20-5.40 [facility] Comment on above: Performed By: #### C BC #### [facility] [address] [place] [address] Dr. David Garduno WBC 8.3 103/ul Normal 4.0-11.0 [facility] Comment on above: Performed By: #### C BC #### [facility] [address] [place] [address] Dr. David Garduno TYPE AND SCREENon 04-09-2022 TYPE AND SCREEN Negative Normal [facility] Comment on above: Performed By: #### C BC #### [facility] [address] [place] [address] Dr. David Garduno UA (CLEAN/CATCH) [employer]PERVISOR/MICRO I F IND.on 04-09-2022 Bilirubin Ql (U) Negative Normal NEGATIVE [facility] Comment on above: Performed By: #### R PRQ #### [facility] [address] [address] [address] David Garduno Clarity (U) CLEAR Normal CLEAR [facility] Comment on above: Performed By: #### R PRQ #### [facility] [address] [address] [address] David Garduno Color (U) LT. YELLOW Normal YELLOW [facility] Comment on above: Performed By: #### R PRQ #### [facility] [address] [place] [address] Dr. David Garduno Glucose Ql (U) Negative Normal NEGATIVE [facility] Comment on above: Performed By: #### R PRQ #### [facility] [address] [place] [address] Dr. David Garduno Hemoglobin Ql (U) Negative Normal NEGATIVE [facility] Comment on above: Performed By: #### R PRQ #### [facility] [address] [place] [address] Dr. David Garduno Ketones Ql (U) Negative Normal NEGATIVE [facility] Comment on above: Performed By: #### R PRQ #### [facility] [address] [place] [address] Dr. David Garduno LEUKOCYTES Negative Normal NEGATIVE [facility] Comment on above: Performed By: #### R PRQ #### [facility] [address] [place] [address] Dr. David Garduno Nitrite Ql (U) Negative Normal NEGATIVE [facility] Comment on above: Performed By: #### R PRQ #### [facility] [address] [place] [address] Dr. David Garduno pH (U) 6.5 [pH] Normal 5-9 [facility] Comment on above: Performed By: #### R PRQ #### [facility] [address] [place] [address] Dr. David Garduno SPEC GRAVITY 1.010 Normal 1.005-<=1.02 5 [facility] Comment on above: Performed By: #### R PRQ #### [facility] [address] [place] [address] Dr. David Garduno UA PROTEIN Negative Normal NEGATIVE/ TRACE [facility] Comment on above: Performed By: #### R PRQ #### [facility] [address] [place] [address] Dr. David Garduon UR MICRO IND NOT INDICATED Normal [facility] Comment on above: Performed By: #### R PRQ #### [facility] [address] [place] [address] Dr. David Garduno Urobilinogen Qn (U) 0.2 {Taye'U}/dL Normal 0.2 - 1. 0 [facility] Comment on above: Performed By: #### R PRQ #### [facility] [address] [place] [address] Dr. David Garduno Covid-19 PCR (CVDTB)on 03-30 SARS-CoV-2 (COVID-19) RNA CARLOS+probe Ql (Unsp spec) Not detected Normal NOT DETECTED [facility] Comment on above: Result Comment: This test is not yet approved or cleared by the [place] FDA. When there are no FDA-approved or cleared tests available, and other criteria are met, FDA can make tests available under an emergency access mechanism called an Emergency Use Authorization (EUA). The EUA for this test is supported by the [place] of Health and Human Service's (HHS's) declaration [...] By: #### C VDTBH #### [facility] [address] [place] [address] Dr. David Garduno US PREG BIOPHY W [...] Date: 2022-04-06 18:46 Normal [facility] GROUP B STREP CULTUREon S. agalactiae Ag Ql (Unsp spec) Culture Observations: NEGATIVE FOR GROUP B STREPTOCOCCUS. Normal [facility] Comment on above: Performed By: #### C BC #### [facility] [address] [place] [address] Dr. David Garduno UA (CLEAN/CATCH) [employer] SUPERVISOR/MICRO I F IND.on 03-25-2022 Bilirubin Ql (U) Negative Normal NEGATIVE [facility] Comment on above: Performed By: #### U ACSIND #### [facility] [address] [place] [address] Dr. David Garduno Clarity (U) CLEAR Normal CLEAR [facility] Comment on above: Performed By: #### U ACSIND #### [facility] [address] [place] [address] Dr. David Garduno Color (U) LT. YELLOW Normal YELLOW [facility] Comment on above: Performed By: #### U ACSIND #### [facility] [address] [place] [address] Dr. David Garduno Glucose Ql (U) Negative Normal NEGATIVE [facility] Comment on above: Performed By: #### U ACSIND #### [facility] [address] [place] [address] Dr. David Garduno Hemoglobin Ql (U) Negative Normal NEGATIVE [facility] Comment on above: Performed By: #### U ACSIND #### [facility] [address] [place] [address] Dr. aDvid Garduno Ketones Ql (U) Negative Normal NEGATIVE [facility] Comment on above: Performed By: #### U ACSIND #### [facility] [address] [address] [address] David Garduno LEUKOCYTES Negative Normal NEGATIVE [facility] Comment on above: Performed By: #### U ACSIND #### [facility] [address] [place] [address] Dr. David Garduno Nitrite Ql (U) Negative Normal NEGATIVE [facility] Comment on above: Performed By: #### U ACSIND #### [facility] [address] [place] [address] Dr. David Garduno pH (U) 6.0 [pH] Normal 5-9 [facility] Comment on above: Performed By: #### U ACSIND #### [facility] [address] [place] [address] Dr. David Garduno SPEC GRAVITY <=1.005 Abnormal 1.005-<=1.02 5 [facility] Comment on above: Performed By: #### U ACSIND #### [facility] [address] [place] [address] Dr. David Garduno UA PROTEIN Negative Normal NEGATIVE/ TRACE [facility] Comment on above: Performed By: #### U ACSIND #### [facility] [address] [place] [address] Dr. David Garduno UR MICRO IND NOT INDICATED Normal [facility] Comment on above: Performed By: #### U ACSIND #### [facility] [address] [address] [address] David Garduno Urobilinogen Qn (U) 0.2 {Taye'U}/dL Normal 0.2 - 1. 0 [facility] Comment on above: Performed By: #### U ACSIND #### [facility] [address] [place] [address] Dr. David Garduno UA (CLEAN/CATCH) [employer] SUPERVISOR/MICRO I F IND.on 03-16-2022 Bilirubin Ql (U) Negative Normal NEGATIVE [facility] Comment on above: Performed By: #### R PRQ #### [facility] [address] [place] [address] Dr. David Garduno Clarity (U) CLEAR Normal CLEAR [facility] Comment on above: Performed By: #### R PRQ #### [facility] [address] [place] [address] Dr. David Garduno Color (U) LT. YELLOW Normal YELLOW [facility] Comment on above: Performed By: #### R PRQ #### [facility] [address] [place] [address] Dr. David Garduno Glucose Ql (U) Negative Normal NEGATIVE [facility] Comment on above: Performed By: #### R PRQ #### [facility] [address] [place] [address] Dr. David Garduno Hemoglobin Ql (U) Negative Normal NEGATIVE [facility] Comment on above: Performed By: #### R PRQ #### [facility] [address] [place] [address] Dr. David Garduno Ketones Ql (U) Negative Normal NEGATIVE [facility] Comment on above: Performed By: #### R PRQ #### [facility] [address] [place] [address] Dr. David Garduno LEUKOCYTES Negative Normal NEGATIVE [facility] Comment on above: Performed By: #### R PRQ #### [facility] [address] [place] [address] Dr. David Garduno Nitrite Ql (U) Negative Normal NEGATIVE [facility] Comment on above: Performed By: #### R PRQ #### [facility] [address] [place] [address] Dr. David Garduno pH (U) 6.0 [pH] Normal 5-9 [facility] Comment on above: Performed By: #### R PRQ #### [facility] [address] [place] [address] Dr. David Garduno SPEC GRAVITY <=1.005 Abnormal 1.005-<=1.02 5 [facility] Comment on above: Performed By: #### R PRQ #### [facility] [address] [place] [address] Dr. David Garduno UA PROTEIN Negative Normal NEGATIVE/ TRACE [facility] Comment on above: Performed By: #### R PRQ #### [facility] [address] [address] [address] David Garduno UR MICRO IND NOT INDICATED Normal [facility] Comment on above: Performed By: #### R PRQ #### [facility] [address] [address] [address] David Garduno Urobilinogen Qn (U) 0.2 {Taye'U}/dL Normal 0.2 - 1. 0 [facility] Comment on above: Performed By: #### R PRQ #### [facility] [address] [address] [address] David Garduno XR wrist LT min 3V*on 2020 XR wrist LT min 3V* [facility] [place] [address] XRay Report Signed Patient: Marlin Cade MR#: [id number] : 1990 Acct:[id number] Age/Sex: 30 / F ADM Date: 05/21/21 Loc: XDUCLY Room: Type: [facility] Attending Dr: Beckie WRAY Ordering Provider: [...] Cedric Joy M.D.05/21/2021 2:31 PM Dictation Location: [place] [address] Transcribed By: [facility] 05/21/21 1431 Dictated By: Cedric Joy DO 05/21/21 1429 Signed By: 05/21/21 1431 Normal [facility] Physician Orderon 09-23-2020 Physician Order [id number] 5#1.00CD:127 Normal [facility] Physician Order [id number] 0#1.00CD:127 Normal [facility] Suboxone Scr Uron 09-23-2020 Buprenorphine Ql (U) Negative Normal Negative [facility] Comment on above: Performed By: #### 7 [id number] #### [facility] [address] [place] [address] U Drug Screenon 09-23-2020 Amphetamines Screen method >1000 ng/mL Ql (U) Negative Normal Negative [facility] Comment on above: Result Comment: Nega tive Cutoff: <1000 ng/mL Performed By: #### 7 [id number] #### [facility] [address] [place] [address] Barbiturates Screen Ql (U) Negative Normal Negative [facility] Comment on above: Result Comment: Nega tive Cutoff: <200 ng/mL Performed By: #### 7 [id number] #### [facility] [address] [place] [address] Benzodiazepines Ql (U) Negative Normal Negative [facility] Comment on above: Result Comment: Nega tive Cutoff: <200 ng/mL Performed By: #### 7 [id number] #### [facility] [address] [place] [address] Cocaine Ql (U) Negative Normal Negative [facility] Comment on above: Result Comment: Nega tive Cutoff: <300 ng/mL Performed By: #### 7 [id number] #### [facility] [address] [place] [address] Opiates Screen Ql (U) Negative Normal Negative [facility] Comment on above: Result Comment: Nega tive Cutoff: <300 ng/mL Performed By: #### 7 [id number] #### [facility] [address] [place] [address] Phencyclidine Screen method >25 ng/mL Ql (U) Negative Normal Negative [facility] Comment on above: Result Comment: Nega tive Cutoff: <25 ng/mL These drug screen results are to be used for medical (i.e., treatment) purposes only. Unconfirmed drug screening results must not be used for non-medical purposes (e.g., employment testing, legal testing). Performed By: #### 7 [id number], [id number] #### [facility] [address] [place] [address] Tetrahydrocannabinol Screen method >50 ng/mL Ql (U) Negative Normal Negative [facility] Comment on above: Result Comment: Nega tive Cutoff: <50 ng/mL Performed By: #### 7 [id number], [id number] #### [facility] [address] [place] [address] Vital Signs Date Time Vital Sign Value Performing Clinician Facility 12-23-2024 13:43-0500 Body mass index (BMI) [Ratio] 36.64 kg/m2 Marv Keturah DO Work Phone: [facility] 12-23-2024 13:43-0500 Body weight 112.55 kg Marv Keturah DO Work Phone: [facility] 12-23-2024 13:43-0500 Diastolic blood pressure 76 mm[Hg] Marv Keturah DO Work Phone: [facility] 12-23-2024 13:43-0500 Systolic blood pressure 110 mm[Hg] Marv Keturah DO Work Phone: [facility] 11-27-2024 13:41-0500 Body mass index (BMI) [Ratio] 36.18 kg/m2 Marv Keturah DO Work Phone: [facility] 11-27-2024 13:41-0500 Body weight 111.13 kg Marv Keturah DO Work Phone: [facility] 11-27-2024 13:41-0500 Diastolic blood pressure 72 mm[Hg] Marv Keturah DO Work Phone: [facility] 11-27-2024 13:41-0500 Systolic blood pressure 114 mm[Hg] Marv Keturah DO Work Phone: [facility] 09-09-2024 13:53-0500 Body height 175.3 cm Aliya Petmonalisaick DO Work Phone: [facility] 09-09-2024 13:53-0500 Body mass index (BMI) [Ratio] 35.65 kg/m2 Aliya Petznick DO Work Phone: [facility] 09-09-2024 13:53-0500 Body temperature 97.39 [degF] Aliya Petznick DO Work Phone: [facility] 09-09-2024 13:53-0500 Body weight 109.5 kg Aliya Petznick DO Work Phone: [facility] 09-09-2024 13:53-0500 Diastolic blood pressure 78 mm[Hg] Aliya Petznick DO Work Phone: [facility] 09-09-2024 13:53-0500 Heart rate 85 /min Aliya Petznick DO Work Phone: [facility] 09-09-2024 13:53-0500 SaO2% (BldA) [Mass fraction] 96 % Aliya Petznick DO Work Phone: [facility] 09-09-2024 13:53-0500 Systolic blood pressure 114 mm[Hg] Aliya Petznick DO Work Phone: [facility] 06-30-2024 14:04-0400 Body height 175.26 cm [facility] 06-30-2024 14:04-0400 Body mass index (BMI) [Ratio] 35.2 kg/m2 [facility] 06-30-2024 14:04-0400 Body temperature 97.8 [degF] [facility] 06-30-2024 14:04-0400 Body weight 108.4 kg [facility] 06-30-2024 14:04-0400 Diastolic blood pressure 76 mm[Hg] [facility] 06-30-2024 14:04-0400 Heart rate 81 /min [facility] 06-30-2024 14:04-0400 Respiratory rate 16 /min [facility] 06-30-2024 14:04-0400 SaO2% (BldA) [Mass fraction] 98 % [facility] 06-30-2024 14:04-0400 Systolic blood pressure 116 mm[Hg] [facility] 06-24-2024 11:12-0400 Body height 175.26 cm [facility] 06-24-2024 11:12-0400 Body mass index (BMI) [Ratio] 33.5 kg/m2 [facility] 06-24-2024 11:12-0400 Body temperature 98.1 [degF] [facility] 06-24-2024 11:12-0400 Body weight 102.96 kg [facility] 06-24-2024 11:12-0400 Diastolic blood pressure 67 mm[Hg] [facility] 06-24-2024 11:12-0400 Heart rate 85 /min [facility] 06-24-2024 11:12-0400 Respiratory rate 18 /min [facility] 06-24-2024 11:12-0400 SaO2% (BldA) [Mass fraction] 98 % [facility] 06-24-2024 11:12-0400 Systolic blood pressure 108 mm[Hg] [facility] 02-19-2024 09:43-0400 Body height 175.26 cm [facility] 02-19-2024 09:43-0400 Body mass index (BMI) [Ratio] 35.6 kg/m2 [facility] 02-19-2024 09:43-0400 Body temperature 98 [degF] [facility] 02-19-2024 09:43-0400 Body weight 109.31 kg [facility] 02-19-2024 09:43-0400 Heart rate 80 /min [facility] 02-19-2024 09:43-0400 Respiratory rate 18 /min [facility] 02-19-2024 09:43-0400 SaO2% (BldA) [Mass fraction] 97 % [facility] 10-18-2023 08:50-0500 Diastolic blood pressure 66 mm[Hg] Vandana Loyd MD, PhD Work Phone: [facility] 10-18-2023 08:50-0500 Heart rate 71 /min Vandana Loyd MD, PhD Work Phone: [facility] 10-18-2023 08:50-0500 Respiratory rate 14 /min Vandana Loyd MD, PhD Work Phone: [facility] 10-18-2023 08:50-0500 SaO2% (BldA) [Mass fraction] 97 % Vandana Loyd MD, PhD Work Phone: [facility] 10-18-2023 08:50-0500 Systolic blood pressure 106 mm[Hg] Vandana Loyd MD, PhD Work Phone: [facility] 10-18-2023 08:28-0500 Body temperature 97.5 [degF] Vandana Loyd MD, PhD Work Phone: [facility] 10-18-2023 07:46-0500 Body height 175.3 cm Vandana Loyd MD, PhD Work Phone: [facility] 10-18-2023 07:46-0500 Body weight 108.86 kg Vandana Loyd MD, PhD Work Phone: [facility] 05-12-2023 07:44-0400 Body height 175.3 cm Vandana Loyd MD, PhD Work Phone: [facility] 05-12-2023 07:44-0400 Body weight 105.87 kg Vandana Loyd MD, PhD Work Phone: [facility] 05-12-2023 07:44-0400 Diastolic blood pressure 58 mm[Hg] Vandana Loyd MD, PhD Work Phone: [facility] 05-12-2023 07:44-0400 Heart rate 78 /min Vandana Loyd MD, PhD Work Phone: [facility] 05-12-2023 07:44-0400 Systolic blood pressure 115 mm[Hg] Vandana Loyd MD, PhD Work Phone: [facility] 10-19-2022 14:00-0500 Body height 175.26 cm Baldemar Arnett Other [facility] Other 10-19-2022 14:00-0500 Body mass index (BMI) [Ratio] 31.01 kg/m2 Baldemar Arnett Other [facility] Other 10-19-2022 14:00-0500 Body weight 95.26 kg Baldemar Arnett Other [facility] Other 10-19-2022 14:00-0500 Diastolic blood pressure 64 mm[Hg] Baldemar Arnett Other [facility] Other 10-19-2022 14:00-0500 Systolic blood pressure 110 mm[Hg] Baldemar Miny Other [facility] Other 08-09-2021 18:30-0400 Body height 175.26 cm Beckie Eli Other [facility] Other 08-09-2021 18:30-0400 Body mass index (BMI) [Ratio] 30.65 kg/m2 Beckie Eli Other [facility] Other 08-09-2021 18:30-0400 Body weight 94.17 kg Beckie Eli Other [facility] Other 08-09-2021 18:30-0400 Diastolic blood pressure 68 mm[Hg] Beckie Eli Other [facility] Other 08-09-2021 18:30-0400 Respiratory rate 16 /min Beckie Eli Other [facility] Other 08-09-2021 18:30-0400 SaO2% (BldA) [Mass fraction] 99 % Beckie Eli Other [facility] Other 08-09-2021 18:30-0400 Systolic blood pressure 117 mm[Hg] Beckie Eli Other [facility] Other 07-25-2021 14:20-0400 Body height 175.26 cm Vaishali Ginty Other [facility] Other 07-25-2021 14:20-0400 Body mass index (BMI) [Ratio] 31.3 kg/m2 Vaishali Ginty Other [facility] Other 07-25-2021 14:20-0400 Body temperature 97.1 [degF] Vaishali Ginty Other [facility] Other 07-25-2021 14:20-0400 Body weight 96.16 kg Vaishali Ginty Other [facility] Other 07-25-2021 14:20-0400 Diastolic blood pressure 58 mm[Hg] Vaishali Ginty Other [facility] Other 07-25-2021 14:20-0400 Respiratory rate 16 /min Vaishali Ginty Other [facility] Other 07-25-2021 14:20-0400 SaO2% (BldA) [Mass fraction] 99 % Vaishali Desir Other [facility] Other 07-25-2021 14:20-0400 Systolic blood pressure 107 mm[Hg] Vaishali Desir Other [facility] Other Encounters Encounter Date Encounter Type Care Provider Facility Start: 12-23-2024 End: 12-23-2024 Bamboo flowsheet Marv Keturah DO Work Phone: [facility] Start: 12-23-2024 End: 12-23-2024 Bamboo flowsheet Marv Keturah DO Work Phone: [facility] Start: 12-23-2024 End: 12-23-2024 Clinisync Result Encounter Marv Keturah DO Work Phone: [facility] External Department Unsolicited Start: 12-23-2024 End: 12-23-2024 Office outpatient visit 15 minutes Marv Keturah DO Work Phone: [facility] Comment on above: Pre-op examination; Complex ovarian cyst; Pelvic pain in female; Abnormal uterine bleeding (AUB); Right lower quadrant pain; Thrombocytopenia (CMS/HCC) Start: 12-23-2024 End: 12-23-2024 Preprocedural examination done Marv Keturah DO Work Phone: [facility] Healthcare Start: 12-23-2024 End: 12-23-2024 ambulatory MARV KETURAH Not Available Start: 12-17-2024 End: 12-17-2024 Clinisync Result Encounter Marv Keturah DO Work Phone: [facility] External Department Unsolicited Start: 12-17-2024 End: 12-17-2024 Clinisync Result Encounter Marv Keturah DO Work Phone: [facility] External Department Unsolicited Start: 11-27-2024 End: 11-27-2024 Bamboo flowsheet Marv Keturah DO Work Phone: [facility] Start: 11-27-2024 End: 11-27-2024 Bamboo flowsheet Marv Keturah DO Work Phone: [facility] Start: 11-27-2024 End: 11-27-2024 Office outpatient visit 15 minutes Marv Keturah DO Work Phone: [facility] Comment on above: Pelvic pain in femal e; Vaginal discharge; PCOS (polycystic ovarian syndrome); Abnormal uterine bleeding (AUB) Start: 11-27-2024 End: 11-27-2024 ambulatory MARV ARIASO Not Available Start: 10-15-2024 End: 10-16-2024 ambulatory Boy Morales NETWORK SUPPORT MANAGER [facility] Comment on above: Sprain of medial col lateral ligament of right knee, initial encounter (Primary Dx); Right knee pain, unspecified chronicity Start: 10-15-2024 End: 10-15-2024 Bamboo flowsheet Boy Morales NETWORK SUPPORT MANAGER [facility] Start: 10-15-2024 End: 10-15-2024 Bamboo flowsheet Boy Morales NETWORK SUPPORT MANAGER [facility] Start: 10-10-2024 End: 10-10-2024 ambulatory Makenna Camacho NETWORK SUPPORT MANAGER [facility] Comment on above: Sprain of medial col lateral ligament of right knee, initial encounter (Primary Dx); Right knee pain, unspecified chronicity Start: 10-10-2024 End: 10-10-2024 Bamboo flowsheet Makenna Pizanoy NETWORK SUPPORT MANAGER [facility] Start: 10-10-2024 End: 10-10-2024 Bamboo flowsheet Makenna Camacho NETWORK SUPPORT MANAGER [facility] Start: 10-07-2024 End: 10-07-2024 ambulatory Boy Morales NETWORK SUPPORT MANAGER [facility] Comment on above: Sprain of medial col lateral ligament of right knee, initial encounter (Primary Dx); Right knee pain, unspecified chronicity Start: 10-07-2024 End: 10-07-2024 Bamboo flowsheet Boy Morales NETWORK SUPPORT MANAGER [facility] Start: 10-07-2024 End: 10-07-2024 Bamboo flowsheet Boy Morales NETWORK SUPPORT MANAGER [facility] Start: 10-04-2024 End: 10-04-2024 Bamboo flowsheet Boy Morales NETWORK SUPPORT MANAGER [facility] Start: 10-04-2024 End: 10-04-2024 Bamboo flowsheet Boy Morales NETWORK SUPPORT MANAGER [facility] Start: 10-04-2024 End: 10-04-2024 ambulatory Boy Morales NETWORK SUPPORT MANAGER [facility] Comment on above: [...] 09-23-2024 Telephone encounter Aaliyah Oh LPN [facility] Comment on above: Results; Referral Start: 09-20-2024 End: 09-20-2024 ambulatory ALIYA C PETZNICK Not Available Start: 09-09-2024 End: 09-09-2024 ambulatory ALIYA C PETZNICK Not Available Start: 09-09-2024 End: 09-09-2024 Bamboo flowsheet Aliya C Petznick DO Work Phone: [facility] Start: 09-09-2024 End: 09-09-2024 Bamboo flowsheet Aliya C Petznick DO Work Phone: [facility] Start: 09-09-2024 End: 09-09-2024 Office outpatient visit 25 minutes Aliya C Petznick DO Work Phone: [facility] Comment on above: Right knee pain, uns pecified chronicity (Primary Dx); Severe obesity (BMI 35.0-39.9) with comorbidity (CMS/HCC) Start: 09-09-2024 End: 09-09-2024 ambulatory ALIYA C PETZNICK Not Available Start: 06-30-2024 End: 06-30-2024 ambulatory [facility] Work Phone: Start: 06-30-2024 End: 06-30-2024 Patient encounter procedure [facility] Work Phone: Start: 06-24-2024 End: 06-24-2024 ambulatory [facility] Work Phone: Start: 06-24-2024 End: 06-24-2024 Patient encounter procedure [facility] Work Phone: Start: 02-19-2024 End: 02-19-2024 ambulatory [facility] Work Phone: Start: 02-19-2024 End: 02-19-2024 Patient encounter procedure [facility] Work Phone: Start: 01-08-2024 End: 01-08-2024 ambulatory ALIYA Froylan ALICIA Not Available Start: 10-18-2023 ambulatory VANDANA LOYD [facility] lity:[facility] Start: 10-18-2023 End: 10-18-2023 Subsequent hospital visit by physician Vandana Loyd MD, PhD Work Phone: Procedures Comment on above: Rectal bleeding [K62 .5] Start: 05-15-2023 Telephone encounter Evert salazar Work Phone: Gastroenterology Comment on above: Release Of Medical R ecords (/) Start: 05-12-2023 End: 05-13-2023 ambulatory VANDANA LOYD Facility:[facility] Start: 05-12-2023 End: 05-12-2023 Patient encounter procedure [...] 01-17-2023 End: 01-17-2023 ambulatory Baldemar Mechelletariq Other [facility] Other Start: 01-17-2023 Telephone encounter Baldemar Karynjose [facility] Start: 01-16-2023 End: 01-16-2023 ambulatory Baldemar Ditty Other [facility] Other Start: 01-16-2023 Telephone encounter Baldemar Bossjose [facility] Start: 12-10-2022 End: 12-10-2022 ambulatory BECKIE ELI Facility:[facility] Start: 10-19-2022 End: 10-19-2022 ambulatory Baldemar Melquiades Other [facility] Other Start: 10-19-2022 [facility] visit new patient Baldemar Bossjose [facility] Start: 04-21-2022 Encounter for preprocedural laboratory examination MARCOS MARTELL [facility] Start: 04-14-2022 End: 04-14-[address] MARV REBOLLAR . Facility:[facility] Start: 04-11-2022 Encounter for preprocedural laboratory examination DR MARV REBOLLAR . [facility] Start: 04-11-2022 Evaluation and management of [...] Start: 08-20-2021 Telephone encounter Beckie traore [facility] [employer] Start: 08-09-2021 Office outpatient visit 15 minutes Beckie Eli [facility] Start: 07-25-2021 Office outpatient visit 15 minutes Vaishali Desir [facility] Procedures Date Procedure Procedure Detail Performing Clinician Start: 12-23-2024 ALL [facility] Marv Fazi o DO Work Phone: Start: 12-17-2024 US PELVIS W/ TRANSVAGINAL Marv [...] for malign ant neoplasm of cervix HPV/Cotest [facility] Start: 04-03-2028 Screening for malign ant neoplasm of cervix [facility] Start: 01-27-2025 End: 01-27-2025 Patient encounter procedure 01/27/2025 1:30 PM EDT Office Visit [facility] [address] [place] [id number] Arline Garza PA [address] [place] [address] [facility] Start: 12-23-2024 End: 12-23-2024 Patient encounter procedure [facility] Comment on above: Arrived Start: 12-11-2024 End: 12-11-2024 Professional / ancillary services management 12/11/2024 9:00 AM EST Ancillary Procedure [facility] [address] [place] [id number] [facility] Start: 11-27-2024 End: 11-27-2025 DHEA DHEA Lab Routine PCOS (polycystic ovarian syndrome) Expected: 11/27/2024 (Approximate), Expires: 11/27/2025 [facility] Comment on above: Expected: 11/27/2024 (Approximate), Expires: 11/27/2025 Start: 11-27-2024 End: 11-27-2025 SURESWAB(R) ADVANCED VAGINITIS PLUS, TMA SURESWAB(R) ADVANCED VAGINITIS PLUS, TMA Pathology and Cytology Routine Pelvic pain in female Expected: 11/27/2024 (Approximate), Expires: 11/27/2025 [facility] Work Phone: Comment on above: Expected: 11/27/2024 (Approximate), Expires: 11/27/2025 Start: 11-27-2024 End: 11-27-2025 US Pelvis US Pelvis w/ TV Imaging Routine Pelvic pain in female Expected: 11/27/2024 (Approximate), Expires: 11/27/2025 [facility] Comment on above: Expected: 11/27/2024 (Approximate), Expires: 11/27/2025 Start: 11-27-2024 End: 11-27-2024 Patient encounter procedure 11/27/2024 1:30 PM EST Office Visit [facility] [address] [place] [phone] Marv Rebollar, [address] [place] [address] Arrived [facility] Comment on above: Arrived Start: 11-04-2024 Influenza vaccination Influenza Vacc ine (#1) [facility] Comment on above: Postponed from 06/30 (Patient Refused) Start: 10-17-2024 End: 10-17-2024 ambulatory 10/17/2024 2:30 PM EST Treatment [facility] [address] [facility] [address] [place] [address] Celena Clements, PT [facility] Start: 10-15-2024 End: 10-15-2024 ambulatory 10/15/2024 6:00 PM EST Treatment [facility] [address] [facility] [address] [place] [address] Boy Morales, NETWORK SUPPORT MANAGER Sprain of medial collateral ligament of right knee, initial encounter (Primary Dx); Right knee pain, unspecified chronicity [facility] Comment on above: Sprain of medial col lateral ligament of right knee, initial encounter (Primary Dx); Right knee pain, unspecified chronicity Start: 10-14-2024 End: 10-14-2024 ambulatory 10/14/2024 1:30 PM EST Treatment [facility] [address] [facility] [address] [place] [address] Boy Morales, NETWORK SUPPORT MANAGER [facility] Start: 10-10-2024 End: [...] MR [address] [place] [address] [facility] Start: 06-30-2024 Influenza vaccination Influenza Vacc ine (#1) [facility] Start: 06-30-[address] [facility] Start: 2022 HPV TESTING HPV TESTING [facility] Start: 2022 Screening for malign ant neoplasm of cervix HPV Testing [facility] Start: 10-30-2022 DEPRESSION ASSESSMENT DEPRESSION ASS ESSMENT [facility] Start: 2013 PAP TESTING PAP TESTING [facility] Start: 2013 Screening for malign ant neoplasm of cervix Pap Testing [facility] Start: 2011 Urine microalbumin profile [facility] Start: 2010 HEPATITIS C SCREENING [facility]PATITIS [facility] Start: 2010 Hepatitis C screening Hepatitis C [facility] Start: 2010 HIV SCREENING HIV SCREENING [facility] Start: 2010 HIV screening HIV Screening [facility] Start: 06-15-1993 COVID-19 VACCINE (#1) COVID-19 VACCI NE (#1) [facility] Start: 1992 HEPATITIS B (1 of 3 - 3-dose series) HEPATITIS B (1 of 3 - 3-dose series) [facility] Start: 1992 Hepatitis B Vaccine (1 of 3 - 3-dose series) Hepatitis B Vaccine (1 of 3 - 3-dose series) [facility] CBC W Auto Different ial panel - Blood CBC and differential Lab Routine PCOS (polycystic ovarian syndrome) Ordered: 11/27/2024 [facility] Comment on above: Ordered: 11/27/2024 CHLAMYDIA TRACHOMATI S (GENITO/STI) CHLAMYDIA TRACHOMATIS (GENITO/STI) Lab Routine Pelvic pain in female Ordered: 11/27/2024 [facility] Comment on above: Ordered: 11/27/2024 End: 05-12-2024 COLONOSCOPY DIAGNOSTIC COLONOSCOPY DIAGNOSTIC Endoscopy Routine Rectal bleeding 1 Occurrences starting 05/12/2023 until 05/12/2024 [facility] Work Phone: Comment on above: 1 Occurrences starti ng 05/12/2023 until 05/12/2024 DHEA-sulfate DHEA-sulfate Lab Routine PCOS (polycystic ovarian syndrome) Ordered: 11/27/2024 [facility] Comment on above: Ordered: 11/27/2024 Follicle stimulating hormone Follicle stimulating hormone Lab Routine PCOS (polycystic ovarian syndrome) Ordered: 11/27/2024 [facility] Comment on above: Ordered: 11/27/2024 hCG, quantitative, hCG, quantitative, Lab Routine PCOS (polycystic ovarian syndrome) Ordered: 11/27/2024 [facility] Comment on above: Ordered: 11/27/2024 Hemoglobin A1c/Hemoglobin.total in Blood Hemoglobin A1c Lab Routine Abnormal uterine bleeding (AUB) Ordered: 11/27/2024 [facility] Comment on above: Ordered: 11/27/2024 Luteinizing hormone Luteinizing hormone Lab Routine PCOS (polycystic ovarian syndrome) Ordered: 11/27/2024 [facility] Comment on above: Ordered: 11/27/2024 MR Knee - right WO contrast MR knee right wo IV contrast Imaging Routine Right knee pain, unspecified chronicity Ordered: 09/11/2024 [facility] Work Phone: Comment on above: Ordered: 09/11/2024 Neisseria gonorrhoea e DNA [Presence] in Unspecified specimen by CARLOS with probe detection Neisseria gonorrhea DNA probe, direct Lab Routine Pelvic pain in female Ordered: 11/27/2024 [facility] Comment on above: Ordered: 11/27/2024 Thyrotropin [Units/volume] in Serum or Plasma TSH Lab Routine PCOS (polycystic ovarian syndrome) Ordered: 11/27/2024 [facility] Comment on above: Ordered: 11/27/2024 Thyroxine (T4) free [Mass/volume] in Serum or Plasma T4, free Lab Routine PCOS (polycystic ovarian syndrome) Ordered: 11/27/2024 [facility] Comment on above: Ordered: 11/27/2024 [facility] Payers Date Payer Category Payer [facility] MEDICAID [id number] 2022 Medicaid [id number] 1992 Unknown [id number] 2.16.840.1.341005.3.579.2. 593 1992 Unknown [id number] 2.16.840.1.659114.3.579.2. 593 1992 Unknown [id number] 2.16.840.1.328856.3.579.2. 593 1992 Unknown [id number] 2.16.840.1.393274.3.579.2. 593 1992 Unknown [id number] 2.16.840.1.796391.3.579.2. 593 1992 Unknown [id number] 2.16.840.1.734902.3.579.2. 593 1992 Unknown [id number] 2.16.840.1.757959.3.579.2. 593 1992 Unknown [id number] 2.16.840.1.613162.3.579.2. 593 1992 Unknown [id number] 2.16.840.1.773323.3.579.2. 593 1992 Unknown [id number] 2.16.840.1.574158.3.579.2. 593 1992 Unknown [id number] 2.16.840.1.376141.3.579.2. 593 1992 Unknown [id number] 2.16.840.1.184184.3.579.2. 593 1992 Unknown [id number] 2.16.840.1.156067.3.579.2. 1259 1992 Unknown [id number] 2.16.840.1.291571.3.579.2. 1258 1992 Unknown [id number] 2.16.840.1.087555.3.579.2. 9 1992 Unknown [id number] 2.16.840.1.180157.3.579.2. 1258 1992 Unknown [id number] 2.16.840.1.974003.3.579.2. 9 1992 Unknown [id number] 2.16840.1.389800.3.579.2. 1258 1992 Unknown [id number] 2.16.840.1.377459.3.579.2. 1258 1992 Unknown [id number] 2.16.840.1.101204.3.579.2. 1258 1992 Unknown [id number] 2.16.840.1.163225.3.579.2. 1258 1992 Unknown [id number] 2.16.840.1.103407.3.579.2. 1258 1992 Unknown [id number] 2.16.840.1.247828.3.579.2. 1258 1992 Unknown [id number] 2.16.840.1.097758.3.579.2. 1259 1959 Unknown [id number] 2.16.840.1.256020.19 1959 Unknown [id number] Private Health Insurance [facility] [id number] Self-pay Self Pay [id number] Unknown [id number] 2.16.840.1.023859.19 Social History Date Type Detail Facility Unknown if ever smoked [facility] [employer] Other Start: 09-09-2024 Sex Assigned At [facility] [employer] Other Tobacco smoking status DEIS Tobacco smoking consumption unknown [facility] Start: 1990 Sex Assigned At Not on file C [facility] Start: 05-04-2023 End: 02-19-2024 Tobacco smoking status DEIS Never smoked tobacco (finding) [facility] Start: 1990 Sex Assigned At Female F [facility] Start: 05-04-2023 Tobacco use and exposure Smokeless tobacco non-user [facility] Start: 09-09-2024 End: 12-23-2024 Alcoholic beverage intake Lifetime non-drinker (finding) [facility] Start: 09-09-2024 History of Social function [facility] Start: 05-04-2023 Alcohol Comment caffeine: none [facility] Clinical Notes 07-25-2021 to 12-23-2024 Samantha Vee, BRICK LAYER - 12/23/2024 1:50 PM Pasquale Guadalupe, BRICK LAYER - 11/27/2024 1:30 PM ESTTelephone Encounter - Marlyn Caal - 09/23/2024 1:01 PM Cameron Alicia DO - 09/09/2024 1:30 PM EST Note Date & Type Note Facility 12-23-2024 History of Presen t illness Narrative Reason for Appointment: Patient ID: Marlin Cade is a 34 y.o. female who presents for Pre-op Visit Patient presents today for Pre Op appointment. Patient is scheduled to undergo Diagnostic Laparoscopy, possible EDWNI, possible FOE, possible BSO and D&C Hysteroscopy, possible Myosure on 01/17/[address] Rebollar at [facility]. MEDICATIONS Current Outpatient Medications Medication Instructions albuterol HFA 90 mcg/act inhaler 2 puffs, Inhalation, Every 6 hours PRN EPINEPHrine (EPIPEN) 0.3 mg, Injection, Once, Inject into upper leg. Call 911 after use. ibuprofen 800 mg, Every 8 hours ALLERGIES No Known Allergies PROBLEMS Active Ambulatory Problems Diagnosis Date Noted Asthma without status asthmaticus ([facility]) 05/03/2023 Incomplete tear of right rotator cuff 05/03/2023 Obesity 05/03/2023 Other chronic pain 05/03/2023 S/P primary low transverse 04/17/2019 Resolved Ambulatory Problems Diagnosis Date Noted No Resolved Ambulatory Problems Past Medical History: Diagnosis Date Acute asthmatic bronchitis ([facility]) Asthma ([facility]) H/O gynecological procedure History of section Obesity (BMI 30-39.9) Seasonal allergies HISTORY PAST MEDICAL HISTORY SOCIAL HISTORY Past Medical History: Diagnosis Date Acute asthmatic bronchitis ([facility]) Asthma ([facility]) H/O gynecological procedure History of section Obesity [...] SYSTEMS Review of Systems: Review of Systems Constitutional: Negative. HENT: Negative. Eyes: Negative. Respiratory: Negative. Cardiovascular: Negative. Gastrointestinal: Negative. Genitourinary: Positive for menstrual problem, pelvic pain and vaginal bleeding. Musculoskeletal: Negative. Skin: Negative. Neurological: Negative. All other systems reviewed and are negative. Hematological: Negative. Endocrine: Negative. Allergic/Immunologic: Negative. OBJECTIVE Objective: Physical Exam Constitutional: Appearance: Normal appearance. She is well-developed. Cardiovascular: Rate and Rhythm: Normal rate and regular rhythm. Pulmonary: Effort: Pulmonary effort is normal. Breath sounds: Normal breath sounds. Abdominal: General: Bowel sounds are normal. There is no distension. Palpations: Abdomen is soft. Tenderness: There is no abdominal tenderness. There is no guarding or rebound. Musculoskeletal: General: No swelling. Normal range of motion. Right lower leg: No edema. Left lower leg: No edema. Neurological: Mental Status: She is alert and oriented to person, place, and time. Skin: General: Skin is warm and dry. Psychiatric: Mood and Affect: Mood normal. Behavior: Behavior normal. Vitals and nursing note reviewed. Exam conducted with a hand i tube bender present. Vitals: Estimated body mass index is 36.64 kg/m as calculated from the following: Height as of 24: 5' 9 . Weight as of this encounter: 248 lb 1.9 oz. BP: 110/76 Patient's last menstrual period was 11/27/2024 (exact date). ASSESSMENT & PLAN ICD-10-CM 1. Pre-op examination Z01.818 2. Complex ovarian cyst N83.299 3. Pelvic pain in female R10.2 4. Abnormal uterine bleeding (AUB) N93.9 5. Right lower quadrant pain R10.31 6. Thrombocytopenia (CMS/HCC) D69.6 Pre Op: Patient is doing well but has complaints of AUB, pelvic pain and ovarian cyst. I have discussed conservative management vs. surgical management with the patient in detail and patient desires surgical management at this time. Patient will undergo Diagnostic Laparoscopy, possible EDWIN, possible FOE, possible BSO and D&C Hysteroscopy, possible Myosure on 01/17/2025. Surgical consents were signed, mmc was reviewed, and patient is to proceed to [facility] OR. Follow Up: Patient is to follow up between 1-2 weeks post operative to assess proper healing and recovery from procedure. Documented by Samantha Vee LPN on behalf of: Marv Rebollar DO documented in this encounter [facility] 11-27-2024 History of Presen t illness Narrative [...] Diagnosis Date Noted Asthma without status asthmaticus ([facility]) 05/03/2023 Incomplete tear of right rotator cuff 05/03/2023 Obesity 05/03/2023 Other chronic pain 05/03/2023 S/P primary low transverse 04/17/2019 Resolved Ambulatory Problems Diagnosis Date Noted No Resolved Ambulatory Problems Past Medical History: Diagnosis Date Acute asthmatic bronchitis ([facility]) Asthma ([facility]) H/O gynecological procedure History of section Obesity (BMI 30-39.9) Seasonal allergies HISTORY PAST MEDICAL HISTORY SOCIAL HISTORY Past Medical History: Diagnosis Date Acute asthmatic bronchitis ([facility]) Asthma ([facility]) H/O gynecological procedure History of section Obesity [...] to be scheduled for Dx lap with joaquina fofana with D&C hysteroscopy. Documented by Vani Guadalupe LPN on behalf of: Marv Rebollar DO documented in this encounter [facility] 09-23-2024 Telephone encounter Note Pt wants to know if knee brace is something DR. Reed prescribes. If yes. She would like to try that. Please send this to company closer to [place] if possible. Ok to send PT order to [facility]. [facility] 09-23-2024 Miscellaneous Notes Pt wants to know if knee brace is something DR. Reed prescribes. If yes. She would like to try that. Please send this to company closer to [place] if possible. Ok to send PT order to [facility]. Left detailed message informing pt of results and recommendations. Instructed pt to stop NSAIDS while taking mobic. Pt to return call with where to send PT order. -RX sent to [facility] in [place]. ----- Message from Dr. Aliya Alicia sent at 09/22/2024 4:44 PM EST ----- Low grade sprain of mcl of her knee Noted signs of patellar instability If pain continues would rec hinge knee brace and PT also would rx mobic 15 mg a day stop motrin documented in this encounter [facility] 09-23-2024 Telephone encounter Note Left detailed message informing pt of results and recommendations. Instructed pt to stop NSAIDS while taking mobic. Pt to return call with where to send PT order. -RX sent to [facility] in [place]. [facility] 09-23-2024 Telephone encounter Note ----- Message from Dr. Aliya Alicia sent at 09/22/2024 4:44 PM EST ----- Low grade sprain of mcl of her knee Noted signs of patellar instability If pain continues would rec hinge knee brace and PT also would rx mobic 15 mg a day stop motrin [facility] 09-09-2024 History of Presen t [...] a month ago after slipping on a price changer and twisting her knee. Pain occurs with [...] ALICIA D.O. This note was entered using [employer]. Grammatical and dictation errors maybe present in [...] ago. Pt states she slipped on a price changer and twisted her knee. Denies swelling. Pt states pain occurs when her knee twists or if she sleeps on her side will flare pain. Pt states sitting pain is a 2/10, when laying or twisting pain is a 7/10. Denies numbness/tingling. The patient presents with right knee pain that started about a month ago. The pain began after she slipped on a price changer and twisted her knee. She reports that [...] Medical History: Diagnosis Date Acute asthmatic bronchitis ([facility]) Asthma ([facility]) H/O gynecological procedure History of section Obesity [...] joint line tenderness. documented in this encounter [facility] 10-18-2023 History and physical note [...] TIME: 7:57 AM documented in this encounter [facility] 05-15-2023 Miscellaneous Notes Sent out two medical release forms for patient 05/15/23: [facility] [place] [place] [facility] documented in this encounter [facility] 05-12-2023 Note HNO ID: [id number] Author: Vandana Loyd MD, PhD Service: ? [...] No history of dysuria, frequency or incontinence KILN WORKER: Negative for abnormal vaginal bleeding, abnormal vaginal [...] not plan c (more content not included)... [facility] 05-12-2023 History of Presen t illness Narrative [...] No history of dysuria, frequency or incontinence KILN WORKER: Negative for abnormal vaginal bleeding, abnormal vaginal [...] Loyd MD, PhD documented in this encounter [facility] 05-11-2023 Miscellaneous Notes Called patient for more information about her visit tomorrow with Dr. Loyd in Gastroenterology for IBD. We have no medical information on file, or in Care Everywhere. Patient stated she had sought medical care in [place], with Dr. Baldemar Arnett, Gastroenterology, [facility], presenting with bleeding when having a BM. Patient states that the bleeding is sometimes heavy and sometimes it just colors the toilet paper. She has no pain with it, and wasn't actually diagnosed with IBD, but she is concerned. She was scheduled to have a colonoscopy in [place], but when she got they canceled the procedure. She is currently 21.5 weeks into her . She stated the medical center recommended she came to the [facility] for further evaluation. Naomi Cain, PRINCESS documented in this encounter [facility] 10-19-2022 Evaluation note Encounter Date Diagnosis Assessment Notes Sep, Rectal bleeding (ICD-10 - K62.5) Dheere Bolo Other 06-11-2022 NoteDISCHARGE SUMMARY DISCHARGE DATE: 04/21/2022 [...] pain free and no longer on narcotics. [facility] Signed and Approved by: DR MARV REBOLLAR . 04/24/2022 10:48:00[facility]06-11-2022 NoteOPERATIVE NOTE OPERATION DATE: 04/09/2022 PROCEDURE: Repeat low transverse section. PREOPERATIVE DIAGNOSIS: 1. Intrauterine at 38 6/7 weeks. 2. Previous . 3. Early onset labor. POSTOPERATIVE DIAGNOSIS:: 1. Intrauterine at 38 6/7 weeks. 2. Previous . 3. Early onset labor. SURGEON: Marv Rebollar D.O. FINAL INSPECTOR BALANCE WHEEL: CAMEORN Be URINE OUTPUT: Yellow and clear. BLOOD [...] to the Recovery Room in stable condition. [facility] Signed and Approved by: DR MARV REBOLLAR . 04/18/2022 07:58:00[facility]10-11-2021 Evaluation note* Encounter Date Diagnosis Assessment Notes Treatment Notes Treatment Clinical Notes Jul, Rectal bleeding (ICD-10 - K62.5) Lets start with these tests at this point and referral. May use Benefiber supplement since Metamucil is harder to drink due to texture. 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 Use this medication as prescribed when stung by bee. Dheere Bolo Other 09-26-2021 Evaluation note* Encounter Date Diagnosis [...] nonvenomous arthropods, initial encounter (ICD-10 - W57.XXXA) [facility] [employer] Other Evaluation noteNo InformationNortLe[facility] [employer] Other evaluation note* Diagnosis Rectal bleeding- Primary Hemorrhage of rectum and anus [facility] Diagnosis Rectal bleeding Hemorrhage of rectum and anus documented in this [facility] noteNo assessment information [facility] Work Phone: Evaluation note* Diagnosis Onset Date Resolution Status Canker sore noneactive Oral mucositis (ulcerative), unspecified acute [facility] Work Phone: evaluation note* Diagnosis Right knee pain, unspecified chronicity- Primary Severe obesity (BMI 35.0-39.9) with comorbidity (CMS/HCC) [facility]* Diagnosis Right knee pain, unspecified chronicity documented in this encounter [facility] Healthcare[facility] note* Diagnosis Sprain of medial collateral [...] bleeding (AUB) [facility]* Diagnosis Pre-op examination Complex ovarian cyst Pelvic pain in female Unspecified symptom associated with female genital organs Abnormal uterine bleeding (AUB) Right lower quadrant pain Thrombocytopenia (CMS/HCC) Unspecified thrombocytopenia [facility] Narrative - Reported* Type Description Date Medical History bee allergy Surgical History C section Surgical History left knee Hospitalization History see above surg hx Dheere Bolo Other Reason for referral (narrative)* Outpatient Procedure (Routine) - Authorized Specialty Diagnoses / Procedures Referred By Krista traore Referred To Contact [facility] Diagnoses Rectal bleeding Procedures COLONOSCOPY DIAGNOSTIC COLONOSCOPY FLX DX W/COLLJ SPEC WHEN Vandana Rojas MD, PhD [id number] [place] [address] Referral ID Status Reason Start Date Expiration Date Visits Requested Visits Authorized [id number] Authorized Auto-Generat ed Referral 05/12/2023 05/12/2024 1 1 [facility] for referral (narrative)* Outpatient Procedure (Routine) - Closed Specialty Diagnoses / Procedures Referred By Krista traore Referred To Contact [facility] Diagnoses Rectal bleeding Procedures COLONOSCOPY DIAGNOSTIC COLONOSCOPY FLX DX W/COLLJ SPEC WHEN Vandana Rojas MD, PhD [address] [place] [address] [address] Referral ID Status Reason Start Date Expiration Date V isits Requested Visits Authorized [id number] Closed Auto-Generate d Referral 05/12/2023 05/12/2024 1 1 [facility] for visit Narrative* Outpatient Procedure (Routine) - Closed Specialty Diagnoses / Procedures Referred By Krista traore Referred To Contact [facility] Diagnoses Rectal bleeding Procedures COLONOSCOPY DIAGNOSTIC COLONOSCOPY FLX DX W/COLLJ SPEC WHEN Vandana Rojas MD, PhD [address] [place] [address] [facility] [address] [place] [address] Referral ID Status Reason Start Date Expiration Date V isits Requested Visits Authorized [id number] Closed Auto-Generate d Referral 05/12/2023 05/12/2024 1 1 [facility] - Outpatient (Routine) - Authorized Specialty Diagnoses / Procedures Referred By Krista traore Referred To Contact Physical Therapy Diagnoses Sprain of medial collateral ligament of right knee, initial encounter Procedures DC PHYSICAL THERAPY EVALUATION MOD COMPLEX 30 MINS Aliya Alicia, DO [address] [place] [address] Phone: tel: fax: Celena Clements, KELTON Referral ID Status Reason Start Date Expiration Date V isits Requested Visits Authorized [id number] Authorized 09/23/2024 03/22/2025 30 30 [facility] HealthcareReason for visit Narrative* Rehabilitation - Outpatient (Routine) - Authorized Specialty Diagnoses / Procedures Referred By Krista traore Referred To Contact Physical Therapy Diagnoses Sprain of medial collateral ligament of right knee, initial encounter Procedures DC PHYSICAL THERAPY EVALUATION MOD COMPLEX 30 MINS Aliya Alicia, DO [address] [place] [address] Phone: tel: fax: Celena Clements, KELTON Referral ID Status Reason Start Date Expiration Date V isits Requested Visits Authorized [id number] Authorized 09/23/2024 10/29/2024 30 30 [facility] [...] Last Name Alcira Referring Provider Specialty Nurse Angela palacioionecrystal Referred Organization [facility] Referred Provider Christopher Locke Referred Address [address] ,[place], [place],[address] Referred Provider Specialty Gastroentero logy Referral Priority Routine General Notes Nereida Valverde 021 08:57:54 AM >Received today and sent [...] section and content) DATE CREATED AUTHOR 09/24/2020 [facility] DATE CREATED AUTHOR AUTHOR'S ORGANIZ ATION 12/27/2021 [facility] DATE CREATED AUTHOR AUTHOR'S ORGANIZ ATION 03/10/2023 [facility] DATE CREATED AUTHOR AUTHOR'S ORGANIZ ATION 05/22/2023 [facility] DATE CREATED AUTHOR AUTHOR'S ORGANIZ ATION 10/20/2023 [facility] DATE CREATED AUTHOR AUTHOR'S ORGANIZ ATION 12/24/[address] [facility] dical Specialists EPIC REASON FOR VISIT (unrecogniz ed section and content) Reason Comments Appointment Information Reason Comments IBD Flare Reason Comments Release Of Medical Records Reason Comments Knee Pain Reason Onset Date Comments Results 09/23/2024 Referral 09/23/2024 Reason Comments Pelvic Pain Pt present today for right pelvic pain and vaginal discharge. Reason Comments Pre-op Visit Source Comments (unrecognize d section and content) In the event this informatio n is protected by the Federal Confidentiality of Alcohol and Drug Abuse Patient Records regulations: The Federal rules restrict any use of the information to criminally investigate or prosecute any alcohol or drug abuse patient.[facility] the event this information is protected by the Federal Confidentiality of Alcohol and Drug Abuse Patient Records regulations: The Federal rules restrict any use of the information to criminally investigate or prosecute any alcohol or drug abuse patient.[facility] the event this information is protected by the Federal Confidentiality of Alcohol and Drug Abuse Patient Records regulations: The Federal rules restrict any use of the information to criminally investigate or prosecute any alcohol or drug abuse patient.[facility] the event this information is protected by the Federal Confidentiality of Alcohol and Drug Abuse Patient Records regulations: The Federal rules restrict any use of the information to criminally investigate or prosecute any alcohol or drug abuse patient.[facility] Care Teams (unrecognized sec tion and content) [...] June 30, 2024 End: June 30, 2024 Keypuncher Relationship Specialty Start Date End Date Aliya Alicia DO [address] [place] [address] PCP - [facility] 01/08/24 Marv Rebollar, [facility] [place] [address] PCP - [facility] 01/29/24 Keypuncher Relationship Specialty Start Date End Date Aliya Alicia DO [address] [place] [address] PCP - [facility] 01/08/24 Marv Rebollar, [facility] [place] [address] PCP - [facility] 01/29/24 Keypuncher Relationship Specialty Start Date End Date Aliya Alicia DO [address] [facility] [address] [place] [address] PCP - [facility] 01/08/24 Marv Rebollar, [facility] [place] [address] PCP - [facility] 01/29/24 Keypuncher Relationship Specialty Start Date End Date Aliya Alicia, [address] [place] [address] PCP - [facility] 01/08/24 Marv Rebollar, DO [address] [place] [address] PCP - [facility] 01/29/24 Keypuncher Relationship Specialty Start Date End Date Aliya Alicia, [address] [place] [address] PCP - [facility] 01/08/24 Marv Rebollar, DO [facility] [place], [facility] PCP - [facility] 01/29/24 Keypuncher Relationship Specialty Start Date End Date Aliya Alicia, [address] [place] [address] PCP - [facility] 01/08/24 Marv Rebollar, DO [facility] [address], [facility] PCP - [facility] 01/29/24 Keypuncher Relationship Specialty Start Date End Date Aliya Alicia, [address] [place] [address] PCP - [facility] 01/08/24 Marv Rebollar, [place] [facility] [place] [address] PCP - [facility] 01/29/24 Keypuncher Relationship Specialty Start Date End Date Aliya Alicia, [address] [place] [address] PCP - General [facility] 01/08/24 Marv Rebollar, [place] [facility] [place] [address] PCP - [facility] 01/29/24 Keypuncher Relationship Specialty Start Date End Date Aliya Alicia, DO [address] [place] [address] PCP - [facility] 01/08/24 Marv Rebollar, DO [facility] [place] [address] PCP - [facility] 01/29/24 Keypuncher Relationship Specialty Start Date End Date Aliya Alicia, DO [address] [place] [address] PCP - General [facility] 01/08/24 Marv Rebollar, [place] [facility] [place] [address] PCP [facility] 01/29/24 Keypuncher Relationship Specialty Start Date End Date Aliya Alicia, DO [address] [place] [address] PCP - [facility] 01/08/24 Marv Rebollar, [place] [facility] [place] [address] PCP - [facility] 01/29/24 Keypuncher Relationship Specialty Start Date End Date AvladiAliya, DO [address] [place] [address] PCP - [facility] 01/08/24 Marv Rebollar, [place] [facility] [place] [address] PCP [facility] 01/29/24 Keypuncher Relationship Specialty Start Date End Date HaroldomonalisaladiAliya, DO [address] [place] [address] PCP - [facility] 01/08/24 Marv Rebollar, [place] [facility] [place] [address] [facility] 01/29/24 Keypuncher Relationship Specialty Start Date End Date HaroldomonalisaladiAliya, DO [address] [place] [address] PCP - [facility] 01/08/24 Marv Rebollar, [place] [facility] [place] [address] [facility] 01/29/24 Goals (unrecognized section and content) [...] BE BASED ON THE PRIMARY CLINICAL RECORDS. [facility]. provides no warranty or guarantee of the accuracy or completeness of information in this document.
[2025-01-17 06:55] LABS: Basophils Percent Auto 0.9 % (0.2-2.0); Eosinophils Absolute Auto 0.1 10^3/uL (0.0-0.7); Eosinophils Percent Auto 2.8 % (0.9-7.0); Hematocrit 39.8 % (36.0-48.0); Hemoglobin 14.3 g/dL (12.0-16.0); Lymphocytes Absolute Auto 1.8 10^3/uL (1.2-3.8); Lymphocytes Percent Auto 41.2 % (20.5-60.0); Mean Corpuscular HGB Conc 35.9 g/dL (29.9-35.2); Mean Platelet Volume 10.9 fL (9.5-13.5); Monocytes Absolute Auto 0.4 10^3/uL (0.3-0.8); Monocytes Percent Auto 9.4 % (1.7-12.0); Neutrophils Absolute Auto 1.9 10^3/uL (1.4-6.5); Neutrophils Percent Auto 45.7 % (43.0-75.0); Platelet Count 195 10^3/uL (150-450); Red Blood Count 4.47 10^6/uL (4.20-5.40); Red Cell Distribution Width 11.8 % (11.0-15.0); White Blood Count 4.3 10^3/uL (4.0-11.0)
[2025-01-17 07:16] LABS: HCG Quantitative <1 mIU/mL
[2025-01-17] MEDS: LACTATED RINGER'S SOLUTION 1,000 ML 50 ML IV (07:32)
--- NOTE | 2025-01-17 09:41 | PM.ONB ---
Brief Operative Note Date of procedure: 01/17/25 Pre-op diagnosis general: pelvic pain, dyspareunia, aub Post-op diagnosis: same as pre-op Procedure: NAME OF PROCEDURE: [diagnostic laparoscopy ] PROCEDURE: The patient was taken back to the Operating Room where she was placed in dorsal lithotomy position after given general anesthesia. The patient was prepped and draped in normal sterile fashion. A sponge stick was placed into the patient's vagina. Attention was turned to the patient's abdomen, where a small umbilical incision was made. The fascia was tented using Sangeeta clamps and the fascia was entered sharply. Confirmation of intraabdominal placement of the 10 mm port was confirmed under direct visualization using a laparoscope. The patient's abdomen was then insufflated using CO2 gas with approximately 4 liters. A second port was placed left laterally, this was done under direct visualization with a 5 mm port. Survey of the patient's abdomen demonstrated normal liver and gallbladder. Survey of the patient's pelvic anatomy demonstrated normal appearing rt and lt ovary and tubes as well as normal appearing uterus. No endometrial implants could be noted, no evidence of any pelvic disease was seen, normal appearing pelvic cavity. All instruments were removed from the patient's abdomen. The patient's abdomen was deinsufflated of CO2 gas. The patient tolerated the procedure well. Sponge stick was removed from the patient's vagina. The patient's infraumbilical fascia was closed using #0 Vicryl on a GI needle. The patient's skin was closed laterally and infraumbilically using 4-0 Vicryl. The patient tolerated the procedure well. Sponge, lap and needle counts were correct x 2. The patient was taken to Recovery Room in stable condition. Anesthesia: FLORIN Surgeon: Marv Rebollar Supervisor [employer]: Rajani Delaney Estimated blood loss (mL): 5 Pathology: none sent Condition: stable Disposition: PACU Urinary Catheter Management Urinary Catheter Management Urethral: Cath placed during this visit: no
[2025-01-17] MEDS: HYDROCODONE/ACET 5-325 MG TABLET 1 TAB PO (10:25)
[2025-01-17] MEDS: ALBUTEROL SULFATE 2.5 MG/3 ML VIAL NEB IH (10:34)
[2025-01-17] MEDS: PROMETHAZINE HCL 25 MG TABLET PO (10:42)
== END 2025-01-17 12:30 | disposition home or self-care (01) ==
PROVIDERS: PCP Family Medicine; Visit Provider Obstetrics & Gynecology
PROC: (CPT 840; principal; 2025-01-17 08:20)
DX: R10.2 Pelvic and perineal pain (principal); N93.9 Abnormal uterine and vaginal bleeding, unspecified; R10.31 Right lower quadrant pain; D69.6 Thrombocytopenia, unspecified; J45.909 Unspecified asthma, uncomplicated
CPT/HCPCS: 49320; 58558; 36415; 84702; 85025; 88305; 94640; J1100; J1885; J2250; J2371; J2405; J2704; J3010; Q0169